=== PATIENT | female | born 1960 | race African-American/Black ===

== ENCOUNTER 2020-07-03 07:40 | Outpatient (REF) | payer MEDICAID, SELFPAY ==
--- NOTE | 2020-07-03 07:44 | MM_ITS ---
EXAMINATION: MM SCREENING DIGITAL BREAST TOMOSYNTHESIS, BILATERAL CLINICAL INFORMATION: Screening. Asymptomatic. The lifetime risk of breast cancer based on the Tyrer-Cuzick Model is 4%. COMPARISON: Mammography: 06/28/2019, 05/13/2018, 09/02/2017, 04/16/2017 TECHNIQUE: Digital breast tomosynthesis is performed in both the craniocaudal and mediolateral oblique views along with computer-aided detection (CAD). Synthesized 2D images are generated from the tomosynthesis. FINDINGS: There are scattered areas of fibroglandular density (ACR BI-RADS breast composition Category b). There are no significant masses, abnormal calcifications, or other abnormalities. Parenchymal pattern is similar to prior studies. No developing density. No significant changes. MM/MM tomosynthesis screening BI IMPRESSION: No mammographic evidence of malignancy. ASSESSMENT: BI-RADS 1: Negative RECOMMENDATION: Routine annual mammography screening. This patient's information was entered into a reminder system with a target due date for their next mammogram.
== END 2020-07-03 07:41 | disposition home or self-care (01) ==
LOC: HO.MAMMO 07:40
PROVIDERS: PCP Family Medicine; Visit Provider Family Medicine
DX: Z12.31 Encounter for screening mammogram for malignant neoplasm of breast (principal)
CPT/HCPCS: 77063; 77067

== ENCOUNTER 2020-09-26 08:08 | Outpatient (REF) | payer MEDICAID, SELFPAY ==
--- NOTE | ~2020-09-26 | XR_ITS ---
EXAMINATION: XR RIBS, BILATERAL CLINICAL INFORMATION: Pleurodynia COMPARISON: Previous chest x-ray August 2018 TECHNIQUE: 3 views of the bilateral ribs and one view of the chest were obtained. FINDINGS: Lungs are clear. No consolidation, pneumothorax, or pleural effusion. The cardiomediastinal silhouette and pulmonary vasculature are normal. Ribs are intact. No fractures are identified. There are mild degenerative changes of the thoracic spine and curvature of lower thoracic and upper lumbar spine to the left. XR/XR ribs BI min 4V w CXR1V IMPRESSION: Unremarkable examination.
== END 2020-09-26 08:09 | disposition home or self-care (01) ==
LOC: HO.XRAY 08:08
PROVIDERS: PCP Family Medicine; Visit Provider Family Medicine
DX: R07.81 Pleurodynia (principal)
CPT/HCPCS: 71111

== ENCOUNTER 2021-07-30 08:35 | Outpatient (REF) | payer MEDICAID, SELFPAY ==
--- NOTE | ~2021-07-30 | MM_ITS ---
EXAMINATION: MM SCREENING DIGITAL BREAST TOMOSYNTHESIS, BILATERAL CLINICAL INFORMATION: Screening. Asymptomatic. The lifetime risk of breast cancer based on the Tyrer-Cuzick Model is 5%. COMPARISON: Mammography: 07/03/2020, 06/28/2019, 05/13/2018 TECHNIQUE: Digital breast tomosynthesis is performed in both the craniocaudal and mediolateral oblique views along with computer-aided detection (CAD). Synthesized 2D images are generated from the tomosynthesis. FINDINGS: There are scattered areas of fibroglandular density (ACR BI-RADS breast composition Category b). There are no significant masses, abnormal calcifications, or other abnormalities. Parenchymal pattern is similar to prior studies. No significant changes. MM/MM tomosynthesis screening BI IMPRESSION: No mammographic evidence of malignancy. ASSESSMENT: BI-RADS 1: Negative RECOMMENDATION: Routine annual mammography screening. This patient's information was entered into a reminder system with a target due date for their next mammogram.
== END 2021-07-30 08:36 | disposition home or self-care (01) ==
LOC: HO.MAMMO 08:35
PROVIDERS: PCP Family Medicine; Visit Provider Family Medicine
DX: Z12.31 Encounter for screening mammogram for malignant neoplasm of breast (principal)
CPT/HCPCS: 77063; 77067

== ENCOUNTER 2022-01-23 10:21 | Outpatient (REF) | payer MEDICAID, SELFPAY ==
[2022-01-23 11:00] LABS: COVID-19 Test Negative (Negative); IDNOW Serial# 08D9AD1C
== END 2022-01-23 10:22 | disposition home or self-care (01) ==
LOC: HO.LAB 10:21
PROVIDERS: Visit Provider Internal Medicine
DX: Z20.822 Contact with and (suspected) exposure to COVID-19 (principal)
CPT/HCPCS: 87635; C9803

== ENCOUNTER 2022-03-07 13:45 | Outpatient (REF) | payer MEDICAID, SELFPAY ==
[2022-03-07 14:24] LABS: COVID-19 Test Negative (Negative)
== END 2022-03-07 13:46 | disposition home or self-care (01) ==
LOC: HO.LAB 13:45
PROVIDERS: Visit Provider Internal Medicine
DX: Z20.822 Contact with and (suspected) exposure to COVID-19 (principal)
CPT/HCPCS: 87635; C9803

== ENCOUNTER 2023-01-01 15:40 | Outpatient (REF) | payer MEDICAID, SELFPAY ==
--- NOTE | ~2023-01-01 | MM_ITS ---
EXAMINATION: MM SCREENING DIGITAL BREAST TOMOSYNTHESIS, BILATERAL CLINICAL INFORMATION: Screening. Asymptomatic. The lifetime risk of breast cancer based on the Tyrer-Cuzick Model is 5.3%. COMPARISON: Mammography: This study is compared with prior exams dating back to 2018 TECHNIQUE: Digital breast tomosynthesis is performed in both the craniocaudal and mediolateral oblique views along with computer-aided detection (CAD). Synthesized 2D images are generated from the tomosynthesis. FINDINGS: There are scattered areas of fibroglandular density (ACR BI-RADS breast composition Category b). There are no significant masses, abnormal calcifications, or other abnormalities. MM/MM tomosynthesis screening BI IMPRESSION: No mammographic evidence of malignancy. ASSESSMENT: BI-RADS BI-RADS 1 - Negative RECOMMENDATION: Routine annual mammography screening. 1 year F/U This examination should not preclude the clinical evaluation of a suspicious palpable abnormality. This patient's information was entered into a reminder system with a target due date for their next mammogram.
== END 2023-01-01 15:41 | disposition home or self-care (01) ==
LOC: HO.MAMMO 15:40
PROVIDERS: PCP Family Medicine; Visit Provider Family Medicine
DX: Z12.31 Encounter for screening mammogram for malignant neoplasm of breast (principal)
CPT/HCPCS: 77063; 77067

== ENCOUNTER → 2023-01-01 15:45 | Outpatient (BNV) | payer MEDICAID, SELFPAY | PROVIDERS: PCP Family Medicine; Visit Provider Radiology Diagnostic Radiology | DX: Z12.31 Encounter for screening mammogram for malignant neoplasm of breast (principal) | CPT/HCPCS: 77063; 77067 ==

== ENCOUNTER 2023-02-20 13:57 | Outpatient (REF) | payer MEDICAID, SELFPAY ==
[2023-02-23 07:44] LABS: TS Negative Control Passed; TS Panel A 0; TS Panel B 0; TS Positive Control Passed; TSpotTB Negative (Negative)
== END 2023-02-20 13:58 | disposition home or self-care (01) ==
LOC: HO.HHCL 13:57
PROVIDERS: Visit Provider Family Medicine
DX: Z11.1 Encounter for screening for respiratory tuberculosis (principal)
CPT/HCPCS: 36415; 86481

== ENCOUNTER 2023-04-24 09:00 | Outpatient (REF) | payer MEDICAID, SELFPAY ==
[2023-04-24 11:17] LABS: MANUAL DIFF FLAG NO
[2023-04-24 11:22] LABS: Basophils Percent Auto 0.5 % (0-2); Eosinophils Absolute Auto 0.3 X10*3/uL (0.0-0.4); Eosinophils Percent Auto 5.3 % (0-4); Hematocrit 37.2 % (37.0-47.0); Hemoglobin 12.7 g/dl (12.0-16.0); Imm Gran Abs Auto 0.01 X10*3/uL (0.00-0.03); Imm Gran Pct Auto 0.2 % (0.0-0.4); Lymphocytes Absolute Auto 2.2 X10*3/uL (1.2-4.9); Lymphocytes Percent Auto 38.5 % (20-40); Mean Corpuscular HGB Conc 34.1 g/dl (31.0-35.0); Mean Corpuscular Volume 87.9 fL (80.0-98.0); Mean Platelet Volume 11.6 fL (9.4-12.3); Monocytes Absolute Auto 0.5 X10*3/uL (0.1-1.2); Monocytes Percent Auto 8.6 % (2-11); Neutrophils Absolute Auto 2.6 x10*3/uL (2.0-8.3); Neutrophils Percent Auto 46.9 % (45-73); Platelet Count 164 X10*3/uL (160-400); Red Blood Count 4.23 X10*6/uL (4.20-5.50); Red Cell Distribution Width 12.1 % (11.0-16.0); White Blood Count 5.6 X10*3/uL (4.8-10.8)
[2023-04-24 11:30] LABS: Estimated Average Glucose 103 mg/dL; Hemoglobin A1c % 5.2 % (<6.0)
[2023-04-24 11:40] LABS: Alanine Aminotransferase 9 U/L (0-31); Albumin Level 4.2 g/dL (3.5-5.0); Alkaline Phosphatase 62 U/L (39-117); Anion Gap 11 (12-20); Aspartate Amino Transferase 19 U/L (5-31); Bilirubin Direct 0.3 mg/dL (0.0-0.5); Bilirubin Total 0.9 mg/dL (0.0-1.0); Blood Urea Nitrogen 12 mg/dL (9-16); Calcium 10.1 mg/dL (8.4-10.2); Carbon Dioxide 31 mmol/L (22-29); Chloride 104 mmol/L (96-108); Cholesterol 141 mg/dL (<200); Estimated Glomerular Filt Rate > 60; Glucose Random 108 mg/dL (60-115); HDL Cholesterol 47 mg/dL (>40); LDL Cholesterol Calculated 83 mg/dL (<100); Potassium 3.7 mmol/L (3.3-5.1); Sodium 142 mmol/L (135-145); Total Protein 7.7 g/dL (6.5-8.0); Triglycerides 59 mg/dL (<150)
[2023-04-24 11:53] LABS: HIV AB/AG Nonreactive (Nonreactive); HIV Num 1 0.05 S/CO (0.00-0.99)
[2023-04-24 11:56] LABS: Syphilis Screen Nonreactive (Nonreactive)
[2023-04-24 12:06] LABS: Free T4 (Free Thyroxine) 1.08 ng/dL (0.71-1.85); Thyroid Stimulating Hormone 1.13 uIU/mL (0.32-4.0); Vitamin D 25-OH Total 53.6 ng/mL (>30)
[2023-04-24 12:30] LABS: Creatinine Urine 152.98 mg/dL; Microalbum/Creatinine Ratio Ur 4.5 ug/mg cr (<30)
[2023-04-24 16:49] LABS: CT PCR NOT DETECTED (Not Detect.); NG PCR NOT DETECTED (Not Detect.)
[2023-04-25 12:48] LABS: Alpha Fetoprotein 3.8 ng/mL
== END 2023-04-24 09:01 | disposition home or self-care (01) ==
LOC: HO.HHCL 09:00
PROVIDERS: Visit Provider Family Medicine
DX: Z11.4 Encounter for screening for human immunodeficiency virus [HIV] (principal); Z11.3 Encounter for screening for infections with a predominantly sexual mode of transmission; I10 Essential (primary) hypertension; Z86.19 Personal history of other infectious and parasitic diseases
CPT/HCPCS: 0353U; 80048; 80061; 80076; 82043; 82105; 82306; 82570; 83036; 84439; 84443; 85025; 86780; 87389; 87522

== ENCOUNTER 2023-06-28 01:23 | Emergency (ER) | payer MEDICAID, SELFPAY ==
[2023-06-28 01:39] VITALS: BP 117/79; PULSE 98; RESP 20; TEMP 37.4; O2SAT 94; BMI 27.1
--- NOTE | 2023-06-28 03:07 | ED.GENADULT ---
HPI - General Adult General Chief complaint: General Medical Stated complaint: Flu Like Time Seen by Provider: 06/28/23 03:02 Source: patient Mode of arrival: ambulatory Limitations: no limitations History of Present Illness HPI narrative: patient comes to the emergency room complaining of 2 days of headache, diffuse body aches, generalized malaise and fevers. Patient denies any chest pain or shortness of breath, no URI or UTI symptoms. Related Data Previous Rx's Medication Instructions Recorded acetaminophen 500 mg tablet 500 mg PO QID PRN fever or pain 06/28/23 #14 tabs ibuprofen 600 mg tablet 600 mg PO TID PRN fever or pain 06/28/23 #14 tabs oseltamivir 75 mg capsule (Tamiflu) 75 mg PO Q12H 5 days #10 caps 06/28/23 Allergies Allergy/AdvReac Type Severity Reaction Status Date / Time telaprevir Allergy Intermediate SWELLING Verified 06/28/23 01:42 Review of Systems Review of Systems: Constitutional : No Weight loss, Complaining of subjective fever, chills, fatigue and generalized malaise and diffuse body aches ENT/Mouth : No Hearing loss, No Ear Pain, No Nasal Congestion, No Sinus Pain, No Hoarseness, No sore throat, No Rhinorrhea, No Swallowing Difficulty Eyes: No Eye Pain, No Swelling, No Redness, No Foreign Body, No Discharge, No Vision Changes Cardiovascular : No Chest Pain, No SOB, No Dyspnea on Exertion, No Orthopnea, No Edema, No Palpitations Respiratory : No Cough, No Sputum, No Wheezing, No Smoke Exposure, No Dyspnea Gastrointestinal : No Nausea, No Vomiting, No Diarrhea, No Constipation, No abdominal Pain, No Hematochezia, No Melena Genitourinary : no irregular bleeding, No Dysuria, No Urinary Frequency, No Hematuria, No Urinary Incontinence, No Urgency, No Flank Pain, No Urinary Flow Changes, No Hesitancy Musculoskeletal : No joint pain, No Myalgias, No Joint Swelling Skin : No Skin Lesions, No rash Neuro : No Weakness, No Numbness, No Paresthesias, No Loss of Consciousness, No Dizziness, No Headache Psych : No Anxiety/Panic, No Depression, No SI/HI/AH/VH, No Social Issues, Heme/Lymph: No Bruising, No Bleeding,No Lymphadenopathy Endocrine : No Polyuria, No Polydipsia, No Temperature Intolerance PENDING SALE TO [facility] Social History Social History Advance Directives: No Advance Directives Information Provided: Yes Physical Exam ED Vital Signs: Vital Signs - 24 hr 06/28/23 01:39 Temperature 99.3 F Pulse Rate 98 Respiratory Rate 20 Blood Pressure 117/79 Pulse Oximetry 94 Oxygen Delivery Method Room Air BMI result Body Mass Index 27.1 Const Other: Appearance: Alert. Oriented X3. No acute distress. Eyes: Pupils equal, round and reactive to light. ENT: Pharynx normal. Neck: Normal inspection. Neck supple. No lymph nodes noted. No crepitus CVS: Normal heart rate and rhythm. Pulses normal. Normal S1 and S2 Respiratory: No respiratory distress. Breath sounds normal. No Wheezing. No rales Abdomen: Soft and nontender. No rigidity. No distention. Skin: Skin warm and dry. Normal skin color. Normal skin turgor. Extremities: No lower extremity edema. No Lacerations. No Rash Neuro: Oriented X 3. No motor deficit. No sensory deficit. Moving all extremities. No slurred speech. CN 2 through 12 grossly intact Psych: calm, cooperative, normal affect Medical Decision Making Medical Decision Making [facility] Narrative: - I discussed the labs with the patient, patient tested positive for influenza A. Patient has been symptomatic for 2 days, still within the window of treatment for Tamiflu. Discussed with the patient the options of treating symptomatically versus with Tamiflu, patient would like to start Tamiflu Differential Diagnosis Differential Diagnoses: The differential diagnosis associated with the presentation includes ( influenza, COVID, viral syndrome) Lab Data [facility] Lab Attestation statement: I reviewed the patient's lab results. Labs: Lab Results 06/28/23 Range/Units 01:37 Influenza Type A (PCR) POSITIVE A (Negative) Influenza Type B (PCR) NEGATIVE (Negative) RSV RNA Qual (PCR) NEGATIVE (Negative) SARS-CoV-2 RNA (RT-PCR) NEGATIVE (Negative) Discharge Plan Discharge Clinical Impression: Influenza A Patient Disposition: Still a Patient Instructions: Influenza (ED) Additional Instructions: Please follow-up with your primary care physician tomorrow. If you have any worsening or new symptoms, please return to the emergency room or call 911 Prescriptions: New oseltamivir [Tamiflu] 75 mg capsule 75 mg PO Q12H 5 Days Qty: 10 0RF ibuprofen 600 mg tablet 600 mg PO TID PRN (Reason: fever or pain) Qty: 14 0RF acetaminophen 500 mg tablet 500 mg PO QID PRN (Reason: fever or pain) Qty: 14 0RF
[2023-06-28 03:53] VITALS: BP 105/75; PULSE 95; RESP 20; TEMP 36.8; O2SAT 98
== END 2023-06-28 03:56 | disposition home or self-care (01) ==
PROVIDERS: Emergency Provider Emergency Medicine; PCP Family Medicine
DX: J10.1 Influenza due to other identified influenza virus with other respiratory manifestations (principal); Z11.52 Encounter for screening for COVID-19
CPT/HCPCS: 0241U; 99283; 99284

== ENCOUNTER 2023-07-25 14:33 | Outpatient (REF) | payer MEDICAID, SELFPAY ==
[2023-07-26 04:23] LABS: Syphilis Screen Nonreactive (Nonreactive)
[2023-07-26 04:41] LABS: HBS Num1 2.12 mIU/mL (0-7.99); HBc Num1 0.17 S/CO (0.00-0.79); HIV AB/AG Nonreactive (Nonreactive); HIV Num 1 0.06 S/CO (0.00-0.99); Hepatitis B Core Antibody Nonreactive (Nonreactive); ~HepC Num1 10.44 S/CO (0.00-0.79); ~Hepatitis B Surface Antibody NONREACTIVE (Nonreactive); ~Hepatitis C Antibody Reactive (Nonreactive)
[2023-07-26 05:31] LABS: Hepatitis A Antibody IgM 0.19 Index (0-0.79); ~Hepatitis A Antibody IgM Nonreactive (Nonreactive)
[2023-07-26 05:41] LABS: HBsAGNum2 Nonreactive; HBsAGNum3 Nonreactive; Hepatitis B Surface Antigen NEGATIVE (Negative)
[2023-07-26 05:58] LABS: CT PCR NOT DETECTED (Not Detect.); NG PCR NOT DETECTED (Not Detect.)
[2023-07-26 11:45] LABS: BV Int Neg Control Negative (Negative); BV Int Pos Control Positive (Positive)
== END 2023-07-25 14:34 | disposition home or self-care (01) ==
LOC: HO.HHCL 14:33
PROVIDERS: Visit Provider Emergency Medicine
DX: N89.8 Other specified noninflammatory disorders of vagina (principal); R39.9 Unspecified symptoms and signs involving the genitourinary system; Z20.2 Contact with and (suspected) exposure to infections with a predominantly sexual mode of transmission
CPT/HCPCS: 0353U; 36415; 86704; 86706; 86709; 86780; 86803; 87086; 87088; 87186; 87340; 87389; 87480; 87510; 87660

== ENCOUNTER 2023-08-17 07:41 | Emergency (ER) | payer MEDICAID, SELFPAY ==
[2023-08-17 07:51] VITALS: BP 142/79; PULSE 76; RESP 16; TEMP 36.5; O2SAT 98; BMI 25.6
--- NOTE | 2023-08-17 07:59 | PC.NURSE ---
patient a&ox3, vss, pt c/o 08/30 bladder area pain, urine obtained, pt feels her uti isnt gone yet, call marin within reach, will continue to monitor
[2023-08-17 08:04] LABS: Appearance Urine Cloudy; Color Urine Yellow; Glucose Urine UA Negative (Negative); Leukocyte Esterase Urine Large (3+) (Negative); Nitrite Urine Negative (Negative); PH 6.5 (5.0-9.0); Specific Gravity - Urine 1.015 (1.005-1.025); UMIC TRIGGER UACC YES; Urine Blood Large (3+) (Negative); Urine Ketones Negative (Negative); Urine Protein 100 (2+) mg/dL (Neg-Trace)
[2023-08-17 08:09] LABS: Bacteria Urine None Seen (None Seen); Hyaline Casts Urine 0-2 /LPF (0-2); RBC Urine >20 /HPF (0-2); Squamous Epithelial Cell Urine 0-2 /HPF (0-2); UACC Culture Trigger YES; WBC Urine >50 /HPF (0-5)
--- NOTE | 2023-08-17 08:22 | ED.FEMALEGU ---
HPI - Female Genitourinary General Chief complaint: Urogenital-Female Stated complaint: UTI Time Seen by Provider: 08/17/23 08:04 Source: patient Mode of arrival: ambulatory Limitations: no limitations History of Present Illness HPI Narrative: 62-year-old female previously healthy here with complaints of 2 weeks of suprapubic pressure, urinary urgency, frequency and dysuria. Patient denies any abdominal pain, back pain, fever or vomiting. Of note patient completed a course of antibiotics several weeks ago which did seem to initially help but then her symptoms returned. Related Data Previous Rx's Medication Instructions Recorded acetaminophen 500 mg tablet 500 mg PO QID PRN fever or pain 06/28/23 #14 tabs ibuprofen 600 mg tablet 600 mg PO TID PRN fever or pain 06/28/23 #14 tabs oseltamivir 75 mg capsule (Tamiflu) 75 mg PO Q12H 5 days #10 caps 06/28/23 nitrofurantoin 100 mg PO Q12H 7 days #14 caps 08/17/23 monohydrate/macrocrystals 100 mg capsule (Macrobid) phenazopyridine 200 mg tablet 200 mg PO TID PRN pain 6 doses #6 08/17/23 (Pyridium) tabs Allergies Allergy/AdvReac Type Severity Reaction Status Date / Time telaprevir Allergy Intermediate SWELLING Verified 08/17/23 07:51 Review of Systems Review of Systems: Yes all other systems are reviewed and are negative Constitutional: Constitutional: Reports no additional constitutional complaints, Denies body ache(s), Denies chills, Denies fever(s), Denies headache(s) and Denies weakness Eyes: Eyes: Reports no additional eye complaints and Denies change in vision ENT: Reports system reviewed and no additional complaints, except as documented, Denies dizziness, Denies headache(s), Denies nasal congestion, Denies nasal discharge and Denies neck pain Cardiovascular: Cardiovascular: Reports no additional cardiovascular complaints, Denies chest pain, Denies leg edema and Denies dyspnea Respiratory: Respiratory: Reports no additional respiratory complaints, Denies cough and Denies dyspnea Gastrointestinal: Gastrointestinal: Reports no additional gastrointestinal complaints, Denies abdominal pain, Denies diarrhea, Denies nausea and Denies vomiting Genitourinary: Genitourinary: Reports no additional female genitourinary complaints, Reports dysuria, Denies flank pain, Denies urinary incontinence, Reports urinary hesitancy, Reports urinary urgency and Denies vaginal discharge Musculoskeletal: Musculoskeletal: Reports no additional musculoskeletal complaints, Denies back pain, Denies arthralgias, Denies joint swelling, Denies neck pain, Denies numbness and Denies tingling Integumentary/Breasts: Skin/Breast: Reports system reviewed and no additional complaints, except as docu and Denies rash Neurologic: Reports system reviewed and no additional complaints, except as documented, Denies Abnormal speech present, Denies dizziness, Denies headache(s), Denies numbness, Denies tingling and Denies weakness [facility] Past Medical History Attestation statement: The following information was validated with the patient. Source: old records reviewed and nursing notes reviewed Medical History UTI (urinary tract infection) Social History Social History Smoked in Last 30 Days: No Use of substances other than those prescribed or required for medical reasons: No Advance Directives: No Advance Directives Information Provided: No Patient : No Physical Exam Vital Signs: Vital Signs: Last Vital Signs Temp 97.7 F 08/17/23 07:51 Pulse 76 08/17/23 07:51 Resp 16 08/17/23 07:51 BP 142/79 H 08/17/23 07:51 Pulse Ox 98 08/17/23 07:51 O2 Del Method Room Air 08/17/23 07:51 BMI result Body Mass Index 25.6 Const: General: cooperative, healthy appearing, comfortable and no acute distress Orientation/consciousness: patient oriented x3 Limitations: no limitations HEENT: Head: Yes normal to inspection Ears: hearing grossly normal bilaterally General nose exam: Normal external nose present Face and sinus: Yes normal facial exam Mouth: Normal oral and palatal mucosa present Throat: Yes posterior oropharynx normal Eyes: General: appearance normal, both eyes and all related structures Pupils: Equal, round and reactive pupils present Neck: Neck: Yes normal visual inspection Chest: Chest palpation & inspection: normal inspection of the chest Resp: Effort & Inspection: normal respiratory effort Auscultation: clear to auscultation bilaterally Cardio: Rate: regular rate Rhythm: regular rhythm Peripheral pulses: Peripheral pulses 2+ throughout GI: Inspection: Yes normal to inspection Palpation (GI): Soft to palpation and nontender Auscultation: normal bowel sounds : General: Yes no CVA tenderness Back/Spine/Pelvis: Back: no CVA tenderness Thoracic/Lumbar Spine: thoracic and lumbar spine normal to inspection Skin: General skin exam: no rashes or lesions noted Neuro: General: patient oriented x3, no focal motor deficits and normal sensation to monofilament Cranial nerves: Yes Equal, round and reactive pupils present Cognition (Neuro): normal cognition Speech: No Abnormal speech present Gait exam (Neuro): Normal gait present Motor exam (neuro): 5/5 motor strength present throughout Extrem: General: Yes normal to inspection Medical Decision Making Medical Decision Making [facility] Narrative: 62-year-old female previously healthy here with complaints of 2 weeks of suprapubic pressure, urinary urgency, frequency and dysuria. Patient denies any abdominal pain, back pain, fever or vomiting. Of note patient completed a course of antibiotics several weeks ago which did seem to initially help but then her symptoms returned. No CVA tenderness or focal abdominal pain. Patient is well-appearing, nontoxic, afebrile Will send UA and urine culture if needed Differential Diagnosis Differential Diagnoses: The differential diagnosis associated with the presentation includes UTI Low suspicion for pyelonephritis, renal colic Admission/Observation Consideration of admission/observation: Escalation of care including admission/observation considered UA consistent with UTI, patient is afebrile, nontoxic with low suspicion for pyelonephritis or renal colic requiring urgent imaging, urology consultation and admission Lab Data [facility] Lab Attestation statement: I reviewed the patient's lab results. Labs: Lab Results 08/17/23 Range/Units 07:58 Urine Color Yellow Urine Appearance Cloudy Urine pH 6.5 (5.0-9.0) Ur Specific Darragh 1.015 (1.005-1.025) Urine Protein 100 (2+) H (Neg-Trace) mg/dL Urine Glucose (UA) Negative (Negative) mg/dL Urine Ketones Negative (Negative) mg/dL Urine Blood Large (3+) H (Negative) Urine Nitrite Negative (Negative) Ur Leukocyte Esterase Large (3+) H (Negative) Urine RBC >20 H (0-2) /HPF Urine WBC >50 H (0-5) /HPF Ur Squamous Epith Cells 0-2 (0-2) /HPF Urine Bacteria None Seen (None Seen) Hyaline Casts 0-2 (0-2) /LPF External Record Review External record reviewed: Outside ED record Tests considered The following testing was considered but not selected: No abdominal pain or flank pain to suggest need for CT abdomen and pelvis Prescription Management I considered prescription management with: Antibiotic Discharge Plan Discharge Clinical Impression: Urinary tract infection Patient Disposition: Home, Self-Care Instructions: Urinary Tract Infection in Women (DC) Additional Instructions: Increase fluids, rest Take the antibiotics as prescribed See your primary care doctor for any continued symptoms Return for fever greater than 100.4, vomiting, back or abdominal pain Prescriptions: New nitrofurantoin monohyd/m-cryst [Macrobid] 100 mg capsule 100 mg PO Q12H 7 Days Qty: 14 0RF Rx Instructions: must administer with a meal/food phenazopyridine [Pyridium] 200 mg tablet 200 mg PO TID PRN (Reason: pain) Qty: 6 0RF No Action oseltamivir [Tamiflu] 75 mg capsule 75 mg PO Q12H 5 Days Qty: 10 0RF ibuprofen 600 mg tablet 600 mg PO TID PRN (Reason: fever or pain) Qty: 14 0RF acetaminophen 500 mg tablet 500 mg PO QID PRN (Reason: fever or pain) Qty: 14 0RF Referrals: Radha Escalera DO [Primary Care Provider] - 1 week
== END 2023-08-17 09:02 | disposition home or self-care (01) ==
PROVIDERS: Emergency Provider Emergency Medicine; PCP Family Medicine
DX: N39.0 Urinary tract infection, site not specified (principal); R39.15 Urgency of urination; R35.0 Frequency of micturition; Z79.899 Other long term (current) drug therapy
CPT/HCPCS: 81001; 87086; 87088; 87186; 99283; 99284

== ENCOUNTER 2023-09-04 17:50 | Outpatient (REF) | payer MEDICAID, SELFPAY ==
[2023-09-04 18:38] LABS: Appearance Urine Turbid; Color Urine Yellow; Glucose Urine UA Negative (Negative); Leukocyte Esterase Urine Large (3+) (Negative); Nitrite Urine Negative (Negative); PH 6.5 (5.0-9.0); UMIC TRIGGER UACC YES; Urine Blood Moderate (2+) (Negative); Urine Ketones Negative (Negative); Urine Protein 100 (2+) mg/dL (Neg-Trace)
[2023-09-04 18:45] LABS: Bacteria Urine 4+ (None Seen); Hyaline Casts Urine 0-2 /LPF (0-2); RBC Urine >20 /HPF (0-2); Squamous Epithelial Cell Urine 0-2 /HPF (0-2); UACC Culture Trigger YES; WBC Urine >50 /HPF (0-5)
== END 2023-09-04 17:51 | disposition home or self-care (01) ==
LOC: HO.HHCLNP 17:50
PROVIDERS: Visit Provider Student in an Organized Health Care Education/Training Program
DX: R30.0 Dysuria (principal)
CPT/HCPCS: 81001; 87086; 87088; 87186

== ENCOUNTER 2023-11-25 15:59 | Outpatient (REF) | payer MEDICAID, SELFPAY ==
[2023-12-06 10:54] LABS: C. trachomatis RNA TMA NOT DETECTED (NOT DETECTED); N. gonorrhoeae RNA TMA NOT DETECTED (NOT DETECTED)
[2023-12-06 12:28] LABS: Trichomonas (NAAT) NOT DETECTED (NOT DETECTED)
[2023-12-11 18:14] LABS: HPV 16 RNA NOT DETECTED (NOT DETECTED); HPV mRNA E6/E7 rflx Detected (Not Detected)
== END 2023-11-25 16:00 | disposition home or self-care (01) ==
LOC: HO.HHCLNP 15:59
PROVIDERS: Visit Provider Advanced Practice Midwife
DX: R87.610 Atypical squamous cells of undetermined significance on cytologic smear of cervix (ASC-US) (principal); R87.810 Cervical high risk human papillomavirus (HPV) DNA test positive; Z11.3 Encounter for screening for infections with a predominantly sexual mode of transmission
CPT/HCPCS: 87491; 87591; 87624; 87625; 87661; 88142

== ENCOUNTER 2023-12-01 10:24 | Outpatient (REF) | payer MEDICAID, SELFPAY ==
[2023-12-01 12:25] LABS: HIV AB/AG Nonreactive (Nonreactive); HIV Num 1 0.06 S/CO (0.00-0.99); Syphilis Screen Nonreactive (Nonreactive)
== END 2023-12-01 10:25 | disposition home or self-care (01) ==
LOC: HO.HHCL 10:24
PROVIDERS: Visit Provider Advanced Practice Midwife
DX: Z11.3 Encounter for screening for infections with a predominantly sexual mode of transmission (principal)
CPT/HCPCS: 36415; 86780; 87389

== ENCOUNTER 2023-12-08 20:36 | Emergency (ER) | payer OTHER, MEDICAID, SELFPAY ==
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
[2023-12-08 21:29] VITALS: BP 148/100; PULSE 63; RESP 18; TEMP 36.2; O2SAT 99; BMI 26.6
[2023-12-08 23:38] VITALS: BP 147/80; PULSE 62; RESP 16; TEMP 36.5; O2SAT 99
--- OUTSIDE RECORDS SUMMARY | 2023-12-08 23:56 | XMS_ITS | Continuity of Care Document ---
Author Organization [facility] Address [address] [place] [id number]- Care Team Providers Care Managing Consultant Clinical Professor Name Role Phone CristianoRadha waddell DO Nicolas Primary Care Physician [phone] [place] [facility] [place] 05/08/22 - 06/07/22 [facility] [address] [place] [address]- Allergies, Adverse Reactions, Alerts Substance Reaction Severity Status clarithromycin unknown reaction Active Medications aspirin 81 mg oral tablet 1 tablet = 81 mg, By Mouth, Daily, 0 Refills, Maintenance, 10/08/18 15:35:41 EDT Start Date: 10/08/18 Status: Ordered Ativan 0.5 mg oral tablet See Instructions, TAKE 1 TABLET AT BEDTIME AND 1 TABLET 1 HOUR PRIOR TO PROCEDURE, # 2 tablet, 0 Refills, Maintenance, 04/17/21 11:30:00 EDT, Partial fill upon patient request if the prescription is for a schedule II opioid drug. Start Date: 04/17/21 Status: Ordered Compression Stockings See Instructions, # 2 pair, Refills 2, Tot. Refills 2, Maintenance, surgical, calf length 20-30 mm Hg dx: venous insufficiency, 03/29/19 15:06:44 EDT, Compound Start Date: 03/29/19 Status: Ordered Flonase Daily, 0 Refills, Maintenance, 10/08/18 15:36:02 EDT Start Date: 10/08/18 Status: Ordered hydrochlorothiazide 25 mg oral tablet 25 mg, 1, tablet, By Mouth, Daily in AM, # 30 tablet, Refills 0, Maintenance, 02/15/19 8:35:49 EDT Start Date: 02/15/19 Status: Ordered lidocaine-prilocaine 2.5%-2.5% topical cream See Instructions, APPLY TO AFFECTED LEG FROM THIGH TO ANKLE 1 HOUR PRIOR TO PROCEDURE AND COVER WITH PLASTIC WRAP, # 30 Gm, 0 Refills, Maintenance, 04/17/21 11:30:00 EDT, Partial fill upon patient request if the prescription is for a schedule II opioi... Start Date: 04/17/21 Status: Ordered nadolol 20 mg oral tablet 20 mg, 1, tablet, By Mouth, Daily, # 90 tablet, Refills 3, Tot. Refills 3, Maintenance, 02/29/20 17:30:00 EDT, Route to Pharmacy Electronically, [facility]/pharmacy #[id number], 163, cm, 02/29/20 15:14:00 EDT, Height, 75.91, kg, 02/15/19 8:30:00 EDT, Dry Weight Start Date: 02/29/20 Status: Ordered Prilosec OTC = 20 mg, By Mouth, Daily, 0 Refills, Maintenance, 10/08/18 15:36:25 EDT Start Date: 10/08/18 Status: Ordered ProAir HFA 90 mcg/inh inhalation aerosol with adapter 2, puffs, Inhalation, 4 times a day, PRN, Refills 0, Maintenance, 10/08/18 15:36:58 EDT Start Date: 10/08/18 Status: Ordered traMADol 50 mg oral tablet TAKE 1 TABLET BY MOUTH EVERY 12 HOURS NEEDED Start Date: 03/29/19 Status: Ordered Vitamin D3 By Mouth, 0 Refills, Maintenance, 10/08/18 15:35:51 EDT Start Date: 10/08/18 Status: Ordered Problem List Condition Confirmation Course Effective Dates Status H ealth Status Informant Pap smear negative/human papillomavirus (HPV) positive 1 Confirmed 2019 Active 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 plan for repeat pap with co- testing Jan 2021 colpo ileana 2 at 12:00; neg cx bx at 6 and ecc no dysplasia. referred for tx options visit. 3ECC=inadequate. Rebook for repeat sampling. 4colpo, ECC 5referred from [facility], Radha Escalera DO Social History Social History Type Response Smoking Status Never (less than 100 in lifetime) entered on: 11/19/18 Sex Patient Care team information Care Team Personnel Name: Radha Escalera DO Position: [facility] Outreach Member Role: PCP Address: Address: [address] [place] [phone]- Name: Rahel Cerrato Position: [facility] Outreach Member Role: Lifetime Consulting Physician Care Team Related Persons Name: GARFIELD ABDULLAHI Address: home [address] [place] [address] Name: YASMIN HAUSER Address: home [address] [place] [address] Name: MICHEAL HAUSER Address: home [address] [address]
--- OUTSIDE RECORDS SUMMARY | 2023-12-08 23:56 | XMS_ITS | Continuity of Care Document ---
Author Organization [facility] Address [address] [place] [id number]- Care Team Providers Care General Intern Name Role Phone Radha Escalera DO Primary Care Physician [phone] Encounter [facility] Date(s): 08/31/21 - 09/30/21 [facility] [address] [place] [id number] Attending Physician: Krystyna Junior Admitting Physician: Krystyna Junior Referring Physician: AdmtrKrystyna Allergies, Adverse Reactions, Alerts Substance Reaction Severity [...] EDT, Compound Start Date: 03/29/19 Status: Ordered Eliquis 5 mg oral tablet 1 tablet, By Mouth, 2 times a day, # 60 tablet, 5 Refills, [id number], 165, cm, 03/16/21 13:57:00 EDT, Height, 74.6, kg, 02/14/21 8:25:00 EDT, Dry Weight Start Date: 05/09/21 Status: Ordered Flonase Daily, 0 Refills, Maintenance, [...] 02/29/20 17:30:00 EDT, Route to Pharmacy Electronically, [facility]/pharmacy #[id number], 163, cm, 02/29/20 15:14:00 EDT, Height, [...] Date: 10/08/18 Status: Ordered Problem List Condition Effective Dates Status Health Status Inform ant Pap smear negative/human papillomavirus (HPV) positive(Confirmed) 2019 Active Arthritis of hand(Confirmed) Active ASCUS with positive high ris k HPV cervical(Confirmed) 2, 3, 4, 5 08/27/18 Active Chronic hepatitis C(Confirmed) Active Cirrhosis of liver not due t o alcohol(Confirmed) Active Drug-induced skin rash(Confirmed) Active Esophageal varices(Confirmed) Active HTN (hypertension)(Confirmed) Active PHT (portal hypertension)(Confirmed) Active 1colpo performed 03/09/20, neg findings, no bx done. plan for repeat pap with co- testing Jan 2021 colpo ileana 2 at 12:00; neg cx bx at 6 and ecc no dysplasia. referred for tx options visit. 3ECC=inadequate. Rebook for repeat sampling. 4colpo, ECC 5referred from [facility], Radha Escalera DO Social History Social History Type Response Smoking Status Never (less than 100 in lifetime) entered on: 11/19/18 Sex
--- OUTSIDE RECORDS SUMMARY | 2023-12-08 23:56 | XMS_ITS | Continuity of Care Document ---
Author Organization [facility] Address [address] [place] [address]- Care Team Providers Care Turf Farmer Name Role Phone Radha Escalera DO Primary Care Physician [place] [facility] [id number] Date(s): 04/26/22 - 05/03/22 [facility] [address] [place], [place] [address] [place] Attending Physician: Twila Martin NP Admitting Physician: Twila Martin NP Referring Physician: Radha Escalera DO Allergies, Adverse Reactions, Alerts Substance Reaction Severity [...] 02/29/20 17:30:00 EDT, Route to Pharmacy Electronically, [facility]/pharmacy #[id number], 163, cm, 02/29/20 15:14:00 EDT, Height, [...] for repeat sampling. 4colpo, ECC 5referred from [facility], Radha Escalera DO Vital Signs Most recent to oldest [Reference Range]: 1 Height 165 cm (04/26/22 7:49 AM) Weight 71.67 kg (04/26/22 7:49 AM) Oxygen Saturation [94-100 %] 99 % (04/26/22 7:49 AM) Pulse Rate [55-90 bpm] 67 bpm (04/26/22 7:49 AM) Body Mass Index [18.5-24.99 kg/m2] 26.33 kg/m2 *H* (04/26/22 7:49 AM) Blood Pressure [90-138/55-84 mm Hg] 128/ 68mm Hg (04/26/22 7:49 AM) Mode of Delivery (Oxygen) Room air (04/26/22 7:49 AM) Blood pressure sites Arm, left (04/26/22 7:49 AM) Weight Obtained Via Patient/family state d (04/26/22 7:49 AM) Social History Social History Type Response Smoking Status Never (less than 100 in lifetime) entered on: 11/19/18 Sex Note * Francisco Ramos: PERFORM, SIGN, VERIFY Event Display: Patient Education/Instruction Authored Date: [id number] [facility] *BVS [address] Clinical Summary Name ALIS LEMA Age 61 Years 1960 PCP Radha Escalera DO PCP Visit Date 04/26/2022 07:45:00 Additional Instructions: Scheduled Appointments?? Future Appointments ?No Future Appointments Scheduled Follow-Up Instructions ?? Diagnosis Medications: Please continue your medications until treatment is completed or stopped by your provider. Discuss any questions related to medications with your provider. Medications to Continue with No Changes These medications were not printed or sent to your pharmacy Albuterol (ProAir HFA 90 mcg/inh inhalation aerosol with adapter) 2 puff(s) Inhalation 4 times a day as needed Wheezing/Shortness of Breath. Next Dose: Aspirin (aspirin 81 mg oral tablet) 1 tab(s) Oral Daily. Next Dose: Cholecalciferol (Vitamin D3) Oral. Next Dose: Durable Medical Equipment (Compression Stockings) surgical, calf length 20-30 mm Hg dx: venous insufficiency. Refills: 2. Next Dose: Fluticasone Nasal (Flonase) Daily. Next Dose: Hydrochlorothiazide (hydrochlorothiazide 25 mg oral tablet) 1 tab(s) Oral Daily in the morning. Next Dose: Lidocaine/Prilocaine Topical (lidocaine-prilocaine 2.5%-2.5% topical cream) APPLY TO AFFECTED LEG FROM THIGH TO ANKLE 1 HOUR PRIOR TO PROCEDURE AND COVER WITH PLASTIC WRAP. Refills: 0. Next Dose: Lorazepam (Ativan 0.5 mg oral tablet) TAKE 1 TABLET AT BEDTIME AND 1 TABLET 1 HOUR PRIOR TO PROCEDURE. Refills: 0. Next Dose: Nadolol (nadolol 20 mg oral tablet) 1 tab(s) Oral Daily. Refills: 3. Next Dose: Omeprazole (Prilosec OTC) 20 Milligram Oral Daily. Next Dose: Tramadol (traMADol 50 mg oral tablet) TAKE 1 TABLET BY MOUTH EVERY 12 HOURS NEEDED. Next Dose: Allergy Info:?? clarithromycin Medications Given This Visit Future Orders ?No future orders Vital Signs Height 165 cm Weight 71.67 kg BMI 26.33 kg/m2 Blood Pressure 128 mm Hg/68 mm Hg Temperature Pulse Rate 67 bpm Respiratory Rate 02 Sat Mode of Delivery 99 %/Room air You can now view a summary of your hospital visit from the comfort of your home through a free online portal called [email or web address]. [email or web address] is a website that allows you to securely view your medical information including discharge summary, medications and follow-up visits. ??You can alsosend a secure electronic message to your doctor???s office to request appointments, renew medications or just ask a question. You can enroll at [email or web address] or register during your next office visit. Disclaimer:?? The information provided is of a general nature and is intended to be used in conjunction with the recommendations and advice of your health care practitioner. ??Every effort has been made to ensure that the information provided is accurate and complete at the time it is provided to you however, as your needs change, or, as new ??information becomes available, different or additional instructions may be required. If you have questions, please consult with your primary care provider or pharmacist, as appropriate. ??This information is not intended to serve as substitution for assessment and evaluation by a qualified health care provider. If you do not have a primary care provider, you may find a [facility] provider by calling [facility] at [phone]. For information about the plan of care including goals and instructions for your diagnosis, please see the patient education orders section of this document. Patient Education Materials?? The content of this educational material or handout may have been modified, supplemented, or adapted from its original content and format to support your individualized medical care. Patient Care team information Care Team Personnel Name: Radha Escalera DO Position: [facility] Outreach Member Role: PCP Address: Address: [address] [place] [id number] Name: Rahel Cerrato Position: [facility] Outreach Member Role: Lifetime Consulting Physician Care Team Related Persons Name: GARFIELD ABDULLAHI Address: home [address] [place] [address] Name: YASMIN HAUSER Address: home [address] [place] [address] Name: MICHEAL HAUSER Address: home [address] [address]
--- OUTSIDE RECORDS SUMMARY | 2023-12-08 23:56 | XMS_ITS | Continuity of Care Document ---
Author Organization [facility] Address [address] [place] [address]- Care Team Providers Care Digital Media Strategist Name Role Phone Radha Escalera DO Primary Care Physician Encounter [facility] [place] R [id number] Date(s): 07/30/19 - 08/09/19 [facility] [address] [place] [address]- [facility] Attending Physician: Krystyna Junior Admitting Physician: AdmtrKrystyna Referring Physician: AdmtrKrystyna Allergies, Adverse Reactions, Alerts Substance Reaction Severity Status clarithromycin unknown reaction Active Medications aspirin 81 mg oral tablet 1 tablet = 81 mg, By Mouth, Daily, 0 Refills, Maintenance, 10/08/18 15:35:41 EDT Start Date: 10/08/18 Status: Ordered Compression Stockings See Instructions, # [...] 8:35:49 EDT Start Date: 02/15/19 Status: Ordered nadolol 20 mg oral tablet 20 mg, 1, tablet, By Mouth, Daily, # 90 tablet, Refills 3, Tot. 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 referred for tx options visit. 2ECC=inadequate. Rebook for repeat sampling. 3colpo, ECC 4referred from [facility], Radha Escalera DO Social History Social History Type Response Smoking Status Never (less than 100 in lifetime) entered on: 11/19/18 Sex
--- OUTSIDE RECORDS SUMMARY | 2023-12-08 23:56 | XMS_ITS | Continuity of Care Document ---
Author Organization [facility] Address [address] [place] [address]- Care Team Providers Care Manager Wastewater Name Role Phone Radha Escalera DO Nicolas Primary Care Physician [phone] Encounter [facility] [place] Date(s): 09/03/23 - 10/03/23 [facility] [address] [place] [address]- [place] Allergies, Adverse Reactions, Alerts Substance Reaction Severity [...] 17:30:00 EDT, Route to Pharmacy Electronically, [facility]/pharmacy #[id number], 163, cm, 02/29/20 15:14:00 EDT, Height, [...] for repeat sampling. 4colpo, ECC 5referred from [facility], Radha Escalera DO Social History Social History Type Response Smoking Status Former smoker, quit more than 30 days ago entered on: 03/24/23 Sex Patient Care team information Care Team Personnel Name: Radha Escalera DO Position: [facility] Outreach Member Role: PCP Address: Address: [address] [place] [address]- Name: Rahel Cerrato Position: [facility] Outreach Member Role: Lifetime Consulting Physician Care Team Related Persons Name: GARFIELD ABDULLAHI Address: home [address] [place] [address] Name: YASMIN HAUSER Address: home [address] [place] [address] Name: MICHEAL HAUSER Address: home [address] [address]
--- OUTSIDE RECORDS SUMMARY | 2023-12-08 23:56 | XMS_ITS | Continuity of Care Document ---
Author Organization [facility] Address [address] [place] [address]- Care Team Providers Care Data Entry Operator Name Role Phone Radha Escalera DO Primary Care Physician [place] [facility] [place] 07/[place]19 - 08/06/19 [facility] [address] [place] [address]- [facility] Attending Physician: Marlo Chairez MD Admitting Physician: Marlo Chairez MD Referring Physician: Radha Escalera DO Allergies, Adverse [...] 11/28/17 12:26:15 EDT, Route to Pharmacy Electronically, [id number], [id number] Start Date: 11/28/17 Status: Ordered [...] for repeat sampling. 3colpo, ECC 4referred from [facility], Radha Escalera DO Vital Signs Most recent to oldest [Reference Range]: 1 Height 163 cm (07/30/19 11:32 AM) Weight 75.5 kg (07/30/19 11:32 AM) Body Mass Index [18.5-24.99] 28.42 *H* (07/30/19 11:32 AM) Blood Pressure [90-138/55-84 mm Hg] 142/ 80mm Hg *H* (07/30/19 11:32 AM) Blood pressure sites Arm, left (07/30/19 11:32 AM) Weight Obtained Via Patient/family state d (07/30/19 11:32 AM) Social History Social History Type Response Smoking Status Never (less than 100 in lifetime) entered on: 11/19/18 Sex
--- OUTSIDE RECORDS SUMMARY | 2023-12-08 23:56 | XMS_ITS | Continuity of Care Document ---
Author Organization [facility] Address [address] [place] [address]- Care Team Providers Care Social Services Manager Name Role Phone Radha Escalera DO Primary Care Physician [place] [facility] [place] Date(s): 11/07/21 - 12/07/21 [facility] [address] [place] [address]- [place] Allergies, Adverse Reactions, Alerts Substance Reaction [...] a day, # 60 tablet, 5 Refills, [facility], 165, cm, 03/16/21 13:57:00 EDT, Height, 74.6, [...] 02/29/20 17:30:00 EDT, Route to Pharmacy Electronically, [facility]/pharmacy #[id number], 163, cm, 02/29/20 15:14:00 EDT, Height, [...] for repeat sampling. 4colpo, ECC 5referred from [facility], Radha Escalera DO Social History Social History Type Response Smoking Status Never (less than 100 in lifetime) entered on: 11/19/18 Sex
--- OUTSIDE RECORDS SUMMARY | 2023-12-08 23:57 | XMS_ITS | Continuity of Care Document ---
Author Organization [facility] Address [address] [place] [address]- Care Team Providers Care Wagon Drill Operator Name Role Phone aRdha Escalera DO Primary Care Physician [place] [facility] Date(s): 03/25/23 - 04/24/23 [facility] [address] [place] [address]- [place] Allergies, Adverse Reactions, Alerts Substance Reaction [...] 02/29/20 17:30:00 EDT, Route to Pharmacy Electronically, [facility]/pharmacy #[id number], 163, cm, 02/29/20 15:14:00 EDT, Height, [...] for repeat sampling. 4colpo, [facility] Social History Social History Type Response Smoking Status Former smoker, quit more than 30 days ago entered on: 03/24/23 Sex Patient Care team information Care Team Personnel Name: Radha Escalera DO Position: [facility] Outreach Member Role: PCP Address: Address: [address] [place] [address]- Name: Rahel Cerrato Position: [facility] Outreach Member Role: Lifetime Consulting Physician Care Team Related Persons Name: GARFIELD ABDULLAHI Address: home [address] [place] [address] Name: YASMIN HAUSER Address: home [address] [place] [address] Name: MICHEAL HAUSER Address: home [address] [address]
--- OUTSIDE RECORDS SUMMARY | 2023-12-08 23:57 | XMS_ITS | Continuity of Care Document ---
Author Organization [facility] Address [address] [place] [address]- Care Team Providers Care Wax Pot Tender Name Role Phone Radha Escalera DO Primary Care Physician [place] [facility] [place](s): 03/25/23 - 04/24/23 [facility] [address] [place] [address]- [place] Allergies, Adverse Reactions, Alerts Substance Reaction [...] 02/29/20 17:30:00 EDT, Route to Pharmacy Electronically, [facility]/pharmacy #[id number], 163, cm, 02/29/20 15:14:00 EDT, [...] for repeat sampling. 4colpo, [facility] Social History Social History Type Response Smoking Status Former smoker, quit more than 30 days ago entered on: 03/24/23 Sex Patient Care team information Care Team Personnel Name: Radha Escalera DO Position: [facility] Outreach Member Role: PCP Address: Address: [address] [place] [address]- Name: Rahel Cerrato Position: [facility] Outreach Member Role: Lifetime Consulting Physician Care Team Related Persons Name: GARFIELD ABDULLAHI Address: home [address] [place] [address] Name: YASMIN HAUSER Address: home [address] [place] [address] Name: MICHEAL HAUSER Address: home [address] [address]
--- OUTSIDE RECORDS SUMMARY | 2023-12-08 23:57 | XMS_ITS | Continuity of Care Document ---
Author Organization [facility] Address [address] [place] [address]- Care Team Providers Care Computer Aided Design Operator Name Role Phone Cristianobairon CORNELL Radha Valenzuela Primary Care Physician [phone] [place] [facility] [place] 10/16/23 - 11/15/23 [facility] [address] [place] [address] [place] Allergies, Adverse Reactions, Alerts Substance Reaction [...] 02/29/20 17:30:00 EDT, Route to Pharmacy Electronically, [facility]/pharmacy #[id number], 163, cm, 02/29/20 15:14:00 [...] smear negative/human papillomavirus (HPV) positive 1 Confirmed 2020 Active Arthritis of hand Confirmed Active ASCUS [...] for repeat sampling. 4colpo, ECC 5referred from [facility], Radha Escalera DO Social History Social History Type Response Smoking Status Former smoker, quit more than 30 days ago entered on: 03/24/23 Sex Patient Care team information Care Team Personnel Name: Radha Escalera DO Position: [facility] Outreach Member Role: PCP Address: Address: [address] [place] [address]- Name: Rahel Cerrato Position: [facility] Outreach Member Role: Lifetime Consulting Physician Care Team Related Persons Name: GARFIELD ABDULLAHI Address: home [address] [place] [address] Name: YASMIN HAUSER Address: home [address] [place] [address] Name: MICHEAL HAUSER Address: home [address] [address]
--- OUTSIDE RECORDS SUMMARY | 2023-12-08 23:57 | XMS_ITS | Continuity of Care Document ---
Author Organization [facility] Address [address] [place] [address]- Care Team Providers Care Lockstitch Hemmer Name Role Phone Radha Escalera DO Primary Care Physician [place] [facility] Date(s): 03/16/21 - 03/23/21 [facility] [address] [place] [address]- Attending Physician: Marlo Chairez MD Admitting Physician: [...] Ordered Eliquis 5 mg oral tablet 1 tablet = 5 mg, By Mouth, 2 times a day, # 60 tablet, 0 Refills, Maintenance, 02/23/21 14:20:00 EDT, [facility]t, [id number], Partial fill upon patient request if the prescription is for a schedule II opioid drug., 165, cm, 02/19/21 9:48:00 EDT, H... Start Date: 02/23/21 Stop Date: 03/25/21 Status: Ordered Flonase Daily, 0 Refills, Maintenance, [...] 02/29/20 17:30:00 EDT, Route to Pharmacy Electronically, [facility]/pharmacy #[id number], 163, cm, 02/29/20 15:14:00 [...] for repeat sampling. 4colpo, ECC 5referred from [facility], Radha Escalera DO Vital Signs Most recent to oldest [Reference Range]: 1 Height 165 cm (03/16/21 1:57 PM) Weight 74.84 kg (03/16/21 1:57 PM) Oxygen Saturation [94-100 %] 97 % (03/16/21 1:57 PM) Pulse Rate [55-90 bpm] 66 bpm (03/16/21 1:57 PM) Body Mass Index [18.5-24.99] 27.49 *H* (03/16/21 1:57 PM) Blood Pressure [90-138/55-84 mm Hg] 138/ 80mm Hg (03/16/21 1:57 PM) Mode of Delivery (Oxygen) Room air (03/16/21 1:57 PM) Blood pressure sites Arm, left (03/16/21 1:57 PM) Weight Obtained Via Patient/family state d (03/16/21 1:57 PM) Social History Social History Type Response Smoking Status Never (less than 100 in lifetime) entered on: 11/19/18 Sex
--- OUTSIDE RECORDS SUMMARY | 2023-12-08 23:57 | XMS_ITS | Continuity of Care Document ---
Author Organization [facility] Address [address] [place] [address]- Care Team Providers Care Delivery Tech Name Role Phone Radha Escalera DO Primary Care Physician Encounter [facility] [place] Date(s): 01/10/21 - 01/17/21 [facility] [address] [place] [address]- Attending Physician: Marlo Chairez MD Admitting Physician: [...] 02/29/20 17:30:00 EDT, Route to Pharmacy Electronically, [facility]/pharmacy #[id number], 163, cm, 02/29/20 15:14:00 EDT, [...] for repeat sampling. 4colpo, ECC 5referred from [facility], Radha Escalera DO Vital Signs Most recent to oldest [Reference Range]: 1 Height 165.1 cm (01/10/21 10:47 AM) Weight 75.75 kg (01/10/21 10:47 AM) Oxygen Saturation [94-100 %] 95 % (01/10/21 10:47 AM) Pulse Rate [55-90 bpm] 61 bpm (01/10/21 10:47 AM) Body Mass Index [18.5-24.99] 27.79 *H* (01/10/21 10:47 AM) Blood Pressure [90-138/55-84 mm Hg] 118/ 72mm Hg (01/10/21 10:47 AM) Blood pressure sites Arm, right (01/10/21 10:47 AM) Weight Obtained Via Patient/family state d (01/10/21 10:47 AM) Social History Social History Type Response Smoking Status Never (less than 100 in lifetime) entered on: 11/19/18 Sex
--- OUTSIDE RECORDS SUMMARY | 2023-12-08 23:57 | XMS_ITS | Continuity of Care Document ---
Author Organization [facility] Address [address] [place] [address]- Care Team Providers Care Process Mold Technician Name Role Phone Radha Escalera DO Primary Care Physician Encounter [facility] [place] [place] Date(s): 04/04/21 - 08/01/21 [facility] [address] [place] [address]- Attending Physician: Francisco Avila MD Admitting Physician: Francisco Avila MD Referring Physician: Radha Escalera DO Allergies, [...] a day, # 60 tablet, 5 Refills, [facility], 165, cm, 03/16/21 13:57:00 EDT, Height, 74.6, [...] EDT, Route to Pharmacy Electronically, [facility]/pharmacy #[id number], 163, cm, 02/29/20 15:14:00 EDT, [...] for repeat sampling. 4colpo, ECC 5referred from [facility], Radha Escalera DO Social History Social History Type Response Smoking Status Never (less than 100 in lifetime) entered on: 11/19/18 Sex
--- OUTSIDE RECORDS SUMMARY | 2023-12-08 23:57 | XMS_ITS | Continuity of Care Document ---
Author Organization [facility] Address [address] [place] [address]- Care Team Providers Care Construction Project Coordinator Name Role Phone Radha Escalera DO Primary Care Physician [facility] [place] Date(s): 08/05/22 - 09/04/22 [facility] [address] [place] [address]- Attending Physician: Krystyna Junior Admitting Physician: Krystyna Junior Referring Physician: trKrystyna Allergies, Adverse Reactions, Alerts Substance Reaction Severity [...] 02/29/20 17:30:00 EDT, Route to Pharmacy Electronically, [facility]/pharmacy #[id number], 163, cm, 02/29/20 15:14:00 EDT, [...] for repeat sampling. 4colpo, ECC 5referred from [facility], Radha Escalera DO Social History Social History Type Response Smoking Status Never (less than 100 in lifetime) entered on: 11/19/18 Sex Patient Care team information Care Team Personnel Name: Radha Escalera DO Position: [facility] Outreach Member Role: PCP Address: Address: [address] [place] [address]- Name: Raehl Cerrato Position: [facility] Outreach Member Role: Lifetime Consulting Physician Care Team Related Persons Name: GARFIELD ABDULLAHI Address: home [address] [place] [address] Name: YASMIN HAUSER Address: home [address] [place] [address] Name: MICHEAL HAUSER Address: home [address] [address]
--- OUTSIDE RECORDS SUMMARY | 2023-12-08 23:57 | XMS_ITS | Continuity of Care Document ---
Author Organization [facility] Address [address] [place] [address]- Care Team Providers Care Storage Garage Manager Name Role Phone Cristianobairon Radha CORNELL Primary Care Physician [phone] [place] [facility] [place] [id number] Date(s): 10/24/20 - 11/23/[address] [address]- Attending Physician: Admbertrand, Krystyna Admitting Physician: AdmtrKrystyna Referring Physician: Admtr, Ar8 Allergies, Adverse Reactions, Alerts Substance Reaction Severity [...] 02/29/20 17:30:00 EDT, Route to Pharmacy Electronically, [facility]/pharmacy #[id number], 163, cm, 09/08/20 15:14:00 EDT, Height, 75.91, kg, 02/15/19 8:30:00 [...] for repeat sampling. 4colpo, ECC 5referred from [facility], Radha Escalera DO Social History Social History Type Response Smoking Status Never (less than 100 in lifetime) entered on: 11/19/18 Sex
--- OUTSIDE RECORDS SUMMARY | 2023-12-08 23:57 | XMS_ITS | Continuity of Care Document ---
Author Organization [facility] Address [address] [place] [address]- Care Team Providers Care Custom Furrier Name Role Phone Radha Escalera DO Primary Care Physician [place] [facility] [place](s): 02/29/20 - 03/30/20 [facility] [address] [place] [address]- [facility] Attending Physician: Admtr, [id number] Admitting Physician: Admtr, Jass8 Referring Physician: Admtr, Ar8 Allergies, Adverse Reactions, [...] 02/29/20 17:30:00 EDT, Route to Pharmacy Electronically, [facility]/pharmacy #[id number], 163, cm, 02/29/20 15:14:00 EDT, Height, 75.91, kg, 02/15/19 8:30:00 EDT, Dry Weight Start Date: 02/29/20 Status: Ordered NuLYTELY with Flavor Packs oral powder for reconstitution See Instructions, Drink 240mL every 10-15 minutes until first half is gone. Repeat 6 hours prior toprocedure., # 4,000 mL, 0 Refills, Maintenance, 02/29/20 17:31:00 EDT, [facility]/pharmacy #[id number], Drink 240mL every 10-15 minutes until first half is gone.... Start Date: 02/29/20 Status: Ordered Premarin Vaginal 0.625 mg/gm cream with applicator = 1 Gm, Vaginally, Daily before dinner, follow with twice weekly, can reduce to once weekly, # 30 Gm, 1 Refills, Maintenance, 03/09/20 15:05:00 EDT, [facility]/pharmacy #[id number], 1 Gm Vaginally Daily before dinner,x21 days,Instr:follow with twice weekly, can re... Start Date: 03/09/20 Stop Date: 04/20/20 Status: Ordered Prilosec OTC = 20 mg, [...] for repeat sampling. 4colpo, ECC 5referred from [facility], Radha Escalera DO Vital Signs Most recent to oldest [Reference Range]: 1 2 3 Height 165.10 cm (07/01/11 9:56 AM) 165.10 cm (06/20/11 11:00 AM) 165.10 cm (03/05/11 9:59 AM) Weight 68.310 kg (07/01/11 9:56 AM) 67.800 kg (06/20/11 11:00 AM) 67.500 kg (03/05/11 9:59 AM) Pulse Rate [55-90 bpm] 104 bpm *H* (07/01/11 9:56 AM) 80 bpm (06/20/11 11:00 AM) 66 bpm (03/05/11 9:59 AM) Body Mass Index [18.50-24.99] 25.06 *H* (07/01/11 9:56 AM) 24.87 (06/20/11 11:00 AM) 24.76 (03/05/11 9:59 AM) Blood Pressure [90-138/55-84 mm Hg] 108/70mm Hg (07/01/11 9:56 AM) 110/70mm Hg (06/20/11 11:00 AM) 120/66mm Hg (03/05/11 9:59 AM) Respiratory Rate [16-30 br/min] 15 br/min *L* (07/01/11 9:56 AM) 17 br/min (06/20/11 11:00 AM) 18 br/min (08/16/10 10:41 AM) Temperature [96.8-100.4 DegF] 98.6 DegF (07/01/11 9:56 AM) 99.2 DegF (06/20/11 11:00 AM) 98.9 DegF (03/05/11 9:59 AM) Blood pressure sites Arm, right (1/9/12 9:56 AM) Arm, right (06/20/11 11:00 AM) Arm, left (03/05/11 9:59 AM) Temperature Route Temporal (07/01/11 9:56 AM) Temporal (06/20/11 11:00 AM) Temporal (03/05/11 9:59 AM) Social History Social History Type Response Smoking Status Never (less than 100 in lifetime) entered on: 11/19/18 Sex
--- OUTSIDE RECORDS SUMMARY | 2023-12-08 23:57 | XMS_ITS | Continuity of Care Document ---
Author Organization [facility] Address [address] [place] [address]- Care Team Providers Care Supervisor Evaporator Name Role Phone Radha Escalera DO Primary Care Physician En[place] [facility] [place] [id number] Date(s): 08/05/22 - 08/12/22 [facility] [address] [place], [place] [address] Attending Physician: Marlo Chairez MD Admitting Physician: [...] 02/29/20 17:30:00 EDT, Route to Pharmacy Electronically, [facility]/pharmacy #[id number], 163, cm, 02/29/20 15:14:00 [...] oldest [Reference Range]: 1 Height 165 cm (08/05/22 2:59 PM) Weight 71.67 kg (08/05/22 2:59 PM) Oxygen Saturation [94-100 %] 98 % (08/05/22 2:59 PM) Pulse Rate [55-90 bpm] 70 bpm (08/05/22 2:59 PM) Body Mass Index [18.5-24.99 kg/m2] 26.33 kg/m2 *H* (08/05/22 2:59 PM) Blood Pressure [90-138/55-84 mm Hg] 104/ 70mm Hg (08/05/22 2:59 PM) Mode of Delivery (Oxygen) Room air (08/05/22 2:59 PM) Blood pressure sites Arm, left (08/05/22 2:59 PM) Weight Obtained Via Patient/family state d (08/05/22 2:59 PM) Social History Social History Type Response Smoking Status Never (less than 100 in lifetime) entered on: 11/19/18 Sex Note * Maryellen Funes: PERFORM, SIGN, VERIFY Event Display: Patient Education/Instruction Authored Date: [id number] [facility] *BVS [address] Clinical Summary Name ALIS LEMA Age 61 Years 1960 PCP Radha Escalera DO PCP Visit Date 08/05/2022 14:54:00 Additional Instructions: Scheduled Appointments?? Future Appointments ?*[facility]??Gastro ?[address]??[place],??[place],??[address] ?Phone:??--?Fax:??-- ?Appt. Date:??08/21/2022?3:15 PM ?Scheduled Provider:??Francisco Avila MD Follow-Up Instructions ?? Diagnosis Medications: Please continue [...] 71.67 kg BMI 26.33 kg/m2 Blood Pressure 104 mm Hg/70 mm Hg Temperature Pulse Rate 70 bpm Respiratory Rate 02 Sat Mode of Delivery 98 %/Room air You can now view a summary of your hospital visit from the comfort of your home through a free online portal called Skycure. Skycure is a website that allows you to securely view your medical information including discharge summary, medications and follow-up visits. ??You can alsosend a secure electronic message to your doctor???s office to request appointments, renew medications or just ask a question. You can enroll at [email or web address] or register during your next office visit. [...] primary care provider, you may find a [facility] provider by calling [facility] Betable Link at [phone]. For information about the plan of care [...] Team Personnel Name: Radha Escalera DO Position: [facility] Outreach Member Role: PCP Address: Address: [address] [place] [address] Name: Rahel Cerrato Position: [facility] Outreach Member Role: Lifetime Consulting Physician Care Team Related Persons Name: GARFIELD ABDULLAHI Address: home [address] [place] [address] Name: YASMIN HAUSER Address: home [address] [place] [address] Name: MICHEAL HAUSER Address: home [address] [address]
--- OUTSIDE RECORDS SUMMARY | 2023-12-08 23:57 | XMS_ITS | Continuity of Care Document ---
Author Organization [facility] Address [address] [place] [address]- Care Team Providers Care Music Typographer Name Role Phone Radha Escalera DO Primary Care Physician Encounter [facility] [place] Date(s): 04/30/21 - 05/30/21 [facility] [address] [place] [address]- Attending Physician: Krystyna Junior Admitting Physician: Krystyna [...] # 60 tablet, 5 Refills, [id number], 165, cm, 03/16/21 13:57:00 EDT, Height, 74.6, [...] EDT, Route to Pharmacy Electronically, [facility]/pharmacy #[id number], 163, cm, 02/29/20 15:14:00 EDT, Height, [...] for repeat sampling. 4colpo, ECC 5referred from [facility], Radha Escalera DO Social History Social History Type Response Smoking Status Never (less than 100 in lifetime) entered on: 11/19/18 Sex
--- OUTSIDE RECORDS SUMMARY | 2023-12-08 23:57 | XMS_ITS | Continuity of Care Document ---
Author Organization [facility] Address [address] [place] [address]- Care Team Providers Care Dye Lab Technician Name Role Phone Radha Escalera DO Primary Care Physician [facility] [id number] Date(s): 05/08/22 - 06/29/22 [facility] [address] [place], [place] [address] Attending Physician: Marlo Chairez MD Admitting Physician: [...] 02/29/20 17:30:00 EDT, Route to Pharmacy Electronically, [facility]/pharmacy #[id number], 163, cm, 02/29/20 15:14:00 [...] for repeat sampling. 4colpo, ECC 5referred from [facility], Radha Escalera DO Vital Signs Most recent to oldest [Reference Range]: 1 Height 165 cm (05/30/22 8:43 AM) Weight 71.67 kg (05/30/22 8:43 AM) Oxygen Saturation [94-100 %] 98 % (05/30/22 8:43 AM) Pulse Rate [55-90 bpm] 67 bpm (05/30/22 8:43 AM) Body Mass Index [18.5-24.99 kg/m2] 26.33 kg/m2 *H* (05/30/22 8:43 AM) Blood Pressure [90-138/55-84 mm Hg] 130/ 84mm Hg (05/30/22 8:43 AM) Mode of Delivery (Oxygen) Room air (05/30/22 8:43 AM) Blood pressure sites Arm, left (05/30/22 8:43 AM) Weight Obtained Via Patient/family state d (05/30/22 8:43 AM) Social History Social History Type Response Smoking Status Never (less than 100 in lifetime) entered on: 11/19/18 Sex Note * Francisco Ramos: PERFORM, SIGN, VERIFY Event Display: Patient Education/Instruction Authored Date: [id number] [facility] *BVS [address] Clinical Summary Name ALIS LEMA Age 61 Years 1960 PCP Radha Escalera DO PCP Visit Date 05/30/2022 08:29:00 Additional Instructions: Scheduled Appointments?? Future Appointments ?*[facility]??Gastro ?[address]??[place],??[place],??[address] ?Phone:??--?Fax:??-- ?Appt. Date:??08/21/2022?3:15 PM ?Scheduled Provider:??Francisco Avila [...] 71.67 kg BMI 26.33 kg/m2 Blood Pressure 130 mm Hg/84 mm Hg Temperature Pulse Rate 67 bpm Respiratory Rate 02 Sat Mode of Delivery 98 %/Room air You can now view a summary of your hospital visit from the comfort of your home through a free online portal called iConnect CRM. iConnect CRM is a website that allows you to securely view your medical information including discharge summary, medications and follow-up visits. ??You can alsosend a secure electronic message to your doctor???s office to request appointments, renew medications or just ask a question. You can enroll at [email or web address] or register during your next [...] primary care provider, you may find a [facility] provider by calling [facility] GetYou Link at [phone]. For information about the plan of care [...] Team Personnel Name: Radha Escalera DO Position: [facility] Outreach Member Role: PCP Address: Address: [address] [place] [address] Name: Rahel Cerrato Position: [facility] Outreach Member Role: Lifetime Consulting Physician Care Team Related Persons Name: GARFIELD ADBULLAHI Address: home [address] [place] [address] Name: YASMIN HAUSER Address: home [address] [place] [address] Name: MICHEAL HAUSER Address: home [address] [address]
--- OUTSIDE RECORDS SUMMARY | 2023-12-08 23:57 | XMS_ITS | Continuity of Care Document ---
Author Organization [facility] Address [address] [place] [address]- Care Team Providers Care Water Purifier Name Role Phone Radha Escalera DO Primary Care Physician [phone] [place] [facility] [place]19[place]21 - 02/26/21 [facility] [address] [place] [address]- Attending Physician: Radha Escalera DO Admitting Physician: Radha Escalera DO Allergies, Adverse Reactions, [...] Refills, Maintenance, 02/23/21 14:20:00 EDT, [id number], Partial fill upon patient request if the [...] for repeat sampling. 4colpo, [facility] Vital Signs Most recent to oldest [Reference Range]: 1 Height 165 cm (02/19/21 9:48 AM) Weight 74.84 kg (02/19/21 9:48 AM) Oxygen Saturation [94-100 %] 98 % (02/19/21 9:48 AM) Pulse Rate [55-90 bpm] 58 bpm (02/19/21 9:48 AM) Body Mass Index [18.5-24.99] 27.49 *H* (02/19/21 9:48 AM) Blood Pressure [90-138/55-84 mm Hg] 112/ 66mm Hg (02/19/21 9:48 AM) Mode of Delivery (Oxygen) Room air (02/19/21 9:48 AM) Blood pressure sites Arm, right (02/19/21 9:48 AM) Weight Obtained Via Patient/family state d (02/19/21 9:48 AM) Social History Social History Type Response Smoking Status Never (less than 100 in lifetime) entered on: 11/19/18 Sex
--- OUTSIDE RECORDS SUMMARY | 2023-12-08 23:57 | XMS_ITS | Continuity of Care Document ---
Author Organization [facility] Address [address] [place] [address]- Care Team Providers Care Hair Or Beauty Salon Manager Name Role Phone Radha Escalera DO Primary Care Physician [phone] Encounter [facility] Date(s): 01/16/21 - 02/15/21 [facility] [address] [place] [address]- Allergies, Adverse Reactions, Alerts Substance Reaction Severity [...] 02/29/20 17:30:00 EDT, Route to Pharmacy Electronically, [facility]/pharmacy #[id number], 163, cm, 02/29/20 15:14:00 [...] for repeat sampling. 4colpo, ECC 5referred from [facility], Radha Escalera DO Social History Social History Type Response Smoking Status Never (less than 100 in lifetime) entered on: 11/19/18 Sex
--- OUTSIDE RECORDS SUMMARY | 2023-12-08 23:57 | XMS_ITS | Continuity of Care Document ---
Author Organization [facility] Address [address] [place] [address]- Care Team Providers Care Creative Strategist Name Role Phone Radha Escalera DO Primary Care Physician [place] [facility] [place]14[place]21 - 06/13/21 [facility] [address] [place] [address]- Allergies, Adverse Reactions, Alerts Substance Reaction Severity [...] # 60 tablet, 5 [facility]ills, [facility], 165, cm, 03/16/21 13:57:00 EDT, Height, 74.6, [...] 02/29/20 17:30:00 EDT, Route to Pharmacy Electronically, [facility]/pharmacy #[id number], 163, cm, 02/29/20 15:14:00 [...] for repeat sampling. 4colpo, ECC 5referred from [facility], Radha Escalera DO Social History Social History Type Response Smoking Status Never (less than 100 in lifetime) entered on: 11/19/18 Sex
--- OUTSIDE RECORDS SUMMARY | 2023-12-08 23:57 | XMS_ITS | Continuity of Care Document ---
Author Organization [facility] Address [address] [place] [address]- Care Team Providers Care Press Department Manager Name Role Phone Radha Escalera DO Primary Care Physician Encounter [facility] [place] Date(s): 03/24/23 - 04/23/23 [facility] [address] [place] [address]- Attending Physician: Krystyna Junior Admitting Physician: Krystyna Junior Referring Physician: Krystyna Junior Allergies, Adverse Reactions, Alerts Substance Reaction Severity [...] 02/29/20 17:30:00 EDT, Route to Pharmacy Electronically, [facility]/pharmacy #[id number], 163, cm, 02/29/20 15:14:00 EDT, [...] for repeat sampling. 4colpo, ECC 5referred from [facility], Radha Escalera DO Vital Signs Most recent [...] 9:59 AM) Blood pressure sites Arm, right (07/01/11 9:56 AM) Arm, right (06/20/11 11:00 AM) Arm, left (03/05/11 9:59 AM) Temperature Route Temporal (07/01/11 9:56 AM) Temporal (06/20/11 11:00 AM) Temporal (03/05/11 9:59 AM) Social History Social History Type Response Smoking Status Former smoker, quit more than 30 days ago entered on: 03/24/23 Sex Note * Galdino Siddiqi: PERFORM, SIGN, VERIFY Event Display: Patient Education/Instruction Authored Date: [id number] [facility] Clinical Summary Person Information Name ALIS LEMA Age 50 Years 1960 12:00 AM PCP Radha Escalera DO PCP [facility]# [id number] Reason for Visit: Allergy Info: NKA Vital Signs Height 165.10 cm Weight 67.200 kg BMI 24.65 Blood Pressure 140 mm Hg/90 mm Hg Temperature 98.6 DegF Pulse Rate 88 bpm Respiratory Rate 18 br/min 02 Sat Mode of Delivery / Medication Information Peginterferon Tramaine-2A (Pegasys 180 mcg/ml subcutaneous solution) , Subcutaneous Infusion, Refills: 0 Ribavirin (Ribasphere 200 mg oral tablet) 2 tablet, Oral, twice a day, Refills: 0 Problem List Date Problem 06/12/10 Cirrhosis of liver not due to alcohol 06/12/10 Chronic hepatitis C If the following labs have been performed in the last year, the most recent result is displayed below. Diagnostic Results Lab Result Value Date Lead Hemoglobin A1C LDL HDL Triglycerides Total Cholesterol Disclaimer: The information provided is of a general nature and is intended to be used in conjunction with the recommendations and advice of your health care practitioner. Every effort has been made to ensure that the information provided is accurate and complete at the time it is provided to you however, as your needs change, or, as new information becomes available, different or additional instructions may be required. If you have questions, please consult with your primary care provider or pharmacist, as appropriate. This information is not intended to serve as substitution for assessment and evaluation by a qualified health care provider. If you do not have a primary care provider, you may find a [facility] provider by calling [facility] Health Link at [phone]. 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 Patient Education Material: Patient Care team information Care Team Personnel Name: Radha Escalera DO Position: [facility] Outreach Member Role: PCP Address: Address: [address] [place] [address]- Name: Rahel Cerrato Position: [facility] Outreach Member Role: Lifetime Consulting Physician Care Team Related Persons Name: GARFIELD ABDULLAHI Address: home [address] [place] [address] Name: YASMIN HAUSER Address: home [address] [place] [address] Name: MICHEAL HAUSER Address: home [address] [address]
--- OUTSIDE RECORDS SUMMARY | 2023-12-08 23:57 | XMS_ITS | Continuity of Care Document ---
Author Organization [facility] ter Address [address] [place] [address]- Care Team Providers Care Chair Spring Assembler Name Role Phone Radha Escalera DO Primary Care Physician [place] [facility] [place] Date(s): 10/16/23 - 11/29/[address] [address] Attending Physician: Radha Escalera DO Admitting Physician: Radha Escalera DO Referring Physician: Radha Escalera DO Allergies, Adverse [...] EDT, Route to Pharmacy Electronically, [facility]/pharmacy #[id number], 163, cm, 02/29/20 15:14:00 EDT, Height, [...] from [facility], Radha Escalera DO Social History Social History Type Response Smoking Status Former smoker, quit more than 30 days ago entered on: 03/24/23 Sex Patient Care team information Care Team Personnel Name: Radha Escalera DO Position: [facility] Outreach Member Role: PCP Address: Address: [address] [place] [address]- Name: Rahel Cerrato Position: [facility] Outreach Member Role: Lifetime Consulting Physician Care Team Related Persons Name: GARFIELD ABDULLAHI Address: home [address] [facility] [place] [address] Name: YASMIN HAUSER Address: home [address] [place] [address] Name: MICHEAL HAUSER Address: home [address] [address]
--- OUTSIDE RECORDS SUMMARY | 2023-12-08 23:57 | XMS_ITS | Continuity of Care Document ---
Author Organization [facility] Address [address] [place] [address]- Care Team Providers Care Home Health Nurse Licensed Practical Name Role Phone Radha Escalera DO Primary Care Physician En[place] [facility] [place] Date(s): 08/27/21 - 09/26/21 [facility] [address] [place] [address]- Attending Physician: Krystyna Junior Admitting Physician: Krystyna [...] a day, # 60 tablet, 5 Refills, [facility], 165, cm, 03/16/21 13:57:00 EDT, Height, 74.6, [...] EDT, Route to Pharmacy Electronically, [facility]/pharmacy #[id number], 163, cm, 02/29/20 15:14:00 [...] for repeat sampling. 4colpo, ECC 5referred from [facility], Radha Escalera DO Vital Signs Most [...]
--- OUTSIDE RECORDS SUMMARY | 2023-12-08 23:57 | XMS_ITS | Continuity of Care Document ---
Author Organization [facility] Address [address] [address]- Care Team Providers Care Tight Cooper Name Role Phone Radha Escalera DO Primary Care Physician [place] [facility] [place]23[place]21 - 03/25/21 [facility] [address] [address]- Attending Physician: Krystyna Junior Admitting Physician: AdmKrystyna thurston Referring Physician: Admtr Ar8 Allergies, Adverse Reactions, Alerts Substance Reaction [...] 0 Refills, Maintenance, 02/23/21 14:20:00 EDT, Tablet, [facility]/pharmacy #[id number], Partial fill upon patient request if the [...] 02/29/20 17:30:00 EDT, Route to Pharmacy Electronically, [facility]/pharmacy #[id number], 163, cm, 02/29/20 15:14:00 [...] for repeat sampling. 4colpo, ECC 5referred from [facility], Radha Escalera DO Social History Social History Type Response Smoking Status Never (less than 100 in lifetime) entered on: 11/19/18 Sex
--- OUTSIDE RECORDS SUMMARY | 2023-12-08 23:57 | XMS_ITS | Continuity of Care Document ---
Author Organization [facility] Address [address] [place] [address]- Care Team Providers Care Machinery Dismantler Name Role Phone Radha Escalera DO Nicolas Primary Care Physician [phone] Encounter [facility] [place] Date(s): 09/02/23 - 10/02/23 [facility] [address] [place] [address] [place] Allergies, Adverse Reactions, Alerts Substance Reaction [...] 17:30:00 EDT, Route to Pharmacy Electronically, [facility]/pharmacy #[id number], 163, cm, 02/29/20 15:14:00 EDT, Height, [...] for repeat sampling. 4colpo, ECC 5referred from [facility], Radha Escalera DO Social History Social History Type Response Smoking Status Former smoker, quit more than 30 days ago entered on: 03/24/23 Sex Patient Care team information Care Team Personnel Name: Radha Escalera DO Position: [facility] Outreach Member Role: PCP Address: Address: [address] [place] [address]- Name: Rahel Cerrato Position: [facility] Outreach Member Role: Lifetime Consulting Physician Care Team Related Persons Name: GARFIELD ABDULLAHI Address: home [address] [place] [address] Name: YASMIN HAUSER Address: home [address] [place] [address] Name: MICHEAL HAUSER Address: home [address] [address]
--- OUTSIDE RECORDS SUMMARY | 2023-12-08 23:57 | XMS_ITS | Continuity of Care Document ---
Author Organization [facility] ter Address [address] [place] [address]- Care Team Providers Care Green Lumber Grader Name Role Phone Cristianobairon Radha CORNELL Primary Care Physician Encounter [facility] Date(s): 02/14/21 - 02/14/[address] [address] Discharge Disposition: A-D/C Home Attending Physician: Marlo Chairez MD Admitting Physician: Marlo Chairez MD Referring Physician: Marlo Chairez MD Allergies, Adverse Reactions, Alerts Substance Reaction Severity [...] 17:30:00 EDT, Route to Pharmacy Electronically, [facility]/pharmacy #[id number], 163, cm, 02/29/20 15:14:00 EDT, Height, 75.91, kg, 02/15/19 8:30:00 EDT, Dry Weight Start Date: 02/29/20 Status: Ordered OxyCODONE IR Tablet 5 mg, Tablet, By Mouth, Once, in PACU ONLY, if patient can tolerate PO, PRN for Pain , Mild, Routine, 02/14/21 8:21:00 EDT Start Date: 02/14/21 Stop Date: 02/14/21 Status: Completed Prilosec OTC = 20 mg, By Mouth, [...] for repeat sampling. 4colpo, ECC 5referred from [facility], Radha Escalera DO Vital Signs Most recent to oldest [Reference Range]: 1 2 3 Height 165 cm (02/14/21 7:40 AM) 165 cm (01/30/21 1:15 PM) Weight 74.6 kg (02/14/21 7:40 AM) Oxygen Saturation [94-100 %] 100 % (02/14/21 9:30 AM) 100 % (02/14/21 9:15 AM) 100 % (02/14/21 9:00 AM) Pulse Rate [55-90 bpm] 61 bpm (02/14/21 7:40 AM) Body Mass Index [18.5-24.99] 27.4 *H* (02/14/21 7:40 AM) Blood Pressure [90-138/55-84 mm Hg] 112/76mm Hg (02/14/21 9:30 AM) 130/71mm Hg (02/14/21 9:15 AM) 122/69mm Hg (02/14/21 9:00 AM) Respiratory Rate [16-30 br/min] 21 br/min (02/14/21 9:43 AM) 13 br/min *L* (02/14/21 9:15 AM) 11 br/min *L* (02/14/21 9:00 AM) Temperature [96.8-100.4 DegF] 97.6 DegF (02/14/21 9:30 AM) 97.6 DegF (02/14/21 8:45 AM) 96.8 DegF (02/14/21 7:40 AM) Liters per Minute 6 L/min (02/14/21 8:45 AM) Mode of Delivery (Oxygen) Room air (02/14/21 9:30 AM) Room air (02/14/21 9:00 AM) Simple face mask (02/14/21 8:45 AM) Blood pressure sites Arm, right (02/14/21 8:45 AM) Arm, right (02/14/21 7:40 AM) Temperature Route Temporal (02/14/21 9:30 AM) Temporal (02/14/21 8:45 AM) Temporal (02/14/21 7:40 AM) Dry Weight 74.6 kg (02/14/21 7:40 AM) Weight Obtained Via Standing scale (02/14/21 7:40 AM) Dry Weight Obtained Via Standing scale (02/14/21 7:40 AM) Social History Social History Type Response Smoking Status Never (less than 100 in lifetime) entered on: 11/19/18 Sex
--- OUTSIDE RECORDS SUMMARY | 2023-12-08 23:57 | XMS_ITS | Continuity of Care Document ---
Author Organization [facility] Address [address] [place] [address]- Care Team Providers Care Public Health Epidemiologist Name Role Phone Cristianobairon Radha CORNELL Primary Care Physician [phone] [facility] [id number] Date(s): 08/04/20 - 11/23/[address] [address]- Attending Physician: Not on Staff, Attending MD Allergies, Adverse Reactions, Alerts Substance Reaction [...] 02/29/20 17:30:00 EDT, Route to Pharmacy Electronically, [facility]/pharmacy #[id number], 163, cm, 02/29/20 15:14:00 [...] for repeat sampling. 4colpo, ECC 5referred from [facility], Radha Escalera DO Social History Social History Type Response Smoking Status Never (less than 100 in lifetime) entered on: 11/19/18 Sex
--- OUTSIDE RECORDS SUMMARY | 2023-12-08 23:57 | XMS_ITS | Continuity of Care Document ---
Author Organization [facility] Address [address] [place] [address]- Care Team Providers Care Stock Replenisher Name Role Phone Radha Escalera DO Primary Care Physician [phone] En[id number] Date(s): 05/30/22 - 06/29/22 [facility] [address] [place], [place] [address] Attending Physician: Krystyna Junior Admitting Physician: AdmtrKrystyna [...] 02/29/20 17:30:00 EDT, Route to Pharmacy Electronically, [facility]/pharmacy #[id number], 163, cm, 02/29/20 15:14:00 EDT, [...] for repeat sampling. 4colpo, ECC 5referred from [facility], Radha Escalera DO Social History Social History Type Response Smoking Status Never (less than 100 in lifetime) entered on: 11/19/18 Sex Patient Care team information Care Team Personnel Name: Radha Escalera DO Position: [facility] Outreach Member Role: PCP Address: Address: [address] [place] [address]- Name: Rahel Cerrato Position: [facility] Outreach Member Role: Lifetime Consulting Physician Care Team Related Persons Name: GARFIELD ABDULLAHI Address: home [address] [place] [address] Name: YASMIN HAUSER Address: home [address] [place] [address] Name: MICHEAL HAUSER Address: home [address] [address]
--- OUTSIDE RECORDS SUMMARY | 2023-12-08 23:57 | XMS_ITS | Continuity of Care Document ---
Author Organization [facility] Address [address] [place] [address]- Care Team Providers Care Herb Doctor Name Role Phone Radha Escalera DO Nicolas Primary Care Physician [phone] En[place] [facility] [place] Date(s): 10/24/23 - 11/23/23 [facility] [address] [place] [address]- [place] Allergies, Adverse Reactions, Alerts Substance Reaction [...] 02/29/20 17:30:00 EDT, Route to Pharmacy Electronically, [facility]/pharmacy #[id number], 163, cm, 02/29/20 15:14:00 EDT, [...] for repeat sampling. 4colpo, ECC 5referred from [facility], Radha Escalera DO Social History Social History Type Response Smoking Status Former smoker, quit more than 30 days ago entered on: 03/24/23 Sex Patient Care team information Care Team Personnel Name: Radha Escalera DO Position: [facility] Outreach Member Role: PCP Address: Address: [address] [place] [address]- Name: Rahel Cerrato Position: [facility] Outreach Member Role: Lifetime Consulting Physician Care Team Related Persons Name: GARFIELD ABDULLAHI Address: home [address] [place] [address] Name: YASMIN HAUSER Address: home [address] [place] [address] Name: MICHEAL HAUSER Address: home [address] [address]
--- OUTSIDE RECORDS SUMMARY | 2023-12-08 23:57 | XMS_ITS | Continuity of Care Document ---
Author Organization [facility] Address [address] [place] [address]- Care Team Providers Care Intelligence Analyst Name Role Phone Radha Escalera DO Primary Care Physician En[facility] Date(s): 05/23/22 - 09/20/22 [facility] [address] [place] [address]- Attending Physician: Francisco Avila MD Admitting Physician: [...] 02/29/20 17:30:00 EDT, Route to Pharmacy Electronically, [facility]/pharmacy #[id number], 163, cm, 02/29/20 15:14:00 EDT, [...] for repeat sampling. 4colpo, ECC 5referred from [facility], Radha Escalera DO Social History Social History Type Response Smoking Status Never (less than 100 in lifetime) entered on: 11/19/18 Sex Patient Care team information Care Team Personnel Name: Radha Escalera DO Position: [facility] Outreach Member Role: PCP Address: Address: [address] [place] [address]- Name: Rahel Cerrato Position: [facility] Outreach Member Role: Lifetime Consulting Physician Care Team Related Persons Name: GARFIELD ABDULLAHI Address: home [address] [facility] [place] [address] Name: YASMIN HAUSER Address: home [address] [place] [address] Name: MICHEAL HAUSER Address: home [address] [address]
--- OUTSIDE RECORDS SUMMARY | 2023-12-08 23:57 | XMS_ITS | Continuity of Care Document ---
Author Organization [facility] Address [address] [place] [address]- Care Team Providers Care Handkerchief Cutter Name Role Phone Radha Escalera DO Primary Care Physician [phone] [facility] Date(s): 02/23/21 - 03/25/21 [facility] [address] [place] [address]- Allergies, Adverse Reactions, Alerts Substance Reaction Severity [...] 0 Refills, Maintenance, 02/23/21 14:20:00 EDT, Tablet, [facility]/pharmacy #[id number], Partial fill upon patient request if the [...] 02/29/20 17:30:00 EDT, Route to Pharmacy Electronically, [facility]/pharmacy #[id number], 163, cm, 02/29/20 15:14:00 [...] for repeat sampling. 4colpo, ECC 5referred from [facility], Radha Escalera DO Social History Social History Type Response Smoking Status Never (less than 100 in lifetime) entered on: 11/19/18 Sex
--- OUTSIDE RECORDS SUMMARY | 2023-12-08 23:57 | XMS_ITS | Continuity of Care Document ---
Author Organization [facility] Address [address] [place] [address]- Care Team Providers Care Tail Edger Name Role Phone Radha Escalera DO Nicolas Primary Care Physician [phone] [place] [facility] Date(s): 04/04/21 - 05/04/21 [facility] [address] [place] [address]- [place] Allergies, Adverse Reactions, Alerts Substance Reaction [...] 0 Refills, Maintenance, 02/23/21 14:20:00 EDT, Tablet, [facility]/pharmacy #[id number], Partial fill upon patient request if the [...] 02/29/20 17:30:00 EDT, Route to Pharmacy Electronically, [facility]/pharmacy #[id number], 163, cm, 02/29/20 15:14:00 [...] for repeat sampling. 4colpo, ECC 5referred from [facility], Radha Escalera DO Social History Social History Type Response Smoking Status Never (less than 100 in lifetime) entered on: 11/19/18 Sex
--- OUTSIDE RECORDS SUMMARY | 2023-12-08 23:57 | XMS_ITS | Continuity of Care Document ---
Author Organization [facility] Address [address] [place] [address]- Care Team Providers Care Director Software Development Name Role Phone CristianoRadha waddell DO Nicolas Primary Care Physician En[facility] Date(s): 08/27/22 - 09/26/22 [facility] [address] [place] [address]- [place] Allergies, Adverse Reactions, Alerts Substance Reaction [...] for repeat sampling. 4colpo, ECC 5referred from [facility], Radha Escalera DO Social History Social History Type Response Smoking Status Never (less than 100 in lifetime) entered on: 11/19/18 Sex Patient Care team information Care Team Personnel Name: Radha Escalera DO Position: [facility] Outreach Member Role: PCP Address: Address: [address] [place] [address]- Name: Rahel Cerrato Position: [facility] Outreach Member Role: Lifetime Consulting Physician Care Team Related Persons Name: GARFIELD ABDULLAHI Address: home [address] [place] [address] Name: YASMIN HAUSER Address: home [address] [place] [address] Name: MICHEAL HAUSER Address: home [address] [address]
--- OUTSIDE RECORDS SUMMARY | 2023-12-08 23:57 | XMS_ITS | Continuity of Care Document ---
Author Organization [facility] Address [address] [place] [address]- Care Team Providers Care Raise Miner Name Role Phone Radha Escalera DO Primary Care Physician [phone] Encounter [facility] Date(s): 03/30/21 - 05/30/21 [facility] [address] [place] [address]- Attending Physician: Marlo Chairez MD Admitting Physician: [...] # 60 tablet, 5 Refills, [facility], 165, cm, 03/16/21 13:57:00 EDT, Height, 74.6, [...] pap with co- testing Jan 2021 colpo ilaena 2 at 12:00; neg cx bx at 6 and ecc no dysplasia. referred for tx options visit. 3ECC=inadequate. Rebook for repeat sampling. 4colpo, ECC 5referred from [facility], Radha Escalera DO Social History Social History Type Response Smoking Status Never (less than 100 in lifetime) entered on: 11/19/18 Sex
--- OUTSIDE RECORDS SUMMARY | 2023-12-08 23:58 | XMS_ITS | Continuity of Care Document ---
Author Organization [facility] Address Unknown Care Team Providers Care Commercial Lending Assistant Name Role Phone Soodylan Radha CORNELL Primary Care Physician [phone] Encounter [facility] Date(s): 12/09/20 - 04/08/21 [facility] Attending Physician: Not on Staff, Attending MD Admitting Physician: Mandie DYE, Alek Campbell Referring Physician: Ben SCHWARZ, Funmi Ellis Allergies, Adverse Reactions, Alerts Substance Reaction Severity [...] Refills, Maintenance, 02/23/21 14:20:00 EDT, [facility]t, [id number], Partial fill upon patient request if the [...] for repeat sampling. 4colpo, ECC 5referred from [facility], Radha Escalera DO Social History Social History Type Response Smoking Status Never (less than 100 in lifetime) entered on: 11/19/18 Sex
--- OUTSIDE RECORDS SUMMARY | 2023-12-08 23:58 | XMS_ITS | Continuity of Care Document ---
Author Organization [facility] Address [address] [place] [address]- Care Team Providers Care Director Of Community Center Name Role Phone Radha Escalera DO Primary Care Physician [place] [facility] Date(s): 02/12/21 - 03/21/21 [facility] [address] [place] [address]- Attending Physician: Marlo Chairez MD Admitting Physician: [...] Refills, Maintenance, 02/23/21 14:20:00 EDT, Tablet, [id number], Partial fill upon patient request if the [...] 02/29/20 17:30:00 EDT, Route to Pharmacy Electronically, [facility]/pharmacy #[id number], 163, cm, 02/29/20 15:14:00 EDT, [...] for repeat sampling. 4colpo, ECC 5referred from [facility], Radha Escalera DO Social History Social History Type Response Smoking Status Never (less than 100 in lifetime) entered on: 11/19/18 Sex
--- OUTSIDE RECORDS SUMMARY | 2023-12-08 23:58 | XMS_ITS | Continuity of Care Document ---
Author Organization [facility] Address [address] [place] [address]- Care Team Providers Care Maintenance Person Name Role Phone Radha Escalera DO Primary Care Physician [phone] [place] [facility] Date(s): 02/23/21 - 03/25/21 [facility] [address] [place] [address]- Allergies, Adverse Reactions, Alerts Substance Reaction Severity [...] 0 Refills, Maintenance, 02/23/21 14:20:00 EDT, Tablet, [facility]/pharmacy #[id number], Partial fill upon patient request if the [...] 02/29/20 17:30:00 EDT, Route to Pharmacy Electronically, [facility]/pharmacy #[id number], 163, cm, 02/29/20 15:14:00 EDT, [...] repeat sampling. 4colpo, ECC 5referred from [facility], Radha Escalera DO Social History Social History Type Response Smoking Status Never (less than 100 in lifetime) entered on: 11/19/18 Sex
--- OUTSIDE RECORDS SUMMARY | 2023-12-08 23:58 | XMS_ITS | Continuity of Care Document ---
Author Organization [facility] Address [address] [place] [address]- Care Team Providers Care Gauge And Instrument Inspector Name Role Phone Radha Escalera DO Nicolas Primary Care Physician [phone] Encounter [facility] Date(s): 10/02/22 - 11/01/22 [facility] [address] [place] [address] Allergies, Adverse Reactions, Alerts Substance Reaction Severity [...] for repeat sampling. 4colpo, ECC 5referred from [facility], Radha Escalera DO Social History Social History Type Response Smoking Status Never (less than 100 in lifetime) entered on: 11/19/18 Sex Patient Care team information Care Team Personnel Name: Radha Escalera DO Position: [facility] Outreach Member Role: PCP Address: Address: [address] [place] [address]- Name: Rahel Cerrato Position: [facility] Outreach Member Role: Lifetime Consulting Physician Care Team Related Persons Name: GARFIELD ABDULLAHI Address: home [address] [place] [address] Name: YASMIN HAUSER Address: home [address] [place] [address] Name: MICHEAL HAUSER Address: home [address] [address]
--- OUTSIDE RECORDS SUMMARY | 2023-12-08 23:58 | XMS_ITS | Continuity of Care Document ---
Author Organization [facility] Address Unknown Care Team Providers Care Senior Statistician Name Role Phone Radha Escalera DO Primary Care Physician [phone] En[place] [facility] Date(s): 03/09/21 - 04/08/21 [facility] Attending Physician: Krystyna Junior Admitting Physician: Admtr, Krystyna Referring Physician: Admtr, Ar8 Allergies, Adverse Reactions, [...] 0 Refills, Maintenance, 02/23/21 14:20:00 EDT, Tablet, [facility]/pharmacy #[id number], Partial fill upon patient request if the [...] 02/29/20 17:30:00 EDT, Route to Pharmacy Electronically, [facility]/pharmacy #[id number], 163, cm, 02/29/20 15:14:00 [...] for repeat sampling. 4colpo, ECC 5referred from [facility], Radha Escalera DO Social History Social History Type Response Smoking Status Never (less than 100 in lifetime) entered on: 11/19/18 Sex
--- OUTSIDE RECORDS SUMMARY | 2023-12-08 23:58 | XMS_ITS | Continuity of Care Document ---
Author Organization [facility] Address [address] [place] [address]- Care Team Providers Care Fisher Clam Name Role Phone Radha Escalera DO Primary Care Physician [phone] Encounter [facility] Date(s): 07/30/22 - 08/29/22 [facility] [address] [place] [address]- Attending Physician: Krystyna Junior Admitting Physician: Krystyna [...] 02/29/20 17:30:00 EDT, Route to Pharmacy Electronically, [facility]/pharmacy #[id number], 163, cm, 02/29/20 15:14:00 EDT, Height, [...] for repeat sampling. 4colpo, ECC 5referred from [facility], Radha Escalera DO Social History Social History Type Response Smoking Status Never (less than 100 in lifetime) entered on: 11/19/18 Sex Patient Care team information Care Team Personnel Name: Radha Escalera DO Position: [facility] Outreach Member Role: PCP Address: Address: [address] [place] [address]- Name: Rahel Cerrato Position: [facility] Outreach Member Role: Lifetime Consulting Physician Care Team Related Persons Name: GARFIELD ABDULLAHI Address: home [address] [facility] [place] [address] Name: YASMIN HAUSER Address: home [address] [place] [address] Name: MICHEAL HAUSER Address: home [address] [address]
--- OUTSIDE RECORDS SUMMARY | 2023-12-08 23:58 | XMS_ITS | Continuity of Care Document ---
Author Organization [facility] Address [address] [place] [address]- Care Team Providers Care Fashion Patternmaker Name Role Phone CristianoRadha waddell DO Nicolas Primary Care Physician En[place] [facility] Date(s): 08/20/22 - 09/19/22 [facility] [address] [place] [address]- [place] Allergies, Adverse Reactions, Alerts Substance Reaction [...] for repeat sampling. 4colpo, ECC 5referred from [facility], Radha Escalera DO Social History Social History Type Response Smoking Status Never (less than 100 in lifetime) entered on: 11/19/18 Sex Patient Care team information Care Team Personnel Name: Radha Escalera DO Position: [facility] Outreach Member Role: PCP Address: Address: [address] [place] [address]- Name: Rahel Cerrato Position: [facility] Outreach Member Role: Lifetime Consulting Physician Care Team Related Persons Name: GARFIELD ABDULLAHI Address: home [address] [place] [address] Name: YASMIN HAUSER Address: home [address] [place] [address] Name: MICHEAL HAUSER Address: home [address] [address]
--- OUTSIDE RECORDS SUMMARY | 2023-12-08 23:58 | XMS_ITS | Continuity of Care Document ---
Author Organization [facility] Address [address] [place] [address]- Care Team Providers Care Per Assessment Nurse Name Role Phone Radha Escalera DO Nicolas Primary Care Physician [phone] [place] [facility] Date(s): 10/08/23 - 11/07/23 [facility] [address] [place] [address] Allergies, Adverse Reactions, Alerts Substance Reaction Severity [...] 02/29/20 17:30:00 EDT, Route to Pharmacy Electronically, [facility]/pharmacy #[id number], 163, cm, 02/29/20 15:14:00 [...] 5referred from [facility], Radha Escalera DO Social History Social History Type Response Smoking Status Former smoker, quit more than 30 days ago entered on: 03/24/23 Sex Patient Care team information Care Team Personnel Name: Radha Escalera DO Position: [facility] Outreach Member Role: PCP Address: Address: [address] [place] [address]- Name: Rahel eCrrato Position: [facility] Outreach Member Role: Lifetime Consulting Physician Care Team Related Persons Name: GARFIELD ABDULLAHI Address: home [address] [place] [address] Name: YASMIN HAUSER Address: home [address] [place] [address] Name: MICHEAL HAUSER Address: home [address] [address]
--- OUTSIDE RECORDS SUMMARY | 2023-12-08 23:58 | XMS_ITS | Continuity of Care Document ---
Author Organization [facility] Address [address] [address]- Care Team Providers Care Timekeeping Supervisor Name Role Phone Soodylan Radha CORNELL Primary Care Physician [place] [facility] [place](s): 02/23/21 - 03/02/21 [facility] [address] [address]- Attending Physician: Bijan Bird MD Admitting Physician: Bijan Bird MD Referring Physician: Bijan Bird MD Allergies, Adverse Reactions, Alerts Substance Reaction [...] Refills, Maintenance, 02/23/21 14:20:00 EDT, [id number], Partial fill upon patient request if the [...] 17:30:00 EDT, Route to Pharmacy Electronically, [facility]/pharmacy #[id number], 163, cm, 02/29/20 15:14:00 [...] repeat sampling. 4colpo, [facility] Social History Social History Type Response Smoking Status Never (less than 100 in lifetime) entered on: 11/19/18 Sex
--- OUTSIDE RECORDS SUMMARY | 2023-12-08 23:58 | XMS_ITS | Continuity of Care Document ---
Author Organization [facility] Address [address] [place] [address]- Care Team Providers Care Pattern Cutter Name Role Phone Radha Escalera DO Primary Care Physician [phone] [place] [facility] [place] Date(s): 03/19/21 - 04/18/21 [facility] [address] [place] [address]- Attending Physician: Krystyna Junior Admitting Physician: Krystyna [...] Refills, Maintenance, 02/23/21 14:20:00 EDT, Tablet, [id number], Partial fill upon patient request if the [...] 17:30:00 EDT, Route to Pharmacy Electronically, [facility]/pharmacy #[id number], 163, cm, 02/29/20 15:14:00 EDT, [...]
--- OUTSIDE RECORDS SUMMARY | 2023-12-08 23:58 | XMS_ITS | Continuity of Care Document ---
Author Organization [facility] Address [address] [place] [address]- Care Team Providers Care Knock Out Hand Name Role Phone CristianoRadha waddell DO Nicolas Primary Care Physician [phone] Encounter [facility] Date(s): 05/27/22 - 06/26/22 [facility] [address] [place] [address]- [place] Allergies, Adverse Reactions, Alerts Substance Reaction [...] for repeat sampling. 4colpo, ECC 5referred from [facility], Radha Escalera DO Social History Social History Type Response Smoking Status Never (less than 100 in lifetime) entered on: 11/19/18 Sex Patient Care team information Care Team Personnel Name: Radha Escalera DO Position: [facility] Outreach Member Role: PCP Address: Address: [address] [place] [address]- Name: Rahel Cerrato Position: [facility] Outreach Member Role: Lifetime Consulting Physician Care Team Related Persons Name: GARFIELD ABDULLAHI Address: home [address] [place] [address] Name: YASMIN HAUSER Address: home [address] [place] [address] Name: MICHEAL HAUSER Address: home [address] [address]
--- OUTSIDE RECORDS SUMMARY | 2023-12-08 23:58 | XMS_ITS | Continuity of Care Document ---
Author Organization [facility] Address [address] [place] [address]- Care Team Providers Care Business Management Analyst Name Role Phone Radha Escalera DO Primary Care Physician [phone] [place] [facility] [place] Date(s): 10/20/23 - 11/19/23 [facility] [address] [place] [address]- Attending Physician: Krystyna Junior Admitting Physician: Krystyna [...] 02/29/20 17:30:00 EDT, Route to Pharmacy Electronically, [facility]/pharmacy #[id number], 163, cm, 02/29/20 [...] for repeat sampling. 4colpo, ECC 5referred from [facility], Radha Escalera DO Vital Signs Most [...] VERIFY Event Display: Patient Education/Instruction Authored Date: [id number] [facility] Clinical Summary Person Information Name ALIS LEMA Age 50 Years 1960 12:00 AM PCP Radha Escalera DO PCP Reason for Visit: Allergy Info: NKA Vital [...] primary care provider, you may find a [facility] provider by calling [facility] [employer] Link at [phone]. Patient Education Information Follow-up Details: With: Address: When: Raegan VICK [address] [place], [place] [id number] phone, fixed, business (1) Comments: 6 Month return to be booked with Raegan Plascencia for 08/01/11 at 11:05am with [employer]. Patient Education Material: Patient Care team information Care Team Personnel Name: Radha Escalera DO Position: [facility] Outreach Member Role: PCP Address: Address: [address] [place] [address]- Name: Rahel Cerrato Position: [facility] Outreach Member Role: Lifetime Consulting Physician Care Team Related Persons Name: GARFIELD ABDULLAHI Address: home [address] [place] [address] Name: YASMIN HAUSER Address: home [address] [place] [address] Name: MICHEAL HAUSER Address: home [address] [address]
--- OUTSIDE RECORDS SUMMARY | 2023-12-08 23:58 | XMS_ITS | Continuity of Care Document ---
Author Organization [facility] Address [address] [place] [address]- Care Team Providers Care Log Sorting Supervisor Name Role Phone Radha Escalera DO Primary Care Physician [phone] Encounter [facility] Date(s): 05/08/21 - 06/07/21 [facility] [address] [place] [address]- [place] Allergies, Adverse Reactions, Alerts Substance Reaction [...] # 60 tablet, 5 Refills, [id number], 165, cm, 03/16/21 13:57:00 EDT, Height, 74.6, [...] 02/29/20 17:30:00 EDT, Route to Pharmacy Electronically, [facility]/pharmacy #[id number], 163, cm, 02/29/20 15:14:00 EDT, Height, [...] repeat sampling. 4colpo, ECC 5referred from [facility], Radha Escalera DO Social History Social History Type Response Smoking Status Never (less than 100 in lifetime) entered on: 11/19/18 Sex
--- OUTSIDE RECORDS SUMMARY | 2023-12-08 23:58 | XMS_ITS | Continuity of Care Document ---
Author Organization [facility] ter Address [address] [place] [address]- Care Team Providers Care Washcloth Folder Name Role Phone Radha Escalera DO Primary Care Physician [phone] Encounter [facility] Date(s): 03/08/20 - 04/22/[address] [address]- [facility] Attending Physician: Francisco Avila MD Admitting Physician: Francisco Avila MD Allergies, Adverse Reactions, Alerts Substance Reaction [...] 02/29/20 17:30:00 EDT, Route to Pharmacy Electronically, [facility]/pharmacy #[id number], 163, cm, 02/29/20 15:14:00 [...] for repeat sampling. 4colpo, ECC 5referred from [facility], Radha Escalera DO Social History Social History Type Response Smoking Status Never (less than 100 in lifetime) entered on: 11/19/18 Sex
--- OUTSIDE RECORDS SUMMARY | 2023-12-08 23:58 | XMS_ITS | Continuity of Care Document ---
Author Organization [facility] Address [address] [place] [address]- Care Team Providers Care Child Care Centre Manager Name Role Phone Radha Escalera DO Nicolas Primary Care Physician [phone] [place] [facility] [place] 08/25/23 - 09/24/23 [facility] [address] [place] [address]- [place] Allergies, Adverse Reactions, Alerts Substance Reaction [...] repeat sampling. 4colpo, ECC 5referred from [facility], Radha Escalera DO Social History Social History Type Response Smoking Status Former smoker, quit more than 30 days ago entered on: 03/24/23 Sex Patient Care team information Care Team Personnel Name: Radha Escalera DO Position: [facility] Outreach Member Role: PCP Address: Address: [address] [place] [address]- Name: Rahel Cerrato Position: [facility] Outreach Member Role: Lifetime Consulting Physician Care Team Related Persons Name: GARFIELD ABDULLAHI Address: home [address] [place] [address] Name: YASMIN HAUSER Address: home [address] [place] [address] Name: MICHEAL HAUSER Address: home [address] [address]
--- OUTSIDE RECORDS SUMMARY | 2023-12-08 23:58 | XMS_ITS | Continuity of Care Document ---
Author Organization [facility] Address [address] [place] [address]- Care Team Providers Care Track Leader Name Role Phone Radha Escalera DO Primary Care Physician [phone] Encounter [facility] Date(s): 01/10/21 - 02/09/21 [facility] [address] [place] [address]- Attending Physician: Krystyna Junior Admitting Physician: AdmtrKrystyna [...] 02/29/20 17:30:00 EDT, Route to Pharmacy Electronically, [facility]/pharmacy #[id number], 163, cm, 02/29/20 15:14:00 EDT, [...] for repeat sampling. 4colpo, ECC 5referred from [facility], Radha Escalera DO Social History Social History Type Response Smoking Status Never (less than 100 in lifetime) entered on: 11/19/18 Sex
--- OUTSIDE RECORDS SUMMARY | 2023-12-08 23:58 | XMS_ITS | Continuity of Care Document ---
Author Organization [facility] Address [address] [place] [address]- Care Team Providers Care Cargo Mate Name Role Phone CristianoRadha waddell DO Nicolas Primary Care Physician [phone] En[place] [facility] [place] Date(s): 08/26/22 - 09/25/22 [facility] [address] [place] [address]- [place] Allergies, Adverse Reactions, Alerts Substance Reaction [...] 02/29/20 17:30:00 EDT, Route to Pharmacy Electronically, [facility]/pharmacy #[id number], 163, cm, 02/29/20 15:14:00 [...] [facility], Radha Escalera DO Social History Social History Type Response Smoking Status Never (less than 100 in lifetime) entered on: 11/19/18 Sex Patient Care team information Care Team Personnel Name: Radha Escalera DO Position: [facility] Outreach Member Role: PCP Address: Address: [address] [place] [address]- Name: Rahel Cerrato Position: [facility] Outreach Member Role: Lifetime Consulting Physician Care Team Related Persons Name: GARFIELD ABDULLAHI Address: home [address] [place] [address] Name: YASMIN HAUSER Address: [address] [place] [address] Name: MICHEAL HAUSER Address: home [address] [address]
--- OUTSIDE RECORDS SUMMARY | 2023-12-08 23:58 | XMS_ITS | Continuity of Care Document ---
Author Organization [facility] Address [address] [place] [address]- Care Team Providers Care Design Leader Name Role Phone Radha Escalera DO Primary Care Physician [phone] Encounter [facility] Date(s): 07/02/21 - 08/01/21 [facility] [address] [place] [address]- Attending Physician: Krystyna Junior Admitting Physician: Krystyna [...] a day, # 60 tablet, 5 Refills, [id number], 165, cm, 03/16/21 13:57:00 EDT, Height, 74.6, [...] EDT, Route to Pharmacy Electronically, [facility]/pharmacy #[id number], 163, cm, 02/29/20 15:14:00 EDT, Height, [...] for repeat sampling. 4colpo, ECC 5referred from [facility], Radha Escalera DO Vital Signs Most [...]
--- OUTSIDE RECORDS SUMMARY | 2023-12-08 23:58 | XMS_ITS | Continuity of Care Document ---
Author Organization [facility] Address [address] [place] [address]- Care Team Providers Care Mineral Technologist Name Role Phone Radha Escalera DO Primary Care Physician [phone] Encounter [facility] Date(s): 08/28/21 - 09/27/21 [facility] [address] [place] [address]- [place] Allergies, Adverse Reactions, Alerts Substance Reaction [...] # 60 tablet, 5 [facility]ills, [id number], 165, cm, 03/16/21 13:57:00 EDT, Height, 74.6, [...] 17:30:00 EDT, Route to Pharmacy Electronically, [facility]/pharmacy #[id number], 163, cm, 02/29/20 15:14:00 [...] for repeat sampling. 4colpo, ECC 5referred from [facility], Radha Escalera DO Social History Social History Type Response Smoking Status Never (less than 100 in lifetime) entered on: 11/19/18 Sex
--- OUTSIDE RECORDS SUMMARY | 2023-12-08 23:58 | XMS_ITS | Continuity of Care Document ---
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 Name Role Phone Radha Escalera DO Primary Care Physician En[id number] Date(s): 03/09/20 - [facility]08/[facility] [address] [address]- [facility] Attending Physician: Krystyna Junior Admitting Physician: AdmKrystyna thurston Referring Physician: Admtr ArMigdalia Allergies, Adverse Reactions, Alerts Substance Reaction Severity [...] 02/29/20 17:30:00 EDT, Route to Pharmacy Electronically, [facility]/pharmacy #[id number], 163, cm, 02/29/20 15:14:00 EDT, Height, 75.91, [...] for repeat sampling. 4colpo, ECC 5referred from [facility], Radha Escalera DO Social History Social History Type Response Smoking Status Never (less than 100 in lifetime) entered on: 11/19/18 Sex
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
[2023-12-09 00:59] VITALS: BP 116/77; PULSE 73; RESP 14; TEMP 36.4; O2SAT 98
[2023-12-09] MEDS: Lidocaine 4 % Patch ADH..PATCH 1 PATCH TRANSDERMA (01:06)
[2023-12-09] MEDS: Ibuprofen 400 MG TABLET PO (01:06)
[2023-12-09] MEDS: Acetaminophen 325 MG TABLET 975 MG PO (01:06)
[2023-12-09 01:10] VITALS: BP 116/77; PULSE 73; RESP 14; TEMP 36.4; O2SAT 98
== END 2023-12-09 01:11 | disposition home or self-care (01) ==
PROVIDERS: Emergency Provider Student in an Organized Health Care Education/Training Program; PCP Family Medicine
DX: S13.4XXA Sprain of ligaments of cervical spine, initial encounter (principal); S00.03XA Contusion of scalp, initial encounter; M54.2 Cervicalgia; R51.9 Headache, unspecified; V43.52XA Car driver injured in collision with other type car in traffic accident, initial encounter; Y93.9 Activity, unspecified; Y92.410 Unspecified street and highway as the place of occurrence of the external cause; Y99.8 Other external cause status
CPT/HCPCS: 70450; 72125; 99284

== ENCOUNTER 2024-01-07 15:11 | Outpatient (REF) | payer MEDICAID, SELFPAY | END 2024-01-07 15:12 | disposition home or self-care (01) | LOC: HO.MAMMO 15:11 | PROVIDERS: Absent Provider Advanced Practice Midwife; PCP Family Medicine; Visit Provider Family Medicine | DX: Z12.31 Encounter for screening mammogram for malignant neoplasm of breast (principal) | CPT/HCPCS: 77063; 77067 ==

== ENCOUNTER → 2024-01-07 15:30 | Outpatient (BNV) | payer MEDICAID, SELFPAY | PROVIDERS: Absent Provider Advanced Practice Midwife; PCP Family Medicine; Visit Provider Radiology Diagnostic Radiology | DX: Z12.31 Encounter for screening mammogram for malignant neoplasm of breast (principal) | CPT/HCPCS: 77063; 77067 ==

== ENCOUNTER 2024-02-12 17:39 | Outpatient (REF) | payer MEDICAID, SELFPAY ==
[2024-02-12 18:13] LABS: Appearance Urine Cloudy; Color Urine Yellow; Glucose Urine UA Negative (Negative); Leukocyte Esterase Urine Large (3+) (Negative); Nitrite Urine Negative (Negative); PH 6.5 (5.0-9.0); UMIC TRIGGER UACC YES; Urine Blood Large (3+) (Negative); Urine Ketones Negative (Negative); Urine Protein Trace mg/dL (Neg-Trace)
[2024-02-12 18:19] LABS: Bacteria Urine None Seen (None Seen); Hyaline Casts Urine 0-2 /LPF (0-2); Squamous Epithelial Cell Urine 0-2 /HPF (0-2); UACC Culture Trigger YES; WBC Urine >50 /HPF (0-5)
== END 2024-02-12 17:40 | disposition home or self-care (01) ==
LOC: HO.HHCLNP 17:39
PROVIDERS: Visit Provider Student in an Organized Health Care Education/Training Program
DX: R35.0 Frequency of micturition (principal)
CPT/HCPCS: 81001; 87086; 87088; 87186

== ENCOUNTER 2024-03-02 12:29 | Outpatient (REF) | payer MEDICAID, SELFPAY ==
--- NOTE | ~2024-03-02 | US_ITS ---
EXAMINATION: US DIAGNOSTIC ULTRASOUND BREAST, LEFT CLINICAL INFORMATION: Left axillary pain x6 months. COMPARISON: No prior relevant ultrasound. Mammography dated 01/07/2024. TECHNIQUE: Ultrasound of the left axilla is performed with real-time sloan scale imaging and color Doppler. FINDINGS: There is no focal suspicious finding. There is no solid mass, abnormal lymph nodes, cystic abnormality or abnormal shadowing in the left axilla. Results are provided to the patient at time of visit by the technologist. US/US breast LT limited mamm only IMPRESSION: -No findings suspicious for malignancy. -No ultrasonographic correlates to left axillary pain. Recommend clinical management and follow-up. ASSESSMENT: BI-RADS 1: Negative RECOMMENDATION: 1. Patient should be managed based on the clinical impression. 2. Otherwise, routine annual screening mammography. This patient's information was entered into a reminder system with a target due date for their next mammogram. Electronically signed by: Honorio Cotton MD 03/02/2024 04:29 PM EDT
== END 2024-03-02 12:30 | disposition home or self-care (01) ==
LOC: HO.MAMMO 12:29
PROVIDERS: PCP Family Medicine; Visit Provider Family Medicine
DX: N63.32 Unspecified lump in axillary tail of the left breast (principal)
CPT/HCPCS: 76642

== ENCOUNTER → 2024-03-02 13:00 | Outpatient (BNV) | payer MEDICAID, SELFPAY | PROVIDERS: PCP Family Medicine; Visit Provider Radiology Diagnostic Radiology | DX: N64.4 Mastodynia (principal) | CPT/HCPCS: 76642 ==

== ENCOUNTER 2024-03-03 08:35 | Outpatient (REF) | payer MEDICAID, SELFPAY ==
[2024-03-03 11:39] LABS: Hematocrit 39.4 % (37.0-47.0); Hemoglobin 13.2 g/dl (12.0-16.0); Mean Corpuscular HGB Conc 33.5 g/dl (31.0-35.0); Mean Corpuscular Hemoglobin 30.3 pg (27.0-33.0); Mean Corpuscular Volume 90.4 fL (80.0-98.0); Mean Platelet Volume 11.5 fL (9.4-12.3); Platelet Count 187 X10*3/uL (160-400); Red Blood Count 4.36 X10*6/uL (4.20-5.50); Red Cell Distribution Width 12.3 % (11.0-16.0); White Blood Count 7.9 X10*3/uL (4.8-10.8)
[2024-03-03 11:40] LABS: Estimated Average Glucose 108 mg/dL; Hemoglobin A1c % 5.4 % (<6.0)
[2024-03-03 11:58] LABS: Alanine Aminotransferase 13 U/L (0-31); Albumin Level 4.2 g/dL (3.5-5.0); Alkaline Phosphatase 72 U/L (39-117); Anion Gap 14 (12-20); Aspartate Amino Transferase 16 U/L (5-31); Bilirubin Direct 0.2 mg/dL (0.0-0.5); Bilirubin Total 0.6 mg/dL (0.0-1.0); Blood Urea Nitrogen 12 mg/dL (9-16); Calcium 10.1 mg/dL (8.4-10.2); Carbon Dioxide 29 mmol/L (22-29); Chloride 103 mmol/L (96-108); Cholesterol 154 mg/dL (<200); Estimated Glomerular Filt Rate > 60; Glucose Random 104 mg/dL (60-115); HDL Cholesterol 58 mg/dL (>40); LDL Cholesterol Calculated 87 mg/dL (<100); Potassium 4.3 mmol/L (3.3-5.1); Sodium 142 mmol/L (135-145); Total Protein 7.3 g/dL (6.5-8.0); Triglycerides 47 mg/dL (<150)
[2024-03-03 12:01] LABS: Hepatitis A Antibody IgG REACTIVE (Nonreactive); ~Hepatitis A Antibody IgG 11.05 S/CO (0.00-0.99)
[2024-03-03 12:06] LABS: Free T4 (Free Thyroxine) 0.95 ng/dL (0.71-1.85); Thyroid Stimulating Hormone 1.31 uIU/mL (0.32-4.0); Vitamin D 25-OH Total 66.3 ng/mL (>30)
[2024-03-03 12:16] LABS: HBS Num1 1.36 mIU/mL (0-7.99); HBc Num1 0.16 S/CO (0.00-0.79); HBsAGNum1 0.28 S/CO (0.00-0.99); HIV AB/AG Nonreactive (Nonreactive); HIV Num 1 0.04 S/CO (0.00-0.99); Hepatitis B Core Antibody Nonreactive (Nonreactive); Hepatitis B Surface Antigen Negative (Negative); ~HepC Num1 11.53 S/CO (0.00-0.79); ~Hepatitis B Surface Antibody NONREACTIVE (Nonreactive); ~Hepatitis C Antibody Reactive (Nonreactive)
[2024-03-03 12:16] LABS: Creatinine Urine 49.15 mg/dL; Microalbum/Creatinine Ratio Ur 22.3 ug/mg cr (<30)
[2024-03-03 13:27] LABS: CT PCR NOT DETECTED (Not Detect.); NG PCR NOT DETECTED (Not Detect.)
[2024-03-05 12:34] LABS: RPR Rapid Plasma Reagin NON-REACTIVE (NON-REACTIVE)
[2024-03-06 13:43] LABS: HCV Log PCR <1.18 NOT DETECTED Log IU/mL (NOT DETECTED); HepC Viral Load <15 NOT DETECTED IU/mL (NOT DETECTED)
== END 2024-03-03 08:36 | disposition home or self-care (01) ==
LOC: HO.HHCL 08:35
PROVIDERS: Visit Provider Family Medicine
DX: Z00.00 Encounter for general adult medical examination without abnormal findings (principal); M79.622 Pain in left upper arm; R87.810 Cervical high risk human papillomavirus (HPV) DNA test positive; R87.610 Atypical squamous cells of undetermined significance on cytologic smear of cervix (ASC-US); Z86.19 Personal history of other infectious and parasitic diseases; K21.9 Gastro-esophageal reflux disease without esophagitis; F41.8 Other specified anxiety disorders; I10 Essential (primary) hypertension
CPT/HCPCS: 36415; 80048; 80061; 80076; 82043; 82306; 82570; 83036; 84439; 84443; 85027; 86592; 86704; 86706; 86708; 86803; 87340; 87389; 87491; 87522; 87591

== ENCOUNTER 2024-05-27 17:30 | Outpatient (REF) | payer MEDICAID, SELFPAY ==
[2024-05-28 08:32] LABS: Bacterial Vaginosis PCR NEGATIVE (Negative); Candida Group PCR DETECTED (Not Detect); Candida glab krusei PCR NOT DETECTED (Not Detect); Trichomonas vaginalis PCR NOT DETECTED (Not Detect)
== END 2024-05-27 17:31 | disposition home or self-care (01) ==
LOC: HO.HHCLNP 17:30
PROVIDERS: Visit Provider Nurse Practitioner
DX: R82.90 Unspecified abnormal findings in urine (principal); N76.0 Acute vaginitis
CPT/HCPCS: 0352U; 87086; 87088; 87186

== ENCOUNTER 2024-07-22 17:43 | Outpatient (REF) | payer MEDICAID, SELFPAY ==
--- OUTSIDE RECORDS SUMMARY | 2024-07-22 19:43 | XMS_ITS | Encounter Summary ---
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 Name Role Phone Radha Escalera Primary Care Provider + [phone] Reason for Visit * Reason Comments UTI Encounter Details Date Type Department Care Team ([facility] Contact Info) Description 07/22/2024 8:40 AM EST Office Visit [facility] [address] [place] [address] Aroldo Walter MD [address] [place] [address] Acute cystitis with hematuria Social History Tobacco Use Types Packs/Day Years Used Date Smoking Tobacco: Former Cigarettes Passive Smoke Exposure: Past Smokeless Tobacco: Never Tobacco Cessation:Counseling Given: Not Answered Alcohol Use Standard Drinks/Week Comments Not Currently 0 (1 standard drink = 0.6 oz pur e alcohol) Alcohol Answer Date Recorded Frequency of Alcohol Consumption Not on file 02/26/2024 Average Number of Drinks Not on file 024 Frequency of Binge Drinking Not on file 10/2023 Score 0 02/26/2024 Depression Answer Date Recorded Patient Health Questionnaire-9 Score 0 10/28/2023 Patient Health Questionnaire-9 Score 0 10/28/2023 Last PHQ-9: Questionnaire Data Not on file 0 10/28/2023 Housing Stability Answer Date Recorded What is your housing situation today? I have oren hernández 10/28/[address] you li ve. Do you have problems with any of the following? None of the above 10/28/2023 Food Insecurity Answer Date Recorded Within the past 12 months, y ou worried that your food would run out before you got money to buy more: Never True 10/28/2023 Within the past 12 months,th e food you bought just didn't last and you didn't have enough money to get more: Never True 12/2023 Transportation Answer Date Recorded In the past 12 months, has l ack of transportation kept you from medical appts, meetings, work or from getting things needed for daily living? No 10/28/2023 Utilities Answer Date Recorded In the past 12 months, has t he electric, gas, oil or water company threatened to shut off services in your home? No 10/28/2023 Depression Answer Date Recorded Patient Health Questionnaire-2 Score 0 10/28/2023 Comments Unknown Sex and Gender Information Value Date Recorded Sex Assigned at Female 04/22/2022 10:14 AM EDT Legal Sex Female 10:14 AM EDT Gender Identity Female 04/22/2022 10:14 AM EDT Sexual Orientation Straight 04/22/2022 10 :14 AM EDT documented as of this encounter Last Filed Vital Signs Vital Sign Reading Time Taken Comments Blood Pressure 138/85 07/22/2024 8:45 AM EST Pulse 68 07/22/2024 8:45 AM EST Temperature 36.6 ??C (97.8 ??F) 07/22/2024 8:45 AM ES T Respiratory Rate 17 07/22/2024 8:45 AM EST Oxygen Saturation 96% 07/22/2024 8:45 AM EST Inhaled Oxygen Concentration - - Weight 76.2 kg (168 lb) 07/22/2024 8:45 AM EST Height 165.1 cm (5' 5 ) 07/22/2024 8:45 AM EST Body Mass Index 27.96 07/22/2024 8:45 AM EST documented in this encounter Progress Notes * Aroldo Walter MD - 07/22/2024 8:40 AM EST Subjective History was provided by the patient. Angie Mathis is a 63 y.o. female who presents for evaluation of 2-day duration of malodorous urine, urinary frequency, post-void fullness, and dysuria. Denies F/C/N/V/D. Recently UTI with osorio-sensitive E. Coli back on 05/27/2025. Currently takes Keflex 250mg as needed after sexual intercourse for UTI prevention. Took this medication after an intercourse last night. Objective Vitals: 07/22/24 0845 BP: 138/85 BP Location: Left arm Patient Position: Sitting BP Cuff Size: Adult Pulse: 68 Resp: 17 Temp: 97.8 ??F (36.6 ??C) TempSrc: Oral SpO2: 96% Weight: 168 lb (76.2 kg) Height: 5' 5 (1.651 m) Physical Exam Vitals reviewed. Constitutional: Appearance: Normal appearance. She is normal weight. HENT: Head: Normocephalic and atraumatic. Right Ear: External ear normal. Left Ear: External ear normal. Nose: Nose normal. Mouth/Throat: Mouth: Mucous membranes are moist. Pharynx: Oropharynx is clear. Eyes: Extraocular Movements: Extraocular movements intact. Conjunctiva/sclera: Conjunctivae normal. Cardiovascular: Rate and Rhythm: Normal rate and regular rhythm. Heart sounds: Normal heart sounds. Pulmonary: Effort: Pulmonary effort is normal. Breath sounds: Normal breath sounds. Abdominal: General: Abdomen is flat. Bowel sounds are normal. There is no distension. Palpations: Abdomen is soft. Tenderness: There is no abdominal tenderness. There is no right CVA tenderness, left CVA tenderness, guarding or rebound. Musculoskeletal: General: Normal range of motion. Cervical back: Normal range of motion and neck supple. Skin: General: Skin is warm and dry. Neurological: General: No focal deficit present. Mental Status: She is alert and oriented to person, place, and time. Psychiatric: Mood and Affect: Mood normal. Behavior: Behavior normal. Office Visit on 07/22/2024 Component Date Value Ref Range Status Color, UA 07/22/2024 Light Yellow Final Clarity, UA 07/22/2024 Clear Final Glucose, UA 07/22/2024 Negative Final Bilirubin, UA 07/22/2024 Negative Final Ketones, UA 07/22/2024 Negative Final Spec Grav, UA 07/22/2024 1.010 Final Blood, UA 07/22/2024 Positive (A) Negative, None Detected Final Small pH, UA 07/22/2024 6.0 Final Protein, UA 07/22/2024 Negative Final Urobilinogen, UA 07/22/2024 0.2 Final Leukocytes, UA 07/22/2024 Moderate (A) Negative, Rare, Trace Final Nitrite, UA 07/22/2024 Negative Negative, None Detected Final Appearance, UA 07/22/2024 clear Final QC Media Lot # 07/22/2024 [id number] Final Lot# Expiration Date 07/22/2024 Final Angie was seen today for uti. Diagnoses and all orders for this visit: Acute cystitis with hematuria - POCT Urinalysis - Culture, Urine, Routine - sulfamethoxazole-trimethoprim (Bactrim DS) 800-160 MG tablet; Take 1 tablet by mouth 2 times daily for 5 days. Patient with a clinical presentation of acute UTI No clinical evidence of acute abdomen or pyelonephritis Will send out UCx and start antibiotic medication (Bactrim DS) Potential adverse effects of the medication reviewed Probiotic use discussed Allergies reviewed Discussed strategies to prevent future infections Advised to contact the clinic if no improvement of symptoms Indications for UC/ER use reviewed documented in this encounter Plan of Treatment Scheduled Orders Name Type Priority Associated Diagnoses Orde r Schedule Culture, Urine, Routine Microbiology Routine Acute cystitis with hematuria Ordered: 07/22/2024 documented as of this encounter Procedures Procedure Name Priority Date/Time Associated Diagnosis Comments POCT URINALYSIS DIPSTICK Routine 07/22/2024 8:53 AM EST Acute cystitis with hematuria documented in this encounter Results * (ABNORMAL) POCT Urinalysis (07/22/2024 8:53 AM EST) Color, UA Light Yellow Clarity, UA Clear Glucose, UA Negative Bilirubin, UA Negative Ketones, UA Negative Spec Grav, UA 1.010 Blood, UA Positive(A) Negative, None Detected Comment:Small pH, UA 6.0 Protein, UA Negative Urobilinogen, UA 0.2 Leukocytes, UA Moderate(A) Negative, Rare, Trace Nitrite, UA Negative Negative, None Detected Appearance, UA clear QC Media Lot # [id number] Lot# Expiration Date Urine 07/22/2024 8:53 AM EST Aroldo Walter MD POINT OF CARE TEST ENTER/EDIT OR DERABLES Final Result documented in this encounter Visit Diagnoses Diagnosis Acute cystitis with hematuria documented in this encounter Additional Health Concerns Assessment Noted Time PHQ-9 Depression Total Score: 0 10/28/19 24 9:42 AM EDT documented as of this encounter Care Teams Wire 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
--- OUTSIDE RECORDS SUMMARY | 2024-07-22 19:43 | XMS_ITS | Clinical Summary ---
Author Organization [employer] Address [address] [place] [address] [address] [place] [address] Care Team Providers Care Ticketing Clerk Name Role Phone Radha Escalera DO Primary Care Provider + [phone] Allergies Active Allergy Reactions Criticality Noted Date Comments Clarithromycin Unknown 12/06/2011 Telaprevir Swelling High 08/17/2023 Medications acetaminophen (Tylenol 8 Hour) 650 MG ER tablet Take 1 tablet by mouth in the morning and 1 tablet at noon and 1 tablet in the evening. 02/23/20 22 Active docosanol cream (Abreva) 10 % cream cream Apply 1 application topically 5 (five) times a day. 2 g 2 04/15/20 23 Active triamcinolone (Kenalog) 0.1 % cream Apply topically if needed in the morning and at bedtime for rash. 30 g 07/02/19 24 Active diphenhydrAMINE (BENADryl) 25 MG capsule Take 1 capsule (25 mg) by mouth every 6 (six) hours if needed for itching. 30 capsule 07/02/19 24 Active hydroCHLOROthiazid e (HYDRODiuril) 25 MG tabletIndications: Hypertension, unspecified type TAKE 1 TABLET BY MOUTH EVERY DAY IN THE MORNING 90 tablet 1 10/13/19 24 Active omeprazole (PriLOSEC) [address] capsule TAKE 1 CAPSULE BY ORAL ROUTE TWICE A DAY X 3 MONTHS, THEN RETURN TO ONCE A DAY DOSE 180 capsule 3 10/13/19 24 Active fluticasone (Flonase) 50 MCG/ACT nasal sprayIndications:S easonal allergic rhinitis, unspecified trigger SPRAY 2 SPRAYS INTO EACH NOSTRIL EVERY DAY 48 mL 1 10/13/19 24 Active clotrimazole-betam ethasone (Lotrisone) creamIndications:C andidal intertrigo APPLY TO AFFECTED AREA TWICE A DAY 30 g 1 10/13/19 24 Active Ventolin HFA 108 (90 Base) MCG/ACT inhaler INHALE 2 PUFFS EVERY 4 (FOUR) HOURS IF NEEDED FOR SHORTNESS OF BREATH OR WHEEZING. 18 g 1 02/05/20 24 Active loratadine (Claritin) 10 MG tablet TAKE 1 TABLET BY MOUTH EVERY DAY 90 tablet 1 03/16/20 24 Active cholecalciferol (D3) 50 MCG (2000 UT) tabletIndications: Vitamin D deficiency TAKE 1 TABLET BY MOUTH EVERY DAY 90 tablet 1 03/16/20 24 Active nadolol (Corgard) 40 MG tabletIndications: Hypertension, unspecified type TAKE 1 TABLET BY MOUTH EVERY DAY IN THE MORNING 90 tablet 1 03/16/20 24 Active aspirin (Aspirin Low Dose) 81 MG EC tabletIndications: Hyperlipidemia, unspecified hyperlipidemia type TAKE 1 TABLET BY MOUTH EVERY DAY 90 tablet 1 03/16/20 24 Active baclofen (Lioresal) 10 MG tabletIndications: Muscle spasm Take 1 tablet (10 mg) by mouth if needed in the morning, at noon, and at bedtime for muscle spasms. 60 tablet 3 04/16/20 24 Active Diclofenac Sodium 1 % gel Apply 2 g topically if needed in the morning, at noon, in the evening, and at bedtime (pain). 150 g 3 04/16/20 24 Active cephalexin (Keflex) 250 MG capsule Take 1 capsule (250 mg) by mouth if needed each day (sexual intercourse for UTI prevention). 30 capsule 04/16/20 24 Active sulfamethoxazole-t rimethoprim (Bactrim DS) 800-160 MG tabletIndications: Acute cystitis with hematuria Take 1 tablet by mouth 2 times daily for 5 days. 10 tablet 07/22/19 25 025 Active Active Problems Problem Noted Date Diagnosed Date Increased urinary frequency 02/12/2024 Assessment & Plan (02/12/2024 9:58 AM EDT): 04/2023 chem wnl GFR > 60 Pt w recurrent postcoital UTIs improved on bactrim SS prn after sex only -Ucx 08/2023 Escherichia coli > 100,000 cfu/mL Escherichia coli: Ampicillin <=2(S) Escherichia coli: Ceftriaxone <=0.25(S) Escherichia coli: Gentamicin <=1(S) Escherichia coli: Levofloxacin <=0.12(S) Escherichia coli: Nitrofurantoin <=16(S) Escherichia coli: Trimethoprim/Sulfamethoxazole <=20(S) -urine dipstick today : blood mod, nitrates neg, LE moderate -UA reflex w cx sent to lab -will call pt w results -advised to hold for now on sex until completes tx and feels better -advised to make sure to urinate prior and after sexual intercourse -start for now cefadroxil 500 mg BID for 3 days as for simple cystitis -will plan to continue 1 tab of bactrim 1 single-strength tablet as a single dose immediately before or after sexual intercourse BUT advised to hold for now until we got results back of recent UTI to make sure bacteria still susceptible to ATB ,explained to pt that if has sex again within 12 hours of previous one will hold on second dose of ATB ppx but if has sec after 12 hours of previous one would take again dose History of hepatitis C 07/31/2022 Depression with anxiety 07/31/2022 Anxiety 07/31/2022 Healthcare maintenance 07/31/2022 Chronic gastroesophageal reflux disease 07/31/19 23 Portal hypertension 07/31/2022 Osteoarthritis 07/31/2022 Cirrhosis 07/31/2022 ASCUS with positive high risk HPV cervical 08/27 Overview (07/31/2022): 11/17/18 colpo ileana 2 at 12:00; neg cx bx at 6 and ecc no dysplasia. referred for tx options visit.ECC=inadequate. Rebook for repeat sampling.colpo, [facility], Radha Escalera DO colpo performed 03/09/20, neg findings, no bx done. plan for repeat pap with co-testing Jan 2021 Essential hypertension 05/29/2015 Elevated fasting glucose 05/29/2015 Esophageal varices 05/29/2015 Resolved Problems Problem Noted Date Diagnosed Date Resolved Date UTI (urinary tract infection) 09/05/2023 10/28/2023 Assessment & Plan (09/05/2023 7:08 AM EDT): Pt here again w UTI symptoms , pt having recurrent infections that are occurring after sex 04/2023 chem wnl GFR > 60 -today urinedisptick blood positive , LE large , nitrates neg -sent UA w reflex cx -call pt w result -sent bactrim BID x 7 days given having pain in back for possible mild pyelonephritis -advised Urination after sex -will call w result of urine to offer postcoital ATB ppx tx once asymptomtic -will consider offering either -Nitrofurantoin monohydrate/macrocrystals (Macrobid) 100 mg as a single dose taken within 2 hours of sexual intercourse or bactrim 1 single-strength tablet as a single dose immediately before or after sexual intercourse -if symptoms continue to recur w ppx tx will need to consider pelvic image but will hold now w reports symptoms always associated after sex -canceled vaginal swab done w no concerning symptoms Gastroesophageal reflux dise ase without esophagitis 07/31/2022 07/31/2022 Drug-induced toxic erythema 07/31/2022 07/31/2022 PHT (portal hypertension) 07/31/2022 Arthropathy of hand 05/29/2015 07/31/19 Chronic hepatitis C with cirrhosis 05/29/2015 07/31/2022 Encounters Date Type Department Care Team Description 07/22/2024 8:40 AM EST Office Visit [facility] [address] [place] [phone] Aroldo Walter MD Acute cystitis with hematuria 05/28/2024 Orders Only [facility] [address] [place] [phone] Tamela Prescott NP Bacterial vaginosis (Primary Dx) 05/27/2024 2:20 PM EST Office Visit [facility] [address] [place] [address] [phone] Tamela Prescott NP Malodorous urine (Primary Dx); Vaginosis 05/27/2024 Travel 05/23/2024 Refill [facility] [address] [place] [phone] Radha Escalera, Candidal intertrigo from Last 3 Months Immunizations Name Administration Dates Next Due Hep A, Adult 12/21/2009,06/14/2009,08/20/1999 Hep A, ped/adol, 3 dose 07/17/2009 Hep B, adult 12/21/2009,07/17/2009,06/14/2009 Influenza injectable quadriv alent IIV4 with preservative 03/10/2019,04/06/2018,03/15/2016,03/13 Influenza injectable quadriv alent preservative free 04/15/2023,04/19/2022,06/08/2021,03/12,04/09/2017 Influenza, IIV3, injectable 03/15/2024,0 03/12/2014,03/18/2011,03/19,05/25/2009 Influenza, Split (incl. thomas fied surface antigen) 02/23/2014,03/22/2013,03/12/2012 Pfizer Covid-19 Vaccine 12+ 04/16/2024 Pfizer Covid-19 Vaccine 12+ Bivalent 04/24/2022 Pneumococcal Conjugate PCV 20 04/15/2023 Pneumococcal Polysaccharide PPSV23 02/28/2014,,10/20/2006 RSV Bivalent 03/15/2024 TD (adult), 2 Lf tetanus tox oid, preservative free, adsorbed 08/25/2019,05/06/2005 Tdap 05/25/2009 Zoster, Recombinant 07/26/2020,05/22/2020 Family History Medical History Relation Name Comments Hypertension Brother Diabetes Mother Hyperlipidemia Mother Hypertension Mother Kidney disease Mother Testicular cancer Son Relation Name Status Comments Brother Mother Son Social History Tobacco Use Types Packs/Day Years [...] Orientation Straight 04/22/2022 10 :14 AM EDT Last Filed Vital Signs Vital Sign Reading [...] Mass Index 27.96 07/22/2024 8:45 AM EST Plan of Treatment Health Maintenance Due Date Last Done Comments CT Colonography 1960 FIT DNA/Cologuard 1960 FIT 1960 FOBT 1960 Sigmoidoscopy 1960 Depression Screening 10/27/2024 10/28/2023, 10/28/19 24 SDOH Screening 10/27/2024 10/28/2023 Cervical Cancer Screening 11/24/2024 HPV/Cotest 11/24/2024 11/25/2023, 07/24, 08/10/2021, Additional history exists Pap Smear 11/24/2024 11/25/2023, 08/10/2021 Alcohol/Substance Use Screening 02/25/2025 02/26/2024 Mammogram 03/02/2025 03/02/2024, 12/21, 01/01/2023, Additional history exists Tobacco Screening 07/22/2025 07/22/2024 Lipid Panel 03/03/2029 03/03/2024, 07/2022, 05/13/2022, Additional history exists DTaP/Tdap/Td Vaccines (3 - Td or Tdap) 08/24/2029 08/25/2019, 05/25/2009, 05/06/2005 Colonoscopy 04/04/2030 04/04/2020 Colorectal Cancer Screening 04/04/2030 Hepatitis A Vaccines Completed 12/21/2009, 06/14/2009, 08/20/1999 Hepatitis B Vaccines Completed 12/21/2009, 07/17/2009, 06/14/2009 Zoster Vaccines Completed 07/26/2020, 05/22/2020 Pneumococcal Vaccine: 50+ Years Completed 04/15/2023, 02/28/2014, 06/14/2013, Additional history exists HIV Screening Completed 03/03/2024, 11/21, 07/25/2023, Additional history exists Influenza Vaccine Completed 03/15/2024, , 04/19/2022, Additional history exists RSV Patients and Patients Aged 60 years or older Completed 03/15/2024 COVID-19 Vaccine Completed 04/16/2024, 07/2021, 06/21/2021, Additional history exists HIB Vaccines Aged Out No longer eligi ble based on patient's age to complete this topic HPV Vaccines Aged Out No longer eligi ble based on patient's age to complete this topic IPV Vaccines Aged Out No longer eligi ble based on patient's age to complete this topic Meningococcal Vaccine Aged Out No rafi carlitos eligible based on patient's age to complete this topic RSV under 20 months Aged Out No longe r eligible based on patient's age to complete this topic Rotavirus Vaccines Aged Out No longer eligible based on patient's age to complete this topic Procedures Procedure Name Priority Date/Time Associated Diagnosis Comments POCT URINALYSIS DIPSTICK Routine 07/22/2024 8:53 AM EST Acute cystitis with hematuria CULTURE, URINE, ROUTINE Routine 05/27/2024 2:46 PM EST Malodorous urine BACTERIAL VAGINOSIS PANEL Routine 05/27/2024 2:46 PM EST Vaginosis POCT URINALYSIS DIPSTICK Routine 05/27/2024 2:44 PM EST Vaginosis HIV 1/2 ANTIGEN/ANTIBODY, FOURTH GENERATION W/RFL Routine 03/03/2024 8:44 AM EDT Essential hypertension Depression with anxiety Chronic gastroesophageal reflux disease History of hepatitis C ASCUS with positive high risk HPV cervical Left axillary pain Healthcare maintenance LIPID PANEL, STANDARD Routine 03/03/2024 8:44 AM EDT Essential hypertension Depression with anxiety Chronic gastroesophageal reflux disease History of hepatitis C ASCUS with positive high risk HPV cervical Left axillary pain Healthcare maintenance BI US BREAST LIMITED LEFT Routine 03/02/2024 1:00 PM EDT HPV MRNA E6/E7 REFLEX TO HPV 16, 18/45 Routine 11/25/2023 2:12 PM EDT PAP SMEAR Routine 11/25/2023 2:12 PM EDT HM COLONOSCOPY Routine 04/04/2020 10:07 AM EDT from Last 3 Months or Most Recently Relevant to Health Maintenance Results * (ABNORMAL) POCT Urinalysis (07/22/2024 8:53 AM EST) Only the most recent of2 resultswithin the time period is included. Color, UA Light Yellow Clarity, UA Clear [...] CARE TEST ENTER/EDIT OR DERABLES Final Result * (ABNORMAL) Bacterial Vaginosis (05/27/2024 2:46 PM EST) Pathologist [facility] TRICHOMONAS VAGINALIS DETECTION BY PCR NOT DETECTED Not Detect [facility] BACTERIAL VAGINOSIS DETECTION BY PCR NEGATIVE Negative [facility] Comment:The BV organism targ ets of the Xpert Xpress MVP test can becommensal in women; Xpert Xpress MVP positive results forbacterial vaginosis should be considered in conjunction withother clinical and patient information to determine thedisease status. Organisms that are not detected by the XpertXpress MVP test have also been reported to be associatedwith BV and aerobic vaginitis.The Xpert Xpress MVP test performance has not been evaluatedin patients under the age of 14. PATRICIA GROUP DETECTION BY PCR DETECTED(A) Not Detect [facility] Patricia glab krusei PCR NOT DETECTED Not Detect [facility] Swab Vaginal structure / Unknown 05/27/2024 2:46 PM EST 05/27/2024 5:32 PM EST Tamela Prescott NP LAB MICROBIOLOGY - GENERAL DOREEN ERAZO Final Result [facility] [address] [place] [phone] * Culture, Urine, Routine (05/27/2024 2:46 PM EST) Urine Urine specimen obtained by clean catch procedure / Unknown 05/27/2024 2:46 PM EST 05/27/2024 5:32 PM EST Comment:UACC Narrative [facility] - 05/29/2024 7:50 AM EST Escherichia coli Quant > 100,000 cfu/mL Escherichia coli: Ampicillin 8(S) Escherichia coli: Cefazolin <=1(S) Escherichia coli: Cefepime <=0.12(S) Escherichia coli: Ceftriaxone <=0.25(S) Escherichia coli: Ciprofloxacin <=0.06(S) Escherichia coli: Gentamicin <=1(S) Escherichia coli: Nitrofurantoin <=16(S) Escherichia coli: Trimethoprim/Sulfamethoxazole <=20(S) Specimen Source: Urine clean catch Tamela Prescott NP LAB MICROBIOLOGY - [facility] Final Result [facility] [address] [place] [phone] * HIV-1/2 Antigen and Antibodies, Fourth Generation, with Reflexes (03/03/2024 8:44 AM EDT) [facility] HIV AB/AG Nonreactive Nonreactive [facility] Comment:HIV-1 p24 Ag and/or HIV-1/HIV-2 Ab not detected.A test result that is nonreactive does not exclude thepossibility of exposure to or infection with HIV-1 and/orHIV-2. Nonreactive results in this assay for individualswith prior exposure to HIV-1 and/or HIV-2 may be due toantigen and antibody levels that are below the limit ofdetection of this assay.The [employer] HIV Ag/Ab Combo assay result andsupplemental assay results should be interpreted inconjunction with the patient's clinical presentation,history and other laboratory results. If the results areinconsistent with clinical evidence, additional testing issuggested to confirm the result. Blood Venous blood specimen / Unknown 03/03/2024 8:44 AM EDT 03/03/2024 11:20 AM EDT us Radha Jw DO LAB BLOOD ORDERABLES Final R esult Performing Organization Address City/[facility] Co de Phone Number [facility] [address] [place] [phone] * Lipid Panel, Standard (03/03/2024 8:44 AM EDT) Triglycerides 47 <150 mg/dL [facility] Comment:Desirable Triglyceri de: less than 150 mg/dLBorderline High Triglyceride 150-199 mg/dLHigh Triglyceride: 200-499 mg/dLVery High Triglyceride: greater than or equal to 5OO mg/dL Cholesterol 154 <200 mg/dL [facility] Comment:Desirable Cholestero l: less than 200 mg/dLBorderline High Cholesterol: 200-239 mg/dLHigh Cholesterol: greater than 239 mg/dL LDL Cholesterol Calculated 87 <100 mg/dL [facility] Comment:Desirable LDL: less than 100 mg/dLNear Optimal/Above Optimal LDL: 110- 129 mg/dLBorderline High LDL: 130-159 mg/dLHigh LDL: 160-189 mg/dLVery High LDL: greater than or equal to 190 mg/dL HDL Cholesterol 58 >40 mg/dL [facility] Comment:Desirable HDL: great er than 40 mg/dL Note: This HDL assay may give artificially low results in patients with liver disease. Blood Venous blood specimen / Unknown 03/03/2024 8:44 AM EDT 03/03/2024 11:20 AM EDT us Radha Escalera DO LAB BLOOD ORDERABLES Final R esult Performing Organization Address City/[facility]/ZIP Co de Phone Number [facility] [address] [place] [phone] * BI US Breast Limited Left (03/02/2024 1:00 PM EDT) Anatomical Region Laterality Modality Breast Left Ultrasound 03/02/2024 1:00 PM EDT Narrative 03/02/2024 4:32 PM EDT ? [facility] [facility] ? [address] ?[place] [address] ? Ultrasound Report ? Signed ? Patient: Mathis,Angie ?MR#: [id number] ?? 5 ? : 1960 ?Acct:[id number] ? Age/Sex: 63 / F ?ADM Date: 03/02/24 ? Loc: HO.MAMMO ? Attending Dr: Radha Escalera DO ? Ordering Physician: Radha Escalera DO ?? Date of Service: 03/02/24 ?? Procedure(s): US breast LT limited mamm only ?? Accession Number(s): [id number] ? cc: Radha Escalera DO ? EXAMINATION: ?? US DIAGNOSTIC ULTRASOUND BREAST, LEFT ? CLINICAL INFORMATION: ? Left axillary pain x6 months. ? COMPARISON: ?? No prior relevant ultrasound. ?? Mammography dated 01/07/2024. ? TECHNIQUE: ?? Ultrasound of the left axilla is performed with real-time sloan scale ?? imaging and color Doppler. ? FINDINGS: ?? There is no focal suspicious finding. ??There is no solid mass, abnormal ?? lymph nodes, cystic abnormality or abnormal shadowing in the left ?? axilla. ? Results are provided to the patient at time of visit by the ?? technologist. ? US/US breast LT limited mamm only ?? IMPRESSION: ?? -No findings suspicious for malignancy. ? -No ultrasonographic correlates to left axillary pain. Recommend ?? clinical management and follow-up. ? ASSESSMENT: ? BI-RADS 1: Negative ? RECOMMENDATION: ?? 1. Patient should be managed based on the clinical impression. ? 2. Otherwise, routine annual screening mammography. ? This patient's information was entered into a reminder system with a ?? target due date for their next mammogram. ? Electronically signed by: ??Honorio Cotton MD ??03/02/2024 04:29 PM EDT RP ? Dictated By: ?Honorio Cotton MD ? Signed By: ?<Electronically signed by Honorio Cotton MD in OV> ?03/02/24 1629 ? DD/ 1300 ? TD/TT: 03/02/24 1304 ? Tag Stringer: ? Procedure Note Donotuseinterpreter, Image - [facility]/02[facility]20[facility] [address] [place], [place] [address] Ultrasound Report Signed Patient: Sammie Mathis#: [id number] 5 : 1960Acct:[id number] Age/Sex: 63 / FADM Date: 03/02/24 Loc: HO.MAMMO Attending Dr: Radha Escalera DO Ordering Physician: Radha Escalera DO Date of Service: 03/02/24 Procedure(s): US breast LT limited mamm only Accession Number(s): [id number] cc: Radha Escalera DO EXAMINATION: US DIAGNOSTIC ULTRASOUND BREAST, LEFT CLINICAL INFORMATION: Left axillary pain x6 months. COMPARISON: No prior relevant ultrasound. Mammography dated 01/07/2024. TECHNIQUE: Ultrasound of the left axilla is performed with real-time sloan scale imaging and color Doppler. FINDINGS: There is no focal suspicious finding. There is no solid mass, abnormal lymph nodes, cystic abnormality or abnormal shadowing in the left axilla. Results are provided to the patient at time of visit by the technologist. US/US breast LT limited mamm only IMPRESSION: -No findings suspicious for malignancy. -No ultrasonographic correlates to left axillary pain. Recommend clinical management and follow-up. ASSESSMENT: BI-RADS 1: Negative RECOMMENDATION: 1. Patient should be managed based on the clinical impression. 2. Otherwise, routine annual screening mammography. This patient's information was entered into a reminder system with a target due date for their next mammogram. Electronically signed by: Honorio Cotton MD 03/02/2024 04:29 PM EDT Dictated By: Honorio Cotton MD Signed By: <Electronically signed by Honorio Cotton MD in OV> 03/02/24 1629 DD/ 1300 TD/TT: 03/02/24 1304 Tag Stringer: us Radha Escalera DO IMG US PROCEDURES Final Resu lt * (ABNORMAL) HPV mRNA E6/E7 w/Reflex to HPV Genotypes 16, 18/45 (11/25/2023 2:12 PM EDT) HPV nRNA E6/E7 Detected(A ) Not Detected [facility] Comment:Methodology: Transcr iption-Mediated AmplificationThis assay detects E6/E7 viral messenger RNA (mRNA) from 14high-risk HPV types (16,18,31,33,35,39,45,51,52,56,58,59,66,68).Cervical sources are required for HPV testing.If a vaginal source from a patient who has had atotal hysterectomy with removal of cervix wassubmitted, please contact the testing laboratoryfor alternative testing options.For additional information, please refer tohttp://education.[employer]/faq/MYJ138x4(This link if provided for information/educational purposes only.)THIS TEST WAS PERFORMED AT:[facility] [place] [phone] OROPEZA MD HPV 16 RNA NOT DETECTED NOT DETECTED [facility] HPV 18/45 RNA NOT DETECTED NOT DETECTED [facility] Comment:Methodology: Transcr iption Mediated AmplificationCervical sources are required for HPV testing.If a vaginal source from a patient who has had atotal hysterectomy with removal of cervix wassubmitted, please contact the testing laboratoryfor alternative testing options.THIS TEST WAS PERFORMED AT:[facility] [employer] [address] [phone] OROPEZA MD 11/25/2023 2:12 PM EDT 12/03/2023 2:12 PM EDT us Tameka [facility] LAB CYTOLOGY ORDERABLES F inal Result [facility] [address], [place] [phone] * Pap Smear (11/25/2023 2:12 PM EDT) 11/25/2023 2:12 PM EDT 11/26/2023 9:15 AM EDT Narrative [facility] - 12/22/2023 10:44 AM EDT ----- ------- Name: Angie Mathis ?Age/Sex: 63/F ? : 1960 Unit#: [id number] ?? Attend Dr: TAMEKA STODDARD CNM ?Re11/25/23 ?Status: DEP REF ? Location: [facility] ? Disch: ? ----- ------- SPEC : [id number] ?RECD: 11/26/23-914 ? STATUS: ??SOUT ? REQ NUM: [id number] ? BRIAN: 11/25/23-141 ? SUBM DR: TAMEKA STODDARD CNM ? ENTERED: ??11/26/23-1016 ?SP TYPE: Pap Smr ?OTHR : ? ORDERED: ??Pap Smear, PAP path review ? Interpretation ?? General Category: ? Epithelial cell abnormality. ?? Adequacy: ? Endocervical component absent. ?? Interpretation: ? Low grade squamous intraepithelial lesion (ILEANA I). ?Coccobacilli consistent with shift in vaginal john. ? HPV mRNA E6/E7: ?DETECTED ? This assay detects E6/E7 viral messenger RNA (mRNA) from 14 high-risk HPV types (16, 18, ?? 31, 33, 35, 39, 45, 51, 52, 56, 58, 59, 66, 68) ? HPV Type 16 RNA: ?Not Detected ?? HPV Type 18/45 RNA: ? Not Detected ? HPV testing performed by [facility] [employer] [facility], [place], [place]. ??See reference laboratory ?? portion of the EMR for entire report. ?Clinical Information LMP: Postmenopausal Previous PAP test: Unknown date, ASCUS HPV pos, neg colpo, this is first f/u pap ? Material Received ?? ThinPrep-Vaginal/Cervical ----- ------- Signed (signature on file) Annabelle Nutrioso 12/22/23 1044 ? ----- ------- ? END OF REPORT ? us Tameka Stoddard [facility] CYTOLOGY ORDERABLES F inal Result Performing Organization Address City/State/[facility] Co de Phone Number [facility] [address] [place] [phone] * Colonoscopy (04/04/2020 10:07 AM EDT) Historical Provider HEALTH MAINTENANCE Final Result from Last 3 Months or Most Recently Relevant to Health Maintenance Insurance [facility] C3 Care Teams Ticketing Clerk Relationship Specialty Start Date End Date Radha Escalera DO [address] [place] [phone] PCP - General Family Medicine 06/23/18
--- OUTSIDE RECORDS SUMMARY | 2024-07-22 19:43 | XMS_ITS | Encounter Summary ---
Author Organization [employer] Address [address] [facility] 7t [place] [address] Care Team Providers Care Putty And Caulking Supervisor Name Role Phone Radha Escalera DO Primary Care Provider + [phone] Reason for Visit * Reason Comments Med Refill Encounter Details Date Type Department Care Team ([facility] st Contact Info) Description 05/23/2024 Refill [facility] MEDICINE [address] [place] [address] Radha Escalera DO [address] [place] [address] Candidal intertrigo Social History Tobacco Use Types Packs/Day Years Used Date Smoking Tobacco: Former Cigarettes Smokeless Tobacco: Never Alcohol Use Standard Drinks/Week Comments Not Currently [...] AM EDT documented as of this encounter Plan of Treatment Not on file documented as of this encounter Visit Diagnoses Diagnosis Candidal intertrigo Candidiasis of skin and nails documented in this encounter Additional Health Concerns Assessment Noted Time PHQ-9 Depression Total Score: 0 10/28/19 24 9:42 AM EDT documented as of this encounter Care Teams Putty And Caulking Supervisor Relationship Specialty Start Date End Date Radha Escalera DO [address] [place] [id number] PCP - General Family Medicine 06/23/18 documented as of this encounter
--- OUTSIDE RECORDS SUMMARY | 2024-07-22 19:44 | XMS_ITS | Encounter Summary ---
Author Organization [employer] Address [address] [facility] 7t [place] [address] Care Team Providers Care Well Logging Captain Name Role Phone Radha Escalera DO Primary Care Provider + [phone] Encounter Details Date Type Department Care Team ([facility] st Contact Info) Description 08/16/2022 Orders Only [facility] MED & PEDS [address] [place] [address] Radha Reynolds LPN Social History Tobacco Use Types Packs/Day Years Used Date Smoking Tobacco: Former Cigarettes Smokeless Tobacco: Never Alcohol Use Standard Drinks/Week Comments Not Currently 0 (1 standard drink = 0.6 oz pur e alcohol) Depression Answer Date Recorded Patient Health Questionnaire-9 Score 0 07/31/2022 Depression Answer Date Recorded Patient Health Questionnaire-2 Score 0 07/31/2022 Comments Unknown Sex and Gender Information Value Date Recorded Sex Assigned at Female 04/22/2022 10:14 AM EDT Legal Sex Female 10:14 AM EDT Gender Identity Female 04/22/2022 10:14 AM EDT Sexual Orientation Straight 04/22/2022 10 :14 AM EDT COVID-19 Exposure Response Date Recorded In the last 10 days, have yo u been in contact with someone who was confirmed or suspected to have Coronavirus/COVID-19? No / Unsure 07/31/2022 9:07 AM EST documented as of this encounter Plan of Treatment Not on file documented as of this encounter Visit Diagnoses Not on filedocumented in this encounter Additional Health Concerns Assessment Noted Time PHQ-9 Depression Total Score: 0 07/31/19 23 10:39 AM EST documented as of this encounter Care Teams Well Logging Captain Relationship Specialty Start Date End Date Radha Escalera DO [address] [place] [address] PCP - General Family Medicine 06/23/18 documented as of this encounter
--- OUTSIDE RECORDS SUMMARY | 2024-07-22 19:44 | XMS_ITS | Encounter Summary ---
Author Organization [employer] Address [address] [facility] [address] 7t [place] [address] Care Team Providers Care Automatic Riveting Machine Operator Name Role Phone Radha Escalera DO Primary Care Provider + [phone] Encounter Details Date Type Department Care Team ([facility] st Contact Info) Description 07/30/2023 Orders Only [facility] [address] [place], [place] [phone] Isha Tran FNP Social History Tobacco Use Types Packs/Day Years Used Date Smoking Tobacco: Former Cigarettes Smokeless Tobacco: Never Alcohol Use Standard Drinks/Week Comments Not Currently 0 (1 standard drink = 0.6 oz pur e alcohol) Depression Answer Date Recorded Patient Health Questionnaire-9 Score 0 07/31/2022 Housing Stability Answer Date Recorded What is your housing situation today? I have oren hernández 04/15/[address] you li ve. Do you have problems with any of the following? None of the above 04/15/2023 Food Insecurity Answer Date Recorded Within the past 12 months, y ou worried that your food would run out before you got money to buy more: Never True 04/15/2023 Within the past 12 months,th e food you bought just didn't last and you didn't have enough money to get more: Never True Transportation Answer Date Recorded In the past 12 months, has l ack of transportation kept you from medical appts, meetings, work or from getting things needed for daily living? No 04/15/2023 Utilities Answer Date Recorded In the past 12 months, has t he electric, gas, oil or water company threatened to shut off services in your home? No 04/15/2023 Depression Answer Date Recorded Patient Health Questionnaire-2 [...] documented as of this encounter Care Teams Automatic Riveting Machine Operator Relationship Specialty Start Date End Date Radha Escalera DO [address] [place] [id number] PCP - General Family Medicine 06/23/18 documented as of this encounter
--- OUTSIDE RECORDS SUMMARY | 2024-07-22 19:44 | XMS_ITS | Encounter Summary ---
Author Organization [employer] Address [address] [address] 7[address] [place] [address] Care Team Providers Care Edger Saw Operator Name Role Phone CristianoRadha waddell DO Primary Care Provider + [phone] Encounter Details Date Type Department Care Team ([facility] st Contact Info) Description 10/03/2023 Orders Only [facility] MEDICINE [address] [place], [place] [phone] ProviderBoris MD Social History Tobacco Use Types Packs/Day Years [...] on file documented as of this encounter Procedures Procedure Name Priority Date/Time Associated Diagnosis Comments HM COLONOSCOPY Routine 04/04/2020 10:07 AM EDT documented in this encounter Results * Hm Colonoscopy (04/04/2020 10:07 AM EDT) us Historical Provider HEALTH MAINTENANCE Final Result documented in this encounter Visit Diagnoses Not on filedocumented in this encounter Additional Health Concerns Assessment Noted Time PHQ-9 Depression Total Score: 0 07/31/19 23 10:39 AM EST documented as of this encounter Care Teams Edger Saw Operator Relationship Specialty Start Date End Date Radha Escalera DO [address] [place] [id number] PCP - General Family Medicine 06/23/18 documented as of this encounter
--- OUTSIDE RECORDS SUMMARY | 2024-07-22 19:44 | XMS_ITS | Encounter Summary ---
Author Organization [employer] Address [address] [place] [address] [address] [place] [address] Care Team Providers Care Charter And Tour Bus Driver Name Role Phone Radha Escalera DO Primary Care Provider [phone] Encounter Details Date Type Department Care Team (Latest Contact Info) Description 09/08/2018 Abstract [facility] CONVERSIONS Dental, Provider, DDS Social History Tobacco Use Types Packs/Day Years Used Date Smoking Tobacco: Never Assessed Comments Unknown Sex and Gender Information Value Date Recorded Sex Assigned at Female 04/22/2022 10:14 AM EDT Legal Sex Female 10:14 AM EDT Gender Identity Female 04/22/2022 10:14 AM EDT Sexual Orientation Straight 04/22/2022 10 :14 AM EDT documented as of this encounter Plan of Treatment Not on file documented as of this encounter Visit Diagnoses Not on filedocumented in this encounter Care Teams Charter And Tour Bus Driver Relationship Specialty Start Date End Date Radha Escalera DO [address] [place] [phone] PCP - General Family Medicine 06/23/18 documented as of this encounter
--- OUTSIDE RECORDS SUMMARY | 2024-07-22 19:44 | XMS_ITS | Encounter Summary ---
Author Organization [employer] Address [address] [facility] 7t [place] [address] Care Team Providers Care Gear Machine Operator Name Role Phone Radha Escalera DO Primary Care Provider + [phone] Encounter Details Date Type Department Care Team (Late st Contact Info) Description 10/03/2022 Orders Only [facility] MED & PEDS [address] [place], [place] [phone] Radha Reynolds LPN Social History Tobacco Use [...] documented as of this encounter Care Teams Gear Machine Operator Relationship Specialty Start Date End Date Radha Escalera DO [address] [place] [address] PCP - General Family Medicine 06/23/18 documented as of this encounter
== END 2024-07-22 17:44 | disposition home or self-care (01) ==
LOC: HO.HHCLNP 17:43
PROVIDERS: Visit Provider Family Medicine
DX: R30.0 Dysuria (principal)
CPT/HCPCS: 87086

== ENCOUNTER 2024-09-22 18:16 | Outpatient (REF) | payer MEDICAID, SELFPAY ==
--- OUTSIDE RECORDS SUMMARY | 2024-09-22 18:20 | XMS_ITS | Encounter Summary ---
Author Organization [employer] Address [address] [facility] [address] [place] [address] Care Team Providers Care Lead Software Development Engineer Name Role Phone wJRadha Primary Care Provider + [phone] Encounter Details Date Type Department Care Team (Late st Contact Info) Description 10/03/2022 Orders Only [facility] CH[facility] MED & PEDS [address] [place], [place] [phone] Radha Reynolds LPN Social History Tobacco Use [...] as of this encounter Plan of Treatment Upcoming Encounters Date Type Department Care Team (Late st Contact Info) Description 11/25/2024 1:15 PM EDT Procedure Visit [facility] MEDICINE [address] [place], [place] [phone] Milena Villa CNM [address] [place], [place] [phone] 11/29/2024 3:00 PM EDT Office Visit [facility] ADULT DENTAL [address] [place], [place] [phone] [place] [address] documented as of this encounter Visit Diagnoses Not on filedocumented in this encounter Additional Health Concerns Assessment Noted Time PHQ-9 Depression Total Score: 0 07/31/19 23 10:39 AM EST documented as of this encounter Care Teams Lead Software Development Engineer Relationship Specialty Start Date End Date Radha Escalera DO [address] [place] [address] PCP - General Family Medicine 06/23/18 documented as of this encounter
--- OUTSIDE RECORDS SUMMARY | 2024-09-22 18:20 | XMS_ITS | Encounter Summary ---
Author Organization [employer] [facility] Address [address] [place] [address] 7[address] [place] [address] Care Team Providers Care Senior Talent Acquisition Specialist Name Role Phone Radha Escalera DO Primary Care Provider + [phone] Encounter Details Date Type Department Care Team (Latest Contact Info) Description 09/08/2018 Abstract [facility] CONVERSION[facility] Dental, Provider, DDS Social History [...] Upcoming Encounters Date Type Department Care Team ( st Contact Info) Description 11/25/2024 1:15 PM EDT Procedure Visit [facility] MEDIC[facility] [address] [place] [address] Milena Villa CNM [address] [place] [address] 11/29/2024 3:00 PM EDT Office Visit [facility] ADULT DENTAL [address] [place] [address] Rajesh Hernandezaris [address] [place] [address] documented as of this encounter Visit Diagnoses Not on filedocumented in this encounter Care Teams Senior Talent Acquisition Specialist Relationship Specialty Start Date End Date Radha Escalera DO [address] [place] [address] PCP - General Family Medicine 06/23/18 documented as of this encounter
--- OUTSIDE RECORDS SUMMARY | 2024-09-22 18:20 | XMS_ITS | Clinical Summary ---
Author Organization [employer] Address [address] [place] [address] 7[address] [place] [address] Care Team Providers Care Client Sales And Service Officer Name Role Phone Radha Escalera DO Primary Care Provider + [phone] Allergies Active Allergy Reactions Criticality Noted Date Comments Clarithromycin Unknown 12/06/2011 Telaprevir Swelling High 08/17/2023 Medications acetaminophen (Tylenol 8 Hour) 650 MG ER tablet Take 1 tablet by mouth in the morning and 1 tablet at noon and 1 tablet in the evening. 022 Active docosanol cream (Abreva) 10 % cream cream Apply 1 application topically 5 (five) times a day. 2 g 2 023 Active triamcinolone (Kenalog) 0.1 % cream Apply topically if needed in the morning and at bedtime for rash. 30 g 024 Active diphenhydrAMINE (BENADryl) 25 MG capsule Take 1 capsule (25 mg) by mouth every 6 (six) hours if needed for itching. 30 capsule 024 Active omeprazole (PriLOSEC) [address] capsule TAKE 1 CAPSULE BY ORAL ROUTE TWICE A DAY X 3 MONTHS, THEN RETURN TO ONCE A DAY DOSE 180 capsule 3 024 Active fluticasone (Flonase) 50 MCG/ACT nasal sprayIndications: Seasonal allergic rhinitis, unspecified trigger SPRAY 2 SPRAYS INTO EACH NOSTRIL EVERY DAY 48 mL 1 024 Active Ventolin HFA 108 (90 Base) MCG/ACT inhaler INHALE 2 PUFFS EVERY 4 (FOUR) HOURS IF NEEDED FOR SHORTNESS OF BREATH OR WHEEZING. 18 g 1 024 Active loratadine (Claritin) 10 MG tablet TAKE 1 TABLET BY MOUTH EVERY DAY 90 tablet 1 024 Active cholecalciferol (D3) 50 MCG (1999 UT) tabletIndications :Vitamin D deficiency TAKE 1 TABLET BY MOUTH EVERY DAY 90 tablet 1 024 Active nadolol (Corgard) 40 MG tabletIndications :Hypertension, unspecified type TAKE 1 TABLET BY MOUTH EVERY DAY IN THE MORNING 90 tablet 1 024 Active baclofen (Lioresal) 10 MG tabletIndications :Muscle spasm Take 1 tablet (10 mg) by mouth if needed in the morning, at noon, and at bedtime for muscle spasms. 60 tablet 3 024 Active Diclofenac Sodium 1 % gel Apply 2 g topically if needed in the morning, at noon, in the evening, and at bedtime (pain). 150 g 3 024 Active cephalexin (Keflex) 250 MG capsule Take 1 capsule (250 mg) by mouth if needed each day (sexual intercourse for UTI prevention). 30 capsule 024 Active hydroCHLOROthiazi de (HYDRODiuril) 25 MG tabletIndications :Hypertension, unspecified type TAKE 1 TABLET BY MOUTH EVERY DAY IN THE MORNING 90 tablet 1 025 Active clotrimazole-beta methasone (Lotrisone) creamIndications: Candidal intertrigo APPLY TO AFFECTED AREA TWICE A DAY 30 g 1 025 Active aspirin (Aspirin Low Dose) 81 MG EC tabletIndications :Hyperlipidemia, unspecified hyperlipidemia type TAKE 1 TABLET BY MOUTH EVERY DAY 90 tablet 1 025 Active nitrofurantoin, macrocrystal-mono hydrate, (Macrobid) 100 MG capsule Take 1 capsule (100 mg) by mouth 2 times daily for 5 days. 10 capsule 025 2024 Active phenazopyridine (Pyridium) 200 MG tablet Take 1 tablet (200 mg) by mouth with breakfast, with lunch, and with evening meal for 2 days. 6 tablet 025 2024 Active Blood Pressure kit 1 each 2 times daily. 1 kit 025 2025 Active hydroCHLOROthiazi de (HYDRODiuril) 25 MG tabletIndications :Hypertension, unspecified type TAKE 1 TABLET BY MOUTH EVERY DAY IN THE MORNING 90 tablet 1 024 2024 Discontinued clotrimazole-beta methasone (Lotrisone) creamIndications: Candidal intertrigo APPLY TO AFFECTED AREA TWICE A DAY 30 g 1 024 2024 Discontinued aspirin (Aspirin Low Dose) 81 MG EC tabletIndications :Hyperlipidemia, unspecified hyperlipidemia type TAKE 1 TABLET BY MOUTH EVERY DAY 90 tablet 1 024 2024 Discontinued amoxicillin-clavu lanate (Augmentin) 875-125 MG tablet Take 1 tablet by mouth 2 times daily for 5 days. 10 tablet 025 2024 Active Problems Problem Noted Date Diagnosed Date [...] visit.ECC=inadequate. Rebook for repeat sampling.colpo, [facility], Radha Escalera DO colpo performed 03/09/20, neg [...] Encounters Date Type Department Care Team Description 09/22/2024 9:00 AM EDT Office Visit [facility] [address] [address] Jeff Maxwell MD Dysuria (Primary Dx); Essential hypertension; UTI symptoms 09/13/2024 Patient Outreach [facility] [address] [place] [address] Radha Escalera DO Pre-visit Planning (Pre-visit planning - LVM ) 09/03/2024 Population Health Risk Score [facility] () Department [address] [place] [phone] Provider, Population Health Generic 08/30/2024 2:00 PM EDT Office Visit [facility] [address] [address] Kam Wihtt MD Earache (Primary Dx); Sore throat; Acute bacterial infection of left middle ear 08/27/2024 Refill [facility] [address] [address] Radha Escalera DO Candidal intertrigo; Hyperlipidemia, unspecified hyperlipidemia type 08/27/2024 Refill [facility] [address] [place] [address] Radha Escalera DO Hypertension, unspecified type 07/22/2024 8:40 AM EST Office Visit [facility] [address] [address] Aroldo Walter MD Acute cystitis with hematuria from Last 3 Months Immunizations Name Administration [...] Sign Reading Time Taken Comments Blood Pressure 150/83 09/22/2024 8:38 AM EDT Pulse 62 09/22/2024 8:38 AM EDT Temperature 36.4 ??C (97.5 ??F) 09/22/2024 8:38 AM ED T Respiratory Rate 17 09/22/2024 8:38 AM EDT Oxygen Saturation 98% 09/22/2024 8:38 AM EDT Inhaled Oxygen Concentration - - Weight 76.3 kg (168 lb 3.2 oz) 09/22/2024 8:38 A M EDT Height 165.1 cm (5' 5 ) 08/30/2024 2:09 PM EDT Body Mass Index 27.99 08/30/2024 2:09 PM EDT Plan of Treatment Upcoming Encounters Date Type Department Care Team (Late st Contact Info) Description 11/25/2024 1:15 PM EDT Procedure Visit [facility] [address] [place] [address] Tameka Stoddard CNM [address] [place] [address] 11/29/2024 3:00 PM EDT Office Visit [facility] [address] [place] [address] [address] [facility] [place] [address] Health Maintenance Due Date Last Done Comments CT Colonography 1959 FIT DNA/Cologuard 1960 FIT 1960 FOBT 1960 Sigmoidoscopy 1960 Depression Screening 10/27/2024 10/28/2023, 10/28/19 24 SDOH Screening 10/27/2024 10/28/2023 Cervical Cancer Screening 11/24/2024 HPV/Cotest 11/24/2024 11/25/2023, 07/24, 08/10/2021, Additional history exists Pap Smear 11/24/2024 11/25/2023, 08/10/2021 Alcohol/Substance Use Screening 02/25/2025 02/26/2024 Mammogram 03/02/2025 03/02/2024, 12/21, 01/01/2023, Additional history exists Tobacco Screening 09/22/2025 09/22/2024 Lipid Panel 03/03/2029 03/03/2024, 07/2022, 05/13/2022, Additional [...] Associated Diagnosis Comments POCT URINALYSIS DIPSTICK Routine 09/22/2024 8:48 AM EDT UTI symptoms POCT INFLUENZA A (ID NOW RAPID MOLECULAR) Routine 08/30/2024 2:24 PM EDT Sore throat POCT INFLUENZA B (ID NOW RAPID MOLECULAR) Routine 08/30/2024 2:24 PM EDT Sore throat POCT RAPID COVID ANTIGEN Routine 08/30/2024 2:20 PM EDT Sore throat POCT URINALYSIS DIPSTICK Routine 07/22/2024 8:53 AM EST Acute cystitis with hematuria CULTURE, URINE, ROUTINE Routine 07/22/2024 8:53 AM EST Acute cystitis with hematuria HIV 1/2 ANTIGEN/ANTIBODY, FOURTH GENERATION W/RFL Routine [...] to Health Maintenance Results * (ABNORMAL) POCT urinalysis dipstick manually resulted (09/22/2024 8:48 AM EDT) Only the most recent of2 resultswithin the time period is included. Color, UA Yellow Clarity, UA Clear Glucose, UA Negative Bilirubin, UA Negative Ketones, UA Negative Spec Grav, UA 1.010 Blood, UA Positive(A) Negative, None Detected Comment:Trace- intact pH, UA 7.0 Protein, UA Negative Urobilinogen, UA 0.2 Leukocytes, UA Few 15(A) Negative, Rare, Trace Comment:small Nitrite, UA Positive(A) Negative, None Detected Urine 09/22/2024 8:48 AM EDT Jeff Maxwell MD POINT OF CARE TEST ENTER/EDIT OR DERABLES Final Result * POCT Rapid Influenza B PERDOMO ID NOW (08/30/2024 2:24 PM EDT) Influenza B Negative Negative, Indeterminate [facility] QC Media Lot # [id number] [facility] Lot# Expiration Date [facility] Swab 08/30/2024 2:24 PM EDT Kam Whitt MD POINT OF CARE TEST ENTER/EDIT OR DERABLES Final Result [facility] [address] [place] [phone] * POCT Rapid Influenza A PERDOMO ID NOW (08/30/2024 2:24 PM EDT) Influenza A Negative Negative, Indeterminate [facility] QC Media Lot # [id number] [facility] Lot# Expiration Date 826 [facility] Swab 08/30/2024 2:24 PM EDT Kam Whitt MD POINT OF CARE TEST ENTER/EDIT OR DERABLES Final Result Performing Organization Address City/[facility]/ZIP Co de Phone Number [facility] [address] [place] [address] [phone] * POCT Rapid Covid-19 BinaxNOW (08/30/2024 2:20 PM EDT) [facility] Rapid COVID Ag Negative QC Media Lot # [id number] Lot# Expiration Date 326 Swab 08/30/2024 2:20 PM EDT Kam Whitt MD POINT OF CARE TEST ENTER/EDIT OR DERABLES Final Result * Culture, Urine, Routine (07/22/2024 8:53 AM EST) Urine Urine specimen obtained by clean catch procedure / Unknown 07/22/2024 8:53 AM EST 07/22/2024 5:43 PM EST Comment:CC Narrative [facility] - 07/24/2024 8:55 AM EST Urine Culture Report Result Urine Culture < 10,000 cfu/ml Specimen Source: Urine clean catch Aroldo Walter MD LAB MICROBIOLOGY - GENERAL ORDER ROSAS Final Result Performing Organization Address City/[facility]/ZIP Co de Phone Number [facility] [address] [place] [address] [phone] * HIV-1/2 Antigen and Antibodies, Fourth Generation, with Reflexes (03/03/2024 8:44 AM EDT) [facility] HIV AB/AG Nonreactive Nonreactive [facility] Comment:HIV-1 p24 Ag and/or HIV-1/HIV-2 Ab not detected.A test result that is nonreactive does not exclude thepossibility of exposure to or infection with HIV-1 and/orHIV-2. Nonreactive results in this assay for individualswith prior exposure to HIV-1 and/or HIV-2 may be due toantigen and antibody levels that are below the limit ofdetection of this assay.The [employer]ni[employer] HIV Ag/Ab Combo assay result andsupplemental assay results should be interpreted inconjunction with the patient's clinical presentation,history and other laboratory results. If the results areinconsistent with clinical evidence, additional testing issuggested to confirm the result. Blood Venous blood specimen / Unknown 03/03/2024 8:44 AM EDT 03/03/2024 11:20 AM EDT us Radha Escalera DO LAB BLOOD ORDERABLES Final R esult [facility] [address], [place] [phone] * Lipid Panel, Standard (03/03/2024 8:44 AM EDT) Triglycerides 47 <150 mg/dL [facility] Comment:Desirable Triglyceri de: less than 150 mg/dLBorderline High Triglyceride 150-199 mg/dLHigh Triglyceride: 200-499 mg/dLVery High Triglyceride: greater than or equal to 5OO mg/dL Cholesterol 154 <200 mg/dL [facility] Comment:Desirable Cholestero l: less than 200 mg/dLBorderline High Cholesterol: 200-239 mg/dLHigh Cholesterol: greater than 239 mg/dL LDL Cholesterol Calculated 87 <100 mg/dL [facility] Comment:Desirable LDL: less than 100 mg/dLNear Optimal/Above Optimal LDL: 110- 129 mg/dLBorderline High LDL: 130-159 mg/dLHigh LDL: 160-189 mg/dLVery High LDL: greater than or equal to 190 mg/dL HDL Cholesterol 58 >40 mg/dL [facility] Comment:Desirable HDL: great er than 40 mg/dL Note: This HDL assay may give artificially low results in patients with liver disease. Blood Venous blood specimen / Unknown 03/03/2024 8:44 AM EDT 03/03/2024 11:20 AM EDT us Radha Escalera DO LAB BLOOD ORDERABLES Final R esult [facility] [address] [place] [phone] [phone] * BI US Breast Limited Left (03/02/2024 1:00 PM EDT) Anatomical Region Laterality Modality Breast Left Ultrasound 03/02/2024 1:00 PM EDT Narrative 03/02/2024 4:32 PM EDT ? [facility] ? [address] ?[place] [address] ? Ultrasound Report ? Signed ? Patient: Mathis,Angie ?MR#: [id number] ?? 5 ? : 1960 ?Acct:[id number] ? Age/Sex: 63 / F ?ADM Date: 03/02/24 ? Loc: HO.MAMMO ? Attending Dr: Radha Escalera DO ? Ordering Physician: Radha Escalera DO ?? Date of Service: 03/02/24 ?? Procedure(s): US breast LT limited mamm only ?? Accession Number(s): [id number] ? cc: Radha Escalera DO ? EXAMINATION: [...] DD/ 1300 ? TD/TT: 03/02/24 1304 ? Accounts Receivable Manager: ? Procedure Note Spencerter, Image - 03/02/2024 [facility] [address] [place] [address] Ultrasound Report Signed Patient: Sammie Mathis#: [id number] 5 : 1960Acct:[id number] Age/Sex: 63 / FADM Date: 03/02/24 Loc: HO.MAMMO Attending Dr: Radha Escalera DO Ordering Physician: Radha Escalera DO Date of Service: 03/02/24 Procedure(s): US breast LT limited mamm only Accession Number(s): [id number] cc: Radha Escalera DO EXAMINATION: US DIAGNOSTIC [...] Honorio Cotton MD 03/02/2024 04:29 PM EDT RP Dictated By: Honorio Cotton MD Signed By: <Electronically signed by Honorio Cotton MD in OV> 03/02/24 1629 DD/ 1300 TD/TT: 03/02/24 1304 Accounts Receivable Manager: us Radha Escalera DO IMG US PROCEDURES Final Resu lt * (ABNORMAL) HPV mRNA E6/E7 w/Reflex to HPV Genotypes 16, 18/45 (11/25/2023 2:12 PM EDT) HPV nRNA E6/E7 Detected(A ) Not Detected [facility] Comment:Methodology: Transcr iption-Mediated AmplificationThis assay detects E6/E7 viral messenger RNA (mRNA) from 14high-risk HPV types (16,18,31,33,35,39,45,51,52,56,58,59,66,68).Cervical sources are required for HPV testing.If a vaginal source from a patient who has had atotal hysterectomy with removal of cervix wassubmitted, please contact the testing laboratoryfor alternative testing options.For additional information, please refer tohttp://education.[employer]/faq/HCE406n0(This link if provided for information/educational purposes only.)THIS TEST WAS PERFORMED AT:[facility] [place] [phone] OROPEZA MD HPV 16 RNA NOT DETECTED NOT DETECTED [facility] HPV 18/45 RNA NOT DETECTED NOT DETECTED [facility] Comment:Methodology: Transcr iption Mediated AmplificationCervical sources are required for HPV testing.If a vaginal source from a patient who has had atotal hysterectomy with removal of cervix wassubmitted, please contact the testing laboratoryfor alternative testing options.THIS TEST WAS PERFORMED AT:[facility] [place] [phone] OROPEZA MD 11/25/2023 2:12 PM EDT 12/03/2023 2:12 PM EDT us Tameka Stoddard CNM LAB CYTOLOGY ORDERABLES F inal Result [facility] [address] [place] [phone] * Pap Smear (11/25/2023 2:12 PM EDT) 11/25/2023 2:12 PM EDT 11/26/2023 9:15 AM EDT Narrative [facility] - 12/22/2023 10:44 AM EDT ----- ------- Name: Angie Mathis ?Age/Sex: 63/F ? : 1960 Unit#: [id number] ?? Attend Dr: TAMEKA STODDARD CNM ?Re11/25/23 ?Status: DEP REF ? Location: HO.HHCLNP ? Disch: ? ----- ------- SPEC : [id number] ?RECD: 11/26/23 ? STATUS: ??SOUT ? REQ NUM: [id number] ? BRIAN: 11/25/231412 ? SUBM DR: TAMEKA STODDARD CNM ? [...] Not Detected ? HPV testing performed by [email or web address] [employer] [place] [place] ??See reference laboratory ?? portion of the EMR for entire report. ?Clinical Information LMP: Postmenopausal Previous PAP test: Unknown date, ASCUS HPV pos, neg colpo, this is first f/u pap ? Material Received ?? ThinPrep-Vaginal/Cervical ----- ------- Signed (signature on file) Annabelle Iron 12/22/23 1044 ? ----- ------- ? END OF REPORT ? Tameka Stoddard [facility] CYTOLOGY ORDERABLES F inal Result [facility] [address] [place] [phone] * Colonoscopy (04/04/2020 10:07 AM EDT) us Historical Provider HEALTH MAINTENANCE Final Result from Last 3 Months or Most Recently Relevant to Health Maintenance Insurance [facility] MEDICAID STAND ADULT Care Teams Client Sales And Service Officer Relationship Specialty Start Date End Date Radha Escalera DO [address] [place] [address] PCP - General Family Medicine 06/23/18
--- OUTSIDE RECORDS SUMMARY | 2024-09-22 18:20 | XMS_ITS | Encounter Summary ---
Author Organization [employer] Address [address] [place] [address] Care Team Providers Care Beater Engineer Helper Name Role Phone Radha Escalera DO Primary Care Provider + [phone] Encounter Details Date Type Department Care Team ([facility] st Contact Info) Description 07/30/2023 Orders Only [facility] [address] [place], [place] [phone] Isha Tran FNP Social History Tobacco Use [...] Description 11/25/2024 1:15 PM EDT Procedure Visit [facility] [address] [place] [address] Milena Villa CNM [address] [place] [address] 11/29/2024 3:00 PM EDT Office Visit [facility] [address] [place] [address] [address] [place] [address] documented as of this encounter Visit Diagnoses Not on filedocumented in this encounter Additional Health Concerns Assessment Noted Time PHQ-9 Depression Total Score: 0 07/31/19 23 10:39 AM EST documented as of this encounter Care Teams Beater Engineer Helper Relationship Specialty Start Date End Date Radha Escalera DO [address] [place] [address] PCP - General Family Medicine 06/23/18 documented as of this encounter
--- OUTSIDE RECORDS SUMMARY | 2024-09-22 18:20 | XMS_ITS | Encounter Summary ---
Author Organization [employer] Address [address] [facility] [facility] [address] [place] [address] Care Team Providers Care Yacht Rigger Name Role Phone Radha Escalera DO Primary Care Provider + [phone] Reason for Visit * Reason Comments Med Refill Encounter Details Date Type Department Care Team ([facility] st Contact Info) Description 05/23/2024 Refill [facility] [address] [place] [address] Radha Escalera DO [address] [place] [address] Candidal intertrigo Social History Tobacco Use Types [...] Description 11/25/2024 1:15 PM EDT Procedure Visit [facility] [address] [place] [address] Milena Villa CNM [address] [place] [address] 11/29/2024 3:00 PM EDT Office Visit [facility] [address] [place], [place] [phone] [address], [address] [place] [address] documented as of this encounter Visit Diagnoses Diagnosis Candidal intertrigo Candidiasis of skin and nails documented in this encounter Additional Health Concerns Assessment Noted Time PHQ-9 Depression Total Score: 0 10/28/19 24 9:42 AM EDT documented as of this encounter Care Teams Yacht Rigger Relationship Specialty Start Date End Date Radha Escalera DO [address] [place] [address] PCP - General Family Medicine 06/23/18 documented as of this encounter
--- OUTSIDE RECORDS SUMMARY | 2024-09-22 18:20 | XMS_ITS | Encounter Summary ---
Author Organization [employer] Address [address] [facility] [address] [place] [address] Care Team Providers Care Healthcare Recruiter Name Role Phone Radha Escalera DO Primary Care Provider + [phone] Reason for Visit * Reason Comments uti [email or web address] Encounter Details Date Type Department Care Team ([facility] Contact Info) Description 09/22/2024 9:00 AM EDT Office Visit [facility] [address] [place] [address] Jeff Maxwell MD [address] [place], [place] [phone] Dysuria (Primary Dx); Essential hypertension; UTI symptoms Social History Tobacco Use Types Packs/Day Years Used Date Smoking Tobacco: Former Cigarettes Passive Smoke Exposure: Past Smokeless Tobacco: Never Alcohol Use Standard Drinks/Week [...] oz) 09/22/2024 8:38 A M EDT Height - - Body Mass Index 27.99 08/30/2024 2:09 PM EDT documented in this encounter Progress Notes * Jeff Maxwell MD - 09/22/2024 9:00 AM EDT Subjective Patient ID: Angie Mathis is a 63 y.o. female. HPI Angie has 6 day h/o urine odor, urgency, burning on urination, frequency. Denies fever, chills, n/v, vaginal discharge, abdominal or flank pain. Last urine culture done May 27, 2024 grew E. coli, pansensitive. Lives alone. Not employed. Quit smoking. Patient Active Problem List Diagnosis Essential hypertension History of hepatitis C Elevated fasting glucose Depression with anxiety Anxiety Esophageal varices ASCUS with positive high risk HPV cervical Healthcare maintenance Chronic gastroesophageal reflux disease Portal hypertension (CMS/HCC) Osteoarthritis Cirrhosis (CMS/HCC) Increased urinary frequency The following portions of the chart were reviewed this encounter and updated as appropriate: Tobacco Allergies Meds Problems Med Hx Surg Hx Fam Hx Review of Systems Constitutional: Negative for fever. Respiratory: Negative for shortness of breath. Cardiovascular: Negative for chest pain. Gastrointestinal: Negative for abdominal pain. Genitourinary: Positive for dysuria, frequency and urgency. Negative for flank pain. Skin: Negative for rash. Neurological: Negative for headaches. Objective Physical Exam Constitutional: Appearance: Normal appearance. HENT: Right Ear: Tympanic membrane, ear canal and external ear normal. Left Ear: Tympanic membrane, ear canal and external ear normal. Nose: Nose normal. Mouth/Throat: Mouth: Mucous membranes are moist. Pharynx: Oropharynx is clear. Eyes: Conjunctiva/sclera: Conjunctivae normal. Pupils: Pupils are equal, round, and reactive to light. Cardiovascular: Rate and Rhythm: Normal rate and regular rhythm. Heart sounds: No murmur heard. Pulmonary: Effort: Pulmonary effort is normal. Breath sounds: Normal breath sounds. Abdominal: Tenderness: There is no right CVA tenderness or left CVA tenderness. Musculoskeletal: General: Normal range of motion. Cervical back: No tenderness. Skin: Findings: No rash. Neurological: Mental Status: She is alert. Gait: Gait is intact. Psychiatric: Mood and Affect: Mood normal. Behavior: Behavior normal. Procedures Assessment/Plan Diagnoses and all orders for this visit: Dysuria UA: Positive nitrite, leukocytes Urine C&S pending. Prescribed Macrobid and Pyridium. Return to clinic if not improving. Essential hypertension Did not take BP medication this morning. Will take when she returns home. Prescribed home BP monitor. Reviewed BP parameters, given written BP log that includes BP parameters, to keep daily. Call if BP readings are elevated. - POCT urinalysis dipstick manually resulted - Culture, Urine, Routine Other orders - nitrofurantoin, macrocrystal-monohydrate, (Macrobid) 100 MG capsule; Take 1 capsule (100 mg) by mouth 2 times daily for 5 days. - phenazopyridine (Pyridium) 200 MG tablet; Take 1 tablet (200 mg) by mouth with breakfast, with lunch, and with evening meal for 2 days. - Blood Pressure kit; 1 each 2 times daily. documented in this encounter Plan of Treatment Upcoming Encounters Date Type Department Care Team (Late st Contact Info) Description 11/25/2024 1:15 PM EDT Procedure Visit [facility] [address] [place] [address] Milena Villa CNM [address] [place] [address] 11/29/2024 3:00 PM EDT Office Visit [facility] [address] [place] [address] Rajesh Hernandezaris [address] [place] [address] Scheduled Orders Name Type Priority Associated Diagnoses Orde r Schedule Culture, Urine, Routine Microbiology Routine UTI symptoms Ordered: 09/22/2024 documented as of this encounter Procedures Procedure Name Priority Date/Time Associated Diagnosis Comments POCT URINALYSIS DIPSTICK Routine 09/22/2024 8:48 AM EDT UTI symptoms documented in this encounter Results * (ABNORMAL) POCT urinalysis dipstick manually resulted (09/22/2024 8:48 AM EDT) Color, UA Yellow Clarity, UA Clear Glucose, [...] documented in this encounter Visit Diagnoses Diagnosis Dysuria- Primary Essential hypertension Unspecified essential hypertension UTI symptoms documented in this encounter Additional Health Concerns Assessment Noted Time PHQ-9 Depression Total Score: 0 10/28/19 24 9:42 AM EDT documented as of this encounter Care Teams Healthcare Recruiter Relationship Specialty Start Date End Date Radha Escalera DO [address] [place] [address] PCP - General Family Medicine 06/23/18 documented as of this encounter
--- OUTSIDE RECORDS SUMMARY | 2024-09-22 18:20 | XMS_ITS | Encounter Summary ---
Author Organization [employer] Address [address] [facility] [address] [place] [address] Care Team Providers Care Crop Duster Helper Name Role Phone JwRadha Primary Care Provider + [phone] Encounter Details Date Type Department Care Team (Late Contact Info) Description 08/16/2022 Orders Only [facility] [address], [place] [phone] Radha Reynolds LPN Social History Tobacco Use [...] Encounters Date Type Department Care Team (Late Contact Info) Description 11/25/2024 1:15 PM EDT Procedure Visit [facility] [address] [place], [place] [phone] Milena Villa CNM [address], [place] [phone] 11/29/2024 3:00 PM EDT Office Visit [facility] [address] [place] [address] [address] [place] [address] documented as of this encounter Visit Diagnoses Not on filedocumented in this encounter Additional Health Concerns Assessment Noted Time PHQ-9 Depression Total Score: 0 07/31/19 23 10:39 AM EST documented as of this encounter Care Teams Crop Duster Helper Relationship Specialty Start Date End Date Radha Escalera DO [address] [place] [address] PCP - General Family Medicine 06/23/18 documented as of this encounter
--- OUTSIDE RECORDS SUMMARY | 2024-09-22 18:20 | XMS_ITS | Encounter Summary ---
Author Organization [employer] Address [address] [place] [address] Care Team Providers Care Dairy Husbandman Name Role Phone CrsitianoRadha waddell DO Primary Care Provider + [phone] Encounter Details Date Type Department Care Team ([facility] st Contact Info) Description 10/03/2023 Orders Only [facility] [address] [place], [place] [phone] ProviderBoris MD Social History Tobacco Use Types [...] Description 11/25/2024 1:15 PM EDT Procedure Visit [facility] [address] [place] [address] Milena Villa CNM [address] [place] [address] 11/29/2024 3:00 PM EDT Office Visit [facility] [address] [place] [address] [address] [place] [address] documented as of this encounter Procedures Procedure [...] documented as of this encounter Care Teams Dairy Husbandman Relationship Specialty Start Date End Date Radha Escalera DO [address], [place] [phone] PCP - General Family Medicine 06/23/18 documented as of this encounter
== END 2024-09-22 18:17 | disposition home or self-care (01) ==
LOC: HO.HHCLNP 18:16
PROVIDERS: Visit Provider Emergency Medicine
DX: R39.9 Unspecified symptoms and signs involving the genitourinary system (principal)
CPT/HCPCS: 87086; 87088; 87186

== ENCOUNTER 2024-11-23 17:26 | Outpatient (REF) | payer MEDICAID, SELFPAY ==
--- OUTSIDE RECORDS SUMMARY | 2024-11-23 17:29 | XMS_ITS | Clinical Summary ---
Author Organization [employer] Address [address] [facility] [address] [place] [address] Care Team Providers Care Printed Circuit Board Layout Designer Name Role Phone Radha Escalera Primary Care Provider + [phone] Allergies Active Allergy Reactions Criticality Noted Date [...] needed for itching. 30 capsule 024 Active Ventolin HFA 108 (90 Base) MCG/ACT inhaler INHALE 2 PUFFS EVERY 4 (FOUR) HOURS IF NEEDED FOR SHORTNESS OF BREATH OR WHEEZING. 18 g 1 024 Active baclofen (Lioresal) 10 MG tabletIndications :Muscle spasm Take 1 tablet (10 mg) by mouth if needed in the morning, at noon, and at bedtime for muscle spasms. 60 tablet 3 024 Active Diclofenac Sodium 1 % gel Apply 2 g topically if needed in the morning, at noon, in the evening, and at bedtime (pain). 150 g 3 024 Active hydroCHLOROthiazi de (HYDRODiuril) 25 MG [...] EVERY DAY 90 tablet 1 025 Active Blood Pressure kit 1 each 2 times daily. 1 kit 025 2025 Active estradiol (Vagifem) 10 MCG tablet vaginal tablet 1 vaginal tablet daily for 2 weeks and then 1 vaginal tablet twice a week 30 tablet 1 025 Active loratadine (Claritin) 10 MG tablet TAKE 1 TABLET BY MOUTH EVERY DAY 90 tablet 1 025 Active nadolol (Corgard) 40 MG tabletIndications :Hypertension, unspecified type TAKE 1 TABLET BY MOUTH EVERY DAY IN THE MORNING 60 tablet 1 025 Active D3 50 MCG (1999 UT) tabletIndications :Vitamin D deficiency TAKE 1 TABLET BY MOUTH EVERY DAY 90 tablet 1 025 Active omeprazole (PriLOSEC) [address] capsule TAKE 1 CAPSULE BY ORAL ROUTE TWICE A DAY X 3 MONTHS, THEN RETURN TO ONCE A DAY DOSE 180 capsule 3 025 Active fluticasone (Flonase) 50 MCG/ACT nasal sprayIndications: Seasonal allergic rhinitis, unspecified trigger SPRAY 2 SPRAYS INTO EACH NOSTRIL EVERY DAY 48 mL 1 025 Active nitrofurantoin, macrocrystal-mono hydrate, (Macrobid) 100 MG capsule Take 1 capsule (100 mg) by mouth 2 times daily for 5 days. 10 capsule 025 2024 Active phenazopyridine (Pyridium) 200 MG tablet Take 1 tablet (200 mg) by mouth with breakfast, with lunch, and with evening meal for 2 days. 6 tablet 025 2024 Active fluticasone (Flonase) 50 MCG/ACT nasal sprayIndications: Seasonal allergic rhinitis, unspecified trigger SPRAY 2 SPRAYS INTO EACH NOSTRIL EVERY DAY 48 mL 1 024 2024 Discontinued Active Problems Problem Noted Date Diagnosed Date [...] visit.ECC=inadequate. Rebook for repeat sampling.colpo, [facility], Radha Escalera DO colpo performed 03/09/20, [...] hypertension) 07/31/2022 Arthropathy of hand 05/29/2015 07/31/19 23 Chronic hepatitis C with cirrhosis 05/29/2015 07/31/2022 Encounters Date Type Department Care Team Description 11/23/2024 8:40 AM EDT Office Visit [facility] [address] [facility] [place] [address] Jeff Maxwell MD Dysuria (Primary Dx); Microscopic hematuria; History of recurrent UTIs; UTI symptoms 11/16/2024 Refill [facility] [address] [place] [address] Radha Escalera DO Seasonal allergic rhinitis, unspecified trigger 11/06/2024 Refill [facility] [address] [place] [phone] Kam Whitt MD 10/16/2024 Refill [facility] [address] [place] [phone] Radha Escalera DO Hypertension, unspecified type; Vitamin D deficiency 10/15/2024 9:00 AM EDT Office Visit [facility] [address] [address] Kam Whitt MD Recurrent UTI (urinary tract infection) (Primary Dx); UTI symptoms; Foul smelling urine; Increased urinary frequency; Suprapubic pressure 09/22/2024 9:00 AM EDT [facility] [address] [address] Jeff Maxwell MD Dysuria (Primary Dx); Essential hypertension; UTI symptoms 09/13/2024 Patient Outreach [facility] [address] [place] [phone] Radha Escalera DO Pre-visit Planning (Pre-visit planning - LVM ) 09/03/2024 Population Health Risk Score [facility] () [address] [address] Provider, Population Health Generic 08/30/2024 2:00 PM EDT [facility] [address] [address] Kam Whitt MD Earache (Primary Dx); Sore throat; Acute bacterial infection of left middle ear 08/27/2024 Refill [facility] [address] [place] [phone] Radha Escalera DO Candidal intertrigo; Hyperlipidemia, unspecified hyperlipidemia type 08/27/2024 Refill [facility] [address] [place] [address] Radha Escalera DO Hypertension, unspecified type from Last 3 Months Immunizations Immunization Administration Dates Next Due Hep A, Adult [...] Sign Reading Time Taken Comments Blood Pressure 132/85 11/23/2024 8:38 AM EDT Pulse 62 11/23/2024 8:38 AM EDT Temperature 36.6 ??C (97.9 ??F) 11/23/2024 8:38 AM ED T Respiratory Rate 17 11/23/2024 8:38 AM EDT Oxygen Saturation 98% 11/23/2024 8:38 AM EDT Inhaled Oxygen Concentration - - Weight 75.3 kg (166 lb) 11/23/2024 8:38 AM EDT Height 165.1 cm (5' 5 ) 08/30/2024 2:09 PM EDT Body Mass Index 27.62 08/30/2024 2:09 PM EDT Plan of Treatment Upcoming Encounters Date Type Department Care Team (Late st Contact Info) Description 11/25/2024 1:15 PM EDT Procedure Visit [facility] [address] [place] [address] AllenTameka, CNM [address] [place] [address] 11/29/2024 3:00 PM EDT Office Visit [facility] [address] [place] [address] [address] [place] [address] Health Maintenance Due Date Last Done Comments CT Colonography 1959 Dental X-Ray: Bitewings 1959 FIT DNA/Cologuard 1959 FIT 1960 FOBT 1960 Sigmoidoscopy 1960 Dental Prophylaxis 09/10/2019 03/11/2019, 09/08/2018 Dental Oral Exam 10/16/2022 04/16/2022, , 01/22/2019, Additional history exists Dental X-Ray: Full Mouth 12/15/2023 12/13/2020, 06/24 Depression Screening 10/27/2024 10/28/2023, 10/28/19 24 SDOH Screening 10/27/2024 10/28/2023 COVID-19 Vaccine ( season) 2024 04/16/2024, 04/24/2022, 06/21/2021, Additional history exists Cervical Cancer Screening 11/24/2024 HPV/Cotest 11/24/2024 11/25/2023, 07/24, 08/10/2021, Additional history exists Pap Smear 11/24/2024 11/25/2023, 08/10/2021 Alcohol/Substance Use Screening 02/25/2025 02/26/2024 Mammogram 03/02/2025 03/02/2024, 12/21, 01/01/2023, Additional history exists Tobacco Screening 11/23/2025 11/23/2024 Lipid Panel 03/03/2029 03/03/2024, 11/0 07/2022, 05/13/2022, Additional history exists DTaP/Tdap/Td Vaccines (3 - Td or Tdap) 08/24/2029 08/25/2019, 05/25/2009, 05/06/2005 Colonoscopy 04/04/2030 04/04/2020 Colorectal Cancer Screening 04/04/2030 Hepatitis A Vaccines Completed 12/21/2009, 06/14/2009, 08/20/1999 Hepatitis B Vaccines Completed 12/21/2009, 07/17/2009, 06/14/2009 Zoster Vaccines Completed 07/26/2020, 05/22/2020 Pneumococcal Vaccine: 50+ Years Completed 04/15/2023, 02/28/2014, 06/14/2013, Additional history exists Influenza Vaccine Completed 03/15/2024, , 04/19/2022, Additional history exists RSV Patients and Patients Aged 60 years or older Completed 03/15/2024 HIB Vaccines Aged Out No longer eligi ble based on patient's age to complete this topic HPV Vaccines Aged Out No longer eligi ble based on patient's age to complete this topic IPV Vaccines Aged Out No longer eligi ble based on patient's age to complete this topic Meningococcal B Vaccine Aged Out No l onger eligible based on patient's age to complete [...] Associated Diagnosis Comments POCT URINALYSIS DIPSTICK Routine 11/23/2024 9:21 AM EDT Dysuria POCT URINALYSIS DIPSTICK Routine 10/15/2024 8:49 AM EDT UTI symptoms POCT URINALYSIS DIPSTICK Routine 09/22/2024 8:48 AM EDT UTI symptoms CULTURE, URINE, ROUTINE Routine 09/22/2024 8:46 AM EDT UTI symptoms POCT INFLUENZA A (ID NOW RAPID MOLECULAR) Routine 08/30/2024 2:24 PM EDT Sore throat POCT INFLUENZA B (ID NOW RAPID MOLECULAR) Routine 08/30/2024 2:24 PM EDT Sore throat POCT RAPID COVID ANTIGEN Routine 08/30/2024 2:20 PM EDT Sore throat LIPID PANEL, STANDARD Routine 03/03/2024 8:44 AM EDT Essential hypertension Depression with anxiety Chronic gastroesophageal reflux disease History of hepatitis C ASCUS with positive high risk HPV cervical Left axillary pain Healthcare maintenance BI US BREAST LIMITED LEFT Routine 03/02/2024 1:00 PM EDT HPV MRNA E6/E7 REFLEX TO HPV 16, 18/45 Routine 11/25/2023 2:12 PM EDT PAP SMEAR Routine 11/25/2023 2:12 PM EDT PERIODIC ORAL EVALUATION - ESTABLISHED PATIENT Routine 04/16/2022 12:00 AM EDT PANORAMIC RADIOGRAPHIC IMAGE Routine 12/13/2020 12:00 AM EDT HM COLONOSCOPY Routine 04/04/2020 10:07 AM EDT PROPHYLAXIS - ADULT Routine 03/11/2019 1 2:00 AM EDT from Last 3 Months or Most Recently Relevant to Health Maintenance Results * (ABNORMAL) POCT urinalysis dipstick manually resulted (11/23/2024 9:21 AM EDT) Only the most recent of3 resultswithin the time period is included. Color, UA Yellow Clarity, UA Clear Glucose, UA Negative Bilirubin, UA Negative Ketones, UA Negative Spec Grav, UA 1.015 Blood, UA Positive(A) Negative, None Detected Comment:small pH, UA 6.5 Protein, UA Negative Urobilinogen, UA 0.2 Leukocytes, UA Few 15(A) Negative, Rare, Trace Comment:small Nitrite, UA Negative Negative, None Detected Urine 11/23/2024 9:21 AM EDT Jeff Maxwell MD POINT OF CARE TEST ENTER/EDIT OR DERABLES Final Result * Culture, Urine, Routine (09/22/2024 8:46 AM EDT) Urine Urine specimen obtained by clean catch procedure / Unknown 09/22/2024 8:46 AM EDT 09/22/2024 6:17 PM EDT Comment:UACC Narrative [facility] - 09/24/2024 7:20 AM EDT Escherichia coli Quant > 100,000 cfu/mL Escherichia coli: Ampicillin 8(S) Escherichia coli: Cefazolin (Urine) <=1(S) Escherichia coli: Cefepime <=0.12(S) Escherichia coli: Ceftriaxone <=0.25(S) Escherichia coli: Ciprofloxacin <=0.06(S) Escherichia coli: Gentamicin <=1(S) Escherichia coli: Nitrofurantoin <=16(S) Escherichia coli: Trimethoprim/Sulfamethoxazole <=20(S) Specimen Source: Urine clean catch Jeff Maxwell MD LAB MICROBIOLOGY - GENERAL ORDER ROSAS Final Result Performing Organization Address City/[facility]/ZIP Co de Phone Number [facility] [address] [place] [phone] * POCT Rapid Influenza B PERDOMO ID NOW (08/30/2024 2:24 PM EDT) Influenza B Negative Negative, Indeterminate [facility] QC Media Lot # [id number] [facility] Lot# Expiration Date [facility] Swab 08/30/2024 2:24 PM EDT Kam Whitt MD POINT OF CARE TEST ENTER/EDIT OR DERABLES Final Result Performing Organization Address City/[facility]/ZIP Co de Phone Number [facility] [address] [place] [phone] * POCT Rapid Influenza A PERDOMO ID NOW (08/30/2024 2:24 PM EDT) Influenza A Negative Negative, Indeterminate [facility] QC Media Lot # [id number] [facility] Lot# Expiration Date [facility] Swab 08/30/2024 2:24 PM EDT us Kam Name POINT OF CARE TEST ENTER/EDIT OR DERABLES Final Result [facility] [address] [place] [address] [phone] * POCT Rapid Covid-19 BinaxNOW (08/30/2024 2:20 PM EDT) Rapid COVID Ag Negative QC Media Lot # [id number] Lot# Expiration Date Swab 08/30/2024 2:20 PM EDT us Humphrey Name POINT OF CARE TEST ENTER/EDIT OR DERABLES Final Result * Lipid Panel, Standard (03/03/2024 8:44 AM EDT) Triglycerides 47 <150 mg/dL [facility] Comment:Desirable Triglyceri de: less than 150 mg/dLBorderline High Triglyceride 150-199 mg/dLHigh Triglyceride: 200-499 mg/dLVery High Triglyceride: greater than or equal to 5OO mg/dL Cholesterol 154 <200 mg/dL [facility] Comment:Desirable Cholestero l: less than 200 mg/dLBorderline High Cholesterol: 200-239 mg/dLHigh Cholesterol: greater than 239 mg/dL LDL Cholesterol Calculated 87 <100 mg/dL [facility] Comment:Desirable LDL: less than 100 mg/dLNear Optimal/Above Optimal LDL: 110- 129 mg/dLBorderline High LDL: 130-159 mg/dLHigh LDL: 160-189 mg/dLVery High LDL: greater than or equal to 190 mg/dL HDL Cholesterol 58 >40 mg/dL [facility] Comment:Desirable HDL: great er than 40 mg/dL Note: This HDL assay may give artificially low results in patients with liver disease. Blood Venous blood specimen / Unknown 03/03/2024 8:44 AM EDT 03/03/2024 11:20 AM EDT us Radha Escalera DO LAB BLOOD ORDERABLES Final R esult [facility] [address] [place] [phone] * BI US Breast Limited Left (03/02/2024 1:00 PM EDT) Anatomical Region Laterality Modality Breast Left Ultrasound 03/02/2024 1:00 PM EDT Narrative 03/02/2024 4:32 PM EDT ? [facility] [place] ? [address] ?[place] [address] ? Ultrasound Report ? Signed ? Patient: Del,Angie ?MR#: [id number] ?? 5 ? : 1960 ?Acct:[id number] ? Age/Sex: 63 / F ?ADM Date: 03/02/24 ? Loc: HO.MAMMO ? Attending Dr: Radha Escalera DO ? Ordering Physician: Radha Escalera DO ?? Date of Service: 03/02/24 ?? Procedure(s): US breast LT limited mamm only ?? Accession Number(s): [id number] ? cc: Radha Escalera DO ? EXAMINATION: [...] DD/ 1300 ? TD/TT: 03/02/24 1304 ? Party Plan Demonstrator: ? Procedure Note Donfranter, Image - 03/02/2024 [facility] [address] [place], [place] [address] Ultrasound Report Signed Patient: Sammie Mathis#: [id number] 5 : 1960Acct:[id number] Age/Sex: 63 / FADM Date: 03/02/24 Loc: HO.MAMMO Attending Dr: Radha Escalera DO Ordering Physician: Radha Escalera DO Date of Service: 03/02/24 Procedure(s): US breast LT limited mamm only Accession Number(s): [id number] cc: Radha Ecsalera DO EXAMINATION: US DIAGNOSTIC ULTRASOUND BREAST, LEFT [...] 03/02/24 1629 DD/ 1300 TD/TT: 03/02/24 1304 Party Plan Demonstrator: us Radha Escalera DO IMG US PROCEDURES Final Resu lt * (ABNORMAL) HPV mRNA E6/E7 w/Reflex to HPV Genotypes 16, 18/45 (11/25/2023 2:12 PM EDT) HPV nRNA E6/E7 Detected(A ) Not Detected [facility] Comment:Methodology: Transcr iption-Mediated AmplificationThis assay detects E6/E7 viral messenger RNA (mRNA) from 14high-risk HPV types (16,18,31,33,35,39,45,51,52,56,58,59,66,68).Cervical sources are required for HPV testing.If a vaginal source from a patient who has had atotal hysterectomy with removal of cervix wassubmitted, please contact the testing laboratoryfor alternative testing options.For additional information, please refer [email or web address]/faq/[email or web address](This link if provided for information/educational purposes only.)THIS TEST WAS PERFORMED AT:[facility] [place] [phone] OROPEZA MD HPV 16 RNA NOT DETECTED NOT DETECTED [facility] HPV 18/45 RNA NOT DETECTED NOT DETECTED [facility] Comment:Methodology: Transcr iption Mediated AmplificationCervical sources are required for HPV testing.If a vaginal source from a patient who has had atotal hysterectomy with removal of cervix wassubmitted, please contact the testing laboratoryfor alternative testing options.THIS TEST WAS PERFORMED AT:[facility] [place] [phone] OROPEZA MD 11/25/2023 2:12 PM EDT 12/03/2023 2:12 PM EDT us Tameka [facility] LAB CYTOLOGY ORDERABLES F inal Result [facility] [address] [place] [phone] * Pap Smear (11/25/2023 2:12 PM EDT) 11/25/2023 2:12 PM EDT 11/26/2023 9:15 AM EDT Narrative [facility] - 12/22/2023 10:44 AM EDT ----- ------- Name: Angie Mathis ?Age/Sex: 63/F ? : 1960 Unit#: [id number] ?? Attend Dr: TAMEKA STODDARD CNM ?Re11/25/23 ?Status: DEP REF ? Location: HO.HHCLNP ? Disch: ? ----- ------- SPEC : [id number] ?RECD: 11/26/23 ? STATUS: ??SOUT ? REQ NUM: [id number] ? BRIAN: 11/25/23-1412 ? SUBM DR: TAMEKA STODDARD CNM ? ENTERED: ??11/26/23-1016 ?SP TYPE: Pap Smr ?OTHR DR: ? ORDERED: ??Pap Smear, PAP path review [...] Not Detected ? HPV testing performed by Rip van Wafels, [place], [place]. ??See reference laboratory ?? portion of the EMR for entire report. ?Clinical Information LMP: Postmenopausal Previous PAP test: Unknown date, ASCUS HPV pos, neg colpo, this is first f/u pap ? Material Received ?? ThinPrep-Vaginal/Cervical ----- ------- Signed (signature on file) Annabelle [place] 12/22/23 1044 ? ----- ------- ? END OF REPORT ? us Tameka Stoddard [facility] CYTOLOGY ORDERABLES F inal Result [facility] [address] [place] [phone] * Colonoscopy (04/04/2020 10:07 AM EDT) us Historical Provider HEALTH MAINTENANCE Final Result from Last 3 Months or Most Recently Relevant to Health Maintenance Insurance [facility] STANDARD Care Teams Printed Circuit Board Layout Designer Relationship Specialty Start Date End Date Radha Escalera DO [address] [place] [phone] PCP - General Family Medicine 06/23/18
== END 2024-11-23 17:27 | disposition home or self-care (01) ==
LOC: HO.LNP 17:26
PROVIDERS: Visit Provider Emergency Medicine
DX: R39.9 Unspecified symptoms and signs involving the genitourinary system (principal)
CPT/HCPCS: 87086; 87088; 87186

== ENCOUNTER 2024-11-30 16:36 | Outpatient (REF) | payer MEDICAID, SELFPAY ==
--- OUTSIDE RECORDS SUMMARY | 2024-11-30 19:04 | XMS_ITS | Clinical Summary ---
Author Organization [employer] Address [address] [place] [address] [address] [place] [address] Care Team Providers Care Medical Driver Name Role Phone Radha Escalera Primary Care Provider + [phone] Allergies Active Allergy Reactions Criticality Noted Date [...] needed for itching. 30 capsule 024 Active Additional Information Patient not taking.Reason: Other (Pt does not have an RX), Reported on 11/29/2024 Ventolin HFA 108 (90 Base) MCG/ACT inhaler [...] tablet 1 025 Active D3 50 MCG (2000 UT) tabletIndications :Vitamin D deficiency TAKE 1 [...] EVERY DAY 48 mL 1 025 Active fluticasone (Flonase) 50 MCG/ACT nasal sprayIndications: Seasonal allergic rhinitis, unspecified trigger SPRAY 2 SPRAYS INTO EACH NOSTRIL EVERY DAY 48 mL 1 024 2024 Discontinued nitrofurantoin, macrocrystal-mono hydrate, (Macrobid) 100 MG capsule Take 1 capsule (100 mg) by mouth 2 times daily for 5 days. 10 capsule 025 2024 Additional Information Patient not taking.Reason: Other (Pt does not have RX), Reported on 11/29/2024 phenazopyridine (Pyridium) 200 MG tablet Take 1 tablet (200 mg) by mouth with breakfast, with lunch, and with evening meal for 2 days. 6 tablet 025 2024 Additional Information Patient not taking.Reason: Other (Pt does not have RX), Reported on 11/29/2024 Active Problems Problem Noted Date Diagnosed Date Complete edentulism 11/29/2024 Increased urinary frequency 02/12/2024 Assessment & Plan [...] 07/31/2022 Depression with anxiety 07/31/2022 Anxiety 07/31/2022 Normal oral exam 07/31/2022 Chronic gastroesophageal reflux disease 07/31/19 23 Portal hypertension 07/31/2022 Osteoarthritis 07/31/2022 Cirrhosis 07/31/2022 ASCUS with positive high risk HPV cervical 08/27 Overview (07/31/2022): 11/17/18 colpo ileana 2 at 12:00; neg cx bx at 6 and ecc no dysplasia. referred for tx options visit.ECC=inadequate. Rebook for repeat sampling.col[facility] Radha Escalera DO colpo performed 03/09/20, [...] Encounters Date Type Department Care Team Description 11/30/2024 3:15 PM EDT Procedure Visit [facility] MEDICINE [address] [place] [phone] Tameka Stoddard CNM Low grade squamous intraepithelial lesion (LGSIL) on Papanicolaou smear of cervix (Primary Dx); Dysuria; Atrophic vaginitis; Menopausal and postmenopausal disorder 11/30/2024 Travel 11/29/2024 3:00 PM EDT Office Visit [facility] ADULT DENTAL [address] [place] [phone] Complete edentulism, unspecified edentulism class (Primary Dx); Normal oral exam 11/29/[address] [phone] Tameka Stoddard CNM Chart Prep 11/23/2024 8:40 AM EDT Office Visit [facility] WALK-IN CENTER [address] [place] [phone] Jeff Maxwell MD Dysuria (Primary Dx); Microscopic hematuria; History of recurrent UTIs; UTI symptoms 11/16/2024 Refill [facility] CHC MED & PEDS [address] [place] [address] Rahda Escalera DO Seasonal allergic rhinitis, unspecified trigger 11/06/2024 Refill [facility] WALK-IN CENTER [address] [place] [phone] Kam Whitt MD 10/16/[address] [address] Radha Escalera DO Hypertension, unspecified type; Vitamin D deficiency 10/15/2024 9:00 AM EDT Office Visit [facility] WALK-IN CENTER [address] [place] [phone] Kam Whitt MD Recurrent UTI (urinary tract infection) (Primary Dx); UTI symptoms; Foul smelling urine; Increased urinary frequency; Suprapubic pressure 09/22/2024 9:00 AM EDT Office Visit [facility] WALK[facility]IN CENTER [address] [place] [phone] Jeff Maxwell MD Dysuria (Primary Dx); Essential hypertension; UTI symptoms 09/13/2024 Patient Outreach [facility] MEDICINE [address] [place] [address] Radha Escalera DO Pre-visit Planning (Pre-visit planning - LVM ) 09/03/2024 Population Health Risk Score [facility] ([facility]) Department [address] [place] [phone] Provider, Population Health Generic 08/30/2024 2:00 PM EDT Office Visit [facility] WALK-IN CENTER [address] [place] [address] Name, MD Kam Earache (Primary Dx); Sore throat; Acute bacterial infection of left middle ear from Last 3 Months Immunizations Immunization Administration [...] Sign Reading Time Taken Comments Blood Pressure 130/76 11/30/2024 2:56 PM EDT Pulse 70 11/30/2024 2:56 PM EDT Temperature 35.9 ??C (96.7 ??F) 11/30/2024 2:56 PM ED T Respiratory Rate 18 11/30/2024 2:56 PM EDT Oxygen Saturation 98% 11/23/2024 8:38 AM EDT Inhaled Oxygen Concentration - - Weight 74.6 kg (164 lb 8 oz) 11/30/2024 2:56 PM EDT Height 165.1 cm (5' 5 ) 11/30/2024 2:56 PM EDT Body Mass Index 27.37 11/30/2024 2:56 PM EDT Plan of Treatment Health Maintenance Due Date [...] 03/02/2025 03/02/2024, 12/21, 01/01/2023, Additional history exists Dental Oral Exam 06/01/2025 11/29/2024, , 12/13/2020, Additional history exists Tobacco Screening 11/30/2025 11/30/2024 Dental X-Ray: Full Mouth 12/01/2027 025, 12/13/2020, 07/16/2018 Lipid Panel 03/03/2029 03/03/2024, 1107/2022, 05/13/2022, Additional history exists DTaP/Tdap/Td Vaccines (3 - Td or Tdap) 08/24/2029 08/25/2019, 05/25/2009, 05/06/2005 Colonoscopy 04/04/2030 04/04/2020 Colorectal Cancer Screening 04/04/2030 Hepatitis A Vaccines Completed 12/21/2009, 06/14/2009, 08/20/1999 Hepatitis B Vaccines Completed 12/21/2009, 07/17/2009, 06/14/2009 Dental Prophylaxis Discontinued 03/11/2019, 09/08/2018 Zoster Vaccines Completed 07/26/2020, 05/22/2020 Pneumococcal Vaccine: [...] Associated Diagnosis Comments POCT URINALYSIS DIPSTICK Routine 11/30/2024 3:12 PM EDT Dysuria CASE PRESENTATION, DETAILED AND EXTENSIVE TREATMENT PLANNING Routine 11/29/2024 3:00 PM EDT PERIODIC ORAL EVALUATION - ESTABLISHED PATIENT Routine 11/29/2024 3:00 PM EDT PANORAMIC RADIOGRAPHIC IMAGE Routine 11/29/2024 3:00 PM EDT POCT URINALYSIS DIPSTICK Routine 11/23/2024 9:21 AM EDT Dysuria CULTURE, URINE, ROUTINE Routine 11/23/2024 8:54 AM EDT UTI symptoms POCT URINALYSIS DIPSTICK Routine 10/15/2024 8:49 AM [...] * (ABNORMAL) POCT urinalysis dipstick manually resulted (11/30/2024 3:12 PM EDT) Only the most recent of4 resultswithin the time period is included. Color, UA Yellow Clarity, UA Clear Glucose, UA Negative Bilirubin, UA Negative Ketones, UA Negative Spec Grav, UA 1.015 Blood, UA Positive(A) Negative, None Detected Comment:small pH, UA 7.0 Protein, UA Negative Urobilinogen, UA 0.2 Leukocytes, UA Few 15(A) Negative, Rare, Trace Comment:small Nitrite, UA Negative Negative, None Detected Appearance, UA clear QC Media Lot # [id number] Lot# Expiration Date [id number] Urine 11/30/2024 3:12 PM EDT Tameka Stoddard CNM POINT OF CARE TEST ENTER/ EDIT ORDERABLES Final Result * Culture, Urine, Routine (11/23/2024 8:54 AM EDT) Only the most recent of2 resultswithin the time period is included. Urine Urine specimen obtained by clean catch procedure / Unknown 11/23/2024 8:54 AM EDT 11/23/2024 5:27 PM EDT Comment:UACC Narrative [facility] - 11/25/2024 8:12 AM EDT Escherichia coli Quant > 100,000 cfu/mL Escherichia coli: Ampicillin 4(S) Escherichia coli: Cefazolin (Urine) 2(S) Escherichia coli: Cefepime <=0.12(S) Escherichia coli: Ceftriaxone <=0.25(S) Escherichia coli: Ciprofloxacin <=0.06(S) Escherichia coli: Gentamicin <=1(S) Escherichia coli: Nitrofurantoin <=16(S) Escherichia coli: Trimethoprim/Sulfamethoxazole <=20(S) Specimen Source: Urine clean catch Jeff Maxwell MD LAB MICROBIOLOGY - GENERAL ORDER ROSAS Final Result [facility] [address] [place] [phone] * POCT Rapid Influenza B PERDOMO ID NOW (08/30/2024 2:24 PM EDT) Influenza B Negative Negative, Indeterminate [facility] QC Media Lot # [id number] [facility] Lot# Expiration Date [facility] Swab 08/30/2024 2:24 PM EDT us Kam Whitt MD POINT OF CARE TEST ENTER/EDIT OR DERABLES Final Result Performing Organization Address [facility]/ZIP Co de Phone Number [facility] [address] [place] [phone] * POCT Rapid Influenza A PERDOMO ID NOW (08/30/2024 2:24 PM EDT) Influenza A Negative Negative, Indeterminate [facility] QC Media Lot # [id number] [facility] Lot# Expiration Date [address] [facility] Swab 08/30/2024 2:24 PM EDT Kam Whitt MD POINT OF CARE TEST ENTER/EDIT OR DERABLES Final Result Performing Organization Address [facility] [place] Phone Number [facility] [address] [place] [phone] * POCT Rapid Covid-19 BinaxNOW (08/30/2024 2:20 PM EDT) Rapid COVID Ag Negative QC Media Lot # [id number] Lot# Expiration Date [id number] Swab 08/30/2024 2:20 PM EDT us Kam Whitt MD POINT OF CARE TEST ENTER/EDIT OR DERABLES Final Result * Lipid Panel, Standard (03/03/2024 8:44 AM EDT) Triglycerides 47 <150 mg/dL [facility] Comment:Desirable Triglyceri de: less than 150 mg/dLBorderline High Triglyceride 150-199 mg/dLHigh Triglyceride: 200-499 mg/dLVery High Triglyceride: greater than or equal to 5OO mg/dL Cholesterol 154 <200 mg/dL [facility] Comment:Desirable Cholestero l: less than 200 mg/dLBorderline High Cholesterol: 200-239 mg/dLHigh Cholesterol: greater than 239 mg/dL LDL Cholesterol Calculated 87 <100 mg/dL [facility] Comment:Desirable LDL: less than 100 mg/dLNear Optimal/Above Optimal LDL: 110- 129 mg/dLBorderline High LDL: 130-159 mg/dLHigh LDL: 160-189 mg/dLVery High LDL: greater than or equal to 190 mg/dL HDL Cholesterol 58 >40 mg/dL [facility] Comment:Desirable HDL: great er than 40 mg/dL Note: This HDL assay may give artificially low results in patients with liver disease. Blood Venous blood specimen / Unknown 03/03/2024 8:44 AM EDT 03/03/2024 11:20 AM EDT Radha Escalera DO LAB BLOOD ORDERABLES Final R esult [facility] [address] [place] [address] [phone] * BI US Breast Limited Left (03/02/2024 1:00 PM EDT) Anatomical Region Laterality Modality Breast Left Ultrasound 03/02/2024 1:00 PM EDT Narrative 03/02/2024 4:32 PM EDT ? [facility] ? [address] ?[place] [address] ? Ultrasound Report ? Signed ? Patient: Mathis,Angie ?MR#: [id number] ?? 5 ? : 1960 ?Acct:[id number] ? Age/Sex: 63 / F ?ADM Date: 03/02/24 ? Loc: HO.MAMMO ? Attending Dr: Radha Escalera DO ? Ordering Physician: Radha Escalera DO ?? Date of Service: 03/02/24 ?? Procedure(s): US breast LT limited mamm only ?? Accession Number(s): [id number] ? cc: Radha Escalera DO ? EXAMINATION: [...] DD/ 1300 ? TD/TT: 03/02/24 1304 ? Final Installer Inspector: ? Procedure Note Spencerdirk, Image - 03/02/2024 [facility] [address] [place] [address] Ultrasound Report Signed Patient: Sammie Mathis#: [id number] 5 : 1960Acct:[id number] Age/Sex: 63 / FADM Date: 03/02/24 Loc: HO.MAMMO Attending Dr: Radha Escalera DO Ordering Physician: Radha Escalera DO Date of Service: 03/02/24 Procedure(s): US breast LT limited mamm only Accession Number(s): [id number] cc: Radha Escalera DO EXAMINATION: US DIAGNOSTIC [...] Cotton MD 03/02/2024 04:29 PM EDT RP Workstation: [employer] Dictated By: Honorio Cotton MD Signed By: <Electronically signed by Honorio Cotton MD in OV> 03/02/24 1629 DD/ 1300 TD/TT: 03/02/24 1304 Final Installer Inspector: us Radha Escalera DO IMG US PROCEDURES Final Resu lt * (ABNORMAL) HPV mRNA E6/E7 w/Reflex to HPV Genotypes 16, 18/45 (11/25/2023 2:12 PM EDT) HPV nRNA E6/E7 Detected(A ) Not Detected [facility] Comment:Methodology: Transcr iption-Mediated AmplificationThis assay detects E6/E7 viral messenger RNA (mRNA) from 14high-risk HPV types (16,18,31,33,35,39,45,51,52,56,58,59,66,68).Cervical sources are required for HPV testing.If a vaginal source from a patient who has had atotal hysterectomy with removal of cervix wassubmitted, please contact the testing laboratoryfor alternative testing options.For additional information, please refer [email or web address](This link if provided for information/educational purposes only.)THIS TEST WAS PERFORMED AT:[facility] [address] [id number] OROPEZA MD HPV 16 RNA NOT DETECTED NOT DETECTED [facility] HPV 18/45 RNA NOT DETECTED NOT DETECTED [facility] Comment:Methodology: Transcr iption Mediated AmplificationCervical sources are required for HPV testing.If a vaginal source from a patient who has had atotal hysterectomy with removal of cervix wassubmitted, please contact the testing laboratoryfor alternative testing options.THIS TEST WAS PERFORMED AT:[facility] [address] [phone] OROPEZA MD 11/25/2023 2:12 PM EDT 12/03/2023 2:12 PM EDT Tameka Stoddard CNM LAB CYTOLOGY ORDERABLES F inal Result [facility] [address] [place] [phone] * Pap Smear (11/25/2023 2:12 PM EDT) 11/25/2023 2:12 PM EDT 11/26/2023 9:15 AM EDT Narrative [facility] - 12/22/2023 10:44 AM EDT ----- ------- Name: Angie Mathis ?Age/Sex: 63/F ? : 1960 Unit#: [id number] ?? Attend Dr: TAMEKA STODDARD CNM ?Re11/25/23 ?Status: DEP REF ? Location: [facility] ? Disch: ? ----- ------- SPEC : [id number] ?RECD: 11/26/23 ? STATUS: ??SOUT ? REQ NUM: [id number] ? BRIAN: 11/25/23-1412 ? SUBM DR: TAMEKA [...] Not Detected ? HPV testing performed by [facility], [place], [place]. ??See reference laboratory ?? portion of the EMR for entire report. ?Clinical Information LMP: Postmenopausal Previous PAP test: Unknown date, ASCUS HPV pos, neg colpo, this is first f/u pap ? Material Received ?? ThinPrep-Vaginal/Cervical ----- ------- Signed (signature on file) Annabelle Belmont 12/22/23 1044 ? ----- ------- ? END OF REPORT ? us Tameka Stoddard [facility] CYTOLOGY ORDERABLES F inal Result [facility] [address] [place] [phone] * Hm Colonoscopy (04/04/2020 10:07 AM EDT) us Historical Provider HEALTH MAINTENANCE Final Result from Last 3 Months or Most Recently Relevant to Health Maintenance Insurance [facility] [employer]M OPTIONS (HMO D-SNP) DENTAL-[facility] MEDICAID [facility] Care Teams Medical Driver Relationship Specialty Start Date End Date Radha Escalera DO [address] [place] [phone] PCP - General Family Medicine 06/23/18
[2024-12-06 12:02] LABS: HPV Genotype 16 Negative (Negative); HPV Genotype 18 Negative (Negative); HPV High Risk Positive (Negative)
== END 2024-11-30 16:37 | disposition home or self-care (01) ==
LOC: HO.HHCLNP 16:36
PROVIDERS: Visit Provider Advanced Practice Midwife
DX: R30.0 Dysuria (principal); R87.612 Low grade squamous intraepithelial lesion on cytologic smear of cervix (LGSIL); R87.810 Cervical high risk human papillomavirus (HPV) DNA test positive; Z78.0 Asymptomatic menopausal state
CPT/HCPCS: 87086; 87626; 88175

== ENCOUNTER 2024-12-28 17:35 | Outpatient (REF) | payer OTHER, SELFPAY ==
--- OUTSIDE RECORDS SUMMARY | 2024-12-28 17:37 | XMS_ITS | Patient Health Record ---
Author Organization [employer] Address [address] [place] [address] Care Team Providers Care Category Manager Name Role Phone Andrew Glaser Unavailable [phone] Reason For Referral No Information Plan Of Treatment No Information
--- OUTSIDE RECORDS SUMMARY | 2024-12-28 17:37 | XMS_ITS | Clinical Summary ---
Author Organization [employer] Address [address] [place] [address] [address] [place] [address] Care Team Providers Care Healthcare Business Analyst Name Role Phone Radha Escalera Primary Care Provider + [phone] Allergies Active Allergy Reactions Criticality Noted Date [...] 1 024 Active baclofen (Lioresal) 10 MG tabletIndication s:Muscle spasm Take 1 tablet (10 mg) by mouth if needed in the morning, at noon, and at bedtime for muscle spasms. 60 tablet 3 024 Active Diclofenac Sodium 1 % gel Apply 2 g topically if needed in the morning, at noon, in the evening, and at bedtime (pain). 150 g 3 024 Active Blood Pressure kit 1 each 2 times daily. 1 kit 025 2025 Active loratadine (Claritin) 10 MG tablet TAKE 1 TABLET BY MOUTH EVERY DAY 90 tablet 1 025 Active nadolol (Corgard) 40 MG tabletIndication s:Hypertension, unspecified type TAKE 1 TABLET BY MOUTH EVERY DAY IN THE MORNING 60 tablet 1 025 Active D3 50 MCG (1999 UT) tabletIndication s:Vitamin D deficiency TAKE 1 TABLET BY MOUTH EVERY DAY 90 tablet 1 Active omeprazole (PriLOSEC) [address] capsule TAKE 1 CAPSULE BY ORAL ROUTE TWICE A DAY X 3 MONTHS, THEN RETURN TO ONCE A DAY DOSE 180 capsule 3 025 Active estradiol (Yuvafem) 10 MCG tablet vaginal tablet INSERT ONE(1) TABLET INTRAVAGINALLY ONCE DAILY FOR 2 WEEKS, THEN INSERT ONE(1) TABLET TWICE WEEKLY 40 tablet 11 025 Active clotrimazole-bet amethasone (Lotrisone) creamIndications :Candidal intertrigo APPLY TO AFFECTED AREA TWICE A DAY 30 g 1 025 Active fluticasone (Flonase) 50 MCG/ACT nasal sprayIndications :Seasonal allergic rhinitis, unspecified trigger SPRAY 2 SPRAYS INTO EACH NOSTRIL EVERY DAY 48 mL 025 Active aspirin (Aspirin Low Dose) 81 MG EC tabletIndication s:Hyperlipidemia , unspecified hyperlipidemia type TAKE 1 TABLET BY MOUTH EVERY DAY 90 tablet 1 025 Active hydroCHLOROthiaz sotero (HYDRODiuril) 25 MG tabletIndication s:Hypertension, unspecified type Take 1 tablet (25 mg) by mouth in the morning. 90 tablet 1 025 Active ciprofloxacin (Cipro) 500 MG tabletIndication s:Recurrent UTI Take 1 tablet (500 mg) by mouth 2 times daily for 7 days. 14 tablet 025 2024 Active phenazopyridine (Pyridium) 100 MG tabletIndication s:Recurrent UTI Take 1 tablet (100 mg) by mouth if needed in the morning, at noon, and at bedtime for bladder spasms for up to 2 days. 6 tablet 025 2024 Active hydroCHLOROthiaz sotero (HYDRODiuril) 25 MG tabletIndication s:Hypertension, unspecified type TAKE 1 TABLET BY MOUTH EVERY DAY IN THE MORNING 90 tablet 1 025 2024 Discontinued(R eorder (will not trigger notification to Pharmacy)) clotrimazole-bet amethasone (Lotrisone) creamIndications :Candidal intertrigo APPLY TO AFFECTED AREA TWICE A DAY 30 g 1 025 2024 Discontinued(R eorder (will not trigger notification to Pharmacy)) aspirin (Aspirin Low Dose) 81 MG EC tabletIndication s:Hyperlipidemia , unspecified hyperlipidemia type TAKE 1 TABLET BY MOUTH EVERY DAY 90 tablet 1 025 2024 Discontinued(R eorder (will not trigger notification to Pharmacy)) estradiol (Vagifem) 10 MCG tablet vaginal tablet 1 vaginal tablet daily for 2 weeks and then 1 vaginal tablet twice a week 30 tablet 1 025 2024 Discontinued fluticasone (Flonase) 50 MCG/ACT nasal sprayIndications :Seasonal allergic rhinitis, unspecified trigger SPRAY 2 SPRAYS INTO EACH NOSTRIL EVERY DAY 48 mL 1 025 2024 Discontinued(R eorder (will not trigger notification to Pharmacy)) nitrofurantoin, macrocrystal-mon ohydrate, (Macrobid) 100 MG capsule Take 1 capsule (100 mg) by mouth 2 times daily for 5 days. 10 capsule 025 2024 Additional Information Patient not taking.Reason: Other (Pt does not have RX), Reported on 11/29/2024 ciprofloxacin (Cipro) 500 MG tabletIndication s:Recurrent UTI Take 1 tablet (500 mg) by mouth 2 times daily for 7 days. 14 tablet 12/29/19 25 5:05 PM EDT 025 2024 Discontinued(R eorder (will not trigger notification to Pharmacy)) phenazopyridine (Pyridium) 100 MG tabletIndication s:Recurrent UTI Take 1 tablet (100 mg) by mouth if needed in the morning, at noon, and at bedtime for bladder spasms for up to 2 days. 6 tablet 025 2024 Discontinued(R eorder (will not trigger notification to Pharmacy)) Active Problems Problem Noted Date Diagnosed Date Recurrent UTI 12/28/2024 Assessment & Plan (12/28/2024 4:39 PM EDT): I advised patient to drink plenty of water and do not hold the urine In light of recurrent UTIs I decided to prescribe ciprofloxacin and for her symptoms Pyridium I advised not to miss her appointment with urology UA and culture ordered patient will be contacted with results UTI symptoms 12/28/2024 Vaginal discharge 12/28/2024 Assessment & Plan (12/28/2024 4:39 PM EDT): BV and CG ordered today patient will be contacted with results Complete edentulism 11/29/2024 Increased urinary frequency 02/12/2024 [...] of previous one would take again dose UTI (urinary tract infection) 09/05/2023 Assessment & Plan (09/05/2023 7:08 AM EDT): [...] vaginal swab done w no concerning symptoms History of hepatitis C 07/31/2022 Depression with [...] visit.ECC=inadequate. Rebook for repeat sampling.colpo[facility] Radha Contreraspo performed 03/09/20, neg findings, no bx done. plan for repeat pap with co-testing Jan 2021 Essential hypertension 05/29/2015 Assessment & Plan (12/28/2024 4:40 PM EDT): Today blood pressure is elevated most likely because she is very upset and in pain I advised to continue with same medications and low-sodium diet and to follow-up with PCP Elevated fasting glucose 05/29/2015 Esophageal varices 05/29/2015 Resolved Problems Problem Noted Date Diagnosed Date Resolved Date Gastroesophageal reflux dise ase without esophagitis 07/31/2022 07/31/2022 Drug-induced toxic erythema 07/31/2022 07/31/2022 PHT (portal hypertension) 07/31/2022 Arthropathy of hand 05/29/2015 07/31/19 Chronic hepatitis C with cirrhosis 05/29/2015 07/31/2022 Encounters Date Type Department Care Team Description 12/28/2024 2:40 PM EDT Office Visit [facility] [address] [place] [address] Darya Charlton MD Recurrent UTI (Primary Dx); UTI symptoms; Vaginal discharge; Essential hypertension 12/28/2024 Telephone [facility] [address] [place] [address] Aroldo Walter MD 12/28/2024 Telephone [facility] [address] [place] [address] Radha Escalera DO Medication Question 12/16/2024 Refill [facility] [address] [place] [address] Radha Escalera DO Hyperlipidemia, unspecified hyperlipidemia type; Hypertension, unspecified type 12/15/2024 Refill [facility] [address] [place] [address] Radha Escalera DO Seasonal allergic rhinitis, unspecified trigger 12/15/2024 Refill [facility] [address] [place] [address] Radha Escalera DO Candidal intertrigo 12/15/2024 Refill [facility] [address] [place] [address] Radha Escalera DO Hyperlipidemia, unspecified hyperlipidemia type 12/15/2024 Refill [facility] [address] [place] [address] Radha Escalera DO Hypertension, unspecified type; Hyperlipidemia, unspecified hyperlipidemia type; Candidal intertrigo; Seasonal allergic rhinitis, unspecified trigger 12/06/2024 Orders Only [address] [address] Tameka Stoddard CNM Low grade squamous intraepithelial lesion (LGSIL) on Papanicolaou smear of cervix (Primary Dx); Cervical high risk HPV (human papillomavirus) test positive 12/02/2024 Results Follow-Up [address] [address] Tameka Stoddard CNM POCT urinalysis dipstick manually resulted, Culture, Urine, Routine, Pap Smear 11/30/2024 3:15 PM EDT Procedure Visit [address] [address] Taemka Stoddard CNM Low grade squamous intraepithelial lesion (LGSIL) on Papanicolaou smear of cervix (Primary Dx); Dysuria; Atrophic vaginitis; Menopausal and postmenopausal disorder 11/30/2024 Orders Only [address] [address] Tameka Stoddard CNM 11/30/2024 Travel 11/29/2024 3:00 PM EDT Office Visit [facility] [address] [place] [address] Complete edentulism, unspecified edentulism class (Primary Dx); Normal oral exam 11/29/[address] [address] Tameka Stoddard CNM Chart Prep 11/23/2024 8:40 AM EDT Office Visit [facility] [address] [place] [phone] Jeff Maxwell MD Dysuria (Primary Dx); Microscopic hematuria; History of recurrent UTIs; UTI symptoms 11/16/2024 Refill [facility] [address] [place], [place] [phone] Radha Escalera DO Seasonal allergic rhinitis, unspecified trigger 11/06/2024 Refill [facility] [address] [place] [address] Peri, MD Kam 10/16/2024 Refill [facility] [address] [place] [address] Radha Escalera DO Hypertension, unspecified type; Vitamin D deficiency 10/15/2024 9:00 AM EDT Office Visit [facility] [address] [place] [address] Name, MD Kam Recurrent UTI (urinary tract infection) (Primary Dx); UTI symptoms; Foul smelling urine; Increased urinary frequency; Suprapubic pressure from Last 3 Months Immunizations Immunization Administration [...] Sign Reading Time Taken Comments Blood Pressure 150/95 12/28/2024 3:07 PM EDT Pulse 60 12/28/2024 3:07 PM EDT Temperature 36.3 C (97.4 F) 12/28/2024 3:07 PM EDT Respiratory Rate 18 12/28/2024 3:07 PM EDT Oxygen Saturation 98% 11/23/2024 8:38 AM EDT Inhaled Oxygen Concentration - - Weight 75.8 kg (167 lb) 12/28/2024 3:07 PM EDT Height 165.1 cm (5' 5 ) 12/28/2024 3:07 PM EDT Body Mass Index 27.79 12/28/2024 3:07 PM EDT Plan of Treatment Upcoming Encounters Date Type Department Care Team (Late st Contact Info) Description 01/14/2025 3:30 PM EDT Office Visit [facility] [address] [place], [place] [phone] Jhonny Garza, YINGS [address], [place] [phone] Health Maintenance Due Date Last Done Comments CT Colonography 1960 Dental X-Ray: Bitewings 1960 FIT DNA/Cologuard 1960 FIT 1960 FOBT 1960 Sigmoidoscopy 1960 Depression Screening 10/27/2024 10/28/2023, 10/28/19 24 SDOH Screening 10/27/2024 10/28/2023 COVID-19 Vaccine ( season) 2024 04/16/2024, 04/24/2022, 06/21/2021, Additional history exists Colonoscopy 12/01/2024 04/04/2020 Colorectal Cancer Screening 12/01/2024 Colposcopy 12/01/2024 10/03/2021 Influenza Vaccine (#1) 2025 , 04/15/2023, 04/19/2022, Additional history exists Alcohol/Substance Use Screening 02/25/2025 02/26/2024 Mammogram 03/02/2025 03/02/2024, 12/21, 01/01/2023, Additional history exists Dental Oral Exam 06/01/2025 11/29/2024, , 12/13/2020, Additional history exists Cervical Cancer Screening 11/30/2025 HPV/Cotest 11/30/2025 11/30/2024, 0 09/2023, 08/10/2021, Additional history exists Pap Smear 11/30/2025 11/30/2024, 0 09/2023, 08/10/2021 Tobacco Screening 12/28/2025 12/28/2024 Dental X-Ray: Full Mouth 12/01/2027 025, 12/13/2020, 07/16/2018 Lipid Panel 03/03/2029 03/03/2024, 07/2022, 05/13/2022, Additional history exists DTaP/Tdap/Td Vaccines (3 - Td or Tdap) 08/24/2029 08/25/2019, 05/25/2009, 05/06/2005 Hepatitis A Vaccines Completed 12/21/2009, 06/14/2009, 08/20/1999 Hepatitis B Vaccines Completed 12/21/2009, 07/17/2009, 06/14/2009 Dental Prophylaxis Discontinued 03/11/2019, 09/08/2018 Zoster Vaccines Completed 07/26/2020, 05/22/2020 Pneumococcal Vaccine: 50+ Years Completed 04/15/2023, 02/28/2014, 06/14/2013, Additional history exists RSV Patients and Patients [...] Associated Diagnosis Comments POCT URINALYSIS DIPSTICK Routine 12/28/2024 3:15 PM EDT Recurrent UTI PAP SMEAR Routine 11/30/2024 3:15 PM EDT Low grade squamous intraepithelial lesion (LGSIL) on Papanicolaou smear of cervix HPV DNA, LOW/HIGH RISK Routine 11/30/2024 3:15 PM EDT POCT URINALYSIS DIPSTICK Routine 11/30/2024 3:12 PM EDT Dysuria CULTURE, URINE, ROUTINE Routine 11/30/2024 12:00 AM EDT Dysuria CASE PRESENTATION, DETAILED AND EXTENSIVE TREATMENT PLANNING Routine 11/29/2024 3:00 PM EDT PERIODIC ORAL EVALUATION - ESTABLISHED PATIENT Routine 11/29/2024 3:00 PM EDT PANORAMIC RADIOGRAPHIC IMAGE Routine 11/29/2024 3:00 PM EDT POCT URINALYSIS DIPSTICK Routine 11/23/2024 9:21 AM EDT Dysuria CULTURE, URINE, ROUTINE Routine 11/23/2024 8:54 AM EDT UTI symptoms POCT URINALYSIS DIPSTICK Routine 10/15/2024 8:49 AM EDT UTI symptoms LIPID PANEL, STANDARD Routine 03/03/2024 8:44 AM EDT Essential hypertension Depression with anxiety Chronic gastroesophageal reflux disease History of hepatitis C ASCUS with positive high risk HPV cervical Left axillary pain Healthcare maintenance BI US BREAST LIMITED LEFT Routine 03/02/2024 1:00 PM EDT BIOPSY CERVIX Routine 10/03/2021 HM COLONOSCOPY Routine 04/04/2020 10:07 AM EDT PROPHYLAXIS - ADULT Routine 03/11/2019 1 2:00 AM EDT from Last 3 Months or Most Recently Relevant to Health Maintenance Results * (ABNORMAL) POCT urinalysis dipstick manually resulted (12/28/2024 3:15 PM EDT) Only the most recent of4 resultswithin the time period is included. Color, UA Yellow Clarity, UA Clear Glucose, UA Negative Bilirubin, UA Negative Ketones, UA Negative Spec Grav, UA 1.020 Blood, UA Positive(A) Negative, None Detected Comment:trace-intact pH, UA 6.0 Protein, UA Negative Urobilinogen, UA 1.0 Leukocytes, UA Trace Negative, Rare, Trace Nitrite, UA Positive(A) Negative, None Detected Urine 12/28/2024 3:15 PM EDT us Darya Taylor MD POINT OF CARE TEST EN TER/EDIT ORDERABLES Final Result * (ABNORMAL) HPV DNA, Low/High Risk (11/30/2024 3:15 PM EDT) HPV High Risk Positive(A) Negative [facility] HPV Genotype 16 Negative Negative [facility] HPV Genotype 18 Negative Negative [facility] Comment:HPV testing performe d at [facility] (CLIA#[id number]), [address] [place] [address].Testing for HPV was performed using the [employer] ZULEMA 6800system. The presence of HPV in the female genital tract isassociated with a number of diseases, including cervicalcarcinoma. The HPV DNA high risk pool tests for HPV 31, 33,35, 39, 45, 51, 52, 56, 58, 59, 66 and 68. The testing forHPV 16 and 18 genotypes has also been performed. A positiveresult indicates detection of nucleic acid sequences fromone or more subtypes, whereas a negative result indicatessuch sequences were not detected. 11/30/2024 3:15 PM EDT 12/01/2024 8:17 AM EDT us Tameka CHAMBERS LAB BLOOD ORDERABLES Heather l Result [facility] [address] [place] [phone] * Pap Smear (11/30/2024 3:15 PM EDT) Swab Cervix uteri structure / Unknown 11/30/2024 3:15 PM EDT 12/01/2024 8:17 AM EDT [facility] - 12/06/2024 11:33 AM EDT ----- ------- Name: Angie Mathis Age/Sex: 64/F : 1960 Unit#: [id number] Attend Dr: TAMEKA STODDARD CNM Re11/30/24 Status: [facility] REF Location: [facility] Disch: ----- ------- SPEC : [id number] RECD: 12/01/24 STATUS: ROBERTA MONSALVE NUM: [id number] BRIAN: 11/30/[address] [facility] [address]: TAMEKA STODDARD CNM ENTERED: 12/01/24 SP TYPE: Pap Smr [facility] DR: ORDERED: Pap Smear, PAP path review Interpretation ABNORMAL PAP TEST. Satisfactory for evaluation, with mildly dysplastic squamous cells / HPV cytopathic change (ILEANA 1; low grade squamous intraepithelial lesion). No endocervical cells seen. HPV High Risk: Positive HPV Genotyping 16: Negative HPV Genotyping 18: Negative Clinical Information LMP: Post menopausal Previous PAP test: 11/2023, LSIL HPV positive, negative 16/18 genotype Other history: Low grade squamous intraepithelial lesion (LGSIL) on Papanicolaou smear of cervix Material Received ThinPrep-Cervical PAP Disclaimer As of April 14, 2024, the technical services to include automated prescreening performed by the ThinPrep Imaging System, PAP screening and HPV testing will be performed at [facility] (CLIA #[id number]), [address] [place] [address]. Testing for HPV was performed using the [employer] ZULEMA 6800 system. The presence of HPV in the female genital tract is associated with a number of diseases, including cervical carcinoma. The HPV DNA high risk pool tests for HPV 31, 33, 35, 39, 45, 51, 52, 56, 58, 59, 66 and 68. The testing for HPV 16 and 18 genotypes has also been performed. A positive result indicates detection of nucleic acid sequences from one or more subtypes, whereas a negative result indicates such sequences were not detected. All professional services are performed by [facility] ([address] [place], [place] [id number]; ; CLIA #[id number]). The PAP Test is a screening procedure with the inherent possibility of both false negative and false positive results. Results should be interpreted in the context of historic and current clinical findings. Reliability of the PAP Test is enhanced by performing the test on a regular repetitive basis. CONTINUED ON NEXT PAGE ----- ------- Name: Angie Mathis Age/Sex: 64/F : 1960 Unit#: [id number] Attend Dr: TAMEKA STODDARD CNM Re11/30/24 Status: DEP REF Location: [facility] Disch: ----- ------- SPEC : [id number] RECD: 12/01/24 STATUS: ROBERTA MONSALVE NUM: [id number] BRIAN: 11/30/24-[address]: TAMEKA STODDARD CNM ENTERED: 12/01/24 SP TYPE: Pap Smr [facility] DR: ORDERED: Pap Smear, PAP path review ----- ------- Signed (signature on file) Jonathan Daley MD 12/06/24 1133 ----- ------- END OF REPORT us Tameka Stoddard CNM LAB CYTOLOGY ORDERABLES F inal Result [facility] [address] [place] [phone] * Culture, Urine, Routine (11/30/2024 12:00 AM EDT) Only the most recent of2 resultswithin the time period is included. Urine Urine specimen obtained by clean catch procedure / Unknown 11/30/2024 11/30/2024 Comment:[facility] Narrative [facility] - 12/02/2024 10:23 AM EDT Urine Culture Report Result Urine Culture 10,000 to 50,000 cfu/ml Urine Culture Mixed bacterial john characteristic of Urine Culture urogenital contamination. Specimen Source: Urine clean catch Tameka CHAMBERS LAB MICROBIOLOGY - GENERA L ORDERABLES Final Result Performing Organization Address [facility] Co de Phone Number [facility] [address] [place] [address] [phone] * Lipid Panel, Standard (03/03/2024 8:44 AM EDT) Triglycerides 47 <150 mg/dL [facility] Comment:Desirable Triglyceri de: less than 150 mg/dLBorderline High Triglyceride 150-199 mg/dLHigh Triglyceride: 200-499 mg/dLVery High Triglyceride: greater than or equal to 5OO mg/dL Cholesterol 154 <200 mg/dL [facility] Comment:Desirable Cholestero l: less than 200 mg/dLBorderline High Cholesterol: 200-239 mg/dLHigh Cholesterol: greater than 239 mg/dL LDL Cholesterol Calculated 87 <100 mg/dL [facility] Comment:Desirable LDL: less than 100 mg/dLNear Optimal/Above Optimal LDL: 110- 129 mg/dLBorderline High LDL: 130-159 mg/dLHigh LDL: 160-189 mg/dLVery High LDL: greater than or equal to 190 mg/dL HDL Cholesterol 58 >40 mg/dL [facility] Comment:Desirable HDL: great er than 40 mg/dL Note: This HDL assay may give artificially low results in patients with liver disease. Blood Venous blood specimen / Unknown 03/03/2024 8:44 AM EDT 03/03/2024 11:20 AM EDT Radha Escalera DO LAB BLOOD ORDERABLES Final R esult Performing Organization Address [facility]/ZIP Co de Phone Number [facility] [address] [place] [address] [phone] * BI US Breast Limited Left (03/02/2024 1:00 PM EDT) Anatomical Region Laterality Modality Breast Left Ultrasound 03/02/2024 1:00 PM EDT Narrative 03/02/2024 4:32 PM EDT [address] [place], [place] [address] Ultrasound Report Signed Patient: Angie Mathis MR#: [id number] 5 : 1960 Acct:[id number] Age/Sex: 63 / F ADM Date: 03/02/24 Loc: HO.MAMMO Attending Dr: Radha Escalera DO Ordering Physician: Radha Escalera DO Date of Service: 03/02/24 Procedure(s): US breast LT limited mamm only Accession Number(s): [id number] cc: Radha Escalera DO EXAMINATION: US DIAGNOSTIC [...] 03/02/24 1629 DD/ 1300 TD/TT: 03/02/24 1304 Irrigation Equipment Installer: Procedure Note Donotuseinterpreter, Image - 03/02/[address] [place] [address] [place], [place] [address] Ultrasound Report Signed Patient: Sammie Mathis#: [id number] 5 : 1960Acct:[id number] Age/Sex: 63 / FADM Date: 03/02/24 Loc: HO.MAMMO Attending Dr: Radha Escalera DO Ordering Physician: Radha Escalera DO Date of Service: 03/02/24 Procedure(s): US breast LT limited mamm only Accession Number(s): [id number] cc: Radha Escalera DO EXAMINATION: US DIAGNOSTIC [...] 03/02/24 1629 DD/ 1300 TD/TT: 03/02/24 1304 Irrigation Equipment Installer: us Radha Escalera DO IMG US PROCEDURES Final Resu lt * Biopsy cervix (10/03/2021) Narrative Rahel Cerrato - 10/03/2021 Negative us Historical Provider IN CLINIC/BEDSIDE ORDERAB LES Final Result * Hm Colonoscopy (04/04/2020 10:07 AM EDT) us Historical Provider MD HEALTH MAINTENANCE Final Result from Last 3 Months or Most Recently Relevant to Health Maintenance [facility]O D-SNP[facility] Care Teams Healthcare Business Analyst Relationship Specialty Start Date End Date Radha Escalera DO [address] [place] [address] PCP - General Family Medicine 06/23/18
--- OUTSIDE RECORDS SUMMARY | 2024-12-28 17:37 | XMS_ITS | Data Portability ---
Author Organization [place] - [facility], [facility] Address [address] [place] [address] Care Team Providers Care Code Number Stamper Name Role Phone BARBARA PARNELL Primary Care Provider [phone] Assessment Encounter Date Assessment Date Assessment LastModified by Organization Details LastModified Time 05/25/2024 05/25/2024 Osteoarthritis left knee [email or web address] Not available 05/24/2024 19:40:33 08/25/2024 08/25/2024 Osteoarthritis left knee [email or web address] Not available 08/25/2024 06:45:05 Plan of Treatment Reminders Order Date Submit Date Provider Last Modified By Organization Details Last Modified Time Details Appointments RECHECK 15 2024 01:45P Radha Byrnes PA-C Not available Not available Not available Lab None recorded . Referral None recorded . Procedures None recorded . Surgeries None recorded . Imaging XR, knee, 4 or more view - room 1 right knee 2024 025 ranjith Santana Office, [address], [facility] [address], [place], [address], 09/02/2024 07:15:44 Medication Orders None recorded . Patient TargetsNo targets recorded. Patient InstructionsNo instructions recorded. Reason for Referral None Reported. Results Created Date Observation Date Name Description Value Unit Range Abnormal Flag Note LastModifiedBy Organization Detail LastModifiedTime 08/17/1908/17/2024 XR, knee, 4 or more view http:/ [email or web address] ?Encry pted=s hAaTro YD8dLq bEUv6g %2BXZw aYqtaq 0bqfl% 2Fg9IQ a4ajBk vP9nXo QUaueC m3YtLR FvZlgJ JJ8mAn HZtai3 6t4791 AC0Kqb X6DUae iKiQtr MwF INTERFACE [facility] [address], [address], 08/17/2024 10:02:30 08/17/19 25 08/17/2024 XR, knee, 4 or more view [email or web address] ?Encry pted=s hAaTro YD8dLq bEUv6g %2BXZw aYqtaq 0bqfl% 2Fg9IQ a4ajBk vP9nXo QUaueC m3YtLR FvZlgJ JJ8mAn HZtai3 5n7916 AC0Kqb X6DUae iKiQtr MwF INTERFACE [address] [address], [place], [address], 08/17/2024 10:02:32 Result Notes Documentation Provider Name and Address Organization Details Recorded Time Xr, Knee, 4 Or More View : [email or web address] Encrypted=hwWxInmHR8cPpnP Uv6g%1ISVrwXyvls9ngsy%2Fg 2PIr3eeGnpJ6sXtPCwseTa9Nx RREhLmtLRX2kIfAHwkv38z533 0CS0FskR4IXetjDqOhmZbB Not Available [facility] 08/17/2024 10:02: 31 Xr, Knee, 4 Or More View : [email or web address] Encrypted=dgKyCpmXF5xSqaT Uv6g%8UTYpcMilxm2hsfc%2Fg 5LKg8kqFdvL9fXdMGeaeHi8Hp LPUwKkgNUC5yMiRIqyp31i980 0PX0DftA9ISitmDaIbiAdD Not Available [facility] 08/17/2024 10:02: 33 Problems Name Problem SNOMED Code Status Onset Date Resolution Date Notes Provider Name and Address Organization Details Recorded Time Pain of knee region 7062643529 Active 2024 Nathaniel Byrnes PA-C [address], [place], [address], [facility] 5 09:50:28 Osteoarthri tis of right knee joint 2205373044638 00 Active 2024 Nathaniel Byrnes PA-C [address], [place], [address], [facility] 5 10:20:20 Osteoarthri tis of knee 482257801 Active 2023 Nathaniel Byrnes PA-C [address], [place], [address], [facility] 4 14:22:45 Problem Notes None recorded. Procedures Surgical History Date Name Laterality Status Provider Name and Address Organization Details Recorded Time 5 Knee Kenalog 40 1cc Injection, Bilateral completed Marcela Pardo [facility] 11/12/2024 15:20:40 5 Sports Knee 4&1 completed Nathaniel Byrnes PA-C [address], [place], [address], [facility] 08/25/2024 06:45:07 5 Sports Knee 4&1 completed Nathaniel Byrnes PA-C [address], [place], [address], [facility] 08/17/2024 10:20:13 4 Sports Knee 4&1 completed Nathaniel Byrnes PA-C [address], [place], [address], [facility] 05/24/2024 19:40:10 4 Sports Knee 4&1 completed Nathaniel Byrnes PA-C [address], [place], [address], [facility] 02/25/2024 06:44:25 4 Sports Knee 4&1 completed Nathaniel Byrnes PA-C [address] [facility] [address], [place], [address], [facility] 11/26/2023 14:22:41 Imaging Results None recorded. Procedure Notes None recorded. Medical Equipment None Reported. Allergies No known drug allergies Medications Name Sig Start Date Stop Date Status Note LastModified by Organization Details LastModified Time cyclobenzapr ine 10 mg tablet TAKE 1 TABLET ORALLY BEDTIME NEEDED FOR MUSCLE SPASM active Not Available Not Available No t Available terconazole 0.4 % vaginal cream INSERT 1 APPLICATOR INTO THE VAGINA AT BEDTIME FOR 7 DAYS. active Not Available Not Available No t Available loperamide 2 mg capsule PLEASE SEE ATTACHED FOR DETAILED DIRECTIONS active Not Available Not Available N ot Available fluconazole 150 mg tablet TAKE 1 TABLET BY MOUTH ONE TIME FOR 1 DOSE active Not Available Not Available No t Available sulfamethoxa zole 400 mg-trimethop rim 80 mg tablet TAKE 1 TABLET BY MOUTH IMMEDIATELY BEFORE OR AFTER SEX TO PREVENT RECURRENT UTIS active Not Available Not Available No t Available cephalexin 250 mg capsule TAKE 1 CAPSULE (250 MG) BY MOUTH IF NEEDED EACH DAY (SEXUAL INTERCOURSE FOR UTI PREVENTION) . active Not Available Not Available No t Available phenazopyrid ine 200 mg tablet TAKE 1 TABLET (200 MG) BY MOUTH WITH BREAKFAST, WITH LUNCH, AND WITH EVENING MEAL FOR 2 DAYS. active Not Available Not Available No t Available metronidazol e 500 mg tablet TAKE 1 TABLET BY MOUTH 2 TIMES DAILY FOR 7 DAYS active Not Available Not Available N ot Available sulfamethoxa zole 800 mg-trimethop rim 160 mg tablet TAKE 1 TABLET BY MOUTH TWICE A DAY FOR 3 DAYS active Not Available Not Available No t Available aspirin 81 mg tablet,delay ed release TAKE 1 TABLET BY MOUTH EVERY DAY active Not Available Not Available No t Available acetaminophe n 500 mg tablet TAKE 1 CAPLET BY MOUTH 4 TIMES A DAY NEEDED FOR FEVER OR PAIN active Not Available Not Available No t Available triamcinolon e acetonide 0.1 % topical cream APPLY TOPICALLY IF NEEDED IN THE MORNING AND AT BEDTIME FOR RASH. active Not Available Not Available No t Available cefadroxil 500 mg capsule TAKE 1 CAPSULE BY MOUTH TWICE A DAY FOR 3 DAYS active Not Available Not Available No t Available phenazopyrid ine 100 mg tablet PLEASE SEE ATTACHED FOR DETAILED DIRECTIONS active Not Available Not Available N ot Available baclofen 10 mg tablet TAKE 1 TABLET (10 MG) BY MOUTH NEEDED IN THE MORNING , AT NOON, AND AT BEDTIME FOR MUSCLE SPASMS active Not Available Not Available No t Available oseltamivir 75 mg capsule TAKE 1 CAPSULE BY MOUTH EVERY 12 HOURS FOR 5 DAYS active Not Available Not Available N ot Available clotrimazole -betamethaso ne 1 %-0.05 % topical cream APPLY TO AFFECTED AREA TWICE A DAY active Not Available Not Available No t Available lidocaine HCl 2 % mucosal solution APPLY SMALL AMOUNT WITH Q-TIP TO AFFECTED ORAL ULCER 4 TIMES A DAY NEEDED active Not Available Not Available No t Available omeprazole 20 mg capsule,leobardo yed release TAKE 1 CAPSULE BY ORAL ROUTE TWICE A DAY X 3 MONTHS, THEN RETURN TO ONCE A DAY DOSE active Not Available Not Available No t Available Banophen 25 mg capsule TAKE 1 CAPSULE (25 MG) BY MOUTH EVERY 6 (SIX) HOURS IF NEEDED FOR ITCHING. active Not Available Not Available No t Available nadolol 40 mg tablet TAKE 1 TABLET BY MOUTH EVERY DAY IN THE MORNING active Not Available Not Available No t Available hydrochlorot hiazide 25 mg tablet TAKE 1 TABLET BY MOUTH EVERY DAY IN THE MORNING active Not Available Not Available No t Available ibuprofen 600 mg tablet TAKE 1 TABLET BY MOUTH 3 TIMES A DAY NEEDED FOR FEVER OR PAIN active Not Available Not Available No t Available fluticasone propionate 50 mcg/actuatio n nasal spray,suspen anastacio SPRAY 2 SPRAYS INTO EACH NOSTRIL EVERY DAY active Not Available Not Available No t Available loratadine 10 mg tablet TAKE 1 TABLET BY MOUTH EVERY DAY active Not Available Not Available No t Available amoxicillin 875 mg-potassium clavulanate 125 mg tablet TAKE 1 TABLET BY MOUTH TWICE A DAY FOR 5 DAYS active Not Available Not Available No t Available Ventolin HFA 90 mcg/actuatio n aerosol inhaler INHALE 2 PUFFS EVERY 4 (FOUR) HOURS IF NEEDED FOR SHORTNESS OF BREATH OR WHEEZING. active Not Available Not Available No t Available nitrofuranto in monohydrate/ macrocrystal s 100 mg capsule TAKE 1 CAPSULE BY MOUTH 2 TIMES DAILY FOR 5 DAYS. active Not Available Not Available Not Available diclofenac 1 % topical gel APPLY 2 GRAMS TOPICALLY IF NEEDED IN THE MORNING, AT NOON, IN THE EVENING, AND AT BEDTIME (PAIN). active Not Available Not Available No t Available Vitamin D3 50 mcg (2,000 unit) tablet TAKE 1 TABLET BY MOUTH EVERY DAY active Not Available Not Available No t Available Yuvafem 10 mcg vaginal tablet INSERT 1 VAGINAL TABLET DAILY FOR 2 WEEKS AND THEN 1 VAGINAL TABLET TWICE A WEEK active Not Available Not Available No t Available Paxlovid 300 mg (150 mg x 2)-100 mg tablets in a dose pack PLEASE SEE ATTACHED FOR DETAILED DIRECTIONS active Not Available Not Available N ot Available Vitals Date Recorded Body height Body mass index (BMI) Body weight Provider Name and Address Organization Details Last Updated DateTime 08/17/2024 165.1 cm 26.3 kg/m2 52229.59 g Nathaniel Byrnes PA-C [address] [facility], [place], [address], [facility] 08/17/2024 09:50:06 Date Recorded Body height Body mass index (BMI) Body weight Provider Name and Address Organization Details Last Updated DateTime 08/25/2024 165.1 cm 26.3 kg/m2 75983.59 g Nathaniel Byrnes PA-C [address] [facility], [place], [address], [facility] 08/25/2024 08:47:57 Date Recorded Body height Body mass index (BMI) Body weight Provider Name and Address Organization Details Last Updated DateTime 11/12/2024 165.1 cm 26.3 kg/m2 07752.59 g Marcela Pardo [facility] 11/12/2024 14:54:16 Date Recorded Body height Body mass index (BMI) Body weight Provider Name and Address Organization Details Last Updated DateTime 02/25/2024 165.1 cm 26.3 kg/m2 48480.59 g Nathaniel Byrnes PA-C [address] [facility], [place], [address], [facility] 02/25/2024 08:29:32 Date Recorded Body height Body mass index (BMI) Body weight Provider Name and Address Organization Details Last Updated DateTime 05/25/2024 165.1 cm 26.3 kg/m2 32206.59 g Nathaniel Byrnes PA-C [address], [place], [address], [place] - [facility] 05/25/2024 08:22:09 Social History Question Answer Notes LastModified by Organizat ion Details LastModified Time Tobacco Smoking Status Never Smoker Marcela Char cedeño [place] - [facility] 11/12/2024 14:54:39 Which Illicit Or Recreational Drugs Have You Used? Marijuana Information not available 11/12/2024 What Is Your Relationship Status? Single Information not available 11/12/2024 Sex: Unknown Functional Status Question Answer Note LastModified by Organizat ion Details LastModified Time Do you use any illicit or recreational drugs? Yes Information not available 11/12/2024 What is your level of alcohol consumption? None Information not available 11/12/2024 Mental Status None recorded. Family History Nothing Reported. Medical History Condition Response Allergies/Hayfever Y Acid Reflux (GERD) Y Hypertension Y Asthma Y Gynecological HistoryNo gynecological history recorded. Obstetrics History GPAL:G 0 P 0 0 0 0 Past Encounters Encounter ID Performer Location Encounter Start Date Encounter Closed Date Diagnosis/Indication Diagnosis SNOMED-CT Code Diagnosis ICD10 Code Diagnosis Note [id number] [facility] [address] [place] [address] 11/26/2023 13:59:59 12/15/2023 09:35:37 Osteoarthritis of knee 636226373 M17.9 [id number] [facility] [address] [place] [address] 02/25/2024 08:25:07 03/10/2024 09:14:23 Osteoarthritis of knee 211910842 M17.9 [id number] [facility] [address] [place] [address] 05/25/2024 07:59:25 06/09/2024 09:57:58 Osteoarthritis of knee 483056558 M17.9 [id number] [facility] Dante Mckeon [address] [place] [address] [place] [address] 08/17/2024 08:55:04 09/02/2024 07:15:44 Pain of knee region 3899383824 M25.561 Osteoarthr itis of right knee joint 8695201471 93906 M17.11 [id number] [facility] [address] [place] [address] 08/25/2024 08:14:10 09/10/2024 07:19:20 Osteoarthritis of knee 502395346 M17.9 [id number] [facility] [address] [place] [address] 11/12/2024 14:14:26 11/24/2024 11:56:57 Pain of knee region 4677087970 M25.561 Osteoarthr itis of right knee joint 2646109790 91257 M17.11 Health Concerns Section Related Observation LastModified by Organization Detai ls LastModified Time None Recorded Concern Status LastModified by Organization Details LastModified Time None Recorded Advance Directives Directive None Recorded Payers Insurance Date Sequence Insurance Name Policy Number Policy Diggs Covered Member ID Diggs Member ID Guarantor Name 08/17/2024 1 [place] [facility] - COMMUNITY CARE COOPERATIVE (MEDICAID) Angie I Del [id number] Angie GabrielMathis 11/12/2024 1 [place] Angie I Del Fleming [id number] Angie Mathis 08/17/2024 1 [place] Angie I Mathis [id number] Angie Mathis 11/24/2024 2 [place] Angie Mathis [id number] Angiewilbert GabrielMathis 08/17/2024 1 [place] Angie I Mathis [id number] Angie Mathis 05/25/2024 1 [place] Angie I Mathis [id number] Angiewilbert Rockwellz Notes Date Note Type Note Provider Name and Address Organization Details Recorded Time 02/25/2024 text/html I am seeing the patient today under the supervision of Dr. Ventura who was available but who did not see the patient. Chief ComplaintThe patient presents today for follow-up evaluation regarding the Left knee osteoarthritis. Is known to have knee arthritis treated conservatively to this point with relief of symptoms. Past Medical/Surgical HistoryReviewed today, otherwise unchanged per intake sheet. Physical FindingsGeneral Appearance: Mild antalgic gait Knee exam findings note: restrictions are range of motion with pain at extremes, tenderness to palpation involving medial and lateral compartment with mild crepitance, trace effusion, extensor mechanism intact, no instability. Assessment Osteoarthritis of Left knee PlanI discussed with the patient today regarding their knee condition to include all treatment options, conservation and operative, to include total knee replacement surgery which after further discussion, the patient does not wish to pursue any type of operative intervention. In regards to the patient's knees today, I have recommended continued conservative treatment with use of tylenol, possible use of antiinflammatories as well as possibility of intraarticular cortisone injections for which they wish to go forth with. Follow up with us in 3 months for further discussion of total knee replacement surgery versus continued conservative treatment. Nathaniel Byrnes PA-C [address] [facility] [address], [place], [address], [facility] 02/25/2024 08:35:15 05/25/2024 text/html I am seeing the patient today under the supervision of Dr. Ventura who was available but who did not see the patient. Chief ComplaintThe patient presents today for follow-up evaluation regarding the Left knee osteoarthritis. Is known to have knee arthritis treated conservatively to this point with relief of symptoms. Past Medical/Surgical HistoryReviewed today, otherwise unchanged per intake sheet. Physical FindingsGeneral Appearance: Mild antalgic gait Knee exam findings note: restrictions are range of motion with pain at extremes, tenderness to palpation involving medial and lateral compartment with mild crepitance, trace effusion, extensor mechanism intact, no instability. Assessment Osteoarthritis of Left knee PlanI discussed with the patient today regarding their knee condition to include all treatment options, conservation and operative, to include total knee replacement surgery which after further discussion, the patient does not wish to pursue any type of operative intervention. In regards to the patient's knees today, I have recommended continued conservative treatment with use of tylenol, possible use of antiinflammatories as well as possibility of intraarticular cortisone injections for which they wish to go forth with. Follow up with us in 3 months for further discussion of total knee replacement surgery versus continued conservative treatment. Nathaniel Byrnes PA-C [address], [place], [address], [place] - [facility] 05/25/2024 08:26:11 08/17/2024 text/html I am seeing the patient today under the supervision of Dr. Andino who was available but who did not see the patient. HPI: Patient is a 63-year-old female who is evaluated today for new chief complaint of right knee pain. Prior history notable for left knee pain with early arthritis has similar findings radiographically on the right knee. The right knee has become more problematic in recent days comes in today for prompt orthopedic evaluation. PMH/PSH/MEDS/ALL/FMH/SO C HX/ ROS: All reviewed in detail per my medical intake sheet General Exam: Vitals signs as noted below, antalgic gait noted. Mental Status: Alert and oriented x3. Normal insight, affect, and grooming. 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 No spasticity or clonus noted. Extremities: Calves are soft and nontender. Skin on lower extremities is intact. Palpable pedal pulses bilaterally. Orthopedic Exam: Examination of the right knee demonstrates restricted range of motion good anterior-posterior stability no laxity valgus or varus stressing. Exquisite medial and the lateral joint line tenderness with patellofemoral crepitus noted, 1+ effusion, 4/5 strength. X-rays report: 4 views ordered and independently reviewed previously at [facility] of the right knee demonstrates medial compartment mild joint space narrowing with early marginal osteophytes, patellofemoral osteoarthritis. Early medial compartment DJD right knee Assessment: Plan: The patient was thoroughly counseled today regarding their knee condition, its natural history, and the treatment options both nonoperative and operative. The patient is interested in receiving an injection with corticosteroid, reviewed safety risks of temporary elevation of glycemic control, cortisol flushing, small risk of elevated blood pressure as potential side effects after an injection today. Additionally reemphasized the benefits of physical therapy, stressed the importance of compliance regarding home exercises moving forward. [employer] speech recognition human service coordinator software was used to create portions of this document. An attempt at proofreading has been made to minimize errors. Please call for corrections Nathaniel Byrnes PA-C [address], [place], [address], [facility] 08/17/2024 10:21:41 08/25/2024 text/html I am seeing the patient today under the supervision of Dr. Ventura who was available but who did not see the patient. Chief ComplaintThe patient presents today for follow-up evaluation regarding the Left knee osteoarthritis. Is known to have knee arthritis treated conservatively to this point with relief of symptoms. Past Medical/Surgical HistoryReviewed today, otherwise unchanged per intake sheet. Physical FindingsGeneral Appearance: Mild antalgic gait Knee exam findings note: restrictions are range of motion with pain at extremes, tenderness to palpation involving medial and lateral compartment with mild crepitance, trace effusion, extensor mechanism intact, no instability. Assessment Osteoarthritis of Left knee PlanI discussed with the patient today regarding their knee condition to include all treatment options, conservation and operative, to include total knee replacement surgery which after further discussion, the patient does not wish to pursue any type of operative intervention. In regards to the patient's knees today, I have recommended continued conservative treatment with use of tylenol, possible use of antiinflammatories as well as possibility of intraarticular cortisone injections for which they wish to go forth with. Follow up with us in 3 months for further discussion of total knee replacement surgery versus continued conservative treatment. Nathaniel Byrnes PA-C [address], [place], [address], [facility] 08/25/2024 09:00:41 11/12/2024 text/html I am seeing the patient today under the supervision of Dr. Polanco who was available but who did not see the patient. HPI: Patient is a 63-year-old female who is evaluated today for new chief complaint of right knee pain. Prior history notable for left and right knee pain with early arthritis has similar findings radiographically on the right knee. The right knee has become more problematic in recent days comes in today for prompt orthopedic evaluation PMH/PSH/MEDS/ALL/FMH/SO C HX/ ROS: All reviewed in detail per my medical intake sheetExtremities: Calves are soft and nontender. Skin on lower extremities is intact. Palpable pedal pulses bilaterally. Orthopedic Exam: Examination of the left and right knee demonstrates restricted range of motion good anterior-posterior stability no laxity valgus or varus stressing. Exquisite medial and the lateral joint line tenderness with patellofemoral crepitus noted, 1+ effusion, 4/5 strength. X-rays report: 4 views ordered and independently reviewed previously at [facility] of the left and right knee demonstrates medial compartment mild joint space narrowing with early marginal osteophytes, patellofemoral osteoarthritis. Early medial compartment DJD right knee Assessment: Bilateral Knee OA Plan: The patient was thoroughly counseled today regarding their knee condition, its natural history, and the treatment options both nonoperative and operative. The patient is interested in receiving an injection with corticosteroid, reviewed safety risks of temporary elevation of glycemic control, cortisol flushing, small risk of elevated blood pressure as potential side effects after an injection today. Additionally reemphasized the benefits of physical therapy, stressed the importance of compliance regarding home exercises moving forward. [facility] speech recognition human service coordinator software was used to create portions of this document. An attempt at proofreading has been made to minimize errors. Please call for corrections Nathaniel Byrnes PA-C [address] [place] [address] [address], [place], [address], [facility] 11/12/2024 15:44:54 OBGyn Episode No OBEpisode recorded.
[2024-12-29 13:37] LABS: Bacterial Vaginosis PCR NEGATIVE (Negative); Candida Group PCR NOT DETECTED (Not Detect); Candida glab krusei PCR NOT DETECTED (Not Detect); Trichomonas vaginalis PCR NOT DETECTED (Not Detect)
[2024-12-29 13:48] LABS: CT PCR NOT DETECTED (Not Detect.); NG PCR NOT DETECTED (Not Detect.)
== END 2024-12-28 17:36 | disposition home or self-care (01) ==
LOC: HO.HHCLNP 17:35
PROVIDERS: Visit Provider Internal Medicine
DX: Z11.3 Encounter for screening for infections with a predominantly sexual mode of transmission (principal); R39.9 Unspecified symptoms and signs involving the genitourinary system; N89.8 Other specified noninflammatory disorders of vagina; B96.20 Unspecified Escherichia coli [E. coli] as the cause of diseases classified elsewhere
CPT/HCPCS: 81515; 87086; 87088; 87186; 87491; 87591

== ENCOUNTER 2025-02-05 14:18 | Outpatient (REF) | payer OTHER, SELFPAY | END 2025-02-05 14:19 | disposition home or self-care (01) | LOC: HO.HHCLNP 14:18 | PROVIDERS: Visit Provider Internal Medicine | DX: R39.9 Unspecified symptoms and signs involving the genitourinary system (principal) | CPT/HCPCS: 87086; 87088; 87186 ==

== ENCOUNTER 2025-02-09 13:41 | Outpatient (AMB) | payer OTHER, SELFPAY ==
--- NOTE | 2025-02-09 13:49 | MHC.OFFVIS ---
Intake Visit Reasons: microscopic hematuria/ hx recurrent UTI Intake Note: Patient is present for MICROSCOPIC HEMATURIA/HX RECURRENT UTI Urology Medication:NONE Antibiotic Allergy:NONE Blood Thinner:NONE Servicing Manager Required: No Allergies telaprevir Allergy (Intermediate, Verified 02/09/25 14:24) SWELLING Medication List - Last Reconciled 02/09/25 by JOE Reddy-CANDELARIA acetaminophen 500 mg PO QID PRN cyclobenzaprine 10 mg PO BEDTIME PRN HPI Comments Details: Angie is a pleasant 64-year-old female patient of Dr. Escalera. She has a past medical history of recurrent urinary tract infections. She presents to the office today as a new patient for microscopic hematuria as well as recurrent urinary tract infections. In discussion with the patient today she reports noting for many years over 49 she has been having ongoing issues with recurrent urinary tract infections. She reports having followed up with her PCP and recommendations were made for urology referral for further assessment evaluation. She does report utilizing Vagifem 2 times per week and has been utilizing this for many years. She reports having recently finished Macrobid for recent urinary tract infection. She currently denies any UTI like symptoms. She denies any issues with her bowels. She denies constipation and or diarrhea. In office urinalysis results reviewed with the patient today. She is sexually active. She reports typically she has sex on Wednesdays and Sundays. In office urinalysis results reviewed with the patient today microscopic hematuria noted. When asked she does report a previous history of nicotine dependence. She reports she smoked cigarettes for 30 years however quit over 20 years ago. She reports when she was smoking she smoked approximately 1-2 packs per week. We did discussed at length potential causes of recurrent urinary tract infections as well as microscopic hematuria. We discussed further workup in risks and benefits of these interventions. All questions were answered. She denies incontinence, nocturia, gross/visible hematuria, dysuria, foul smelling urine, changes to urinary stream, flank pain, fever, and or chills. I discussed reasons for blood in the urine may include but are not limited to kidney stones, cancer in the urinary tract, kidney stone disease or inflammatory conditions of the urinary tract. I have discussed workup to include cystoscopy evaluation. She otherwise offers no other issues or concerns at this time. In review of patient's chart it appears urine cultures are as follows: 08/16 Klebsiella oxytoca, 2 E coli, 3 E coli, 8/ Klebsiella pneumoniae, 12 E coli, 4 E coli, 6 coli, 7 E coli, 8 E coli/Klebsiella oxytoca COUNTS INCLUDE 234 [facility]S AT [facility] Medical History UTI (urinary tract infection) Review of Systems Const All systems reviewed & are unremarkable except as noted in HPI and below Physical Exam Const General: cooperative, healthy appearing, comfortable, no acute distress, well developed, alert and awake Orientation/consciousness: patient oriented x3 Limitations: no limitations HEENT Head: Yes normal to inspection, Yes normocephalic and Yes atraumatic Ears: hearing grossly normal bilaterally Eyes General: appearance normal, both eyes and all related structures Neck Neck: Yes normal visual inspection and Yes trachea midline Chest Chest palpation & inspection: normal inspection of the chest Resp Effort & Inspection: normal respiratory effort and able to speak in complete sentences Cardio Rate: regular rate GI Inspection: Yes normal to inspection General: Yes no CVA tenderness Back/Spine/Pelvis Back: no CVA tenderness Skin General skin exam: no rashes or lesions noted Neuro General: patient oriented x3 Extrem General: Yes normal to inspection Psych Appearance: grossly normal and well kempt Mental Status: mental status grossly normal Speech and movement: Normal speech and movement present and Clear speech present Affect: normal affect Attitude: cooperative Thought process: Normal thought process present Thought content: Normal thought content present Insight: Fair insight present (Psych) Judgement: Fair judgement present (Psych) Results AMB Urinalysis, Automated UA Leukoctes 0 Elsa/uL Last Edit by DIMITRY Steele on 02/09/25 15:26 UA Nitrite Negative Last Edit by DIMITRY Steele on 02/09/25 15:26 UA Urobilinogen 0.2 mg/dL Last Edit by DIMITRY Steele on 02/09/25 15: UA Protein 0 mg/dL Last Edit by DIMITRY Steele on 02/09/25 15:26 UA pH 6.5 Last Edit by DIMITRY Steele on 02/09/25 15:26 UA Blood 25 Dimitri/uL Last Edit by DIMITRY Steele on 02/09/25 15:26 UA Specific [place] 1.015 Last Edit by DIMITRY Steele on 02/09/25 15:26 UA Ketone Negative Last Edit by DIMITRY Steele on 02/09/25 15:26 UA Bilirubin 0 mg/dL Last Edit by DIMITRY Steele on 02/09/25 15:26 UA Glucose 0 mg/dL Last Edit by DIMITRY Steele on 02/09/25 15:26 Results Reviewed Results Reviewed: Laboratory Last Values Urine pH (Auto) 6.5 02/09/25 15:26 Specific [place] (Auto) 1.015 02/09/25 15:26 Urine Protein (Auto) 0 mg/dL 02/09/25 15:26 Glucose (UA)(Auto) 0 mg/dL 02/09/25 15:26 Urine Ketones (Auto) Negative 02/09/25 15:26 Urine Blood (Auto) 25 Dimitri/uL 02/09/25 15:26 Urine Nitrite (Auto) Negative 02/09/25 15:26 Urine Bilirubin (Auto) 0 mg/dL 02/09/25 15:26 Urine Urobilinogen (Auto) 0.2 mg/dL 02/09/25 15:26 Leukocyte Esterase (Auto) 0 Elsa/uL 02/09/25 15:26 Assessment & Plan Assessment & Plan (1) Microhematuria: Code(s): R31.29 - Other microscopic hematuria Category: Medical (2) Recurrent urinary tract infection: Code(s): N39.0 - Urinary tract infection, site not specified Category: Medical (3) Nicotine dependence in remission: Code(s): F17.201 - Nicotine dependence, unspecified, in remission Category: Medical Plan In office urinalysis results with the patient today; as noted above; will send for urine cytology We discussed obtaining CT urogram for further assessment evaluation. We did discussed potential causes of microscopic hematuria as well as recurrent urinary tract infections; we discussed further workup in risks and benefits of these interventions Discussed UTI prevention with D mannose supplement, vitamin-C, increasing fluid intake, behavioral therapy with timed voiding, perineal hygiene and postcoital voiding, and management of constipation with stool softeners and increased fiber intake. Prescription provided for postcoital antibiotic therapy. All questions were answered. We did discuss cystoscopy for further assessment evaluation given recurrent urinary tract infections as well as microscopic hematuria in the setting of history of nicotine dependence Follow-up in 1-2 months with imaging and PVR or sooner with any issues, concerns, and or questions. Orders: Orders Creatinine Today R39.15 - Urgency of urination Blood Urea Nitrogen Today R39.15 - Urgency of urination AMB Urinalysis Automated Today Z13.9 - Encounter for screening, unspecified Urine Cytology Today R31.29 - Other microscopic hematuria CT urogram Today R31.0 - Gross hematuria Medications: New nitrofurantoin macrocrystal To be taken postcoital as discussed 100 mg PO .Postcoital 90 caps 1RF 90 days N39.0 - Urinary tract infection, site not specified Patient Instructions: The patient had an opportunity to ask questions regarding the treatment plan. All questions were answered. Physical exam, labs, and imaging were discussed and reviewed in detail. As well as risks, benefits, and discussion of treatment choices. No major barriers to understanding were identified. The patient expressed understanding and agreement with the above treatment plan. The patient was made aware they should contact our office by phone for worsening of their current condition, the appearance of new symptoms, or with any questions or concerns. Compliance is encouraged with any medications and follow up testing that is ordered. It is a privilege to be allowed the opportunity to participate in? your urological care.? Again, if you have any questions or concerns If you have any questions or concerns please do not hesitate to contact me. The office is [phone]. This note is constructed using voice recognition software. While every effort has been made to ensure accuracy annealing oven operator errors may have been included. Yours sincerely, SAÚL Reddy Coding Level of Care Code New Pt Level 4 (80856) Diagnoses Microhematuria R31.29 Recurrent urinary tract infection N39.0 Nicotine dependence in remission F17.201
--- OUTSIDE RECORDS SUMMARY | 2025-02-09 14:39 | XMS_ITS | Patient Health Record ---
Demographics Address [address] [facility] [address] [place] [address] Preferred Language Unknown Marital Status unmarried Mu-Ism Affiliation Unknown Race Unknown Ethnic Group Unknown Author Organization [facility] Address [address] [place] [address] Care Team Providers Care Load Builder Name Role Phone Andrew Glaser Unavailable [phone] Reason For Referral No Information Plan Of Treatment No Information
--- OUTSIDE RECORDS SUMMARY | 2025-02-09 14:39 | XMS_ITS | Clinical Summary ---
Author Organization [email or web address] Address [address] [facility] [address] [place] [address] Care Team Providers Care Private Sector Executive Name Role Phone Radha Escalera DO Primary Care Provider [phone] Allergies Active Allergy Reactions Criticality Noted Date [...] EVERY DAY 90 tablet 1 025 Active D3 50 MCG [...] TWICE WEEKLY 40 tablet 11 025 Active clotrimazole-beta methasone (Lotrisone) creamIndications: Candidal [...] BY MOUTH EVERY DAY 90 tablet 1 01/19/20 25 2:37 PM EDT 025 Active hydroCHLOROthiazi de (HYDRODiuril) 25 MG tabletIndications :Hypertension, unspecified type Take 1 tablet (25 mg) by mouth in the morning. 90 tablet 1 01/19/20 25 2:37 PM EDT 025 Active nadolol (Corgard) 40 MG tabletIndications :Hypertension, unspecified type TAKE 1 TABLET BY MOUTH DAILY IN THE MORNING 60 tablet 11 025 Active escitalopram (Lexapro) 5 MG tablet Take 1 tablet (5 mg) by mouth Once per day. 30 tablet 2 025 2024 Active nitrofurantoin, macrocrystal-mono hydrate, (Macrobid) 100 MG capsuleIndication s:UTI symptoms Take 1 capsule (100 mg) by mouth 2 times daily for 7 days. 14 capsule 025 2024 Active nadolol (Corgard) 40 MG tabletIndications :Hypertension, unspecified type TAKE 1 TABLET BY MOUTH EVERY DAY IN THE MORNING 60 tablet 1 025 2024 Discontinued sulfamethoxazole- trimethoprim (Bactrim DS) 800-160 MG tablet Take 1 tablet by mouth 2 times daily for 3 days. 6 tablet 025 2024 Active Problems Problem Noted [...] be contacted with results UTI symptoms 12/28/2024 Assessment & Plan (02/05/2025 9:14 AM EDT): Advised to drink plenty of water and do not hold the urine I will prescribe Macrobid 100 mg twice a day for 7 days UA done today culture sent patient will be contacted with results I advised not to miss her appointment with urology Assessment & Plan (01/22/2025 10:22 AM EDT): UA + for LE and RBC with classic symptoms Will treat with Bactrim BID x 3 days Increase fluids Vaginal discharge 12/28/2024 Assessment & Plan (12/28/2024 4:39 PM EDT): BV and CG ordered today patient will be contacted with results Complete edentulism 11/29/2024 Pain in right knee 08/17/2024 Increased urinary frequency 02/12/2024 Assessment & Plan [...] disease 07/31/19 23 Portal hypertension 07/31/2022 Osteoarthritis of right knee 07/31/2022 Cirrhosis 07/31/2022 ASCUS with positive high risk HPV cervical 08/27 Overview (07/31/2022): 11/17/18 colpo ileana 2 at 12:00; neg cx bx at 6 and ecc no dysplasia. referred for tx options visit.ECC=inadequate. Rebook for repeat sampling.colpo, [facility], Radha Escalera DO colpo performed 03/09/20, [...] Resolved Date UTI (urinary tract infection) 09/05/2023 01/22/2025 Assessment & Plan (09/05/2023 7:08 AM EDT): [...] Encounters Date Type Department Care Team Description 02/08/2025 Refill [facility] [address] [place] [phone] Radha Escalera DO Vitamin D deficiency; Seasonal allergic rhinitis, unspecified trigger 02/05/2025 9:00 AM EDT Office Visit [facility] [address] [place] [phone] Darya Charlton MD UTI symptoms 02/05/2025 Travel 02/04/2025 9:15 AM EDT Office Visit [facility] [address] [place] [phone] Radha Escalera DO 02/04/2025 Travel 02/02/2025 Telephone [facility] [address] [place] [phone] Radha Escalera DO Chart Prep 01/26/2025 Patient Outreach [facility] [address] [place] [phone] Radha Escalera DO Pre-visit Planning (SDOH screening negative and tobacco screening positive) 01/22/2025 9:20 AM EDT Office Visit [facility] [address] [address] Jannette Ontiveros MD Recurrent UTI (Primary Dx); UTI symptoms; Dietary counseling; Exercise counseling; Overweight; 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 ([facility] 01/22/2025 Travel 01/18/2025 1:30 PM EDT Office Visit [facility] [address] [place] [address] Jhonny Garza DDS 01/18/2025 Refill [facility] [address] [place] [phone] Radha Escalera DO Hypertension, unspecified type 12/28/2024 2:40 PM EDT Office Visit [facility] [address] [address] Darya Charlton MD Recurrent UTI (Primary Dx); UTI symptoms; Vaginal discharge; Essential hypertension 12/28/2024 Telephone [facility] [address] [address] Aroldo Walter MD 12/28/2024 Telephone [facility] [address] [place] [address] Radha Escalera DO Medication Question 12/16/2024 Refill [facility] [address] [place] [phone] Radha Escalera DO Hyperlipidemia, unspecified hyperlipidemia type; Hypertension, unspecified type 12/15/2024 Refill [facility] [address] [place] [phone] Radha Escalera DO Seasonal allergic rhinitis, unspecified trigger 12/15/2024 Refill [facility] [address] [place] [phone] Radha Escalera DO Candidal intertrigo 12/15/[address] [address] Radha Escalera DO Hyperlipidemia, unspecified hyperlipidemia type 12/15/[address] [address] Rahda Escalera DO Hypertension, unspecified type; Hyperlipidemia, unspecified hyperlipidemia type; Candidal intertrigo; Seasonal allergic rhinitis, unspecified trigger 12/06/2024 Orders Only [address] [address] Tameka Stoddard CNM Low grade squamous intraepithelial lesion (LGSIL) on Papanicolaou smear of cervix (Primary Dx); Cervical high risk HPV (human papillomavirus) test positive 12/02/2024 Results Follow-Up [address] [address] Tameka Stoddard CNM POCT urinalysis dipstick manually resulted, Culture, Urine, Routine, Pap Smear 11/30/2024 3:15 PM EDT Procedure Visit [address] [address] Tameka Stoddard CNM Low grade squamous intraepithelial lesion (LGSIL) on Papanicolaou smear of cervix (Primary Dx); Dysuria; Atrophic vaginitis; Menopausal and postmenopausal disorder 11/30/2024 Orders Only [address] [address] Tameka Stoddard CNM 11/30/2024 Travel 11/29/2024 3:00 PM EDT Office Visit [facility] [address] [place] [phone] DavidAve mendoza Complete edentulism, unspecified edentulism class (Primary Dx); Normal oral exam 11/29/[address] [address] Tameka Stoddard CNM Chart Prep 11/23/2024 8:40 AM EDT Office Visit [facility] [address] [place] [phone] Jeff Maxwell MD Dysuria (Primary Dx); Microscopic hematuria; History of recurrent UTIs; UTI symptoms 11/16/2024 Refill [facility] [address] [place] [address] Radha Escalera DO Seasonal allergic rhinitis, unspecified trigger from Last 3 Months Immunizations Immunization Administration [...] Frequency of Binge Drinking Not on file 0910/2023 Score 0 02/26/2024 Depression Answer Date Recorded Patient Health Questionnaire-9 Score 0 10/28/2023 Patient Health Questionnaire-9 Score 0 10/28/2023 Last PHQ-9: Questionnaire Data Not on file 0 10/28/2023 Housing Stability Answer Date Recorded What is your housing situation today? I have oren hernández 01/26/[address] you li ve. Do you have problems with any of the following? None of the above 01/26/2025 Food Insecurity Answer Date Recorded Within the past 12 months, y ou worried that your food would run out before you got money to buy more: Never True 01/26/2025 Within the past 12 months,th e food you bought just didn't last and you didn't have enough money to get more: Never True 11/2024 Transportation Answer Date Recorded In the past 12 months, has l ack of transportation kept you from medical appts, meetings, work or from getting things needed for daily living? No 01/26/2025 Utilities Answer Date Recorded In the past 12 months, has t he electric, gas, oil or water company threatened to shut off services in your home? No 01/26/2025 Depression Answer Date Recorded Patient Health Questionnaire-2 Score 0 10/28/2023 Internet Access Answer Date Recorded Internet Access Q1 Yes 01/26/2025 Internet Access Q2 Not on file 01/26/2025 Comments No Sex and Gender Information Value Date Recorded Sex Assigned at Female 04/22/2022 10:14 AM EDT Legal Sex Female 10:14 AM EDT Gender Identity Female 04/22/2022 10:14 AM EDT Sexual Orientation Straight 04/22/2022 10 :14 AM EDT Last Filed Vital Signs Vital Sign Reading Time Taken Comments Blood Pressure 145/89 02/05/2025 8:54 AM EDT Pulse 64 02/05/2025 8:54 AM EDT Temperature 36.8 C (98.3 F) 02/05/2025 8:54 AM EDT Respiratory Rate 18 02/05/2025 8:54 AM EDT Oxygen Saturation 98% 02/05/2025 8:54 AM EDT Inhaled Oxygen Concentration - - Weight 74.6 kg (164 lb 6.4 oz) 02/05/2025 8:54 A M EDT Height 165.1 cm (5' 5 ) 02/05/2025 8:54 AM EDT Body Mass Index 27.36 02/05/2025 8:54 AM EDT Plan of Treatment Upcoming Encounters Date Type Department Care Team (Late st Contact Info) Description 02/23/2025 3:30 PM EDT Office Visit [facility] [address] [place] [address] Jhonny Garza DDS [address] [place] [address] 03/08/2025 10:45 AM EDT Office Visit [facility] [address] [place] [address] Radha Escalera DO [address] [place] [address] Health Maintenance Due Date Last Done Comments CT Colonography 1960 Dental X-Ray: Bitewings 1960 FIT DNA/Cologuard 1960 FIT 1960 FOBT 1960 Sigmoidoscopy 1960 Depression Screening 10/27/2024 10/28/2023, 10/28/19 24 COVID-19 Vaccine ( season) 2024 04/16/2024, 04/24/2022, [...] Pap Smear 11/30/2025 11/30/2024, 0 09/2023, 08/10/2021 SDOH Screening 01/26/2026 01/26/2025 Tobacco Screening 02/05/2026 02/05/2025 Dental X-Ray: Full Mouth 12/01/2027 025, 12/13/2020, [...] Associated Diagnosis Comments POCT URINALYSIS DIPSTICK Routine 02/05/2025 9:37 AM EDT UTI symptoms CULTURE, URINE, ROUTINE Routine 02/05/2025 9:04 AM EDT UTI symptoms POCT URINALYSIS DIPSTICK Routine 01/22/2025 9:37 AM EDT UTI symptoms NO CHARGE VISIT Routine 01/18/2025 1:30 PM EDT CHLAMYDIA/N. GONORRHOEAE RNA, TMA, UROGENITAL Routine 12/28/2024 3:29 PM EDT Vaginal discharge POCT URINALYSIS DIPSTICK Routine 12/28/2024 3:15 PM EDT Recurrent UTI CULTURE, URINE, ROUTINE Routine 12/28/2024 3:14 PM EDT Recurrent UTI BACTERIAL VAGINOSIS PANEL Routine 12/28/2024 1:29 PM EDT Vaginal discharge PAP SMEAR Routine 11/30/2024 3:15 PM EDT [...] Routine 11/23/2024 8:54 AM EDT UTI symptoms LIPID PANEL, STANDARD [...] Health Maintenance Results * (ABNORMAL) POCT Urinalysis (02/05/2025 9:37 AM EDT) Only the most recent of5 resultswithin the time period is included. Color, UA Yellow Clarity, UA Clear Glucose, UA Negative Bilirubin, UA Negative Ketones, UA Negative Spec Grav, UA 1.010 Blood, UA 2+(A) Negative, None Detected Comment:small pH, UA 7.0 Protein, UA Negative Urobilinogen, UA 0.2 Leukocytes, UA Trace Negative, Rare, Trace Nitrite, UA Negative Negative, None Detected Urine 02/05/2025 9:37 AM EDT Darya Taylor MD POINT OF CARE TEST EN TER/EDIT ORDERABLES Final Result * Culture, Urine, Routine (02/05/2025 9:04 AM EDT) Only the most recent of4 resultswithin the time period is included. Urine Urine specimen obtained by clean catch procedure / Unknown 02/05/2025 9:04 AM EDT 02/05/2025 2:21 PM EDT Comment:UACC Narrative [facility] - 02/08/2025 7:33 AM EDT Escherichia coli Quant > 100,000 cfu/mL Klebsiella oxytoca Quant > 100,000 cfu/mL Escherichia coli: Ampicillin 4(S) Escherichia coli: Cefazolin (Urine) 2(S) Escherichia coli: Cefepime <=0.12(S) Escherichia coli: Ceftriaxone <=0.25(S) Escherichia coli: Ciprofloxacin <=0.06(S) Escherichia coli: Gentamicin <=1(S) Escherichia coli: Nitrofurantoin <=16(S) Escherichia coli: Trimethoprim/Sulfamethoxazole <=20(S) Klebsiella oxytoca: Ampicillin >=32(R) Klebsiella oxytoca: Cefazolin 8(R) Klebsiella oxytoca: Cefepime <=0.12(S) Klebsiella oxytoca: Ceftriaxone <=0.25(S) Klebsiella oxytoca: Ciprofloxacin <=0.06(S) Klebsiella oxytoca: Gentamicin <=1(S) Klebsiella oxytoca: Nitrofurantoin 32(S) Klebsiella oxytoca: Trimethoprim/Sulfamethoxazole >=320(R) Specimen Source: Urine clean catch Darya Taylor MD LAB MICROBIOLOGY - NERAL ORDERABLES Final Result [facility] [address] [place] [phone] * Chlamydia/N. Gonorrhoeae RNA, TMA, Urogenitial (12/28/2024 3:29 PM EDT) Pathologist [facility] CT PCR NOT DETECTED Not Detect. [facility] Comment:A not detected test result does not exclude the possibilityof infection because test results can be affected byimproper specimen collection, concurrent antibiotic therapy,or the number of organisms in the specimen which may bebelow the sensitivity of the test. As with many diagnostictests, results from the Xpert CT/NG assay should beinterpreted in conjunction with other laboratory andclinical data available to the clinician.Xpert CT/NG performance has not been evaluated in patientsless than 14 years of age. The assay should not be used forthe evaluationof suspected sexual abuse or for other medico-legalindications. Additional testing is recommended in anycircumstance when false positive or false negative resultscould lead to adverse medical, social or psychologicalconsequences. NG PCR NOT DETECTED Not Detect. [facility] Comment:A not detected test result does not exclude the possibilityof infection because test results can be affected byimproper specimen collection, concurrent antibiotic therapy,or the number of organisms in the specimen which may bebelow the sensitivity of the test. As with many diagnostictests, results from the Xpert CT/NG assay should beinterpreted in conjunction with other laboratory andclinical data available to the clinician.Xpert CT/NG performance has not been evaluated in patientsless than 14 years of age. The assay should not be used forthe evaluationof suspected sexual abuse or for other medico-legalindications. Additional testing is recommended in anycircumstance when false positive or false negative resultscould lead to adverse medical, social or psychologicalconsequences. Swab Vaginal structure / Unknown 12/28/2024 3:29 PM EDT 12/29/2024 12:03 PM EDT Darya Taylor MD LAB MICROBIOLOGY - NERAL ORDERABLES Final Result [facility] [address] [place] [phone] * Bacterial Vaginosis (12/28/2024 1:29 PM EDT) TRICHOMONAS VAGINALIS DETECTION BY PCR NOT DETECTED Not Detect [facility] BACTERIAL VAGINOSIS DETECTION BY PCR NEGATIVE Negative [facility] Comment:The BV organism targ ets [...] of 14. PATRICIA GROUP DETECTION BY PCR NOT DETECTED Not Detect [facility] Patricia glab krusei PCR NOT DETECTED Not Detect [facility] Swab Vaginal structure / Unknown 12/28/2024 1:29 PM EDT 12/29/2024 12:05 PM EDT us Darya Taylor MD LAB MICROBIOLOGY - GE NERAL ORDERABLES Final Result Performing Organization Address [facility] Co de Phone Number [facility] [address] [place] [phone] * (ABNORMAL) HPV DNA, Low/High Risk (11/30/2024 3:15 PM EDT) HPV High Risk Positive(A) Negative [facility] HPV Genotype 16 Negative Negative [facility] HPV Genotype 18 Negative Negative [facility] Comment:HPV testing performe d at [facility] (CLIA#[id number]), [address] [place] [address].Testing for HPV was performed using the [place] [...] CHAMBERS LAB BLOOD ORDERABLES Heather l Result Performing Organization Address [facility]/ZIP Co de Phone Number [facility] [address] [place] [phone] * Pap Smear (11/30/2024 3:15 PM EDT) Swab Cervix uteri structure / Unknown 11/30/2024 3:15 PM EDT 12/01/2024 8:17 AM EDT Narrative [facility] - 12/06/2024 11:33 AM EDT ----- ------- Name: Angie Mathis Age/Sex: 64/F : 1960 Unit#: [id number] Attend Dr: TAMEKA STODDARD CNM Re11/30/24 Status: DEP REF Location: [facility] Disch: ----- ------- SPEC : [id number] RECD: 12/01/24 STATUS: ROBERTA GRICEL NUM: [id number] BRIAN: 11/30/24-[address] [facility] [address]: TAMEKA STODDARD CNM ENTERED: 12/01/24 SP TYPE: Pap Smr THIAGO DR: ORDERED: Pap Smear, PAP path review [...] and HPV testing will be performed at [facility] (CLIA #[id number], [place] [address]. Testing for HPV was performed using the [...] detected. All professional services are performed by [facility] ([address] [place], [place] [id number]; ; CLIA #[id number]). The PAP Test is a screening procedure with the inherent possibility of both false negative and false positive results. Results should be interpreted in the context of historic and current clinical findings. Reliability of the PAP Test is enhanced by performing the test on a regular repetitive basis. CONTINUED ON NEXT PAGE ----- ------- Name: Angie Mathis Age/Sex: 64/F : 1960 Unit#: [id number] Attend Dr: TAMEKA STODDARD [facility] Re11/30/24 Status: DEP [facility] Disch: ----- ------- SPEC : [id number] RECD: 06/ STATUS: ROBERTA MONSALVE NUM: [id number] BRIAN: 11/30/[address] [facility] [address]: TAMEKA STODDARD CNM ENTERED: 12/01/24 SP TYPE: Pap Smr OT DR: ORDERED: Pap Smear, PAP path review ----- ------- Signed (signature on file) Jonathan Daley MD 12/06/24 1133 ----- ------- END OF REPORT Tameka Stoddard CNM LAB CYTOLOGY ORDERABLES F inal Result [facility] [address] [place] [phone] * Lipid Panel, Standard (03/03/2024 8:44 AM EDT) Triglycerides 47 <150 mg/dL [facility] Comment:Desirable Triglyceri de: less than 150 mg/dLBorderline High Triglyceride 150-199 mg/dLHigh Triglyceride: 200-499 mg/dLVery High Triglyceride: greater than or equal to 5OO mg/dL Cholesterol 154 <200 mg/dL [facility] Comment:Desirable Cholestero l: less than 200 mg/dLBorderline High Cholesterol: 200-239 mg/dLHigh Cholesterol: greater than 239 mg/dL LDL Cholesterol Calculated 87 <100 mg/dL [facility] Comment:Desirable LDL: less than 100 mg/dLNear Optimal/Above Optimal LDL: 110- 129 mg/dLBorderline High LDL: 130-159 mg/dLHigh LDL: 160-189 mg/dLVery High LDL: greater than or equal to 190 mg/dL HDL Cholesterol 58 >40 mg/dL [facility] Comment:Desirable HDL: great er than 40 mg/dL Note: This HDL assay may give artificially low results in patients with liver disease. Blood Venous blood specimen / Unknown 03/03/2024 8:44 AM EDT 03/03/2024 11:20 AM EDT Radha Escalera DO LAB BLOOD ORDERABLES Final R esult Performing Organization Address City/State/[facility] Co de Phone Number [facility] [address] [place] [phone] * BI US Breast Limited Left (03/02/2024 1:00 PM EDT) Anatomical Region Laterality Modality Breast Left Ultrasound 03/02/2024 1:00 PM EDT Narrative 03/02/2024 4:32 PM EDT [facility] [address] [place] [address] Ultrasound Report Signed Patient: Angie Mathis MR#: [id number] 5 : 1960 Acct:[id number] Age/Sex: 63 / F ADM Date: 03/02/24 Loc: HO.MAMMO Attending Dr: Radha Escalera DO Ordering Physician: Radha Escalera DO Date of Service: 03/02/24 Procedure(s): US breast LT limited mamm only Accession Number(s): [id number] cc: Radha Escalera DO EXAMINATION: US DIAGNOSTIC [...] 03/02/24 1629 DD/ 1300 TD/TT: 03/02/24 1304 Generation Engineering Technologist: Procedure Note Donotuseinterpreter, Image - 03/02/2024 [facility] [address] [place] [address] Ultrasound Report Signed Patient: Angie Mathis#: [id number] 5 : 1960Acct:[id number] Age/Sex: 63 / FADM Date: 03/02/24 Loc: HO.MAMMO Attending Dr: Radha Escalera DO Ordering Physician: Radha Escalera DO Date of Service: 03/02/24 Procedure(s): US breast LT limited mamm only Accession Number(s): [id number] cc: Radha Escalera DO EXAMINATION: US DIAGNOSTIC [...] 03/02/24 1629 DD/ 1300 TD/TT: 03/02/24 1304 Generation Engineering Technologist: Radha Escalera DO IMG US PROCEDURES Final Resu lt * Biopsy cervix (10/03/2021) Narrative Rahel Cerrato - 10/03/2021 Negative Historical Provider IN CLINIC/BEDSIDE ORDERAB LES Final Result * Hm Colonoscopy (04/04/2020 10:07 AM EDT) Historical Provider HEALTH MAINTENANCE Final Result from Last 3 Months or Most Recently Relevant to Health Maintenance Insurance [facility] [employer] OPTIONS (O D-SNP) [place] [id number] DENTAL - [facility] Care Teams Private Sector Executive Relationship Specialty Start Date End Date Radha Escalera DO [address] [place] [address] PCP - General Family Medicine 06/23/18
== END 2025-02-09 14:34 | disposition home or self-care (01) ==
LOC: HO.HUSH 13:42
PROVIDERS: PCP Family Medicine; Visit Provider Nurse Practitioner Family
DX: R31.29 Other microscopic hematuria (principal); N39.0 Urinary tract infection, site not specified; F17.201 Nicotine dependence, unspecified, in remission; Z13.9 Encounter for screening, unspecified
CPT/HCPCS: 99204

== ENCOUNTER 2025-02-09 13:41 | Outpatient (REF) | payer OTHER, SELFPAY | END 2025-02-09 13:42 | disposition home or self-care (01) | LOC: HO.LAB 13:41 | PROVIDERS: PCP Family Medicine; Visit Provider Nurse Practitioner Family | DX: R31.29 Other microscopic hematuria (principal); N39.0 Urinary tract infection, site not specified; F17.201 Nicotine dependence, unspecified, in remission; R39.15 Urgency of urination; Z13.89 Encounter for screening for other disorder; R31.0 Gross hematuria | CPT/HCPCS: 81003; 88112; 99202 ==

== ENCOUNTER 2025-02-24 12:50 | Outpatient (REF) | payer OTHER, SELFPAY ==
--- OUTSIDE RECORDS SUMMARY | 2025-01-27 00:23 | XMS_ITS | Continuity of Care Document ---
Author Organization [facility] Address [address] [place] [address] [address] [place] [phone] Phone Care Team Providers Care Ticker Installer Name Role Phone Jael Montez Unavailable Unavailab le Procedures Procedure Date Offic Cons New/estab Mod 40 Mi- CT & [place] Duplex Scan-extrem Veins; Comp- CT & [place] Advance Directives Directive Yes / No Effective Date File Name No Information Encounters Encounter Description Practice Location Reason(s) For Visit Diagnoses Date Provider Providers Copied on Encounter [facility], [address] [place] [address] Dr Ham [address]Radha [place], [id number], [place] tel:[phone] [facility] No Information Shikha Elder. [facility], [place], [place], [id number] , [place]. tel: [phone] Offic Cons New/estab Mod 40 Mi- CT & [place] [facility], [address] [place] [address] Dr Ham [address]Radha [place], [id number], [place] tel:[phone] CVR - [place] Pain in right lower legPain in left lower legPain in right legPain in left legEssential (primary) hypertensionVen ous insufficiency (chronic) (peripheral)Pru ritus, unspecifiedCram p and spasmLocalized edema Dav DYE, RVT, RPVI Andrew. [address] [facility], [address], [facility] [place], [id number] , [place]. [phone] Referring Provider: Radha Zhao, [address] [place] [address], [place], [address]. tel:[phone] [facility], [address] [facility] [address], [place], [id number], [place] tel:[phone] CVR - [facility] Chronic venous hypertension (idiopathic) with other complications of bilateral lower extremity Dav DYE, DIMITRIOS, ABDIFATAH Morales. [address] [facility], [address], [place], [id number] , [place]. [phone] Referring Provider: Andrew Demarco MD, DIMITRIOS, ABDIFATAH, [facility] [address], [place], [address] . tel:[phone] Family History Family Member Type Diagnosis Age At Onset No Information Payers Payer name Insurance type Covered libertarian ID Bety egan(s) [facility] CI [id number] Social History Type Description Quantity Date Captured [...] adult) ordered Appointment Angie Brunson BOOKED Appointment Angie Brunson BOOKED Appointment Angie Brunson BOOKED Appointment Angie Brunson BOOKED Appointment Angie Brunson BOOKED Appointment Angie Brunson BOOKED Appointment Angie Brunson BOOKED Appointment Angie Brunson BOOKED Appointment Angie Brunson BOOKED Appointment Angie Brunson BOOKED History Of Present Illness Encounter Date Complaint History Of Prese nt Illness No Information Functional Status Date Functional Assessmen t No Information Instructions Date Instruction Additional Infor matjimmy Diet education Related to Body mass index [...]
--- OUTSIDE RECORDS SUMMARY | 2025-02-23 15:30 | XMS_ITS | Encounter Summary ---
Author Organization [employer] Address [address] [facility] [address] [place] [address] Care Team Providers Care Family Life Counselor Name Role Phone Radha Escalera DO Primary Care Provider + [phone] Reason for Visit * Reason Comments Dentures Encounter Details Date Type Department Care Team (Late st Contact Info) Description 02/23/2025 3:30 PM EDT Office Visit [facility] [address] [place] [address] Jhonny Garza DDS [address] [place] [address] Complete edentulism, unspecified edentulism class (Primary Dx) Social History Tobacco Use Types Packs/Day Years [...] AM EDT documented as of this encounter Progress Notes * Jhonny Garza DDS - 02/23/2025 3:30 PM EDT Dupliate maxillary denture and reline mandibular . Case with special recommendation at [facility] Dental lab. Storage Center Manager Shanon Machado documented in this encounter Plan of Treatment Upcoming Encounters Date Type Department Care Team (Late st Contact Info) Description 03/08/2025 10:45 AM EDT Office Visit [facility] [address] [place] [address] Radha Escalera DO [address] [place] [address] documented as of this encounter Procedures Procedure Name Priority Date/Time Associated Diagnosis Comments DENTURE IMPRESSION Routine 02/23/2025 3:30 PM EDT documented in this encounter Visit Diagnoses Diagnosis Complete edentulism, unspecified edentulism class- Primary documented in this encounter Additional Health Concerns Assessment Noted Time PHQ-9 Depression Total Score: 0 10/28/19 24 9:42 AM EDT documented as of this encounter Care Teams Family Life Counselor Relationship Specialty Start Date End Date Radha Escalera DO [address] [place] [address] PCP - General Family Medicine 06/23/18 documented as of this encounter
--- NOTE | ~2025-02-24 | MM_ITS ---
STUDY: DUAL ENERGY X-RAY ABSORPTIOMETRY / DXA REASON FOR EXAM: Female, 64 years old baseline TECHNIQUE: Bone Mineral Density (BMD) measurements of the lumbar spine and left hip were obtained using [employer] COMPARISON: None FINDINGS: L2-L4 BMD: 1.593 g/cm2 L2-L4 T score: 3.3. This corresponds to Normal bone density. Left femoral neck BMD: 1.196 g/cm2 Left femoral neck T score: 1.1. This corresponds to Normal bone density. Left total hip BMD: 1.097 g/cm2 Left total hip T score: 0.7. This corresponds to Normal bone density. MM/XR DEXA axial skeleton IMPRESSION: Normal bone density Reference Information: The T-score is the number of standard deviations above or below the standard which is normal for young adults at their peak bone mineral density. The World Health Organization (WHO) interprets the T-scores as follows: At or above -1 SD Normal bone density Between -1 and -2.5 SD Osteopenia At or below -2.5 SD Osteoporosis Electronically signed by: Stewart Mcconnell MD 02/24/2025 02:29 PM EDT
--- NOTE | ~2025-02-24 | MM_ITS ---
EXAMINATION: MM SCREENING DIGITAL BREAST TOMOSYNTHESIS, BILATERAL CLINICAL INFORMATION: Screening. Asymptomatic. COMPARISON: Mammography: Comparison is made with available priors TECHNIQUE: Digital breast mammography with tomosynthesis is performed in both the craniocaudal and mediolateral oblique views along with computer-aided detection (CAD). FINDINGS: There are scattered areas of fibroglandular density (ACR BI-RADS breast composition Category b). There are no significant masses, abnormal calcifications, or other abnormalities. MM/MM tomosynthesis screening BI IMPRESSION: No mammographic evidence of malignancy. ASSESSMENT: BI-RADS BI-RADS 1 - Negative RECOMMENDATION: Routine annual mammography screening. 1 year F/U This examination should not preclude the clinical evaluation of a suspicious palpable abnormality. This patient's information was entered into a reminder system with a target due date for their next mammogram. Electronically signed by: Paula Bello DO 02/28/2025 10:52 AM EDT
--- OUTSIDE RECORDS SUMMARY | 2025-02-24 14:03 | XMS_ITS | Encounter Summary ---
Author Organization [employer] Address [address] [facility] [address] [place] [address] Care Team Providers Care Welding Setter Name Role Phone Radha Escalera DO Primary Care Provider + [phone] Reason for Visit * Reason Comments Med Refill Encounter Details Date Type Department Care Team (Late st Contact Info) Description 02/20/2025 Refill [facility] [address] [place], [place] [phone] Radha Escalera DO [address] [facility] [place], [place] [phone] Hypertension, unspecified type Social History Tobacco Use Types Packs/Day Years [...] Description 03/08/2025 10:45 AM EDT Office Visit [facility] [address] [place] [address] Radha Escalera DO [address] [place] [address] documented as of this encounter Visit Diagnoses Diagnosis Hypertension, unspecified type documented in this encounter Additional Health Concerns Assessment Noted Time PHQ-9 Depression Total Score: 0 10/28/19 24 9:42 AM EDT documented as of this encounter Care Teams Welding Setter Relationship Specialty Start Date End Date Radha Escalera DO [address] [place] [address] PCP - General Family Medicine 06/23/18 documented as of this encounter
--- OUTSIDE RECORDS SUMMARY | 2025-02-24 14:03 | XMS_ITS | Encounter Summary ---
Author Organization [employer] Address [address] [facility] 7t [place] [address] Care Team Providers Care Wood Handler Name Role Phone Radha Escalera DO Primary Care Provider + [phone] Reason for Visit * Reason Comments Med Refill Encounter Details Date Type Department Care Team (Late st Contact Info) Description 02/14/2025 Refill [facility] MEDICINE [address] [place] [address] Radha Escalera DO [address] [place], [place] [phone] Vitamin D deficiency Social History Tobacco Use Types Packs/Day Years [...] your housing situation today? I have oren betty 01/26/[address] you li [...] Description 03/08/2025 10:45 AM EDT Office Visit [facility] MEDICINE [address] [place] [address] Radha Escalera DO [address] [place] [address] documented as of this encounter Visit Diagnoses Diagnosis Vitamin D deficiency documented in this encounter Additional Health Concerns Assessment Noted Time PHQ-9 Depression Total Score: 0 10/28/19 24 9:42 AM EDT documented as of this encounter Care Teams Wood Handler Relationship Specialty Start Date End Date Radha Escalera DO [address] [place] [address] PCP - General Family Medicine 06/23/18 documented as of this encounter
--- OUTSIDE RECORDS SUMMARY | 2025-02-24 14:03 | XMS_ITS | Encounter Summary ---
Author Organization [employer] Address [address] [facility] [address] 7[address] [place] [address] Care Team Providers Care Community Service Officer Name Role Phone Radha Escalera DO Primary Care Provider + [phone] Encounter Details Date Type Department Care Team (Late st Contact Info) Description 10/03/2023 Orders Only [facility] MEDICINE [address] [place], [place] [phone] Provider, MD Boris Social History Tobacco Use Types Packs/Day Years Used Date Smoking Tobacco: Former Cigarettes Smokeless Tobacco: Never Alcohol Use Standard Drinks/Week Comments Not Currently 0 (1 standard drink = 0.6 oz pur e alcohol) Depression Answer Date Recorded Patient Health Questionnaire-9 Score 0 07/31/2022 Housing Stability Answer Date Recorded What is your housing situation today? I have oren betty 04/15/[address] you li [...] Description 03/08/2025 10:45 AM EDT Office Visit [facility] MEDICINE [address] [place] [address] Radha Escalera DO [address] [place] [address] documented as of this encounter Procedures Procedure [...] documented as of this encounter Care Teams Community Service Officer Relationship Specialty Start Date End Date Radha Escalera DO [address] [place] [address] PCP - General Family Medicine 06/23/18 documented as of this encounter
--- OUTSIDE RECORDS SUMMARY | 2025-02-24 14:03 | XMS_ITS | Encounter Summary ---
Author Organization [employer] Address 75 [facility] 7t [place] [address] Care Team Providers Care Tool And Die Maker Apprentice Name Role Phone Radha Escalera DO Primary Care Provider + [phone] Reason for Visit * Reason Comments Med Refill Encounter Details Date Type Department Care Team ([facility] st Contact Info) Description 05/23/2024 Refill [facility] MEDICINE [address] [place] [address] Radha Escalera DO [address] [place] [address] Candidal intertrigo Social History Tobacco Use Types [...] Description 03/08/2025 10:45 AM EDT Office Visit [facility] MEDICINE [address] [place] [address] Radha Escalera DO [address] [place] [address] documented as of this encounter Visit Diagnoses Diagnosis Candidal intertrigo Candidiasis of skin and nails documented in this encounter Additional Health Concerns Assessment Noted Time PHQ-9 Depression Total Score: 0 10/28/19 24 9:42 AM EDT documented as of this encounter Care Teams Tool And Die Maker Apprentice Relationship Specialty Start Date End Date Radha Escalera DO [address] [place] [address] PCP - General Family Medicine 06/23/18 documented as of this encounter
--- OUTSIDE RECORDS SUMMARY | 2025-02-24 14:03 | XMS_ITS | Clinical Summary ---
Author Organization [employer] Address [address] [facility] 7t [place] [address] Care Team Providers Care Singe Machine Operator Name Role Phone Radha Escalera DO Primary Care Provider Allergies Active Allergy Reactions Criticality Noted Date [...] day. 2 g 2 04/15/20 23 Active Additional Information Patient not taking.Reported on 02/23/2025 triamcinolone (Kenalog) 0.1 % cream Apply topically if needed in the morning and at bedtime for rash. 30 g 07/02/19 24 Active Additional Information Patient not taking.Reported on 02/23/2025 diphenhydrAMINE (BENADryl) 25 MG capsule Take 1 capsule (25 mg) by mouth every 6 (six) hours if needed for itching. 30 capsule 07/02/19 24 Active Additional Information Patient not taking.Reported on 02/23/2025 Ventolin HFA 108 (90 Base) MCG/ACT inhaler INHALE 2 PUFFS EVERY 4 (FOUR) HOURS IF NEEDED FOR SHORTNESS OF BREATH OR WHEEZING. 18 g 1 02/05/20 24 Active baclofen (Lioresal) 10 MG tabletIndications :Muscle spasm Take 1 tablet (10 mg) by mouth if needed in the morning, at noon, and at bedtime for muscle spasms. 60 tablet 3 04/16/20 24 Active Diclofenac Sodium 1 % gel Apply 2 g topically if needed in the morning, at noon, in the evening, and at bedtime (pain). 150 g 3 04/16/20 24 Active Additional Information Patient not taking.Reported on 02/23/2025 Blood Pressure kit 1 each 2 times daily. 1 kit 09/23/19 25 026 Active loratadine (Claritin) 10 MG tablet TAKE 1 TABLET BY MOUTH EVERY DAY 90 tablet 1 10/19/19 25 Active D3 50 MCG (2000 UT) tabletIndications :Vitamin D deficiency TAKE 1 TABLET BY MOUTH EVERY DAY 90 tablet 1 10/19/19 25 Active Additional Information Patient not taking.Reported on 02/23/2025 omeprazole (PriLOSEC) [address] capsule TAKE 1 CAPSULE BY ORAL ROUTE TWICE A DAY X 3 MONTHS, THEN RETURN TO ONCE A DAY DOSE 180 capsule 3 10/19/19 25 Active estradiol (Yuvafem) 10 MCG tablet vaginal tablet INSERT ONE(1) TABLET INTRAVAGINALLY ONCE DAILY FOR 2 WEEKS, THEN INSERT ONE(1) TABLET TWICE WEEKLY 40 tablet 11 12/18/19 25 Active Additional Information Patient not taking.Reported on 02/23/2025 clotrimazole-beta methasone (Lotrisone) creamIndications: Candidal intertrigo APPLY TO AFFECTED AREA TWICE A DAY 30 g 1 12/18/19 25 Active Additional Information Patient not taking.Reported on 02/23/2025 fluticasone (Flonase) 50 MCG/ACT nasal sprayIndications: Seasonal allergic rhinitis, unspecified trigger SPRAY 2 SPRAYS INTO EACH NOSTRIL EVERY DAY 48 mL 12/18/19 25 Active aspirin (Aspirin Low Dose) 81 MG EC tabletIndications :Hyperlipidemia, unspecified hyperlipidemia type TAKE 1 TABLET BY MOUTH EVERY DAY 90 tablet 1 5 2:37 PM EDT 12/17/19 25 Active hydroCHLOROthiazi de (HYDRODiuril) 25 MG tabletIndications :Hypertension, unspecified type Take 1 tablet (25 mg) by mouth in the morning. 90 tablet 1 5 2:37 PM EDT 12/17/19 25 Active nadolol (Corgard) 40 MG tabletIndications :Hypertension, unspecified type TAKE 1 TABLET BY MOUTH DAILY IN THE MORNING 60 tablet 11 01/20/20 25 Active escitalopram (Lexapro) 5 MG tablet Take 1 tablet (5 mg) by mouth Once per day. 30 tablet 2 02/05/20 25 025 Active Additional Information Patient not taking.Reported on 02/23/2025 sulfamethoxazole- trimethoprim (Bactrim DS) 800-160 MG tablet Take 1 tablet by mouth 2 times daily for 3 days. 6 tablet 01/23/20 25 025 nitrofurantoin, macrocrystal-mono hydrate, (Macrobid) 100 MG capsuleIndication s:UTI symptoms Take 1 capsule (100 mg) by mouth 2 times daily for 7 days. 14 capsule 02/06/20 25 025 Active Problems Problem Noted Date Diagnosed Date [...] for tx options visit.ECC=inadequate. Rebook for repeat sampling.NERI ruan[facility]ferred from [facility], Radha Beyer performed 03/09/20, neg findings, no bx done. [...] Encounters Date Type Department Care Team Description 02/23/2025 3:30 PM EDT Office Visit [facility] ADULT DENTAL [address] [place] [address] Jhonny Garza DDS Complete edentulism, unspecified edentulism class (Primary Dx) 02/20/2025 Refill [facility] CH[facility] MED & PEDS [address] [place], [place] [phone] Radha Ecsalera DO Hypertension, unspecified type 02/14/[address] [address] Radha Escalera DO Vitamin D deficiency 02/09/2025 Orders Only GENERIC EXTERNAL DATA DEPARTMENT Provider, Generic External Data 02/08/[address] [address] Radha Escalera DO Vitamin D deficiency; Seasonal allergic rhinitis, unspecified trigger 02/05/2025 9:00 AM EDT Office Visit [facility] WALK-IN [address] [address] Darya Charlton MD UTI symptoms 02/05/2025 Travel 02/04/2025 9:15 AM EDT Office Visit [address] [address] Radha Escalera DO 02/04/2025 Travel 02/02/[address] [address] Radha Escalera DO Chart Prep 01/26/2025 Patient Outreach [address] [address] Radha Escalera DO Pre-visit Planning (SDOH screening negative and tobacco screening positive) 01/22/2025 9:20 AM EDT [facility] [address] [address] Jannette Ontiveros MD Recurrent UTI (Primary Dx); UTI symptoms; Dietary counseling; Exercise counseling; Overweight; 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 ([facility]) 01/22/2025 Travel 01/18/2025 1:30 PM EDT Office Visit [facility] ADULT DENTAL [address] [place] [address] Jhonny Garza DDS 01/18/[address] [address] Radha Escalera DO Hypertension, unspecified type 12/28/2024 2:40 PM EDT Office Visit [facility] [address] [address] Darya Charlton MD Recurrent UTI (Primary Dx); UTI symptoms; Vaginal discharge; Essential hypertension 12/28/2024 Telephone [facility] CENTER [address] [place] [address] Aroldo Walter MD 12/28/2024 Telephone [facility] MEDICINE [address] [place] [phone] Radha Escalera DO Medication Question 12/16/[address] [address] Radha Escalera DO Hyperlipidemia, unspecified hyperlipidemia type; Hypertension, unspecified type 12/15/[address] [address] Radha Escalera DO Seasonal allergic rhinitis, unspecified trigger 12/15/[address] [address] Radha Escalera DO Candidal intertrigo 12/15/[address] [address] Radha Escalera DO Hyperlipidemia, unspecified hyperlipidemia type 12/15/[address] [address] Radha Escalera DO Hypertension, unspecified type; Hyperlipidemia, unspecified hyperlipidemia type; Candidal intertrigo; Seasonal allergic rhinitis, unspecified trigger 12/06/2024 Orders Only [address] [address] Tameka Stoddard CNM Low grade squamous intraepithelial lesion (LGSIL) on Papanicolaou smear of cervix (Primary Dx); Cervical high risk HPV (human papillomavirus) test positive 12/02/2024 Results Follow-Up [address] [address] Tameka Stoddard CNM POCT urinalysis dipstick manually resulted, Culture, Urine, Routine, Pap Smear 11/30/2024 3:15 PM EDT Procedure Visit [address] [address] Tameka Stoddard CNM Low grade squamous intraepithelial lesion (LGSIL) on Papanicolaou smear of cervix (Primary Dx); Dysuria; Atrophic vaginitis; Menopausal and postmenopausal disorder 11/30/2024 Orders Only [facility] MEDICINE [address] [place] [address] Tameka Stoddard CNM 11/30/2024 Travel 11/29/2024 3:00 PM EDT Office Visit [facility] ADULT DENTAL [address] [place] [address] [address] Complete edentulism, unspecified edentulism class (Primary Dx); Normal oral exam 11/29/2024 Telephone [facility] MEDICINE [address] [place] [phone] Tameka Stoddard CNM Chart Prep from Last 3 Months Immunizations Immunization Administration [...] Visit [facility] MEDICINE [address] [place] [address] Radha Escalera DO [address] [place] [address] Health Maintenance Due Date Last Done Comments CT Colonography 1960 Dental X-Ray: Bitewings 1960 FIT DNA/Cologuard 1960 FIT 1960 FOBT 1960 Sigmoidoscopy 1960 Depression Screening 10/27/2024 10/28/2023, 10/28/19 24 Colonoscopy 12/01/2024 04/04/2020 Colorectal Cancer Screening 12/01/2024 Colposcopy 12/01/2024 10/03/2021 COVID-19 Vaccine ( season) 2025 04/16/2024, 04/24/2022, 06/21/2021, Additional history exists Influenza Vaccine (#1) 2025 , 04/15/2023, 04/19/2022, Additional history exists Alcohol/Substance Use Screening 02/25/2025 02/26/2024 Mammogram 03/02/2025 03/02/2024, 0712/2023, 01/01/2023, Additional history exists Dental Oral Exam 06/01/2025 11/29/2024, , 12/13/2020, Additional history exists Cervical Cancer Screening 11/30/2025 HPV/Cotest 11/30/2025 11/30/2024, 0 09/2023, 08/10/2021, Additional history exists Pap Smear 11/30/2025 11/30/2024, 0 09/2023, 08/10/2021 SDOH Screening 01/26/2026 01/26/2025 Tobacco Screening 02/23/2026 02/23/2025 Dental X-Ray: Full Mouth 12/01/2027 025, 12/13/2020, 07/16/2018 Lipid Panel 03/03/2029 03/03/2024, 110 07/2022, 05/13/2022, Additional history exists DTaP/Tdap/Td Vaccines [...] Associated Diagnosis Comments DENTURE IMPRESSION Routine 02/23/2025 3: 30 PM EDT CYTOPATH-CELL ENHANCED Routine 02/09/2025 2:00 PM EDT POCT URINALYSIS DIPSTICK Routine 02/05/2025 9:37 AM [...] RADIOGRAPHIC IMAGE Routine 11/29/2024 3:00 PM EDT LIPID PANEL, STANDARD Routine 03/03/2024 8:44 AM [...] Recently Relevant to Health Maintenance Results * Cytopath-cell enhanced (02/09/2025 2:00 PM EDT) 02/09/2025 2:00 PM EDT 02/10/2025 10:20 AM EDT [facility] - 02/10/2025 3:43 PM EDT ----- ------- Name: Angie Mathis Age/Sex: 64/F : 1960 Unit#: [id number] Attend Dr: Sejal Abraham [facility]- Re02/09/25 Status: DEP [facility] Disch: ----- ------- SPEC : [id number] RECD: 02/10/25 STATUS: ROBERTA MONSALVE NUM: [id number] BRIAN: 02/09/25-[address]: Sejal Abraham [facility] ENTERED: 02/10/25-1050 SP TYPE: Cytology OTHR DR: Radha Escalera DO ORDERED: Cyto-enhanced Diagnosis Urine: Negative for high-grade urothelial carcinoma. Comment: Examination of a monolayer preparation slide shows many benign squamous cells, occasional benign urothelial cells, occasional red blood cells, and few inflammatory cells. Clinical History Other microscopic hematuria Material Received Urine Gross Description Received is 30 cc of clear yellow fluid from which a ThinPrep slide is prepared. IHC S/NG Disclaimer NOTE: Unless otherwise stated, all tissue is formalin-fixed and paraffin-embedded. Some or all of the immunohistochemical tests reported herein may have been developed and their performance characteristics determined by [facility]. They have not been cleared or approved by the U.S. Food and Drug Administration (FDA). However, the FDA has determined that such clearance or approval is not necessary. This laboratory is certified under the Clinical Laboratory Improvement Amendments of 1988 (CLIA) as qualified to perform high complexity clinical laboratory testing. Copies To: Radha Escalera DO [address] [address] Sejal Abraham [facility] [address] [place] [address] [facility] [address] [place] [address] [email or web address] CONTINUED ON NEXT PAGE ----- ------- Name: Angie Mathis Age/Sex: 64/F : 1960 Unit#: [id number] Attend Dr: Sejal Abraham [facility] Re02/09/25 Status: ABDIFATAH RENEE Location: [facility] Disch: ----- ------- SPEC : [id number] RECD: 02/10/25-1020 STATUS: ROBERTA MONSALVE NUM: [id number] BRIAN: 02/09/25-[address]: Sejal Abraham [facility] ENTERED: 02/10/25-1050 SP TYPE: Cytology OTHR DR: Radha Escalera DO ORDERED: Cyto-enhanced ----- ------- Signed (signature on file) Annabelle Ferris 02/10/25 1543 ----- ------- END OF REPORT us Generic External Data Provider LAB CYTOLOGY DOREEN ERAZO Final Result [facility] [address] [place] [phone] * (ABNORMAL) POCT Urinalysis (02/05/2025 9:37 AM EDT) Only the most recent of4 [...] 9:04 AM EDT) Only the most recent of3 resultswithin the time period is included. Urine Urine specimen obtained by clean catch procedure / Unknown 02/05/2025 9:04 AM EDT 02/05/2025 2:21 PM EDT Comment:[facility] - 02/08/2025 7:33 AM EDT Escherichia [...] catch Darya Taylor MD LAB MICROBIOLOGY - [facility] ORDERABLES Final Result [facility] [address] [place] [address] [phone] * Chlamydia/N. Gonorrhoeae RNA, TMA, Urogenitial (12/28/2024 3:29 PM EDT) CT PCR NOT DETECTED Not Detect. [facility] Comment:A not detected test result [...] psychologicalconsequences. NG PCR NOT DETECTED Not Detect. [facility] Comment:A not detected test result [...] 3:29 PM EDT 12/29/2024 12:03 PM EDT us Darya Taylor MD LAB MICROBIOLOGY - GE NERAL ORDERABLES Final Result Performing Organization Address [facility] Co de Phone Number [facility] [address] [place] [phone] [phone] * Bacterial Vaginosis (12/28/2024 1:29 PM EDT) TRICHOMONAS VAGINALIS DETECTION BY PCR NOT DETECTED Not Detect [facility] BACTERIAL VAGINOSIS DETECTION BY PCR NEGATIVE Negative [facility] Comment:The BV organism targ ets [...] DETECTION BY PCR NOT DETECTED Not Detect [facility] Patricia glab krusei PCR NOT DETECTED Not Detect [facility] Swab Vaginal structure / Unknown 12/28/2024 1:29 PM EDT 12/29/2024 12:05 PM EDT us Darya Taylor MD LAB MICROBIOLOGY - GE NERAL ORDERABLES Final Result Performing Organization Address City/[facility]/ZIP Co de Phone Number [facility] [address] [place] [phone] [phone] * (ABNORMAL) HPV DNA, Low/High Risk (11/30/2024 3:15 PM EDT) HPV High Risk Positive(A) Negative [facility] HPV Genotype 16 Negative Negative [facility] HPV Genotype 18 Negative Negative [facility] Comment:HPV testing performe d at [facility] (CLIA#[id number]), [address] [place] [id number].Testing for HPV was performed using the [place] [...] EDT 12/01/2024 8:17 AM EDT us Tameka Stoddard CNM LAB BLOOD ORDERABLES Heather jade Result [facility] [address] [place] [phone] * Pap Smear (11/30/2024 3:15 PM EDT) Swab Cervix uteri structure / Unknown 11/30/2024 3:15 PM EDT 12/01/2024 8:17 AM EDT Narrative [facility] - 12/06/2024 11:33 AM EDT ----- ------- Name: Angie Mathis Age/Sex: 64/F : 1960 Unit#: [id number] Attend Dr: TAMEKA STODDARD CNM Re11/30/24 Status: DEP REF Location: [facility] Disch: ----- ------- SPEC : [id number] RECD: 12/01/24 STATUS: ROBERTA MONSALVE NUM: [id number] BRIAN: 11/30/[address] [facility] [address]: TAMEKA STODDARD CNM ENTERED: 12/01/24 SP [...] and HPV testing will be performed at [facility] (CLIA #[id number]), [address] [place] [address]. Testing for HPV was performed using the [...] are performed by [facility] ([address] [place] [address], [place] [address]; ; CLIA #[id number]). The PAP Test is a screening procedure with the inherent possibility of both false negative and false positive results. Results should be interpreted in the context of historic and current clinical findings. Reliability of the PAP Test is enhanced by performing the test on a regular repetitive basis. CONTINUED ON NEXT PAGE ----- ------- Name: Angie Mathis Age/Sex: 64/F : 1960 Unit#: [id number] Attend Dr: TAMEKA STODDARD CNM Re11/30/24 Status: [facility] Disch: ----- ------- SPEC : [id number] RECD: 12/01/24 STATUS: ROBERTA MONSALVE NUM: [id number] BRIAN: 11/30/[address] [facility] [address]: TAMEKA STODDARD ENTERED: 12/01/24 SP TYPE: Keturah DAS DR: ORDERED: Pap Smear, PAP path review ----- ------- Signed (signature on file) Jonathan Daley MD 12/06/24 1133 ----- ------- END OF REPORT Tameka Stoddard [facility] CYTOLOGY ORDERABLES F inal Result [facility] [address] [place] [phone] * Lipid Panel, Standard (03/03/2024 8:44 AM EDT) Triglycerides 47 <150 mg/dL [facility] Comment:Desirable Triglyceri de: less than 150 mg/dLBorderline High Triglyceride 150-199 mg/dLHigh Triglyceride: 200-499 mg/dLVery High Triglyceride: greater than or equal to 5OO mg/dL Cholesterol 154 <200 mg/dL [facility] Comment:Desirable Cholestero l: less than 200 mg/dLBorderline High Cholesterol: 200-239 mg/dLHigh Cholesterol: greater than 239 mg/dL LDL Cholesterol Calculated 87 <100 mg/dL [facility] Comment:Desirable LDL: less than 100 mg/dLNear Optimal/Above Optimal LDL: 110- 129 mg/dLBorderline High LDL: 130-159 mg/dLHigh LDL: 160-189 mg/dLVery High LDL: greater than or equal to 190 mg/dL HDL Cholesterol 58 >40 mg/dL [facility] Comment:Desirable HDL: great er than 40 mg/dL Note: This HDL assay may give artificially low results in patients with liver disease. Blood Venous blood specimen / Unknown 03/03/2024 8:44 AM EDT 03/03/2024 11:20 AM EDT Radha Escalera DO LAB BLOOD ORDERABLES Final R esult [facility] [address] [place] [phone] [phone] * BI US Breast Limited Left (03/02/2024 1:00 PM EDT) Anatomical Region Laterality Modality Breast Left Ultrasound 03/02/2024 1:00 PM EDT Narrative 03/02/2024 4:32 PM EDT [address] [place] [address] Ultrasound Report Signed Patient: Angie Mathis MR#: [id number] 5 : 1960 Acct:[id number] Age/Sex: 63 / F ADM Date: 03/02/24 Loc: HO.MAMMO Attending Dr: Radha Escalera DO Ordering Physician: Radha Escalera DO Date of Service: 03/02/24 Procedure(s): US breast LT limited mamm only Accession Number(s): [id number] cc: Radha Escalera DO EXAMINATION: US DIAGNOSTIC [...] by Honorio Cotton MD in OV> 03/02/24 162 DD/ 1300 TD/TT: 03/02/24 1304 Human Resources Assistant: Procedure Note Donotmelchorinterpreter, Image - 03/02/2024 [facility] [address] [place], [place] [address] Ultrasound Report Signed Patient: Angie MathisMR#: [id number] 5 : 1960Acct:[id number] Age/Sex: 63 / FADM Date: 03/02/24 Loc: HO.MAMMO Attending Dr: Radha Escalera DO Ordering Physician: Radha Escalera DO Date of Service: 03/02/24 Procedure(s): US breast LT limited mamm only Accession Number(s): [id number] cc: Radha Escalera DO EXAMINATION: US DIAGNOSTIC [...] by Honorio Cotton MD in OV> 03/02/24 162 DD/ 1300 TD/TT: 03/02/24 1304 Human Resources Assistant: us Radha Escalera DO IMG US PROCEDURES Final Resu lt * Biopsy cervix (10/03/2021) Narrative Rahel Cerrato - 10/03/2021 Negative Historical Provider IN CLINIC/BEDSIDE ORDERAB LES Final Result * Hm Colonoscopy (04/04/2020 10:07 AM EDT) Historical Provider HEALTH MAINTENANCE Final Result from Last 3 Months or Most Recently Relevant to Health Maintenance Insurance [facility] [employer] OPTIONS (O D-SNP) DENTAL [facility] Care Teams Singe Machine Operator Relationship Specialty Start Date End Date Radha Escalera DO [address] [place] [phone] PCP - General Family Medicine 06/23/18
--- OUTSIDE RECORDS SUMMARY | 2025-02-24 14:03 | XMS_ITS | Encounter Summary ---
Author Organization [employer] Address [address] [facility] 7t [place] [address] Care Team Providers Care Physician Compensation Analyst Name Role Phone Radha Escalera DO Primary Care Provider [phone] Encounter Details Date Type Department Care Team ([facility] Contact Info) Description 08/16/2022 Orders Only [facility] CH[facility] MED & PEDS [address] [place] [address] Radha Reynolds LPN Social History Tobacco Use [...] Upcoming Encounters Date Type Department Care Team ([facility] Contact Info) Description 03/08/2025 10:45 AM EDT Office Visit [facility] MEDICINE [address] [place] [address] Radha Escalera DO [address] [place], [place] [phone] documented as of this encounter Visit Diagnoses Not on filedocumented in this encounter Additional Health Concerns Assessment Noted Time PHQ-9 Depression Total Score: 0 07/31/19 23 10:39 AM EST documented as of this encounter Care Teams Physician Compensation Analyst Relationship Specialty Start Date End Date Radha Escalera DO [address] [place] [address] PCP - General Family Medicine 06/23/18 documented as of this encounter
--- OUTSIDE RECORDS SUMMARY | 2025-02-24 14:03 | XMS_ITS | Encounter Summary ---
Author Organization [employer] Address [address] [facility] 7[address] [place] [address] Care Team Providers Care Asbestos Removal Worker Name Role Phone Radha Escalera DO Primary Care Provider + [phone] Reason for Visit * Reason Comments Med Refill Encounter Details Date Type Department Care Team (Late st Contact Info) Description 02/08/2025 Refill [facility] MEDICINE [address] [place] [address] Radha Escalera DO [address] [place] [address] Vitamin D deficiency; Seasonal allergic rhinitis, unspecified trigger Social History Tobacco Use Types Packs/Day Years [...] Description 03/08/2025 10:45 AM EDT Office Visit [facility] MEDICINE [address] [place] [address] Radha Escalera DO [address] [place] [address] documented as of this encounter Visit Diagnoses Diagnosis Vitamin D deficiency Seasonal allergic rhinitis, unspecified trigger documented in this encounter Additional Health Concerns Assessment Noted Time PHQ-9 Depression Total Score: 0 10/28/19 24 9:42 AM EDT documented as of this encounter Care Teams Asbestos Removal Worker Relationship Specialty Start Date End Date Radha Escalera DO [address] [place] [address] PCP - General Family Medicine 06/23/18 documented as of this encounter
--- OUTSIDE RECORDS SUMMARY | 2025-02-24 14:03 | XMS_ITS | Encounter Summary ---
Author Organization [employer] Address [address] [facility] [address] [place] [address] Care Team Providers Care Monitoring And Evaluation Advisor Name Role Phone Radha Escalera DO Primary Care Provider [phone]- [phone] Encounter Details Date Type Department Care Team (Latest Contact Info) Description 09/08/2018 Abstract [facility] CONVERSIONS Dental, Provider, DDS Social History Tobacco [...] 10:45 AM EDT Office Visit [facility] MEDICINE [address] [place] [address] Radha Escalera DO [address] [place] [address] documented as of this encounter Visit Diagnoses Not on filedocumented in this encounter Care Teams Monitoring And Evaluation Advisor Relationship Specialty Start Date End Date Radha Escalera DO [address] [place] [address] PCP - General Family Medicine 06/23/18 documented as of this encounter
--- OUTSIDE RECORDS SUMMARY | 2025-02-24 14:04 | XMS_ITS | Encounter Summary ---
Author Organization [employer] Address [address] [facility] 7[address] [place] [address] Care Team Providers Care Miner Name Role Phone Radha Escalera DO Primary Care Provider [phone] Encounter Details Date Type Department Care Team (Late Contact Info) Description 10/03/2022 Orders Only [facility] CHC MED & PEDS [address] [place] [address] Radha Reynolds LPN Social History Tobacco Use [...] Department Care Team (Late Contact Info) Description 03/08/2025 10:45 AM EDT Office Visit [facility] MEDICINE [address] [place] [address] Radha Escalera DO [address] [place], [place] [phone] documented as of this encounter Visit Diagnoses Not on filedocumented in this encounter Additional Health Concerns Assessment Noted Time PHQ-9 Depression Total Score: 0 07/31/19 23 10:39 AM EST documented as of this encounter Care Teams Miner Relationship Specialty Start Date End Date Radha Escalera DO [address] [place] [address] PCP - General Family Medicine 06/23/18 documented as of this encounter
--- OUTSIDE RECORDS SUMMARY | 2025-02-24 14:04 | XMS_ITS | Patient Health Record ---
Author Organization [employer] Address [address] [place] [address] Care Team Providers Care Appeals Referee Name Role Phone Andrew Glaser Unavailable [phone] Reason For Referral No Information Plan Of Treatment No Information
--- OUTSIDE RECORDS SUMMARY | 2025-02-24 14:04 | XMS_ITS | Encounter Summary ---
Author Organization [employer] Address [address] [facility] [address] [address] [place] [address] Care Team Providers Care Customer Resolution Specialist Name Role Phone Radha Escalera DO Primary Care Provider + [phone] Reason for Visit * Reason Comments Med Change Request Encounter Details Date Type Department Care Team ([facility] st Contact Info) Description 11/06/2024 Refill [facility] [address] [place], [place] [phone] Name, MD Kam [address] [place] [address] Social History Tobacco Use Types Packs/Day Years [...] Description 03/08/2025 10:45 AM EDT Office Visit [facility] MEDICINE [address] [place] [address] Radha Escalera DO [address] [place] [address] documented as of this encounter Visit Diagnoses Not on filedocumented in this encounter Additional Health Concerns Assessment Noted Time PHQ-9 Depression Total Score: 0 10/28/19 24 9:42 AM EDT documented as of this encounter Care Teams Customer Resolution Specialist Relationship Specialty Start Date End Date Radha Escalera DO [address] [place] [address] PCP - General Family Medicine 06/23/18 documented as of this encounter
--- OUTSIDE RECORDS SUMMARY | 2025-02-24 14:04 | XMS_ITS | Encounter Summary ---
Author Organization [employer] Address [address] [facility] [address] [facility] [address] [address] [place] [address] Care Team Providers Care Well Surveying Engineer Name Role Phone Radha Escalera DO Primary Care Provider + [phone] Encounter Details Date Type Department Care Team (Late st Contact Info) Description 07/30/2023 Orders Only [facility] [address] [place] [address] Isha Tran FNP Social History Tobacco Use [...] 10:45 AM EDT Office Visit [facility] MEDICINE [address] [place] [address] Radha Escalera DO [address] [place] [address] documented as of this encounter Visit Diagnoses Not on filedocumented in this encounter Additional Health Concerns Assessment Noted Time PHQ-9 Depression Total Score: 0 07/31/19 23 10:39 AM EST documented as of this encounter Care Teams Well Surveying Engineer Relationship Specialty Start Date End Date Radha Escalera DO [address] [place] [address] PCP - General Family Medicine 06/23/18 documented as of this encounter
== END 2025-02-24 12:51 | disposition home or self-care (01) ==
LOC: HO.MAMMO 12:50
PROVIDERS: PCP Family Medicine; Visit Provider Advanced Practice Midwife
DX: Z12.31 Encounter for screening mammogram for malignant neoplasm of breast (principal); Z13.820 Encounter for screening for osteoporosis; Z78.0 Asymptomatic menopausal state
CPT/HCPCS: 77063; 77067; 77080

== ENCOUNTER → 2025-02-24 13:30 | Outpatient (BNV) | payer OTHER, SELFPAY | PROVIDERS: PCP Family Medicine; Visit Provider Radiology Body Imaging | DX: E28.39 Other primary ovarian failure (principal) | CPT/HCPCS: 77080 ==

== ENCOUNTER 2025-03-30 15:12 | Outpatient (REF) | payer OTHER, SELFPAY ==
[2025-03-30 16:30] LABS: Appearance Urine Clear; Glucose Urine UA Negative (Negative); PH 6.5 (5.0-9.0); Specific Gravity - Urine 1.020 (1.005-1.025); UMIC TRIGGER UACC YES
[2025-03-30 16:36] LABS: UACC Culture Trigger YES
[2025-03-30 16:48] LABS: Blood Urea Nitrogen 18 mg/dL (9-16); Estimated Glomerular Filt Rate > 60
[2025-03-31 07:38] LABS: Syphilis Screen Nonreactive (Nonreactive)
[2025-03-31 07:47] LABS: HIV Num 1 0.07 S/CO (0.00-0.99)
[2025-03-31 15:45] LABS: CT PCR NOT DETECTED (Not Detect.); NG PCR NOT DETECTED (Not Detect.)
== END 2025-03-30 15:13 | disposition home or self-care (01) ==
LOC: HO.HHCL 15:12
PROVIDERS: Nurse Practitioner Family; PCP Family Medicine; Visit Provider Family Medicine
DX: N30.00 Acute cystitis without hematuria (principal); R39.15 Urgency of urination; Z20.2 Contact with and (suspected) exposure to infections with a predominantly sexual mode of transmission; Z11.4 Encounter for screening for human immunodeficiency virus [HIV]
CPT/HCPCS: 36415; 81001; 82565; 84520; 86780; 87086; 87088; 87186; 87389; 87491; 87591

== ENCOUNTER 2025-04-20 09:42 | Outpatient (REF) | payer OTHER, SELFPAY ==
--- NOTE | ~2025-04-20 | CT_ITS ---
CLINICAL HISTORY: R31.0 - Gross hematuria CT abdomen and pelvis without/with contrast Comparison: None provided Findings: Lung bases are clear. No acute bony abnormalities. Liver and spleen within normal limits. Pancreas and adrenal glands unremarkable. Cholecystectomy. No significant focal renal abnormalities. Punctate nonobstructing right renal stone. No ureteral stones or hydronephrosis. Abdominal aorta is normal in caliber. No free fluid or adenopathy in the pelvis. No diverticulitis. Appendectomy. Uterus normal size. No adnexal abnormality. Impression: No acute process This document has been electronically signed by: Santos Marie MD on 04/20/2025 21:53:37
[2025-04-20] MEDS: iohexoL 350 MG/ML 100 ML INFUS..BTL IV (10:25)
--- OUTSIDE RECORDS SUMMARY | 2025-04-20 11:34 | XMS_ITS | Clinical Summary ---
Author Organization [employer] Address [address] [facility] [address] [place] [address] Care Team Providers Care Service Now Developer Name Role Phone Radha Escalera DO Primary Care Provider [phone] Allergies Active Allergy Reactions Criticality Noted Date [...] times daily. 1 kit 025 2025 Active D3 50 MCG (1999 UT) tabletIndication s:Vitamin D deficiency TAKE 1 TABLET BY MOUTH EVERY DAY 90 tablet 1 025 Active omeprazole (PriLOSEC) [address] capsule TAKE 1 CAPSULE BY ORAL ROUTE TWICE A DAY X 3 MONTHS, THEN RETURN TO ONCE A DAY DOSE 180 capsule 3 Active estradiol (Yuvafem) 10 MCG tablet vaginal [...] 01/19/20 25 2:37 PM EDT 025 Active hydroCHLOROthiaz sotero (HYDRODiuril) 25 MG tabletIndication s:Hypertension, unspecified type Take 1 tablet (25 mg) by mouth in the morning. 90 tablet 1 01/19/20 25 2:37 PM EDT 025 Active nadolol (Corgard) 40 MG tabletIndication s:Hypertension, unspecified type TAKE 1 TABLET BY MOUTH DAILY IN THE MORNING 60 tablet 11 025 Active loratadine (Claritin) 10 MG tablet TAKE 1 TABLET BY MOUTH DAILY 90 tablet 4 025 Active phenazopyridine (Pyridium) 100 MG tabletIndication s:Acute cystitis without hematuria Take 1 tablet (100 mg) by mouth 2 times daily. 6 tablet 025 2025 Active escitalopram (Lexapro) 5 MG tablet TAKE 1 TABLET BY MOUTH DAILY 30 tablet 11 025 Active escitalopram (Lexapro) 5 MG tablet Take 1 tablet (5 mg) by mouth Once per day. 30 tablet 2 025 2024 Discontinued nitrofurantoin, macrocrystal-mon ohydrate, (Macrobid) 100 MG capsuleIndicatio ns:Acute cystitis without hematuria Take 1 capsule (100 mg) by mouth 2 times daily for 5 days. 10 capsule 025 2024 Discontinued(R eorder (will not trigger notification to Pharmacy)) nitrofurantoin, macrocrystal-mon ohydrate, (Macrobid) 100 MG capsuleIndicatio ns:Acute cystitis without hematuria Take 1 capsule (100 mg) by mouth 2 times daily for 5 days. 10 capsule 025 2024 Active Problems Problem Noted Date Diagnosed Date Ill-fitting dentures 03/07/2025 Recurrent UTI 12/28/2024 Assessment & Plan (12/28/2024 4:39 PM EDT): I advised patient to drink plenty of water and do not hold the urine In light of recurrent UTIs I decided to prescribe ciprofloxacin and for her symptoms Pyridium I advised not to miss her appointment with urology UA and culture ordered patient will be contacted with results Complete edentulism 11/29/2024 Pain in right knee 08/17/2024 History of hepatitis C 07/31/2022 Depression with anxiety 07/31/2022 Anxiety 07/31/2022 Chronic gastroesophageal reflux disease 07/31/19 23 Portal hypertension (CMS/HCC) 07/31/2022 Osteoarthritis of right knee 07/31/2022 Cirrhosis (CMS/HCC) 07/31/2022 ASCUS with positive high risk HPV cervical 08/27 Overview (07/31/2022): 11/17/18 colpo ileana 2 at 12:00; neg cx bx at 6 and ecc no dysplasia. referred for tx options visit.ECC=inadequate. Rebook for repeat sampling.colpo, [facility], Radha Escalera DO colpo performed 03/09/20, [...] Noted Date Diagnosed Date Resolved Date UTI symptoms 12/28/2024 04/20/2025 Assessment & Plan (02/05/2025 9:14 AM EDT): [...] 3 days Increase fluids Vaginal discharge 12/28/2024 04/20/2025 Assessment & Plan (12/28/2024 4:39 PM EDT): BV and CG ordered today patient will be contacted with results Increased urinary frequency 02/12/2024 04/20/2025 Assessment & Plan (02/12/2024 9:58 AM EDT): [...] again dose UTI (urinary tract infection) 09/05/2023 01/22/2025 Assessment [...] erythema 07/31/2022 07/31/2022 PHT (portal hypertension) 07/31/2022 Normal oral exam 07/31/2022 04/20/2025 Arthropathy of hand 05/29/2015 07/31/19 23 Chronic hepatitis C with cirrhosis (CMS/HCC) 5 07/31/2022 Encounters Date Type Department Care Team Description 04/08/2025 Refill [facility] [address] [place] [address] Radha Escalera DO 04/01/2025 Results Follow-Up [address] [address] Carol Hdez MD Culture, Urine, Routine 03/30/2025 2:20 PM EDT Office Visit [facility] [address] [address] Carol Hdez MD Acute cystitis without hematuria (Primary Dx); Routine screening for STI (sexually transmitted infection) 03/30/2025 Orders Only [address] [address] Jannette Ontiveros MD Acute cystitis without hematuria 03/30/2025 Orders Only GENERIC EXTERNAL DATA DEPARTMENT Provider, Generic External Data 03/11/[address] [address] Radha Escalera DO Vitamin D deficiency 03/10/[address] [address] Radha Escalera DO 03/08/2025 10:45 AM EDT Office Visit [address] [address] Radha Escalera DO Essential hypertension (Primary Dx); Depression with anxiety; Chronic gastroesophageal reflux disease; History of hepatitis C; ASCUS with positive high risk HPV cervical; Left axillary pain; Healthcare maintenance; Dietary counseling; Exercise counseling; Acute URI 03/08/2025 Travel 03/07/2025 2:30 PM EDT Office Visit [facility] [address] [place] [phone] Jhonny Garza DDS Ill-fitting dentures (Primary Dx) 03/07/[address] [address] Radha Escalera DO Chart Prep 03/01/20[facility] [address] [address] Radha Escalera DO Hyperlipidemia, unspecified hyperlipidemia type 02/28/2025 Patient Outreach [address] [address] Radha Escalera DO Pre-visit Planning (SDOH screening completed on 01/26/2025) 02/23/2025 3:30 PM EDT Office Visit [facility] [address] [place] [phone] Jhonny Garza DDS Complete edentulism, unspecified edentulism class (Primary Dx) 02/20/2025 Refill [facility] [address] [place], [place] [phone] Radha Escalera DO Hypertension, unspecified type 02/14/2025 Refill [facility] [address] [place] [phone] Radha Escalera DO Vitamin D deficiency 02/09/2025 Orders Only GENERIC EXTERNAL DATA DEPARTMENT Provider, Generic External Data 02/08/[address] [address] Radha Escalera DO Vitamin D deficiency; Seasonal allergic rhinitis, unspecified trigger 02/05/2025 9:00 AM EDT Office Visit [facility] [address] [place] [phone] Darya Charlton MD UTI symptoms 02/05/2025 Travel 02/04/2025 9:15 AM EDT Office Visit [address] [address] Radha Escalera DO Essential hypertension (Primary Dx); Depression with anxiety; Chronic gastroesophageal reflux disease; History of hepatitis C; ASCUS with positive high risk HPV cervical; Recurrent UTI; Healthcare maintenance 02/04/2025 Travel 02/02/[address] [address] Radha Escalera DO Chart Prep 01/26/2025 Patient Outreach [address] [phone] Radha Escalera DO Pre-visit Planning (SDOH screening negative and tobacco screening positive) 01/22/2025 9:20 AM EDT Office Visit [facility] [address] [address] Jannette Ontiveros MD Recurrent UTI (Primary Dx); UTI symptoms; Dietary counseling; Exercise counseling; Overweight; 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 ([facility]) 01/22/2025 Travel 01/18/2025 1:30 PM EDT Office Visit [facility] [address] [place] [address] Jhonny Garza, DDS 01/18/2025 Refill [facility] [address] [place], [place] [phone] Radha Escalera DO Hypertension, unspecified type from [...] Answer Date Recorded Patient Health Questionnaire-9 Score 4 03/08/2025 Patient Health Questionnaire-9 Score 4 03/08/2025 Last PHQ-9: Questionnaire Data Not on file 0 03/08/2025 Housing Stability Answer Date Recorded What is [...] Answer Date Recorded Patient Health Questionnaire-2 Score 1 03/08/2025 Internet Access Answer Date Recorded Internet Access [...] Sign Reading Time Taken Comments Blood Pressure 135/82 03/30/2025 2:34 PM EDT Pulse 67 03/30/2025 2:34 PM EDT Temperature 36.7 C (98.1 F) 03/30/2025 2:34 PM EDT Respiratory Rate 16 03/30/2025 2:34 PM EDT Oxygen Saturation 96% 03/30/2025 2:34 PM EDT Inhaled Oxygen Concentration - - Weight 72.1 kg (159 lb) 03/30/2025 2:34 PM EDT Height 165.1 cm (5' 5 ) 03/08/2025 11:11 AM EDT Body Mass Index 26.46 03/08/2025 11:11 AM EDT Plan of Treatment Health Maintenance Due Date Last Done Comments CT Colonography 1959 Dental X-Ray: Bitewings 1959 FIT DNA/Cologuard 1959 FIT 1959 FOBT 1960 Sigmoidoscopy 1959 Alcohol/Substance Use Screening 1971 Colonoscopy 12/01/2024 04/04/2020 Colorectal Cancer Screening 12/01/2024 Colposcopy 12/01/2024 10/03/2021 Dental Oral Exam 06/01/2025 11/29/2024, , 12/13/2020, Additional history exists Cervical Cancer Screening 11/30/2025 HPV/Cotest 11/30/2025 11/30/2024, 06/0 09/2023, 08/10/2021, Additional history exists Pap Smear 11/30/2025 11/30/2024, 06/0 09/2023, 08/10/2021 SDOH Screening 01/26/2026 01/26/2025 Mammogram 02/24/2026 02/24/2025, 09, 01/07/2024, Additional history exists Depression Screening 03/08/2026 03/08/2025, 03/08/20 25 Tobacco Screening 03/30/2026 03/30/2025 Dental X-Ray: Full Mouth 12/01/2027 025, 12/13/2020, 07/16/2018 Lipid Panel 03/03/2029 03/03/2024, 11/0 07/2022, 05/13/2022, [...] or older Completed 03/15/2024 COVID-19 Vaccine Completed 04/18/2025, , 04/24/2022, Additional history exists Influenza Vaccine Completed 04/18/2025, , 04/15/2023, Additional history exists HIB Vaccines Aged Out [...] Procedure Name Priority Date/Time Associated Diagnosis Comments CHLAMYDIA/N. GONORRHOEAE RNA, TMA, UROGENITAL Routine 03/30/2025 3:43 PM EDT Routine screening for STI (sexually transmitted infection) CREATININE, SERUM Routine 03/30/2025 3:3 1 PM EDT UREA NITROGEN (BUN) Routine 03/30/2025 3 :31 PM EDT SYPHILIS SCREEN Routine 03/30/2025 3:31 PM EDT Routine screening for STI (sexually transmitted infection) HIV 1/2 ANTIGEN/ANTIBODY, FOURTH GENERATION W/RFL Routine 03/30/2025 3:31 PM EDT Routine screening for STI (sexually transmitted infection) URINALYSIS, COMPLETE, WITH REFLEX TO CULTURE Routine 03/30/2025 3:31 PM EDT Acute cystitis without hematuria POCT URINALYSIS DIPSTICK Routine 03/30/2025 2:40 PM EDT Acute cystitis without hematuria CULTURE, URINE, ROUTINE Routine 03/30/2025 12:00 AM EDT Acute cystitis without hematuria POCT INFLUENZA A Routine 03/08/2025 11:5 1 AM EDT Acute URI POCT INFLUENZA B Routine 03/08/2025 11:5 1 AM EDT Acute URI POCT RAPID COVID ANTIGEN Routine 03/08/2025 11:51 AM EDT Acute URI DENTURE IMPRESSION Routine 03/07/2025 2: 30 PM EDT BI MAMMOGRAM SCREENING TOMOSYNTHESIS BILATERAL Routine 02/24/2025 1:00 PM EDT BD DEXA AXIAL Routine 02/24/2025 1:00 PM EDT Menopausal and postmenopausal disorder DENTURE IMPRESSION Routine 02/23/2025 3: 30 PM EDT CYTOPATH-CELL ENHANCED Routine 02/09/2025 2:00 PM EDT POCT URINALYSIS DIPSTICK Routine 02/05/2025 9:37 AM EDT UTI symptoms CULTURE, URINE, ROUTINE Routine 02/05/2025 9:04 AM EDT UTI symptoms POCT URINALYSIS DIPSTICK Routine 01/22/2025 9:37 AM EDT UTI symptoms NO CHARGE VISIT Routine 01/18/2025 1:30 PM EDT HPV DNA, LOW/HIGH RISK Routine 11/30/2024 3:15 PM EDT PAP SMEAR Routine 11/30/2024 3:15 PM EDT Low grade squamous intraepithelial lesion (LGSIL) on Papanicolaou smear of cervix PANORAMIC RADIOGRAPHIC IMAGE Routine 11/29/2024 3:00 PM EDT PERIODIC ORAL EVALUATION - ESTABLISHED PATIENT Routine 11/29/2024 3:00 PM EDT LIPID PANEL, STANDARD Routine 03/03/2024 8:44 AM EDT Essential hypertension Depression with anxiety Chronic gastroesophageal reflux disease History of hepatitis C ASCUS with positive high risk HPV cervical Left axillary pain Healthcare maintenance BIOPSY CERVIX Routine 10/03/2021 HM COLONOSCOPY Routine 04/04/2020 10:07 AM EDT PROPHYLAXIS - ADULT Routine 03/11/2019 1 2:00 AM EDT from Last 3 Months or Most Recently Relevant to Health Maintenance Results * Chlamydia/N. Gonorrhoeae RNA, TMA, Vagina (03/30/2025 3:43 PM EDT) CT PCR NOT DETECTED Not Detect. [facility] Comment:A not detected test result does [...] psychologicalconsequences. NG PCR NOT DETECTED Not Detect. [facility] Comment:A not detected test result does [...] or psychologicalconsequences. Swab Vaginal structure / Unknown 03/30/2025 3:43 PM EDT 03/31/2025 12:41 PM EDT Carol Hdez MD LAB MICROBIOLOGY - GENERAL ORDERABLES Final Result Performing Organization Address City/[facility]/ZIP Co de Phone Number [facility] [address] [place] [phone] * Syphilis Screen (03/30/2025 3:31 PM EDT) Syphilis Screen Nonreactive Nonreactive [facility] Blood Venous blood specimen / Unknown 03/30/2025 3:31 PM EDT 03/30/2025 4:09 PM EDT Carol Hdez MD LAB BLOOD ORDERABLES Final Result Performing Organization Address City/[facility]/ZIP Co de Phone Number [facility] [address] [place] [phone] * (ABNORMAL) Urinalysis, Complete, with Reflex to Culture (03/30/2025 3:31 PM EDT) Color Urine Yellow [facility] Appearance Urine Clear [facility] PH 6.5 5.0 - 9.0 [facility] Glucose Urine UA Negative Negative mg/dL [facility] Urine Blood Trace(A) Negative [facility] Specific [place] - Urine 1.020 1.005 - 1.025 [facility] Urine Protein Negative Neg-Trace mg/dL [facility] Urine Ketones Negative Negative mg/dL [facility] Nitrite Urine Negative Negative [facility] Leukocyte Esterase Urine Moderate (2+)(A) Negative [facility] RBC Urine 3-5(A) 0 - 2 /HPF [facility] Urine WBC >50(A) 0 - 5 /HPF [facility] Urine Squamous Epithelial Cell 3-5 0 - 2 /HPF [facility] Urine Bacteria Trace None Seen [facility] Hyaline Casts, Urine 0-2 0 - 2 /LPF [facility] Urine 03/30/2025 3:31 PM EDT 03/30/2025 4:12 PM EDT Narrative [facility] - 03/30/2025 4:37 PM EDT Urine, Clean Catch us Carol Hdez MD LAB URINE ORDERABLES Final Result Performing Organization Address [facility] de Phone Number [facility] [address] [place] [phone] * Creatinine, Serum (03/30/2025 3:31 PM EDT) Creatinine, Serum 0.64 0.5 - 1.4 mg/dL [facility] Estimated Glomerular Filt Rate >60 [facility] Comment:Chronic Kidney Disea se: Estimated GFR < 60 mL/min/1.62d4Koxdxu Kidney Disease: Estimated GFR < 15 mL/min/1.73m2 03/30/2025 3:31 PM EDT 03/30/2025 4:09 PM EDT us Generic External Data Provider LAB BLOOD ORDERAB LES Final Result Performing Organization Address [facility] Co de Phone Number [facility] [address] [place] [phone] * HIV-1/2 Antigen and Antibodies, Fourth Generation, with Reflexes (03/30/2025 3:31 PM EDT) HIV AB/AG Nonreactive Nonreactive [facility] Comment:HIV-1 p24 Ag and/or HIV-1/HIV-2 Ab not detected.A test result that is nonreactive does not exclude thepossibility of exposure to or infection with HIV-1 and/orHIV-2. Nonreactive results in this assay for individualswith prior exposure to HIV-1 and/or HIV-2 may be due toantigen and antibody levels that are below the limit ofdetection of this assay.The [employer] HIV Ag/Ab Combo assay result andsupplemental assay results should be interpreted inconjunction with the patient's clinical presentation,history and other laboratory results. If the results areinconsistent with clinical evidence, additional testing issuggested to confirm the result. Blood Venous blood specimen / Unknown 03/30/2025 3:31 PM EDT 03/30/2025 4:09 PM EDT Carol Hdez MD LAB BLOOD ORDERABLES Final Result Performing Organization Address City/[facility]/ZIP Co de Phone Number [facility] [address] [place] [phone] * (ABNORMAL) BUN (Blood Urea Nitrogen) (03/30/2025 3:31 PM EDT) Urea Nitrogen (BUN) 18(H) 9 - 16 mg/dL [facility] 03/30/2025 3:31 PM EDT 03/30/2025 4:09 PM EDT us Generic External Data Provider LAB BLOOD ORDERAB LES Final Result Performing Organization Address [facility]/ZIP Co de Phone Number [facility] [address] [place] [phone] * (ABNORMAL) POCT urinalysis dipstick manually resulted (03/30/2025 2:40 PM EDT) Only the most recent of3 resultswithin the time period is included. Color, UA Yellow Comment:Dark Clarity, UA Clear Glucose, UA Negative Bilirubin, UA Negative Ketones, UA Negative Spec Grav, UA 1.020 Blood, UA Positive(A) Negative, None Detected Comment:Small pH, UA 6.5 Protein, UA Negative Urobilinogen, UA 2.0 Leukocytes, UA Moderate(A) Negative, Rare, Trace Nitrite, UA Positive(A) Negative, None Detected Appearance, UA OK Urine 03/30/2025 2:40 PM EDT Carol Hdez MD POINT OF CARE TEST ENTER/E DIT ORDERABLES Final Result * Culture, Urine, Routine (03/30/2025 12:00 AM EDT) Only the most recent of2 resultswithin the time period is included. Urine Urine specimen obtained by clean catch procedure / Unknown 03/30/2025 03/30/2025 Comment:UACC Narrative [facility] - 04/01/2025 7:31 AM EDT Escherichia coli Quant > 100,000 cfu/mL Escherichia coli: Ampicillin 16(I) Escherichia coli: Cefazolin (Urine) 4(S) Escherichia coli: Cefepime <=0.12(S) Escherichia coli: Ceftriaxone <=0.25(S) Escherichia coli: Ciprofloxacin 1(R) Escherichia coli: Gentamicin <=1(S) Escherichia coli: Nitrofurantoin <=16(S) Escherichia coli: Trimethoprim/Sulfamethoxazole <=20(S) Specimen Source: Urine clean catch Carol Hdez MD LAB MICROBIOLOGY - GENERAL ORDERABLES Final Result Performing Organization Address City/State/[facility] Co de Phone Number [facility] [address] [place] [phone] * POCT Rapid Covid-19 BinaxNOW (03/08/2025 11:51 AM EDT) Rapid COVID Ag Negative Swab 03/08/2025 11:5 1 AM EDT Radha Escalera DO POINT OF CARE TEST ENTER/[place] T ORDERABLES Final Result * POCT Rapid Influenza B OSOM (03/08/2025 11:51 AM EDT) Rapid Influenza B Ag Negative Negative, Indeterminate Swab 03/08/2025 11:5 1 AM EDT Radha Jw DO POINT OF CARE TEST ENTER/[place] T ORDERABLES Final Result * POCT Rapid Influenza A OSOM (03/08/2025 11:51 AM EDT) Rapid Influenza A Ag Negative Negative, Indeterminate Swab Nasopharyngeal structure / Unknown 03/08/2025 11:51 AM EDT Radha Jw CORNELL POINT OF CARE TEST ENTER/CAROLINA T ORDERABLES Final Result * BI Mammogram Screening Tomosynthesis Bilateral (02/24/2025 1:00 PM EDT) Anatomical Region Laterality Modality Breast Bilateral Mammography 02/24/2025 1:00 PM EDT Narrative 02/28/2025 10:56 AM EDT [facility] [address] [place] [address] Mammography Report Signed Patient: Angie Mathis MR#: [id number] 5 : 1960 Acct:[id number] Age/Sex: 64 / F ADM Date: 02/24/25 Loc: HO.MAMMO Attending Dr: Tameka Stoddard CNM Ordering Physician: TAMEKA STODDARD CNM Results: 1 Negative Date of Service: 02/24/25 Follow Up: 1 Year From Orig inal Mammogram Procedure(s): MM tomosynthesis screening BI Accession Number(s): [id number] cc: Radha Escalera DO; TAMEKA STODDARD CNM EXAMINATION: MM SCREENING DIGITAL BREAST TOMOSYNTHESIS, BILATERAL CLINICAL INFORMATION: Screening. Asymptomatic. COMPARISON: Mammography: Comparison is made with available priors TECHNIQUE: Digital breast mammography with tomosynthesis is performed in both the craniocaudal and mediolateral oblique views along with computer-aided detection (CAD). FINDINGS: There are scattered areas of fibroglandular density (ACR BI-RADS breast composition Category b). There are no significant masses, abnormal calcifications, or other abnormalities. MM/MM tomosynthesis screening BI IMPRESSION: No mammographic evidence of malignancy. ASSESSMENT: BI-RADS BI-RADS 1 - Negative RECOMMENDATION: Routine annual mammography screening. 1 year F/U This examination should not preclude the clinical evaluation of a suspicious palpable abnormality. This patient's information was entered into a reminder system with a target due date for their next mammogram. Electronically signed by: Paula Bello DO 02/28/2025 10:52 AM EDT RP Dictated By: Paula Bello DO Signed By: <Electronically signed by Paula Bello DO in OV> 02/28/25 1052 DD/ 1300 TD/TT: 02/24/25 1330 Rim Turning Finisher: Procedure Note Donotuseinterpreter, Image - [facility]28[facility] [address] [place] [address] Mammography Report Signed Patient: Sammie Mathis#: [id number] 5 : 1960Acct:[id number] Age/Sex: 64 / FADM Date: 02/24/25 Loc: HOClariceMAMMO Attending Dr: Tameka Stoddard CNM Ordering Physician: TAMEKA STODDARDesults: 1 Negative Date of Service: 02/24/25Follow Up: 1 Year From Orig ina Mammogram Procedure(s): MM tomosynthesis screening BI Accession Number(s): [id number] cc: Radha Escalera JOHANNA CNM EXAMINATION: MM SCREENING DIGITAL BREAST TOMOSYNTHESIS, BILATERAL CLINICAL INFORMATION: Screening. Asymptomatic. COMPARISON: Mammography: Comparison is made with available priors TECHNIQUE: Digital breast mammography with tomosynthesis is performed in both the craniocaudal and mediolateral oblique views along with computer-aided detection (CAD). FINDINGS: There are scattered areas of fibroglandular density (ACR BI-RADS breast composition Category b). There are no significant masses, abnormal calcifications, or other abnormalities. MM/MM tomosynthesis screening BI IMPRESSION: No mammographic evidence of malignancy. ASSESSMENT: BI-RADS BI-RADS 1 - Negative RECOMMENDATION: Routine annual mammography screening. 1 year F/U This examination should not preclude the clinical evaluation of a suspicious palpable abnormality. This patient's information was entered into a reminder system with a target due date for their next mammogram. Electronically signed by: Paula Bello DO 02/28/2025 10:52 AM EDT RP Dictated By: Paula Bello DO Signed By: <Electronically signed by Paula Bello DO in OV> 02/28/25 1052 DD/ 1300 TD/TT: 02/24/25 1330 Rim Turning Finisher: Tameka Stoddard CNM IMG BI PROCEDURES Edited Result - Final * BD DEXA Axial (02/24/2025 1:00 PM EDT) Anatomical Region Laterality Modality Body Radiographic Jessi ging 02/24/2025 1:00 PM EDT Narrative 02/24/2025 2:32 PM EDT [facility] [address] [place], [place] [address] Mammography Report Signed Patient: Angie Mathis MR#: [id number] 5 : 1960 Acct:[id number] Age/Sex: 64 / F ADM Date: 02/24/25 Loc: MAMMO Attending Dr: Tameka Stoddard CNM Ordering Physician: TAMEKA STODDARD CNM Results: Date of Service: 02/24/25 Follow Up: Procedure(s): XR DEXA axial skeleton Accession Number(s): [id number] cc: Radha Escalera DO; TAMEKA STODDARD CNM STUDY: DUAL ENERGY X-RAY ABSORPTIOMETRY / DXA REASON FOR EXAM: Female, 64 years old baseline TECHNIQUE: Bone Mineral Density (BMD) measurements of the lumbar spine and left hip were obtained using [employer] COMPARISON: None FINDINGS: L2-L4 BMD: 1.593 g/cm2 L2-L4 T score: 3.3. This corresponds to Normal bone density. Left femoral neck BMD: 1.196 g/cm2 Left femoral neck T score: 1.1. This corresponds to Normal bone density. Left total hip BMD: 1.097 g/cm2 Left total hip T score: 0.7. This corresponds to Normal bone density. MM/XR DEXA axial skeleton IMPRESSION: Normal bone density Reference Information: The T-score is the number of standard deviations above or below the standard which is normal for young adults at their peak bone mineral density. The World Health Organization (WHO) interprets the T-scores as follows: At or above -1 SD Normal bone density Between -1 and -2.5 SD Osteopenia At or below -2.5 SD Osteoporosis Electronically signed by: Stewart Mcconnell MD 02/24/2025 02:29 PM EDT Dictated By: Stewart Mcconnell MD Signed By: <Electronically signed by Stewart Mcconnell MD in OV> 02/24/25 1429 DD/ 1300 TD/TT: 02/24/25 1330 Rim Turning Finisher: Procedure Note Donotuseinterpreter, Image - 02/24/2025 [place] [facility] [address] [place], [place] [address] Mammography Report Signed Patient: Sammie Mathis#: [id number] 5 : 1960Acct:[id number] Age/Sex: 64 / FADM Date: 02/24/25 Loc: JUAN Attending Dr: Tameka Stoddard CNM Ordering Physician: TAMEKA STODDARDesults: Date of Service: 02/24/25Follow Up: Procedure(s): XR DEXA axial skeleton Accession Number(s): [id number] cc: Radha Escalera DO; TAMEKA STODDARD CNM STUDY: DUAL ENERGY X-RAY ABSORPTIOMETRY / DXA REASON FOR EXAM: Female, 64 years old baseline TECHNIQUE: Bone Mineral Density (BMD) measurements of the lumbar spine and left hip were obtained using [employer] COMPARISON: None FINDINGS: L2-L4 BMD: 1.593 g/cm2 L2-L4 T score: 3.3. This corresponds to Normal bone density. Left femoral neck BMD: 1.196 g/cm2 Left femoral neck T score: 1.1. This corresponds to Normal bone density. Left total hip BMD: 1.097 g/cm2 Left total hip T score: 0.7. This corresponds to Normal bone density. MM/XR DEXA axial skeleton IMPRESSION: Normal bone density Reference Information: The T-score is the number of standard deviations above or below the standard which is normal for young adults at their peak bone mineral density. The World Health Organization (WHO) interprets the T-scores as follows: At or above -1 SD Normal bone density Between -1 and -2.5 SD Osteopenia At or below -2.5 SD Osteoporosis Electronically signed by: Stewart Mcconnell MD 02/24/2025 02:29 PM EDT Dictated By: Stewart Mcconnell MD Signed By: <Electronically signed by Stewart Mcconnell MD in OV> 02/24/25 1429 DD/ 1300 TD/TT: 02/24/25 1330 Rim Turning Finisher: Tameka Stoddard CNM [facility] DXA PROCEDURES Final Result * Cytopath-cell enhanced (02/09/2025 2:00 PM EDT) 02/09/2025 2:00 PM EDT 02/10/2025 10:20 AM EDT [facility] LABS - 02/10/2025 3:43 PM EDT ----- ------- Name: Angie Mathis Age/Sex: 64/F : 1960 Unit#: [id number] Attend Dr: Sejal Abraham [facility] Re02/09/25 Status: [facility] Disch: ----- ------- SPEC : [id number] RECD: 02/10/25-1020 STATUS: ROBERTA MONSALVE NUM: [id number] BRIAN: 02/09/25-14[address] [facility] [address]: Sejal Abraham [facility] ENTERED: 02/10/25-1050 SP TYPE: Cytology OT DR: Radha Escalera DO ORDERED: Cyto-enhanced Diagnosis [...] developed and their performance characteristics determined by [facility]. They have not been cleared or approved by the U.S. Food and Drug Administration (FDA). However, the FDA has determined that such clearance or approval is not necessary. This laboratory is certified under the Clinical Laboratory Improvement Amendments of 1988 (CLIA) as qualified to perform high complexity clinical laboratory testing. Copies To: Radha Escalera DO [address] [phone] Sejal Abraham [facility] [address] [place] [address] [address] [place] [address] [email or web address] CONTINUED ON NEXT PAGE ----- ------- Name: Angie Mathis Age/Sex: 64/F : 1960 Unit#: [id number] Attend Dr: Sejal Abraham [facility] Re02/09/25 Status: DEP REF Location: .LAB Disch: ----- ------- SPEC : [id number] RECD: 02/10/25-102 STATUS: ROBERTA MONSALVE NUM: [id number] BRIAN: 02/09/25-[address]: Sejal Abraham [facility] ENTERED: 02/10/25-1050 SP TYPE: Cytology OTHR DR: Radha Escalera DO ORDERED: Cyto-enhanced ----- ------- Signed (signature on file) Annabelle Barrington 02/10/25 1543 ----- ------- END OF REPORT us Generic External Data Provider LAB CYTOLOGY DOREEN ERAZO Final Result [facility] [address] [place] [phone] * (ABNORMAL) HPV DNA, Low/High Risk (11/30/2024 3:15 PM EDT) HPV High Risk Positive(A) Negative [facility] HPV Genotype 16 Negative Negative [facility] HPV Genotype 18 Negative Negative [facility] Comment:HPV testing performe d at [facility] (CLIA#[id number]), [address] [place] [address].Testing for HPV was performed using the [employer]0system. The presence of HPV in the female [...] CNM LAB BLOOD ORDERABLES Heather jade Result [facility] [address] [place] [phone] * Pap Smear (11/30/2024 3:15 PM EDT) Swab Cervix uteri structure / Unknown 11/30/2024 3:15 PM EDT 12/01/2024 8:17 AM EDT Narrative [facility] - 12/06/2024 11:33 AM EDT ----- ------- Name: Angie Mathis Age/Sex: 64/F : 1960 Unit#: [id number] Attend Dr: TAMEKA STODDARD CNM Re11/30/24 Status: DEP REF Location: HO.HHCLNP Disch: ----- ------- SPEC : [id number] RECD: 12/01/24-816 STATUS: ROBERTA MONSALVE NUM: [id number] BRIAN: 11/30/24-[address] [facility] [address]: TAMEKA STODDARD [facility] ENTERED: 12/01/24 SP TYPE: Pap Smr [facility] DR: ORDERED: Pap Smear, PAP path review [...] and HPV testing will be performed at [facility] (CLIA #[id number]), [address] [place] [address]. Testing for HPV was performed using the [employer] system. The presence of HPV in the [...] detected. All professional services are performed by [facility] ([address] [place], [place] [id number]; ; CLIA #[id number]). The PAP Test is a screening procedure with the inherent possibility of both false negative and false positive results. Results should be interpreted in the context of historic and current clinical findings. Reliability of the PAP Test is enhanced by performing the test on a regular repetitive basis. CONTINUED ON NEXT PAGE ----- ------- Name: Angie Mathis Age/Sex: 64/F : 1960 Unit#: [id number] Attend Dr: TAMEKA STODDARD [facility] Re11/30/24 Status: DEP [facility]F [facility] Disch: ----- ------- SPEC : [id number] RECD: 12/01/24 STATUS: ROBERTA MONSALVE NUM: [id number] BRIAN: 11/30/24-[address] [facility] [address]: TAMEKA STODDARD [facility] ENTERED: 12/01/24 SP TYPE: Pap Darrell DAS DR: ORDERED: Pap Smear, PAP path review ----- ------- Signed (signature on file) Jonathan Daley MD 12/06/24 1133 ----- ------- END OF REPORT Tameka Allen CNM LAB CYTOLOGY ORDERABLES F inal Result Performing Organization Address City/[facility]/ZIP Co de Phone Number [facility] [address] [place] [phone] * Lipid Panel, Standard (03/03/2024 8:44 AM EDT) Triglycerides 47 <150 mg/dL [facility] Comment:Desirable Triglyceri de: less than 150 mg/dLBorderline High Triglyceride 150-199 mg/dLHigh Triglyceride: 200-499 mg/dLVery High Triglyceride: greater than or equal to 5OO mg/dL Cholesterol 154 <200 mg/dL [facility] Comment:Desirable Cholestero l: less than 200 mg/dLBorderline High Cholesterol: 200-239 mg/dLHigh Cholesterol: greater than 239 mg/dL LDL Cholesterol Calculated 87 <100 mg/dL [facility] Comment:Desirable LDL: less than 100 mg/dLNear Optimal/Above Optimal LDL: 110- 129 mg/dLBorderline High LDL: 130-159 mg/dLHigh LDL: 160-189 mg/dLVery High LDL: greater than or equal to 190 mg/dL HDL Cholesterol 58 >40 mg/dL [facility] Comment:Desirable HDL: great er than 40 mg/dL Note: This HDL assay may give artificially low results in patients with liver disease. Blood Venous blood specimen / Unknown 03/03/2024 8:44 AM EDT 03/03/2024 11:20 AM EDT Radha Escalera DO LAB BLOOD ORDERABLES Final R esult Performing Organization Address City/[facility]/ZIP Co de Phone Number [facility] [address] [place] [address] [phone] * Biopsy cervix (10/03/2021) Narrative Rahel Cerrato - 10/03/2021 Negative Historical Provider MD IN CLINIC/BEDSIDE ORDERAB LES Final Result * Hm Colonoscopy (04/04/2020 10:07 AM EDT) us Historical Provider MD HEALTH MAINTENANCE Final Result from Last 3 Months or Most Recently Relevant to Health Maintenance Insurance [place] [id number] Care Teams Service Now Developer Relationship Specialty Start Date End Date Radha Escalera DO [address] [place] [address] PCP - General Family Medicine 06/23/18
--- OUTSIDE RECORDS SUMMARY | 2025-04-20 11:35 | XMS_ITS | Encounter Summary ---
Author Organization [employer] Address [address] [facility] [address] [place] [address] Care Team Providers Care Cannon Pinion Adjuster Name Role Phone Radha Escalera DO Primary Care Provider + [phone] Reason for Visit * Reason Comments Med Refill Encounter Details Date Type Department Care Team (Late st Contact Info) Description 03/11/2025 Refill [facility] [address] [place] [address] Radha Escalera DO [address] [place] [address] Vitamin D deficiency Social History Tobacco Use [...] Assessment Noted Time PHQ-9 Depression Total Score: 4 03/08/20 25 11:18 AM EDT documented as of this encounter Care Teams Cannon Pinion Adjuster Relationship Specialty Start Date End Date Radha Escalera DO [address] [place] [address] PCP - General Family Medicine 06/23/18 documented as of this encounter
--- OUTSIDE RECORDS SUMMARY | 2025-04-20 11:35 | XMS_ITS | Encounter Summary ---
Author Organization [employer] Address [address] [facility] [address] [place] [address] Care Team Providers Care Financial Sales Manager Name Role Phone Radha Escalera DO Primary Care Provider + [phone] Encounter Details Date Type Department Care Team (Late st Contact Info) Description 08/16/2022 Orders Only [facility] [address] [place], [place] [phone] Radha Reynolds LPN Social History Tobacco Use [...] documented as of this encounter Care Teams Financial Sales Manager Relationship Specialty Start Date End Date Radha Escalera DO [address] [place], [place] [phone] PCP - General Family Medicine 06/23/18 documented as of this encounter
--- OUTSIDE RECORDS SUMMARY | 2025-04-20 11:35 | XMS_ITS | Encounter Summary ---
Author Organization [employer] Address [address] [place] [address] Care Team Providers Care Weight Shifter Name Role Phone Radha Escalera DO Primary Care Provider + [phone] Encounter Details Date Type Department Care Team (Late st Contact Info) Description 07/30/2023 Orders Only [facility] [address] [place] [address] Isha Tran FNP Social History Tobacco Use [...] documented as of this encounter Care Teams Weight Shifter Relationship Specialty Start Date End Date Radha Escalera DO [address] [place] [address] PCP - General Family Medicine 06/23/18 documented as of this encounter
--- OUTSIDE RECORDS SUMMARY | 2025-04-20 11:35 | XMS_ITS | Encounter Summary ---
Author Organization [employer] Address [address] [facility] [address] [place] [address] Care Team Providers Care Thin Film Technician Name Role Phone Radha Escalera DO Primary Care Provider + [phone] Encounter Details Date Type Department Care Team (Late st Contact Info) Description 04/01/2025 Results Follow-Up [facility] [address] [place] [address] Carol Hdez MD [address] [place] [address] Culture, Urine, Routine Social History Tobacco Use Types Packs/Day Years [...] documented as of this encounter Care Teams Thin Film Technician Relationship Specialty Start Date End Date Radha Escalera DO [address] [place] [address] PCP - General Family Medicine 06/23/18 documented as of this encounter
--- OUTSIDE RECORDS SUMMARY | 2025-04-20 11:35 | XMS_ITS | Encounter Summary ---
Author Organization [employer] Address [address] [place] [address] Care Team Providers Care Dye Boarding Machine Operator Name Role Phone Radha Escalera DO Primary Care Provider [phone] Encounter Details Date Type Department Care Team (Latest Contact Info) Description 09/08/2018 Abstract [facility] CONVERSIONS Dental, Provider, DDS Social [...] on filedocumented in this encounter Care Teams Dye Boarding Machine Operator Relationship Specialty Start Date End Date Radha Escalera DO [address] [place] [address] PCP - General Family Medicine 06/23/18 documented as of this encounter
--- OUTSIDE RECORDS SUMMARY | 2025-04-20 11:35 | XMS_ITS | Encounter Summary ---
Author Organization [employer] Address [address] [facility] [address] [place] [address] Care Team Providers Care Adjunct Physics Instructor Name Role Phone Radha Escalera DO Primary Care Provider + [phone] Reason for Visit * Reason Comments Med Refill Encounter Details Date Type Department Care Team ([facility] st Contact Info) Description 05/23/2024 Refill [facility] [address] [place] [address] Radha Escalera DO [address] [place] [address] Candidal intertrigo Social History Tobacco Use Types [...] documented as of this encounter Care Teams Adjunct Physics Instructor Relationship Specialty Start Date End Date Radha Escalera DO [address] [place] [address] PCP - General Family Medicine 06/23/18 documented as of this encounter
--- OUTSIDE RECORDS SUMMARY | 2025-04-20 11:35 | XMS_ITS | Data Portability ---
Author Organization [place] - [facility], [facility] Address [address] [place] [address] Care Team Providers Care Fun House Operator Name Role Phone BARBARA PARNELL Primary Care Provider [phone] Assessment Encounter Date Assessment Date Assessment LastModified by Organization Details LastModified Time 05/25/2024 05/25/2024 Osteoarthritis left knee [email or web address] Not available 05/24/2024 19:40:33 08/25/2024 08/25/2024 Osteoarthritis left knee [email or web address] Not available 08/25/2024 06:45:05 Plan of Treatment Reminders Order Date Submit Date Provider Last Modified By Organization Details Last Modified Time Details Appointments None recorde d. Lab None recorde d. Referral None recorde d. Procedures None recorde d. Surgeries None recorde d. Imaging XR, knee, 4 or more view - room 1 right knee 025 025 [facility] Office, [address] [facility] [address], [place], [address], 5 07:15:44 Medication Orders None recorde d. Patient TargetsNo targets recorded. Patient InstructionsNo instructions recorded. Reason for Referral None Reported. Results Created Date Observation Date Name Description Value Unit Range Abnormal Flag Note LastModifiedBy Organization Detail LastModifiedTime 08/17/1908/17/2024 XR, knee, 4 or more view http:/ [email or web address] ?Encry pted=s hAaTro YD8dLq bEUv6g %2BXZw aYqtaq 0bqfl% 2Fg9IQ a4ajBk vP9nXo QUaueC m3YtLR FvZlgJ JJ8mAn HZtai3 8m3740 AC0Kqb X6DUae iKiQtr MwF INTERFACE [facility] Office [address] [facility] [address], [place], [address], 08/17/2024 10:02:30 08/17/19 25 08/17/2024 XR, knee, 4 or more view http:/ [email or web address] ?Encry pted=s hAaTro YD8dLq bEUv6g %2BXZw aYqtaq 0bqfl% 2Fg9IQ a4ajBk vP9nXo QUaueC m3YtLR FvZlgJ JJ8mAn HZtai3 5p0092 AC0Kqb X6DUae iKiQtr MwF INTERFACE [facility] [address] [facility] [address], [place], [address], 08/17/2024 10:02:32 Result Notes Documentation Provider Name and Address Organization Details Recorded Time Xr, Knee, 4 Or More View : [email or web address]? Encrypted=kaNmAjcQF8dEvfI Uv6g%0FFWpvZreff5hwuy%2Fg 9XGf8lgYysQ4tXuPZjtgDf7Xp LIJbRfzQPV4vOmXHlkl53t511 0QW2OwxV4IXukhAtRqeJsX Not Available [facility] 08/17/2024 10:02: 31 Xr, Knee, 4 Or More View : [email or web address]? Encrypted=bqJlKttNT0yOpuD Uv6g%4DUErhZwvxm6fhif%2Fg 0WZy1emNufR4eUyNKvynOu4Cw EONvHddQCF4vLdOLodu48q265 8JK9KlaD7VRcivIdTokBgS Not Available [facility] 08/17/2024 10:02: 33 Problems Name Problem SNOMED Code Status Onset Date Resolution Date Notes Provider Name and Address Organization Details Recorded Time Osteoarthri tis of knee 279283358 Active 2023 Nathaniel Byrnes PA-C [address], [place], [address], [facility] 4 14:22:45 Pain of knee region 2276303524 Active 2024 Nathaniel Byrnes PA-C [address], [place], [address], [facility] 5 09:50:28 Osteoarthri tis of right knee joint 0134524922496 00 Active 2024 Nathaniel Byrnes PA-C [address], [place], [address], [facility] 5 10:20:20 Problem Notes None recorded. Procedures Surgical History Date Name Laterality Status Provider Name and Address Organization Details Recorded Time 5 Knee Kenalog 40 1cc Injection, Bilateral active Nathaniel Byrnes PA-C [address], [place], [address], [facility] 02/09/2025 13:07:29 5 Knee Kenalog 40 1cc Injection, Bilateral completed Marcela Pardo [facility] 11/12/2024 15:20:40 5 Sports Knee 4&1 completed Nathaniel Byrnes PA-C [address], [place], [address], [facility] 08/25/2024 06:45:07 5 Sports Knee 4&1 completed Nathaniel Byrnes PA-C [address], [place], [address], [facility] 08/17/2024 10:20:13 4 Sports Knee 4&1 completed Nathaniel Byrnes PA-C [address], [place], [address], [facility] 05/24/2024 19:40:10 4 Sports Knee 4&1 completed Nathaniel Byrnes PA-C [address], [place], [address], [facility] 02/25/2024 06:44:25 4 Sports Knee 4&1 completed Nathaniel Byrnes PA-C [address], [place], [address], [facility] 11/26/2023 14:22:41 Imaging Results None recorded. Procedure [...] Not Available Not Available N ot Available ciprofloxaci n 500 mg tablet TAKE 1 TABLET BY [...] capsule,leobardo yed release TAKE 1 CAPSULE BY MOUTH TWICE DAILY FOR 3 MONTHS THEN RETURN TO ONCE DAILY DOSE active Not Available Not Available No t Available Banophen 25 mg capsule TAKE 1 CAPSULE (25 MG) BY MOUTH EVERY 6 (SIX) HOURS IF NEEDED FOR ITCHING. active Not Available Not Available No t Available nadolol 40 mg tablet TAKE 1 TABLET BY MOUTH DAILY IN THE MORNING active Not Available Not [...] propionate 50 mcg/actuatio n nasal spray,suspen anastacio INSTILL TWO (2) SPRAYS IN EACH NOSTRIL DAILY active Not Available Not Available No t Available loratadine 10 mg tablet TAKE 1 TABLET BY MOUTH DAILY active Not Available Not Available Not Available amoxicillin 875 mg-potassium clavulanate 125 mg [...] CAPSULE BY MOUTH TWICE A DAY FOR 7 DAYS active Not Available Not Available No t Available diclofenac 1 % topical gel APPLY 2 GRAMS TOPICALLY IF NEEDED IN THE MORNING, AT NOON, IN THE EVENING, AND AT BEDTIME (PAIN). active Not Available Not Available No t Available cholecalcife rol (vitamin D3) 50 mcg (2,000 unit) tablet TAKE 1 TABLET BY MOUTH DAILY active Not Available Not Available Not Available estradiol 10 mcg vaginal tablet INSERT 1 TABLET VAGINALLY DAILY FOR 2 WEEKS THEN 1 TABLET VAGINALLY TWICE WEEKLY active Not Available Not Available No t Available Paxlovid 300 mg (150 mg x 2)-100 mg tablets in a dose pack PLEASE SEE ATTACHED FOR DETAILED DIRECTIONS active Not Available Not Available N ot Available Vitals Date Recorded Body height Body mass index (BMI) Body weight Provider Name and Address Organization Details Last Updated DateTime 08/17/2024 165.1 cm 26.3 kg/m2 88369.59 g Nathaniel Byrnes PA-C [address] [facility], [place], [address], [facility] 08/17/2024 09:50:06 Date Recorded Body height Body mass index (BMI) Body weight Provider Name and Address Organization Details Last Updated DateTime 08/25/2024 165.1 cm 26.3 kg/m2 83879.59 g Nathaniel Byrnes PA-C [address] [facility], [place], [address], [facility] 08/25/2024 08:47:57 Date Recorded Body height Body mass index (BMI) Body weight Provider Name and Address Organization Details Last Updated DateTime 11/12/2024 165.1 cm 26.3 kg/m2 07662.59 g Marcela Pardo [facility] 11/12/2024 14:54:16 Date Recorded Body height Body mass index (BMI) Body weight Provider Name and Address Organization Details Last Updated DateTime 02/25/2024 165.1 cm 26.3 kg/m2 15895.59 g Nathaniel Byrnes PA-C [address], [place], [address], [facility] 02/25/2024 08:29:32 Date Recorded Body height Body mass index (BMI) Body weight Provider Name and Address Organization Details Last Updated DateTime 05/25/2024 165.1 cm 26.3 kg/m2 67787.59 g Nathaniel Byrnes PA-C [address], [place], [address], [place] - [facility] 05/25/2024 08:22:09 Social History Question Answer Notes LastModified by [employer] Details LastModified Time Tobacco Smoking Status Never Smoker Marcela Char cedeño [place] - [facility] 11/12/2024 14:54:39 Which Illicit Or Recreational Drugs Have You Used? Marijuana Information not available 11/12/2024 What Is Your Relationship Status? Single Information not available 11/12/2024 Sex: Unknown Functional Status Question Answer Note LastModified by Organ[employer]at [employer] Details LastModified Time Do you use any [...] Diagnosis SNOMED-CT Code Diagnosis ICD10 Code Diagnosis IMO Codes Diagnosis Note [id number] BENNY Cleary [address] [place] [address] 11/26/2023 13:59:59 12/15/2023 09:35:37 Osteoarthritis of knee 306915621 M17.9 [id number] BENNY Cleary [address] [place] [address] 02/25/2024 08:25:07 03/10/2024 09:14:23 Osteoarthritis of knee 321341565 M17.9 [id number] BENNY Cleary [address] [place] [address] 05/25/2024 07:59:25 06/09/2024 09:57:58 Osteoarthritis of knee 275680826 M17[address] [place] [address] 08/17/2024 08:55:04 09/02/2024 07:15:44 Pain of knee region 4981400872 M25.561 57261759 Osteoarthr itis of right knee joint 8094365713 42775 M17.11 9280397 8440807 BENNY Cleary [employer] [address] [place] [address] 08/25/2024 08:14:10 09/10/2024 07:19:20 Osteoarthritis of knee 826580884 M17.9 [id number] BENNY Cleary [address] [place] [address] 11/12/2024 14:14:26 11/24/2024 11:56:57 Pain of knee region 1620006089 M25.561 81636580 Osteoarthr itis of right knee joint 2019016781 70034 M17.11 2912083 Health Concerns Section Related Observation LastModified by Organization Detai ls LastModified Time None Recorded Concern Status LastModified by Organization Details LastModified Time None Recorded Advance Directives Directive None Recorded Payers Insurance Date Sequence Insurance Name Policy Number Policy Diggs Covered Member ID Diggs Member ID Guarantor Name 08/17/2024 1 MEDICAID-[facility] (MEDICAID) Angie I Mathis [id number] Angie Mathis 02/09/2025 1 MEDICARE B-[place]: [employer] Angie I Del Fleming [id number] Angie Mathis 08/17/2024 1 MEDICAID-[facility] (MEDICAID) Angie I Mathis [id number] Angie Mathis 02/09/2025 2 [place] Angie I Mathis [id number] Angie Mathis 08/17/2024 1 [place] [facility] (MEDICAID) Angie Mathis [id number] Angie GabrielMathis 05/25/2024 1 [place] [facility] Angie Mathis [id number] Angie GabrielMathis Notes Date Note Type Note Provider Name [...] versus continued conservative treatment. Nathaniel Byrnes PA-C [address] [place], [place] [address] [address], [place], [address], [place] - [facility] 02/25/2024 08:35:15 05/25/2024 text/html [...] versus continued conservative treatment. Nathaniel Byrnes PA-C [address] [place] [address], [place], [address], [facility] - [facility] 05/25/2024 08:26:11 08/17/2024 text/html I am seeing [...] oriented x3. Normal insight, affect, and grooming. SOFTWARE APPLICATIONS ENGINEER: Gross motor coordination is intact. No spasticity [...] views ordered and independently reviewed previously at [facility] of the right knee demonstrates medial compartment [...] of compliance regarding home exercises moving forward. [employer] speech recognition kiln remover software was used to create portions of this document. An attempt at proofreading has been made to minimize errors. Please call for corrections Nathaniel Byrnes PA-C [address], [place], [address], [facility] 08/17/2024 [...] continued conservative treatment. Nathaniel Byrnes PA-C [address], [place], [address], [facility] 08/25/2024 09:00:41 11/12/2024 text/html I am seeing [...] views ordered and independently reviewed previously at [facility] of the left and right knee demonstrates [...] of compliance regarding home exercises moving forward. [facility] speech recognition kiln remover software was used to create portions of this document. An attempt at proofreading has been made to minimize errors. Please call for corrections Nathaniel Byrnes PA-C [facility] [address], [place], [address], [facility] - [facility] 11/12/2024 15:44:54 OBGyn Episode No OBEpisode recorded.
--- OUTSIDE RECORDS SUMMARY | 2025-04-20 11:35 | XMS_ITS | Encounter Summary ---
Author Organization [employer] Address [address] [facility] [address] [facility] [place] [address] Care Team Providers Care Head Of Sales Promotion Name Role Phone Radha Escalera DO Primary Care Provider + [phone] Encounter Details Date Type Department Care Team (Late st Contact Info) Description 03/30/2025 Orders Only [facility] [address] [place] [address] Jannette Ontiveros MD [address] [place] [address] Acute cystitis without hematuria Social History Tobacco Use Types Packs/Day [...] Procedure Name Priority Date/Time Associated Diagnosis Comments CULTURE, URINE, ROUTINE Routine 03/30/2025 12:00 AM EDT Acute cystitis without hematuria documented in this encounter Results * Culture, Urine, Routine (03/30/2025 12:00 AM EDT) Urine Urine specimen obtained by clean catch procedure / Unknown 03/30/2025 03/30/2025 Comment:UACC Narrative [facility] - 04/01/2025 7:31 AM EDT Escherichia coli Quant > 100,000 cfu/mL Escherichia coli: Ampicillin 16(I) Escherichia coli: Cefazolin (Urine) 4(S) Escherichia coli: Cefepime <=0.12(S) Escherichia coli: Ceftriaxone <=0.25(S) Escherichia coli: Ciprofloxacin 1(R) Escherichia coli: Gentamicin <=1(S) Escherichia coli: Nitrofurantoin <=16(S) Escherichia coli: Trimethoprim/Sulfamethoxazole <=20(S) Specimen Source: Urine clean catch us Carol Hdez MD LAB MICROBIOLOGY - GENERAL ORDERABLES Final Result [facility] [address] [place] [address] x5242 documented in this encounter Visit Diagnoses Diagnosis Acute cystitis without hematuria documented in this encounter Additional Health Concerns Assessment Noted Time PHQ-9 Depression Total Score: 4 03/08/20 25 11:18 AM EDT documented as of this encounter Care Teams Head Of Sales Promotion Relationship Specialty Start Date End Date Radha Escalera DO [address] [place] [address] PCP - General Family Medicine 06/23/18 documented as of this encounter
--- OUTSIDE RECORDS SUMMARY | 2025-04-20 11:35 | XMS_ITS | Patient Health Record ---
Author Organization [employer] Address [address] [place] [address] Care Team Providers Care Welder/Fitter Name Role Phone Andrew Glaser Unavailable [phone] Reason For Referral No Information Plan Of Treatment No Information
--- OUTSIDE RECORDS SUMMARY | 2025-04-20 11:35 | XMS_ITS | Encounter Summary ---
Author Organization [employer] Address [address] [facility] 7t [place] [address] Care Team Providers Care Trimmer Tailer Name Role Phone Radha Escalera DO Primary Care Provider + [phone] Reason for Visit * Reason Comments Med Refill Encounter Details Date Type Department Care Team (Late st Contact Info) Description 02/20/2025 Refill [facility]S [address] [place], [place] [phone] Radha Escalera DO [address] [facility] [place], [place] [phone] Hypertension, unspecified type Social History Tobacco Use [...] documented as of this encounter Care Teams Trimmer Tailer Relationship Specialty Start Date End Date Radha Escalera DO [address] [place] [address] PCP - General Family Medicine 06/23/18 documented as of this encounter
--- OUTSIDE RECORDS SUMMARY | 2025-04-20 11:35 | XMS_ITS | Encounter Summary ---
Author Organization [employer] Address [address] [facility] 7t [place] [address] Care Team Providers Care Master Data Analyst Name Role Phone Radha Escalera DO Primary Care Provider + [phone] Reason for Visit * Reason Comments Med Refill Encounter Details Date Type Department Care Team ([facility] st Contact Info) Description 03/01/2025 Refill [facility] [address] [place] [address] Radha Escalera DO [address] [place] [address] Hyperlipidemia, unspecified hyperlipidemia type Social History Tobacco Use Types Packs/Day [...] as of this encounter Visit Diagnoses Diagnosis Hyperlipidemia, unspecified hyperlipidemia type documented in this encounter Additional Health Concerns Assessment Noted Time PHQ-9 Depression Total Score: 0 10/28/19 24 9:42 AM EDT documented as of this encounter Care Teams Master Data Analyst Relationship Specialty Start Date End Date Radha Escalera DO [address] [place] [address] PCP - General Family Medicine 06/23/18 documented as of this encounter
--- OUTSIDE RECORDS SUMMARY | 2025-04-20 11:35 | XMS_ITS | Encounter Summary ---
Author Organization [employer] Address [address] [facility] 7t [place] [address] Care Team Providers Care Materials Intern Name Role Phone Radha Escalera DO Primary Care Provider + [phone] Reason for Visit * Reason Comments Med Refill Encounter Details Date Type Department Care Team (Late st Contact Info) Description 02/08/2025 Refill [facility] [address] [place] [address] Radha Escalera DO [address] [place] [address] Vitamin D deficiency; Seasonal allergic rhinitis, unspecified [...] documented as of this encounter Care Teams Materials Intern Relationship Specialty Start Date End Date Radha Escalera DO [address] [place] [address] PCP - General Family Medicine 06/23/18 documented as of this encounter
--- OUTSIDE RECORDS SUMMARY | 2025-04-20 11:35 | XMS_ITS | Encounter Summary ---
Author Organization [employer] Address [address] [facility] [address] [facility] [address] [place] [address] Care Team Providers Care Emergency Response Officer Name Role Phone Radha Escalera DO Primary Care Provider + [phone] Encounter Details Date Type Department Care Team (Late st Contact Info) Description 10/03/2023 Orders Only [facility] [address] [place], [place] [phone] Provider, MD Boris Social History Tobacco Use [...] documented as of this encounter Care Teams Emergency Response Officer Relationship Specialty Start Date End Date Radha Escalera DO [address] [place] [address] PCP - General Family Medicine 06/23/18 documented as of this encounter
--- OUTSIDE RECORDS SUMMARY | 2025-04-20 11:35 | XMS_ITS | Encounter Summary ---
Author Organization [employer] Address [address] [facility] [address] [place] [address] Care Team Providers Care Investment Advisor Name Role Phone Radha Escalera DO Primary Care Provider + [phone] Reason for Visit * Reason Comments Med Change Request Encounter Details Date Type Department Care Team ([facility] st Contact Info) Description 11/06/2024 Refill [facility] [address] [place], [place] [phone] Name, MD Kam [address] [place] [address] Social History Tobacco Use Types Packs/Day Years [...] documented as of this encounter Care Teams Investment Advisor Relationship Specialty Start Date End Date Radha Escalera DO [address] [place] [address] PCP - General Family Medicine 06/23/18 documented as of this encounter
--- OUTSIDE RECORDS SUMMARY | 2025-04-20 11:35 | XMS_ITS | Encounter Summary ---
Author Organization [employer] Address [address] [facility] 7t [place] [address] Care Team Providers Care Air Defense Artillery Officer Name Role Phone Radha Escalera DO Primary Care Provider [phone] Encounter Details Date Type Department Care Team (Late st Contact Info) Description 10/03/2022 Orders Only [facility] [address] [place] [address] Radha Reynolds LPN Social History Tobacco Use [...] documented as of this encounter Care Teams Air Defense Artillery Officer Relationship Specialty Start Date End Date Radha Escalera DO [address] [place] [address] PCP - General Family Medicine 06/23/18 documented as of this encounter
== END 2025-04-20 09:43 | disposition home or self-care (01) ==
LOC: HO.CT 09:42
PROVIDERS: PCP Family Medicine; Visit Provider Nurse Practitioner Family
DX: R31.0 Gross hematuria (principal)
CPT/HCPCS: 74178; Q9967

== ENCOUNTER → 2025-04-20 09:43 | Outpatient (BNV) | payer OTHER, SELFPAY | PROVIDERS: PCP Family Medicine; Visit Provider Radiology Diagnostic Radiology | DX: R31.0 Gross hematuria (principal) | CPT/HCPCS: 74178 ==

== ENCOUNTER 2025-04-22 18:30 | Outpatient (REF) | payer OTHER, SELFPAY ==
--- OUTSIDE RECORDS SUMMARY | 2025-01-27 00:23 | XMS_ITS | Continuity of Care Document ---
Author Organization [facility] Address [address] [place] [address] [address] [place] [phone] Phone Care Team Providers Care Furnace Packer Name Role Phone Jael Montez Unavailable Unavailab le Procedures Procedure Date Offic Cons New/estab Mod 40 Mi- CT & [place] Duplex Scan-extrem Veins; Comp- CT & [place] Advance Directives Directive Yes / No Effective Date File Name No Information Encounters Encounter Description Practice Location Reason(s) For Visit Diagnoses Date Provider Providers Copied on Encounter [facility], [address] [place] [address] Dr Ham [address]Radha [place], [id number], [place] tel:[phone] [facility] No Information Shikha Elder. Formerly [facility], [place], [place], [id number] , [place]. tel: [phone] Offic Cons New/estab Mod 40 Mi- CT & [place] [facility], [address] [place] [address] Dr Ham [address]Radha [place], [id number], [place] tel:[phone] CVR - [place] Pain in right lower legPain in left lower legPain in right legPain in left legEssential (primary) hypertensionVen ous insufficiency (chronic) (peripheral)Pru ritus, unspecifiedCram p and spasmLocalized edema Jan- Dav DYE, RVT, RPVI Andrew. [address] [facility], [address], [place], [id number] , [place]. tel:[phone] Referring Provider: Radha Zaho, [address] [place] [address], [place], [address]. tel:[phone] [facility], [address] [facility] [address], [place], [id number], [place] tel:[phone] CVR - [facility] Chronic venous hypertension (idiopathic) with other complications of bilateral lower extremity Dav DYE, DIMITRIOS, ABDIFATAH Morales. [address] [facility], [address], [place], [id number] , [place]. [phone] Referring Provider: Andrew Demarco MD, DIMITRIOS, ABDIFATAH, [facility] [address], [place], [address] . tel:[phone] Family History Family Member Type Diagnosis Age At Onset No Information Payers Payer name Insurance type Covered constitution party ID Bety egan(s) [facility] CI [id number] Social History Type Description Quantity Date Captured Comments Sex Female Smoking Status No Information Chief Complaint And Reason For Visit No Information Reason For Referral Reason For Referral No Information Plan Of Treatment Date Type Action Status Goal Diet education completed Goal Tobacco cessation counseling completed Referral Ordered: Weight management: Referral to physician timeframe: 3 Months (related to Body mass index (BMI) 27.0-27.9, adult) ordered Appointment Angie Brunson BOOKED Appointment Anige Brunson BOOKED Appointment Angie Brunson BOOKED History Of Present Illness Encounter Date Complaint History Of Prese nt Illness No Information Functional Status Date Functional Assessmen t No Information Instructions Date Instruction Additional Infor mation Diet education Related to Body mass index (BMI) 27.0-27.9, adult Giving Encouragement to exercise Related to Body mass index (BMI) 27.0-27.9, adult Lifestyle education Related to B elin mass index (BMI) 27.0-27.9, adult Patient education booklet given Related to Pain in right lower leg Pre and post instruc tions reviewed and provided Related to Pain in right lower leg Assessments Type Assessment Date No Information Patient Care Teams Name Effective Dates (start - stop) Status Members No Information
--- OUTSIDE RECORDS SUMMARY | 2025-04-22 14:00 | XMS_ITS | Encounter Summary ---
Author Organization [employer] Address [address] [facility] 7t [place] [address] Care Team Providers Care Crime Analyst Name Role Phone Radha Escalera DO Primary Care Provider + [phone] Reason for Visit * Reason Comments UTI Encounter Details Date Type Department Care Team ([facility] st Contact Info) Description 04/22/2025 2:00 PM EDT Office Visit [facility] [address] [place] [address] Lenora Andrews, EH [address] [place] [address] Dysuria (Primary Dx); Vaginal discharge Social History Tobacco Use Types Packs/Day Years [...] Sign Reading Time Taken Comments Blood Pressure 118/76 04/22/2025 1:28 PM EDT Pulse 70 04/22/2025 1:28 PM EDT Temperature 37.2 C (98.9 F) 04/22/2025 1:28 PM EDT Respiratory Rate 18 04/22/2025 1:28 PM EDT Oxygen Saturation - - Inhaled Oxygen Concentration - - Weight 73.6 kg (162 lb 3.2 oz) 04/22/2025 1:28 P M EDT Height 165.1 cm (5' 5 ) 04/22/2025 1:28 PM EDT Body Mass Index 26.99 04/22/2025 1:28 PM EDT documented in this encounter Progress Notes * Lenora Andrews NP - 04/22/2025 2:00 PM EDT Angie Mathis is a 64 y.o. female who presents to the office for Chief Complaint Patient presents with UTI Problem List[1] Medical History[2] Allergies[3] Angie Gabrielazquez, 64-year-old female - Urinary tract infection approximately 1.5 weeks ago, treated with nitrofurantoin for 5 days - Initial improvement after antibiotic course, recurrence of urinary symptoms 2 days prior to visit - Reports burning sensation and urinary frequency, discomfort in the front, sensation of incompleteemptying, and malodor with urination - No vaginal symptoms initially, but onset of vaginal itching and fishy odor 2 days prior to visit - Denies fever and back pain - CT urogram with contrast performed yesterday for evaluation of urinary symptoms - History of cholecystectomy and appendectomy Review of Systems Respiratory: Negative for apnea and chest tightness. Cardiovascular: Negative for chest pain. Genitourinary: Positive for difficulty urinating, dysuria and frequency. BP 118/76 (BP Location: Left arm, Patient Position: Sitting, BP Cuff Size: Adult) Pulse 70 Temp98.9 ??F (37.2 ??C) (Temporal) Resp 18 Ht 5' 5 (1.651 m) Wt 162 lb 3.2 oz (73.6 kg) LMP (LMP Unknown) Comment: menopause BMI 26.99 kg/m?? Physical Exam Vitals reviewed. HENT: Head: Normocephalic and atraumatic. Nose: Nose normal. Eyes: Conjunctiva/sclera: Conjunctivae normal. Cardiovascular: Rate and Rhythm: Normal rate and regular rhythm. Pulmonary: Effort: Pulmonary effort is normal. Breath sounds: Normal breath sounds. Musculoskeletal: Cervical back: Normal range of motion and neck supple. Neurological: General: No focal deficit present. Mental Status: She is alert. - GENITOURINARY: Examination revealed no fever, no back pain, and dysuria. Vaginal examination noted pruritus and malodorous discharge. CT urogram showed a healthy uterus, small calculi, and no gallbladder or appendix. Escherichia coli Quant > 100,000 cfu/mL Escherichia coli: Ampicillin 16(I) Escherichia coli: Cefazolin (Urine) 4(S) Escherichia coli: Cefepime <=0.12(S) Escherichia coli: Ceftriaxone <=0.25(S) Escherichia coli: Ciprofloxacin 1(R) Escherichia coli: Gentamicin <=1(S) Escherichia coli: Nitrofurantoin <=16(S) Escherichia coli: Trimethoprim/Sulfamethoxazole <=20(S) Specimen Source: Urine clean catch Specimen Collected: 03/30/25 00:00 Last Resulted: 04/01/25 07:31 Assessment & Plan Dysuria Orders: Culture, Urine, Routine POCT urinalysis dipstick manually resulted (CPT 56599) Bacterial Vaginosis Panel Vaginal discharge Orders: Bacterial Vaginosis Panel Assessment & Plan Dysuria: - Recurrent urinary tract infection, likely due to E. coli, susceptible to Bactrim. - Start Bactrim 1 tablet twice daily for five days. Increase oral hydration. If symptoms do not improve by Friday, call for alternative antibiotic therapy. Vaginal discharge: - Vaginal discharge possibly due to bacterial vaginosis or yeast infection, likely secondary to recent antibiotic use. Not considered a sexually transmitted infection. - Vaginal swab for bacterial vaginosis and yeast to be performed prior to leaving. If positive, will prescribe appropriate medication. Monitor for pruritus or malodor; call if symptoms worsen. Prescription - Bactrim 1 tablet orally twice daily for 5 days - Advise to increase fluid intake - If no symptomatic improvement by Friday, call for alternative antibiotic regimen Current Medications[4] Based on our discussion, I have outlined the following instructions for you: - Take one Bactrim tablet in the morning and one in the evening every day for five days. - Drink more water than usual each day. - If your symptoms are not better by Friday, call the office to talk about trying a different antibiotic. - Before you leave today, a vaginal swab will be done to check for bacterial vaginosis and yeast infection. - If your test comes back positive, you will get a prescription for the right medication. - Pay attention to any itching or bad smell. If these symptoms get worse, call the office. Thank you again for your visit, and we look forward to supporting you in your journey to better health. This note was drafted using Ambient (AI) technology. The patient/patient's guardian has been informed and has consented to the use of this technology: Yes [1] Patient Active Problem List Diagnosis Essential hypertension History of hepatitis C Elevated fasting glucose Depression with anxiety Anxiety Esophageal varices ASCUS with positive high risk HPV cervical Chronic gastroesophageal reflux disease Portal hypertension (CMS/HCC) (HCC) Osteoarthritis of right knee Cirrhosis (CMS/HCC) (HCC) Complete edentulism Recurrent UTI Pain in right knee Ill-fitting dentures Dysuria [2] Past Medical History: Diagnosis Date Arthritis GERD (gastroesophageal reflux disease) Hypertension Seasonal allergies [3] Allergies Allergen Reactions Telaprevir Swelling Clarithromycin Unknown [4] Current Outpatient Medications: acetaminophen (Tylenol 8 Hour) 650 MG ER tablet, Take 1 tablet by mouth in the morning and 1 tabletat noon and 1 tablet in the evening., Disp: , Rfl: aspirin (Aspirin Low Dose) 81 MG EC tablet, TAKE 1 TABLET BY MOUTH EVERY DAY, Disp: 90 tablet, Rfl:1 baclofen (Lioresal) 10 MG tablet, Take 1 tablet (10 mg) by mouth if needed in the morning, at noon,and at bedtime for muscle spasms., Disp: 60 tablet, Rfl: 3 Blood Pressure kit, 1 each 2 times daily., Disp: 1 kit, Rfl: 0 clotrimazole-betamethasone (Lotrisone) cream, APPLY TO AFFECTED AREA TWICE A DAY, Disp: 30 g, Rfl: 1 D3 50 MCG (2000 UT) tablet, TAKE 1 TABLET BY MOUTH EVERY DAY, Disp: 90 tablet, Rfl: 1 Diclofenac Sodium 1 % gel, Apply 2 g topically if needed in the morning, at noon, in the evening, and at bedtime (pain)., Disp: 150 g, Rfl: 3 diphenhydrAMINE (BENADryl) 25 MG capsule, Take 1 capsule (25 mg) by mouth every 6 (six) hours if needed for itching., Disp: 30 capsule, Rfl: 0 docosanol cream (Abreva) 10 % cream cream, Apply 1 application topically 5 (five) times a day., Disp: 2 g, Rfl: 2 escitalopram (Lexapro) 5 MG tablet, TAKE 1 TABLET BY MOUTH DAILY, Disp: 30 tablet, Rfl: 11 estradiol (Yuvafem) 10 MCG tablet vaginal tablet, INSERT ONE(1) TABLET INTRAVAGINALLY ONCE DAILY FOR 2 WEEKS, THEN INSERT ONE(1) TABLET TWICE WEEKLY, Disp: 40 tablet, Rfl: 11 fluticasone (Flonase) 50 MCG/ACT nasal spray, SPRAY 2 SPRAYS INTO EACH NOSTRIL EVERY DAY, Disp: 48 mL, Rfl: 0 hydroCHLOROthiazide (HYDRODiuril) 25 MG tablet, Take 1 tablet (25 mg) by mouth in the morning., Disp: 90 tablet, Rfl: 1 loratadine (Claritin) 10 MG tablet, TAKE 1 TABLET BY MOUTH DAILY, Disp: 90 tablet, Rfl: 4 nadolol (Corgard) 40 MG tablet, TAKE 1 TABLET BY MOUTH DAILY IN THE MORNING, Disp: 60 tablet, Rfl: 11 omeprazole (PriLOSEC) [address] capsule, TAKE 1 CAPSULE BY ORAL ROUTE TWICE A DAY X 3 MONTHS, THEN RETURN TO ONCE A DAY DOSE, Disp: 180 capsule, Rfl: 3 phenazopyridine (Pyridium) 100 MG tablet, Take 1 tablet (100 mg) by mouth 2 times daily., Disp: 6 tablet, Rfl: 0 sulfamethoxazole-trimethoprim (Bactrim DS) 800-160 MG tablet, Take 1 tablet by mouth 2 times daily for 5 days., Disp: 10 tablet, Rfl: 0 triamcinolone (Kenalog) 0.1 % cream, Apply topically if needed in the morning and at bedtime for rash., Disp: 30 g, Rfl: 0 Ventolin HFA 108 (90 Base) MCG/ACT inhaler, INHALE 2 PUFFS EVERY 4 (FOUR) HOURS IF NEEDED FOR SHORTNESS OF BREATH OR WHEEZING., Disp: 18 g, Rfl: 1 documented in this encounter Miscellaneous Notes * Assessment & Plan Note - Lenora Andrews NP - 04/22/2025 2:00 PM EDTAssociated Problem(s): Dysuria Orders: Culture, Urine, Routine POCT urinalysis dipstick manually resulted (CPT 69438) Bacterial Vaginosis Panel documented in this encounter Plan of Treatment Scheduled Orders Name Type Priority Associated Diagnoses Orde r Schedule Culture, Urine, Routine Microbiology Routine Dysuria Ordered: 04/22/2025 Bacterial Vaginosis Panel Microbiology Routine Dysuria Vaginal discharge Ordered: 04/22/2025 documented as of this encounter Procedures Procedure Name Priority Date/Time Associated Diagnosis Comments POCT URINALYSIS DIPSTICK Routine 04/22/2025 2:14 PM EDT Dysuria documented in this encounter Results * (ABNORMAL) POCT urinalysis dipstick manually resulted (CPT 69549) (04/22/2025 2:14 PM EDT) Color, UA Yellow Clarity, UA Clear Glucose, UA Negative Bilirubin, UA Negative Ketones, UA Negative Spec Grav, UA 1.020 Blood, UA Positive(A) Negative, None Detected Comment:small pH, UA 7.0 Protein, UA Negative Urobilinogen, UA 0.2 Leukocytes, UA Trace Negative, Rare, Trace Comment:small Nitrite, UA Negative Negative, None Detected Urine (Urine, Random) 04/22/2025 2:14 PM EDT Lenora Andrews COMPENSATION SPECIALIST POINT OF CARE TEST ENTER/EDIT OR DERABLES Final Result documented in this encounter Visit Diagnoses Diagnosis Dysuria- Primary Vaginal discharge Leukorrhea, not specified as infective documented in this encounter Additional Health Concerns Assessment Noted Time PHQ-9 Depression Total Score: 4 03/08/20 25 11:18 AM EDT documented as of this encounter Care Teams Crime Analyst Relationship Specialty Start Date End Date Radha Escalera DO [address] [place] [address] PCP - General Family Medicine 06/23/18 documented as of this encounter
--- OUTSIDE RECORDS SUMMARY | 2025-04-22 18:35 | XMS_ITS | Encounter Summary ---
Author Organization [employer] Address [address] [facility] 7t [place] [address] Care Team Providers Care Litigation Counsel Name Role Phone Radha Escalera DO Primary Care Provider + [phone] Reason for Visit * Reason Comments Med Refill Encounter Details Date Type Department Care Team ([facility] st Contact Info) Description 05/23/2024 Refill [facility] [address] [place] [address] Radha Escalera DO [address] [place] [address] Candidal intertrigo Social History Tobacco Use Types [...] documented as of this encounter Care Teams Litigation Counsel Relationship Specialty Start Date End Date Radha Escalera DO [address] [place] [address] PCP - General Family Medicine 06/23/18 documented as of this encounter
--- OUTSIDE RECORDS SUMMARY | 2025-04-22 18:35 | XMS_ITS | Data Portability ---
Author Organization [place] - [facility], [facility] Address [address] [place] [address] Care Team Providers Care Drama Director Name Role Phone BARBARA PARNELL Primary Care Provider [phone] Assessment Encounter Date Assessment Date Assessment LastModified [...] - room 1 right knee 025 025 [facility] Office, [address] [facility] [address], [place], [address], 5 07:15:44 Medication Orders None recorde d. [...] a4ajBk vP9nXo QUaueC m3YtLR FvZlgJ JJ8mAn HZtai3 [id number] AC0Kqb X6DUae iKiQtr MwF INTERFACE [facility] Office [address] [facility] [address], [place], [address], 08/17/2024 10:02:30 08/17/19 25 08/17/2024 XR, knee, 4 or more view http:/ [email or web address] ?Encry pted=s hAaTro YD8dLq bEUv6g %2BXZw aYqtaq 0bqfl% 2Fg9IQ a4ajBk vP9nXo QUaueC m3YtLR FvZlgJ JJ8mAn HZtai3 1x2199 AC0Kqb X6DUae iKiQtr MwF INTERFACE [facility] [address] [facility] [address], [place], [address], 08/17/2024 10:02:32 Result Notes Documentation Provider Name and Address Organization Details Recorded Time Xr, Knee, 4 Or More View : [email or web address] Encrypted=avShZdmEV9rUdjO Uv6g%8DIAvrHjmjr8jpcv%2Fg 6NCi1joEhsM6pQkCDrfnXt7Lf ZEKyRahWEJ5rFtKHsxv60y859 7AP5NpnW0CUeycVgUbiWvQ Not Available [facility] 08/17/2024 10:02: 31 Xr, Knee, 4 Or More View : [email or web address] Encrypted=yaJgTuuKN0mVztC Uv6g%4ESXgyYyobx1izzz%2Fg 1FCw8jqYnaS0dBxBWsspZd9Nr SYYlKgxOFF1uBlTWykd91s606 4CQ5SwlN3RXprpWjIpjIpR Not Available [facility] 08/17/2024 10:02: 33 Problems Name Problem SNOMED Code Status Onset Date Resolution Date Notes Provider Name and Address Organization Details Recorded Time Osteoarthri tis of knee 349977243 Active 2023 Nathaniel Byrnes PA-C [address], [place], [address], [facility] 4 14:22:45 Pain of knee region 1966017765 Active 2024 Nathaniel Byrnes PA-C [address], [place], [address], [facility] 5 09:50:28 Osteoarthri tis of right knee joint 2548703654881 00 Active 2024 Nathaniel Byrnes PA-C [address], [place], [address], [facility] 5 10:20:20 Problem Notes None recorded. Procedures Surgical History Date Name Laterality Status Provider Name and Address Organization Details Recorded Time 5 Knee Kenalog 40 1cc Injection, Bilateral active Nathaniel Byrnes PA-C [address], [place], [address], [facility] 02/09/2025 13:07:29 5 Knee Kenalog 40 1cc Injection, Bilateral completed Marcela Pardo [facility] 11/12/2024 15:20:40 5 Sports Knee 4&1 completed Nathaniel Byrnes PA-C [address], [place], [address], [facility] 08/25/2024 06:45:07 5 Sports Knee 4&1 completed Nathaniel Byrnes PA-C [address], [place], [address], [facility] 08/17/2024 10:20:13 4 Sports Knee 4&1 completed Nathaniel Byrnes PA-C [address], [place], [address], [facility] 05/24/2024 19:40:10 4 Sports Knee 4&1 completed Nathaniel Byrnes PA-C [address], [place], [address], [facility] 02/25/2024 06:44:25 4 Sports Knee 4&1 completed Nathaniel Byrnes PA-C [address], [place], [address], [facility] 11/26/2023 14:22:41 Imaging Results None recorded. Procedure [...] Updated DateTime 08/17/2024 165.1 cm 26.3 kg/m2 19502.59 g Nathaniel Byrnes PA-C [address] [facility], [place], [address], [facility] 08/17/2024 09:50:06 Date Recorded Body height Body mass index (BMI) Body weight Provider Name and Address Organization Details Last Updated DateTime 08/25/2024 165.1 cm 26.3 kg/m2 19860.59 g Nathaniel Byrnes PA-C [address] [facility], [place], [address], [facility] 08/25/2024 08:47:57 Date Recorded Body height Body mass index (BMI) Body weight Provider Name and Address Organization Details Last Updated DateTime 11/12/2024 165.1 cm 26.3 kg/m2 38900.59 g Marcela Pardo [facility] 11/12/2024 14:54:16 Date Recorded Body height Body mass index (BMI) Body weight Provider Name and Address Organization Details Last Updated DateTime 02/25/2024 165.1 cm 26.3 kg/m2 01942.59 g Nathaniel Byrnes PA-C [address], [place], [address], [facility] 02/25/2024 08:29:32 Date Recorded Body height Body mass index (BMI) Body weight Provider Name and Address Organization Details Last Updated DateTime 05/25/2024 165.1 cm 26.3 kg/m2 85660.59 g Nathaniel Byrnes PA-C [address], [place], [address], [place] [facility] 05/25/2024 08:22:09 Social History Question Answer Notes LastModified by [employer] Details LastModified Time Tobacco Smoking Status Never Smoker Marcela Char cedeño [place] - [facility] 11/12/2024 14:54:39 Which Illicit Or Recreational Drugs Have You Used? Marijuana Information not available 11/12/2024 What Is Your Relationship Status? Single Information not available 11/12/2024 Sex: Unknown Functional Status Question Answer Note LastModified by [employer] Details LastModified Time Do you use any [...] ICD10 Code Diagnosis IMO Codes Diagnosis Note [id number] BENNY Cleary [address] [place] [address] 11/26/2023 13:59:59 12/15/2023 09:35:37 Osteoarthritis of knee 826374792 M17.9 9018965 BENNY Cleary [address] [place] [address] 02/25/2024 08:25:07 03/10/2024 09:14:23 Osteoarthritis of knee 946089271 M17.9 2437290 BENNY Cleary [address] [place] [address] 05/25/2024 07:59:25 06/09/2024 09:57:58 Osteoarthritis of knee 278698811 M17[address] [place] [address] 08/17/2024 08:55:04 09/02/2024 07:15:44 Pain of knee region 8937050375 M25.561 50051157 Osteoarthr itis of right knee joint 7393987375 47800 M17.11 9589437 2719429 BENNY Cleary [employer] [address] [place] [address] 08/25/2024 08:14:10 09/10/2024 07:19:20 Osteoarthritis of knee 825923112 M17.9 0421401 BENNY Cleary - [address] [place] [place] [address] 11/12/2024 14:14:26 11/24/2024 11:56:57 Pain of knee region 3258339445 M25.561 69823351 Osteoarthr itis of right knee joint 2177301890 15665 M17.11 5521051 Health Concerns Section Related Observation LastModified by Organization Detai ls LastModified Time None Recorded Concern Status LastModified by Organization Details LastModified Time None Recorded Advance Directives Directive None Recorded Payers Insurance Date Sequence Insurance Name Policy Number Policy Diggs Covered Member ID Diggs Member ID Guarantor Name 08/17/2024 1 MEDICAID-[facility] (MEDICAID) Angie I Mathis [id number] Angie Mathis 02/09/2025 1 [place] [employer] Angie I Del Fleming [id number] Angie Mathis 08/17/2024 1 MEDICAID-[facility] (MEDICAID) Angie I Mathis [id number] Angie Mathis 02/09/2025 2 [place] Angie I Mathis [id number] Angie Mathis 08/17/2024 1 [place] [facility] (MEDICAID) Angie Mathis [id number] Angie GabrielMathis 05/25/2024 1 [place] [facility] PL[facility] Angie Mathis [id number] Angie GabrielMathis Notes Date Note Type Note [...] versus continued conservative treatment. Nathaniel Byrnes PA-C [address] [place], [place] [address], [place], [address], [place] [facility] 02/25/2024 08:35:15 05/25/2024 text/html [...] versus continued conservative treatment. Nathaniel Byrnes PA-C [address] [place] [address], [place], [address], [facility] 05/25/2024 08:26:11 08/17/2024 text/html I am seeing [...] oriented x3. Normal insight, affect, and grooming. 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 No spasticity [...] views ordered and independently reviewed previously at [facility] of the right knee demonstrates medial compartment [...] of compliance regarding home exercises moving forward. [employer] speech recognition abattoir supervisor software was used to create portions of this document. An attempt at proofreading has been made to minimize errors. Please call for corrections Nathaniel Byrnes PA-C [address], [place], [address], [facility] 08/17/2024 10:21:41 08/25/2024 text/html I am seeing [...] continued conservative treatment. Nathaniel Byrnes PA-C [address], [place], [address], [facility] 08/25/2024 09:00:41 11/12/2024 [...] views ordered and independently reviewed previously at [facility] of the left and right knee demonstrates [...] of compliance regarding home exercises moving forward. [facility] speech recognition abattoir supervisor software was used to create portions of this document. An attempt at proofreading has been made to minimize errors. Please call for corrections Nathaniel Byrnes PA-C [facility] [address], [place], [address], [facility] - [facility] 11/12/2024 15:44:54 OBGyn Episode No OBEpisode recorded.
--- OUTSIDE RECORDS SUMMARY | 2025-04-22 18:35 | XMS_ITS | Encounter Summary ---
Author Organization [employer] Address [address] [place] [address] Care Team Providers Care Willow Worker Name Role Phone Radha Escalera DO Primary Care Provider + [phone] Encounter Details Date Type Department Care Team (Late st Contact Info) Description 10/03/2023 Orders Only [facility] MEDICINE [address] [place], [place] [id number] Provider, MD Boris Social History Tobacco Use [...] documented as of this encounter Care Teams Willow Worker Relationship Specialty Start Date End Date Radha Escalera DO [address] [place] [address] PCP - General Family Medicine 06/23/18 documented as of this encounter
--- OUTSIDE RECORDS SUMMARY | 2025-04-22 18:35 | XMS_ITS | Encounter Summary ---
Author Organization [employer] Address [address] [facility] [address]t [place] [address] Care Team Providers Care Behavioral Sciences Department Chair Name Role Phone Radha Escalera DO Primary Care Provider + [phone] Encounter Details Date Type Department Care Team (Late st Contact Info) Description 08/16/2022 Orders Only [facility]S [address] [place], [place] [phone] Radha Reynolds LPN Social History Tobacco Use [...] documented as of this encounter Care Teams Behavioral Sciences Department Chair Relationship Specialty Start Date End Date Radha Escalera DO [address] [place], [place] [phone] PCP - General Family Medicine 06/23/18 documented as of this encounter
--- OUTSIDE RECORDS SUMMARY | 2025-04-22 18:35 | XMS_ITS | Encounter Summary ---
Author Organization [facility] Address [address] [place] [address] Care Team Providers Care Charging Plug Placer Name Role Phone Radha Escalera DO Primary Care Provider [phone] Encounter Details Date Type Department Care Team (Latest Contact Info) Description 09/08/2018 Abstract [facility] CONVERSIONS Dental, Provider, DDS Social History Tobacco [...] on filedocumented in this encounter Care Teams Charging Plug Placer Relationship Specialty Start Date End Date Radha Escalera DO [address] [place] [address] PCP - General Family Medicine 06/23/18 documented as of this encounter
--- OUTSIDE RECORDS SUMMARY | 2025-04-22 18:35 | XMS_ITS | Encounter Summary ---
Author Organization [facility] [employer] Address [address] [facility] [address] [place] [address] Care Team Providers Care Drag Out Worker Name Role Phone Radha Escalera DO Primary Care Provider + [phone] Reason for Visit * Reason Comments Med Refill Encounter Details Date Type Department Care Team (Late st Contact Info) Description 02/08/2025 Refill [facility] [address] [place] [address] Radha Escalera DO [address] [place] [address] Vitamin D deficiency; Seasonal allergic rhinitis, unspecified [...] documented as of this encounter Care Teams Drag Out Worker Relationship Specialty Start Date End Date Radha Escalera DO [address] [place] [id number] PCP - General Family Medicine 06/23/18 documented as of this encounter
--- OUTSIDE RECORDS SUMMARY | 2025-04-22 18:35 | XMS_ITS | Clinical Summary ---
Author Organization [employer] Address [address] [facility] [address] [place] [address] Care Team Providers Care Tin Roofer Name Role Phone Radha Escalera DO Primary Care Provider [phone] Allergies Active Allergy Reactions Criticality Noted Date [...] TABLET BY MOUTH DAILY 30 tablet 11 Active sulfamethoxazole -trimethoprim (Bactrim DS) 800-160 MG tablet Take 1 tablet by mouth 2 times daily for 5 days. 10 tablet 025 2024 Active escitalopram (Lexapro) 5 MG tablet Take [...] Active Problems Problem Noted Date Diagnosed Date Dysuria 04/22/2025 Assessment & Plan (04/22/2025 4:31 PM EDT): Orders: Culture, Urine, Routine POCT urinalysis dipstick manually resulted (CPT 51197) Bacterial Vaginosis Panel Ill-fitting dentures 03/07/2025 Recurrent UTI 12/28/2024 Assessment [...] high risk HPV cervical 08/27 Overview (07/31/2022): 5/28/19 colpo ileana 2 at 12:00; neg cx bx at 6 and ecc no dysplasia. referred for tx options visit.ECC=inadequate. Rebook for repeat sampling.colpo, [facility], Radha Escalera DO colpo performed [...] 07/31/2022 04/20/2025 Arthropathy of hand 05/29/2015 07/31/19 Chronic hepatitis C with cirrhosis (CMS/HCC) 07/31/2022 Encounters Date Type Department Care Team Description 04/22/2025 2:00 PM EDT [facility] [address] [address] Lenora Andrews NP Dysuria (Primary Dx); Vaginal discharge 04/22/2025 Travel 04/20/2025 Orders Only [facility] External Provider, [facility] 04/08/2025 Refill [facility] [address] [place] [phone] Radha Escalera DO 04/01/2025 Results Follow-Up [address] [address] Carol Hdez MD Culture, Urine, Routine 03/30/2025 2:20 PM EDT [facility] [address] [address] Carol Hdez MD Acute cystitis without hematuria (Primary Dx); Routine screening for STI (sexually transmitted infection) 03/30/2025 Orders Only [address] [address] Jannette Ontiveros MD Acute cystitis without hematuria 03/30/2025 Orders Only GENERIC EXTERNAL DATA DEPARTMENT Provider, Generic External Data 03/11/[address] [address] Radha Escalera DO Vitamin D deficiency 03/10/[address] [address] Radha Escalera DO 03/08/2025 10:45 AM EDT Office Visit [address] [address] Radha Escalera DO Essential hypertension (Primary Dx); Depression with anxiety; Chronic gastroesophageal reflux disease; History of hepatitis C; ASCUS with positive high risk HPV cervical; Left axillary pain; Healthcare maintenance; Dietary counseling; Exercise counseling; Acute URI 03/08/2025 Travel 03/07/2025 2:30 PM EDT Office Visit [facility] [address] [place] [address] Jhonny Garza DDS Ill-fitting dentures (Primary Dx) 03/07/[address] [address] Radha Escalera DO Chart Prep 03/01/2025 Refill [facility] [address] [address] Radha Escalera DO Hyperlipidemia, unspecified hyperlipidemia type 02/28/2025 Patient Outreach [address] [address] Radha Escalera DO Pre-visit Planning (SDOH screening completed on 01/26/2025) 02/23/2025 3:30 PM EDT Office Visit [facility] [address] [place] [address] Jhonny Garza DDS Complete edentulism, unspecified edentulism class (Primary Dx) 02/20/2025 Refill [facility] [address] [place] [address] Radha Escalera DO Hypertension, unspecified type 02/14/[address] [address] Radha Escalera DO Vitamin D deficiency 02/09/2025 Orders Only GENERIC EXTERNAL DATA DEPARTMENT Provider, Generic External Data 02/08/[address] [address] Radha Escalera DO Vitamin D deficiency; Seasonal allergic rhinitis, unspecified trigger 02/05/2025 9:00 AM EDT Office Visit [facility] [address] [address] Darya Charlton MD UTI symptoms 02/05/2025 Travel 02/04/2025 9:15 AM EDT Office Visit [address] [address] Radha Escalera DO Essential hypertension (Primary Dx); Depression with anxiety; Chronic gastroesophageal reflux disease; History of hepatitis C; ASCUS with positive high risk HPV cervical; Recurrent UTI; Healthcare maintenance 02/04/2025 Travel 02/02/2025 Telephone [facility] [address] [place] [address] Radha Escalera DO Chart Prep 01/26/2025 Patient Outreach [facility] [address] [place] [address] Radha Escalera DO Pre-visit Planning (SDOH screening negative and tobacco screening positive) 01/22/2025 9:20 AM EDT Office Visit [facility] [address] [place] [address] Jannette Ontiveros MD Recurrent UTI (Primary Dx); UTI symptoms; Dietary counseling; Exercise counseling; Overweight; 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 ([facility]) 01/22/2025 Travel from Last 3 Months Immunizations Immunization Administration [...] 18 04/22/2025 1:28 PM EDT Oxygen Saturation 96% 03/30/2025 2:34 PM EDT Inhaled Oxygen Concentration - - Weight 73.6 kg (162 lb 3.2 oz) 04/22/2025 1:28 P M EDT Height 165.1 cm (5' 5 ) 04/22/2025 1:28 PM EDT Body Mass Index 26.99 04/22/2025 1:28 PM EDT Plan of Treatment Health Maintenance [...] Additional history exists Pap Smear 11/30/2025 11/30/2024, 09/2023, 08/10/2021 SDOH Screening 01/26/2026 01/26/2025 Mammogram 02/24/2026 02/24/2025, 02/21, 01/07/2024, Additional history exists Depression Screening 03/08/2026 03/08/2025, 03/08/20 25 Tobacco Screening 04/22/2026 04/22/2025 Dental X-Ray: Full Mouth 12/01/2027 025, 12/13/2020, 07/16/2018 Lipid Panel 03/03/2029 03/03/2024, 11/07/2022, 05/13/2022, Additional history exists DTaP/Tdap/Td Vaccines (3 [...] DIPSTICK Routine 04/22/2025 2:[address] UROGRAM WO CONTRAST Routine 04/20/2025 9:53 PM EDT CHLAMYDIA/N. GONORRHOEAE RNA, TMA, UROGENITAL Routine 03/30/2025 [...] Routine 01/22/2025 9:37 AM EDT UTI symptoms HPV DNA, LOW/HIGH RISK Routine 11/30/2024 3:15 [...] (ABNORMAL) POCT urinalysis dipstick manually resulted (CPT 20713) (04/22/2025 2:14 PM EDT) Only the most recent of4 [...] (Urine, Random) 04/22/2025 2:14 PM EDT Lenora Bautistagilson EH POINT OF CARE TEST ENTER/EDIT OR DERABLES Final Result * CT Urogram w/o Contrast (04/20/2025 9:53 PM EDT) Anatomical Region Laterality Modality Ureter, Upper urinary tract Comp uted Tomography 04/20/2025 9:53 PM EDT Narrative 04/20/2025 9:55 PM EDT [place] [address] [address] Scan Report Signed Patient: Angie Mathis MR#: [id number] 5 : 1960 Acct:[id number] Age/Sex: 64 / F ADM Date: 04/20/25 Loc: HO.CT Attending Dr: Sejal Abraham [facility] Ordering Physician: Sejal Abraham Date of Service: 04/20/25 Procedure(s): CT urogram Accession Number(s): [id number] cc: Carol Hdez MD; Sejal Abraham [facility] Report Number: [id number]: Total DLP = 759.00 mGy-cm Reason for Exam: R31.0 - Gross hematuria CLINICAL HISTORY: R31.0 - Gross hematuria CT abdomen and pelvis without/with contrast Comparison: None provided Findings: Lung bases are clear. No acute bony abnormalities. Liver and spleen within normal limits. Pancreas and adrenal glands unremarkable. Cholecystectomy. No significant focal renal abnormalities. Punctate nonobstructing right renal stone. No ureteral stones or hydronephrosis. Abdominal aorta is normal in caliber. No free fluid or adenopathy in the pelvis. No diverticulitis. Appendectomy. Uterus normal size. No adnexal abnormality. Impression: No acute process This document has been electronically signed by: Santos Marie MD on 04/20/2025 21:53:37 Dictated By: Santos Marie MD Signed By: <Electronically signed by Santos Marie MD in OV> 04/20/252153 DD/ 52 TD/TT: 04/20/252152 Center Administrator: Procedure Note Donotuseinterpreter, Image - 04/20/[address] [place] [address] [address] Scan Report Signed Patient: Sammie Mathis#: [id number] 5 : 1960Acct:[id number] Age/Sex: 64 / FADM Date: 04/20/25 Loc: HO.CT [facility] Ordering Physician: Sejal Abraham Date of Service: 04/20/25 Procedure(s): CT urogram Accession Number(s): [id number] cc: Carol Hdez MD; Sejal Abraham [facility] Report Number: [id number]: Total DLP = 759.00 mGy-cm Reason for Exam: R31.0 - Gross hematuria CLINICAL HISTORY: R31.0 - Gross hematuria CT abdomen and pelvis without/with contrast Comparison: None provided Findings: Lung bases are clear. No acute bony abnormalities. Liver and spleen within normal limits. Pancreas and adrenal glands unremarkable. Cholecystectomy. No significant focal renal abnormalities. Punctate nonobstructing right renal stone. No ureteral stones or hydronephrosis. Abdominal aorta is normal in caliber. No free fluid or adenopathy in the pelvis. No diverticulitis. Appendectomy. Uterus normal size. No adnexal abnormality. Impression: No acute process This document has been electronically signed by: Santos Marie MD on 04/20/2025 21:53:37 Dictated By: Santos Marie MD Signed By: <Electronically signed by Santos Marie MD in OV> 04/20/252153 DD/ 52 TD/TT: 04/20/252152 Center Administrator: [facility] External Provider IMG CT PROCEDURES Edited Result - Final * Chlamydia/N. Gonorrhoeae RNA, TMA, Vagina (03/30/2025 3:43 PM EDT) CT PCR NOT DETECTED Not Detect. [facility] Comment:A not detected test result does [...] psychologicalconsequences. NG PCR NOT DETECTED Not Detect. [facility] Comment:A not detected test result does [...] 3:43 PM EDT 03/31/2025 12:41 PM EDT us Carol Hdez MD LAB MICROBIOLOGY - GENERAL ORDERABLES Final Result [facility] [address] [place] [phone] * Syphilis Screen (03/30/2025 3:31 PM EDT) Pathologist [facility] Syphilis Screen Nonreactive Nonreactive [facility] Blood Venous blood specimen / Unknown 03/30/2025 3:31 PM EDT 03/30/2025 4:09 PM EDT Carol Hdez MD LAB BLOOD ORDERABLES Final Result Performing Organization Address [facility]/ZIP Co de Phone Number [facility] [address] [place] [phone] * (ABNORMAL) Urinalysis, Complete, with Reflex to Culture (03/30/2025 3:31 PM EDT) Color Urine Yellow [facility] Appearance Urine Clear [facility] PH 6.5 5.0 - 9.0 [facility] Glucose Urine UA Negative Negative mg/dL [facility] Urine Blood Trace(A) Negative [facility] Specific [facility] [place] - Urine 1.020 1.005 - 1.025 [facility] Urine Protein Negative Neg-Trace mg/dL [facility] Urine Ketones Negative Negative mg/dL [facility] Nitrite Urine Negative Negative [facility] Leukocyte Esterase Urine Moderate (2+)(A) Negative [facility] RBC Urine 3-5(A) 0 - 2 /HPF [facility] Urine WBC >50(A) 0 - 5 /HPF [facility] Urine Squamous Epithelial Cell 3-5 0 - 2 /HPF [facility] Urine Bacteria Trace None Seen [facility] Hyaline Casts, Urine 0-2 0 - 2 /LPF [facility] Urine 03/30/2025 3:31 PM EDT 03/30/2025 4:12 PM EDT Narrative [facility] - 03/30/2025 4:37 PM EDT Urine, Clean Catch Carol Hdez MD LAB URINE ORDERABLES Final Result Performing Organization Address [facility]/ZIP Co de Phone Number [facility] [address] [place] [phone] * Creatinine, Serum (03/30/2025 3:31 PM EDT) Creatinine, Serum 0.64 0.5 - 1.4 mg/dL [facility] Estimated Glomerular Filt Rate >60 [facility] Comment:Chronic Kidney Disea se: Estimated GFR < 60 mL/min/1.95q6Mklrqa Kidney Disease: Estimated GFR < 15 mL/min/1.73m2 03/30/2025 3:31 PM EDT 03/30/2025 4:09 PM EDT us Generic External Data Provider LAB BLOOD ORDERAB LES Final Result Performing Organization Address City/[facility]/ZIP Co de Phone Number [facility] [address] [place] [phone] * HIV-1/2 Antigen and Antibodies, Fourth Generation, with Reflexes (03/30/2025 3:31 PM EDT) HIV AB/AG Nonreactive Nonreactive [facility] Comment:HIV-1 p24 Ag and/or HIV-1/HIV-2 Ab not detected.A test result that is nonreactive does not exclude thepossibility of exposure to or infection with HIV-1 and/orHIV-2. Nonreactive results in this assay for individualswith prior exposure to HIV-1 and/or HIV-2 may be due toantigen and antibody levels that are below the limit ofdetection of this assay.The [employer] HIV Ag/Ab Combo assay result andsupplemental assay results should be interpreted inconjunction with the patient's clinical presentation,history and other laboratory results. If the results areinconsistent with clinical evidence, additional testing issuggested to confirm the result. Blood Venous blood specimen / Unknown 03/30/2025 3:31 PM EDT 03/30/2025 4:09 PM EDT us Carol Hdez MD LAB BLOOD ORDERABLES Final Result [facility] [address] [place] [phone] * (ABNORMAL) BUN (Blood Urea Nitrogen) (03/30/2025 3:31 PM EDT) Urea Nitrogen (BUN) 18(H) 9 - 16 mg/dL [facility] 03/30/2025 3:31 PM EDT 03/30/2025 4:09 PM EDT us Generic External Data Provider LAB BLOOD ORDERAB LES Final Result Performing Organization Address [facility]/ZIP Co de Phone Number [facility] [address] [place] [phone] * Culture, Urine, Routine (03/30/2025 12:00 AM EDT) Only the most recent of2 resultswithin the time period is included. Urine Urine specimen obtained by clean catch procedure / Unknown 03/30/2025 03/30/2025 Comment:CC Narrative [facility] - 04/01/2025 7:31 AM EDT Escherichia coli Quant > 100,000 cfu/mL Escherichia coli: Ampicillin 16(I) Escherichia coli: Cefazolin (Urine) 4(S) Escherichia coli: Cefepime <=0.12(S) Escherichia coli: Ceftriaxone <=0.25(S) Escherichia coli: Ciprofloxacin 1(R) Escherichia coli: Gentamicin <=1(S) Escherichia coli: Nitrofurantoin <=16(S) Escherichia coli: Trimethoprim/Sulfamethoxazole <=20(S) Specimen Source: Urine clean catch Carol Hdez MD LAB MICROBIOLOGY - GENERAL ORDERABLES Final Result Performing Organization Address [facility]/ZIP Co de Phone Number [facility] [address] [place] [phone] * POCT Rapid Covid-19 BinaxNOW (03/08/2025 11:51 AM EDT) Rapid COVID Ag Negative Swab 03/08/2025 11:5 1 AM EDT Radha wJ DO POINT OF CARE TEST ENTER/[place] T [...] / Unknown 03/08/2025 11:51 AM EDT Radha Quinonezbairon DO POINT OF CARE TEST ENTER/[place] T ORDERABLES Final Result * BI Mammogram Screening Tomosynthesis Bilateral (02/24/2025 1:00 PM EDT) Anatomical Region Laterality Modality Breast Bilateral Mammography 02/24/2025 1:00 PM EDT Narrative 02/28/2025 10:56 AM EDT [facility] [address] [place] [address] Mammography Report Signed Patient: Angie Mathis MR#: [id number] 5 : 1960 Acct:[id number] Age/Sex: 64 / F ADM Date: 02/24/25 Loc: HO.MAMMO Attending Dr: Tameka Stoddard CNM Ordering Physician: TAMEKA STODDARD CNM Results: 1 Negative Date of Service: 02/24/25 Follow Up: 1 Year From Orig inal Mammogram Procedure(s): MM tomosynthesis screening BI Accession Number(s): [id number] cc: Radha Escalera DO; TAMEKA STODDARD CNM [...] 02/28/25 1052 DD/ 1300 TD/TT: 02/24/25 1330 Center Administrator: Procedure Note Donotuseinterpreter, Image - 02/28/2025 [facility] [address] [place], [place] [address] Mammography Report Signed Patient: Sammie Mathis#: [id number] 5 : 1960Acct:[id number] Age/Sex: 64 / FADM Date: 02/24/25 Loc: HO.MAMMO Attending Dr: Tameka Stoddard CNM Ordering Physician: TAMEKA STODDARDesults: 1 Negative Date of Service: 02/24/25Follow Up: 1 Year From Orig inal Mammogram Procedure(s): MM tomosynthesis screening BI Accession Number(s): [id number] cc: Radha Escalera DO; TAMEKA STODDARD CNM [...] Paula Bello DO 02/28/2025 10:52 AM EDT Dictated By: Paula Bello DO Signed By: <Electronically signed by Paula Bello DO in OV> 02/28/25 1052 DD/ 1300 TD/TT: 02/24/25 1330 Center Administrator: Tameka Stoddrad CNM IMG BI PROCEDURES Edited Result - Final * BD DEXA Axial (02/24/2025 1:00 PM EDT) Anatomical Region Laterality Modality Body Radiographic Jessi ging 02/24/2025 1:00 PM EDT Narrative 02/24/2025 2:32 PM EDT [facility] [address] [place] [address] Mammography Report Signed Patient: Angie Mathis MR#: [id number] 5 : 1960 Acct:[id number] Age/Sex: 64 / F ADM Date: 02/24/25 Loc: HO.MAMMO Attending Dr: Tameka Stoddard CNM Ordering Physician: TAMEKA STODDARD CNM Results: Date of Service: 02/24/25 Follow Up: Procedure(s): XR DEXA axial skeleton Accession Number(s): [id number] cc: Radha Escalera DO; TAMEKA STODDARD CNM STUDY: DUAL ENERGY X-RAY ABSORPTIOMETRY / DXA REASON FOR EXAM: Female, 64 years old baseline TECHNIQUE: Bone Mineral Density (BMD) measurements of the lumbar spine and left hip were obtained using [employer] COMPARISON: None FINDINGS: L2-L4 BMD: 1.593 g/cm2 [...] 02/24/25 1429 DD/ 1300 TD/TT: 02/24/25 1330 Center Administrator: Procedure Note Donotuseinterpreter, Image - 02/24/2025 [facility] [address] [place] [address] Mammography Report Signed Patient: Angie Mathis#: [id number] 5 : 1960Acct:[id number] Age/Sex: 64 / FADM Date: 02/24/25 Loc: JIECHUCHORhiannon Attending Dr: Tameka Stoddard CNM Ordering Physician: TAMEKA STODDARDults: Date of Service: 02/24/25Follow Up: Procedure(s): XR DEXA axial skeleton Accession Number(s): [id number] cc: Radha Escalera DO; TAMEKA STODDARD CNM STUDY: DUAL ENERGY X-RAY ABSORPTIOMETRY / DXA REASON FOR EXAM: Female, 64 years old baseline TECHNIQUE: Bone Mineral Density (BMD) measurements of the lumbar spine and left hip were obtained using [employer] COMPARISON: None FINDINGS: L2-L4 BMD: 1.593 g/cm2 [...] 02/24/25 1429 DD/ 1300 TD/TT: 02/24/25 1330 Center Administrator: Tameka Stoddard [facility] IMG DXA PROCEDURES Final Result * Cytopath-cell enhanced (02/09/2025 2:00 PM EDT) 02/09/2025 2:00 PM EDT 02/10/2025 10:20 AM EDT [facility] - 02/10/2025 3:43 PM EDT ----- ------- Name: Kisha Mathisz Age/Sex: 64/F : 1960 Unit#: [id number] Attend Dr: Sejal Abraham [facility] Re02/09/25 Status: DEP REF Location: .LAB Disch: ----- ------- SPEC : [id number] RECD: 02/10/25-1020 STATUS: CHERRYCarlos GRICEL NUM: [id number] BRIAN: 02/09/25-[address]: Sejal Abraham [facility]- ENTERED: 02/10/25-1050 SP TYPE: Cytology OTHR DR: [...] developed and their performance characteristics determined by [facility]. They have not been cleared or approved by the U.S. Food and Drug Administration (FDA). However, the FDA has determined that such clearance or approval is not necessary. This laboratory is certified under the Clinical Laboratory Improvement Amendments of 1988 (CLIA) as qualified to perform high complexity clinical laboratory testing. Copies To: Radha Escalera DO [address] [address] Sejal Abraham [facility] [address] [place] [address] Dr[address] Ham [address] [place] [address] [phone] [email or web address] CONTINUED ON NEXT PAGE ----- ------- Name: Angie Mathis Age/Sex: 64/F : 1960 Unit#: [id number] Attend Dr: Sejal Abraham [facility] Re02/09/25 Status: ABDIFATAH REF Location: .LAB Disch: ----- ------- SPEC : [id number] RECD: 02/10/25-1020 STATUS: ROBERTA MONSALVE NUM: [id number] BRIAN: 02/09/25-[address]: Sejal Abraham [facility]- ENTERED: 02/10/25-1050 SP TYPE: Cytology OTHR DR: Radha Escalera DO ORDERED: Cyto-enhanced ----- ------- Signed (signature on file) nAnabelle Southmayd 02/10/25 1543 ----- ------- END OF REPORT us Generic External Data Provider LAB CYTOLOGY DOREEN ERAZO Final Result [facility] [address] [place] [phone] * (ABNORMAL) HPV DNA, Low/High Risk (11/30/2024 3:15 PM EDT) HPV High Risk Positive(A) Negative [facility] HPV Genotype 16 Negative Negative [facility] HPV Genotype 18 Negative Negative [facility] Comment:HPV testing performe d at [facility] (CLIA#[id number]), [address] [place] [address].Testing for HPV was performed using the [employer]system. The presence of HPV in the female [...] Tameka Stoddard CNM LAB BLOOD ORDERABLES Heather l Result [facility] [address] [place] [phone] * Pap Smear (11/30/2024 3:15 PM EDT) Swab Cervix uteri structure / Unknown 11/30/2024 3:15 PM EDT 12/01/2024 8:17 AM EDT Narrative [facility] - 12/06/2024 11:33 AM EDT ----- ------- Name: Angie Mathis Age/Sex: 64/F : 1960 Unit#: [id number] Attend Dr: TAMEKA STODDARD CNM Re11/30/24 Status: DEP [facility]F [facility] Disch: ----- ------- SPEC : [id number] RECD: 12/01/24 STATUS: ROBERTA MONSALVE NUM: [id number] BRIAN: 11/30/24-[address] [facility] [address]: TAMEKA STODDARD Radha ENTERED: 12/01/24 SP TYPE: Pap Smr OTHR [...] will be performed at [facility] (CLIA #[id number]), [address] [place] [address]. Testing for HPV was performed using the [...] detected. All professional services are performed by [facility] ([address] [place] [address], [place] [address]; ; CLIA #[id number]). The PAP Test is a screening procedure with the inherent possibility of both false negative and false positive results. Results should be interpreted in the context of historic and current clinical findings. Reliability of the PAP Test is enhanced by performing the test on a regular repetitive basis. CONTINUED ON NEXT PAGE ----- ------- Name: Angie Mathis Age/Sex: 64/F : 1960 Unit#: [id number] Attend Dr: TAMEKA STODDARD CNM Re11/30/24 Status: DEP REF [facility] Disch: ----- ------- SPEC : [id number] RECD: 12/01/24 STATUS: ROBERTA MONSALVE NUM: [id number] BRIAN: 11/30/24-[address] [facility] [address]: TAMEKA STODDARD [facility] ENTERED: 12/01/24 SP TYPE: Pap Darrell DAS DR: ORDERED: Pap Smear, PAP path review ----- ------- Signed (signature on file) Jonathan Daley MD 12/06/24 1133 ----- ------- END OF REPORT Tameka Allen [facility] CYTOLOGY ORDERABLES F inal Result Performing Organization Address [facility]/ZIP Co de Phone Number [facility] [address] [place] [phone] * Lipid Panel, Standard (03/03/2024 8:44 AM EDT) Triglycerides 47 <150 mg/dL [facility] Comment:Desirable Triglyceri de: less than 150 mg/dLBorderline High Triglyceride 150-199 mg/dLHigh Triglyceride: 200-499 mg/dLVery High Triglyceride: greater than or equal to 5OO mg/dL Cholesterol 154 <200 mg/dL [facility] Comment:Desirable Cholestero l: less than 200 mg/dLBorderline High Cholesterol: 200-239 mg/dLHigh Cholesterol: greater than 239 mg/dL LDL Cholesterol Calculated 87 <100 mg/dL [facility] Comment:Desirable LDL: less than 100 mg/dLNear Optimal/Above Optimal LDL: 110- 129 mg/dLBorderline High LDL: 130-159 mg/dLHigh LDL: 160-189 mg/dLVery High LDL: greater than or equal to 190 mg/dL HDL Cholesterol 58 >40 mg/dL [facility] Comment:Desirable HDL: great er than 40 mg/dL Note: This HDL assay may give artificially low results in patients with liver disease. Blood Venous blood specimen / Unknown 03/03/2024 8:44 AM EDT 03/03/2024 11:20 AM EDT Radha Escalera DO LAB BLOOD ORDERABLES Final R esult Performing Organization Address [facility]/ZIP Co de Phone Number [facility] [address] [place] [address] [phone] * Biopsy cervix (10/03/2021) Narrative Rahel Cerrato - 10/03/2021 Negative us Historical Provider MD IN CLINIC/BEDSIDE ORDERAB LES Final Result * Colonoscopy (04/04/2020 10:07 AM EDT) us Historical Provider HEALTH MAINTENANCE Final Result from Last 3 Months or Most Recently Relevant to Health Maintenance Insurance [facility] Care Teams Tin Roofer Relationship Specialty Start Date End Date Radha Escalera DO [address] [place] [address] PCP - General Family Medicine 06/23/18
--- OUTSIDE RECORDS SUMMARY | 2025-04-22 18:36 | XMS_ITS | Encounter Summary ---
Author Organization [employer] Address [address] [facility] 7t [place] [address] Care Team Providers Care Horticulture/Floriculture Teacher Name Role Phone Radha Escalera DO Primary Care Provider + [phone] Encounter Details Date Type Department Care Team (Late st Contact Info) Description 04/01/2025 Results Follow-Up [facility] [address] [place] [address] Carol Hdez MD [address] [place] [address] Culture, Urine, Routine Social History Tobacco Use [...] documented as of this encounter Care Teams Horticulture/Floriculture Teacher Relationship Specialty Start Date End Date Radha Escalera DO [address] [place] [address] PCP - General Family Medicine 06/23/18 documented as of this encounter
--- OUTSIDE RECORDS SUMMARY | 2025-04-22 18:36 | XMS_ITS | Encounter Summary ---
Author Organization [employer] Address [address] [facility] 7t [place] [address] Care Team Providers Care Trailers And Motor Homes Salesperson Name Role Phone Radha Escalera DO Primary Care Provider + [phone] Reason for Visit * Reason Comments Med Refill Encounter Details Date Type Department Care Team (Late st Contact Info) Description 03/11/2025 Refill [facility] [address] [place] [address] Radha Escalera DO [address] [place] [address] Vitamin D deficiency Social History Tobacco Use [...] documented as of this encounter Care Teams Trailers And Motor Homes Salesperson Relationship Specialty Start Date End Date Radha Escalera DO [address] [place] [address] PCP - General Family Medicine 06/23/18 documented as of this encounter
--- OUTSIDE RECORDS SUMMARY | 2025-04-22 18:36 | XMS_ITS | Encounter Summary ---
Author Organization [employer] Address [address] [facility] 7[address] [place] [address] Care Team Providers Care Electrical And Instrument Mechanic Name Role Phone Radha Escalera DO Primary Care Provider + [phone] Encounter Details Date Type Department Care Team (Late st Contact Info) Description 03/30/2025 Orders Only [facility] [address] [place] [address] Jannette Ontiveros MD [address] [place] [address] Acute cystitis without hematuria Social History Tobacco [...] procedure / Unknown 03/30/2025 03/30/2025 Comment:UACC Narrative [facility] - 04/01/2025 7:31 AM EDT Escherichia coli Quant > 100,000 cfu/mL Escherichia coli: Ampicillin 16(I) Escherichia coli: Cefazolin (Urine) 4(S) Escherichia coli: Cefepime <=0.12(S) Escherichia coli: Ceftriaxone <=0.25(S) Escherichia coli: Ciprofloxacin 1(R) Escherichia coli: Gentamicin <=1(S) Escherichia coli: Nitrofurantoin <=16(S) Escherichia coli: Trimethoprim/Sulfamethoxazole <=20(S) Specimen Source: Urine clean catch us Carol Hdez MD LAB MICROBIOLOGY - GENERAL ORDERABLES Final Result [facility] [address] [place] [phone] documented in this encounter Visit Diagnoses Diagnosis Acute cystitis without hematuria documented in this encounter Additional Health Concerns Assessment Noted Time PHQ-9 Depression Total Score: 4 03/08/20 25 11:18 AM EDT documented as of this encounter Care Teams Electrical And Instrument Mechanic Relationship Specialty Start Date End Date Radha Escalera DO [address] [place] [address] PCP - General Family Medicine 06/23/18 documented as of this encounter
--- OUTSIDE RECORDS SUMMARY | 2025-04-22 18:36 | XMS_ITS | Encounter Summary ---
Author Organization [employer] Address [address] [facility] 7t [place] [address] Care Team Providers Care National Business Director Name Role Phone Radha Escalera DO Primary Care Provider + [phone] Reason for Visit * Reason Comments Med Refill Encounter Details Date Type Department Care Team (Late st Contact Info) Description 02/20/2025 Refill [facility] [address] [place], [place] [phone] Radha Escalera DO [address] [facility] [place], [place] [phone] Hypertension, unspecified type Social History Tobacco Use [...] documented as of this encounter Care Teams National Business Director Relationship Specialty Start Date End Date Radha Escalera DO [address] [place] [address] PCP - General Family Medicine 06/23/18 documented as of this encounter
--- OUTSIDE RECORDS SUMMARY | 2025-04-22 18:37 | XMS_ITS | Encounter Summary ---
Author Organization [employer] Address [address] [facility] 7t [place] [address] Care Team Providers Care Optometric Technologist Name Role Phone Radha Escalera DO Primary Care Provider [phone] Encounter Details Date Type Department Care Team (Late st Contact Info) Description 10/03/2022 Orders Only [facility] [address] [place] [address] Radha Reynolds LPN Social History Tobacco Use [...] documented as of this encounter Care Teams Optometric Technologist Relationship Specialty Start Date End Date Radha Escalera DO [address] [place] [address] PCP - General Family Medicine 06/23/18 documented as of this encounter
--- OUTSIDE RECORDS SUMMARY | 2025-04-22 18:37 | XMS_ITS | Patient Health Record ---
Author Organization [employer] Address [address] [place] [address] Care Team Providers Care Enterprise Systems Administrator Name Role Phone Andrew Glaser Unavailable [phone] Reason For Referral No Information Plan Of Treatment No Information
--- OUTSIDE RECORDS SUMMARY | 2025-04-22 18:37 | XMS_ITS | Encounter Summary ---
Author Organization [email or web address] Address [address] [facility] [address] [facility] [address] 7[address] [place] [address] Care Team Providers Care Medical Billing Assistant Name Role Phone Radha Escalera DO Primary Care Provider + [phone] Encounter Details Date Type Department Care Team (Late st Contact Info) Description 07/30/2023 Orders Only [facility] [address] [place] [address] Isha Tran FNP Social History Tobacco Use [...] documented as of this encounter Care Teams Medical Billing Assistant Relationship Specialty Start Date End Date Radha Escalera DO [address] [place] [address] PCP - General Family Medicine 06/23/18 documented as of this encounter
--- OUTSIDE RECORDS SUMMARY | 2025-04-22 18:38 | XMS_ITS | Encounter Summary ---
Author Organization [employer] Address [address] [facility] 7t [place] [address] Care Team Providers Care Staff Midwife Name Role Phone Radha Escalera DO Primary Care Provider + [phone] Reason for Visit * Reason Comments Med Refill Encounter Details Date Type Department Care Team ([facility] st Contact Info) Description 03/01/2025 Refill [facility] [address] [place] [address] Radha Escalera DO [address] [place] [address] Hyperlipidemia, unspecified hyperlipidemia type Social History Tobacco [...] documented as of this encounter Care Teams Staff Midwife Relationship Specialty Start Date End Date Radha Escalera DO [address] [place] [address] PCP - General Family Medicine 06/23/18 documented as of this encounter
--- OUTSIDE RECORDS SUMMARY | 2025-04-22 18:38 | XMS_ITS | Encounter Summary ---
Author Organization [employer] Address [address] [facility] [address] 7[address] [place] [address] Care Team Providers Care Home Health Manager Name Role Phone Radha Escalera DO Primary Care Provider + [phone] Reason for Visit * Reason Comments Med Change Request Encounter Details Date Type Department Care Team ([facility] st Contact Info) Description 11/06/2024 Refill [facility] [address] [place], [place] [phone] Name, MD Kam [address] [place] [address] Social History Tobacco Use Types Packs/Day Years [...] documented as of this encounter Care Teams Home Health Manager Relationship Specialty Start Date End Date Radha Escalera DO [address] [place] [address] PCP - General Family Medicine 06/23/18 documented as of this encounter
--- OUTSIDE RECORDS SUMMARY | 2025-04-22 18:38 | XMS_ITS | Encounter Summary ---
Author Organization [employer] Address [address] [facility] 7t [place] [address] Care Team Providers Care Before School Babysitter Name Role Phone Radha Escalera DO Primary Care Provider + [phone] Encounter Details Date Type Department Care Team (Latest Contact Info) Description 04/22/2025 Travel Social History Tobacco Use Types Packs/Day Years [...] documented as of this encounter Care Teams Before School Babysitter Relationship Specialty Start Date End Date Radha Escalera DO [address] [place] [address] PCP - General Family Medicine 06/23/18 documented as of this encounter
--- OUTSIDE RECORDS SUMMARY | 2025-04-22 18:38 | XMS_ITS | Encounter Summary ---
Demographics Address [address] [place] [address] Mobile Phone Preferred Language en Marital Status Single Yazdanism Affiliation Unknown Race Other Race Ethnic Group Unknown Author Organization [employer] Address [address] [facility] 7t [place] [address] Care Team Providers Care Dairy Farm Supervisor Name Role Phone Radha Escalera DO Primary Care Provider + [phone] Encounter Details Date Type Department Care Team ([facility] Contact Info) Description 04/20/2025 Orders Only [facility] External Provider, [facility] Social History Tobacco Use Types Packs/Day Years [...] Procedure Name Priority Date/Time Associated Diagnosis Comments CT UROGRAM WO CONTRAST Routine 04/20/2025 9:53 PM EDT documented in this encounter Results * CT Urogram w/o Contrast (04/20/2025 9:53 PM EDT) Anatomical Region Laterality Modality Ureter, Upper urinary tract Comp uted Tomography 04/20/2025 9:53 PM EDT Narrative 04/20/2025 9:55 PM EDT [place] [address] CT Scan Report Signed Patient: Angie Mathis MR#: [id number] 5 : 1960 Acct:[id number] Age/Sex: 64 / F ADM Date: 04/20/25 Loc: HO.CT Attending Dr: Sejal BARRERA Ordering Physician: Sejal Abraham Date of Service: 04/20/25 Procedure(s): CT urogram Accession Number(s): [id number] cc: Carol Hdez MD; [facility] Report Number: [id number]: Total DLP = 759.00 mGy-cm Reason for [...] in OV> 04/20/252153 DD/ 52 TD/TT: 04/20/252152 Draw Off Worker: Procedure Note Donotuseinterpreter, Image - 04/20/[address] [place] [address] [address] Scan Report Signed Patient: Sammie Mathis#: [id number] 5 : 1960Acct:[id number] Age/Sex: 64 / FADM Date: 04/20/25 Loc: HO.CT Attending Dr: Sejal HAYS Ordering Physician: Sejal Abraham Date of Service: 04/20/25 Procedure(s): CT urogram Accession Number(s): [id number] cc: Carol Hdez MD; Sejal Abraham Report Number: [id number]: Total DLP = 759.00 mGy-cm Reason for [...] in OV> 04/20/252153 DD/ 52 TD/TT: 04/20/252152 Draw Off Worker: [facility] External Provider IMG CT PROCEDURES Edited Result - Final documented in this encounter Visit Diagnoses Not on filedocumented in this encounter Additional Health Concerns Assessment Noted Time PHQ-9 Depression Total Score: 4 03/08/20 25 11:18 AM EDT documented as of this encounter Care Teams Dairy Farm Supervisor Relationship Specialty Start Date End Date Radha Escalera DO [address] [place] [address] PCP - General Family Medicine 06/23/18 documented as of this encounter
[2025-04-23 08:49] LABS: Bacterial Vaginosis PCR NEGATIVE (Negative); Candida Group PCR DETECTED (Not Detect); Candida glab krusei PCR NOT DETECTED (Not Detect); Trichomonas vaginalis PCR NOT DETECTED (Not Detect)
== END 2025-04-22 18:31 | disposition home or self-care (01) ==
LOC: HO.HHCLNP 18:30
PROVIDERS: Visit Provider Nurse Practitioner Family
DX: Z20.2 Contact with and (suspected) exposure to infections with a predominantly sexual mode of transmission (principal); N89.8 Other specified noninflammatory disorders of vagina; R30.0 Dysuria
CPT/HCPCS: 81515; 87086; 87088; 87186

== ENCOUNTER 2025-05-12 13:01 | Outpatient (AMB) | payer OTHER, SELFPAY ==
--- NOTE | 2025-05-12 13:08 | A.OFFVIS_ITS ---
Intake Visit Reasons: 3m/CT/labs Intake Note: Patient is present for 3M/CT/LABS Urology Medication:NITROFURANTOIN MICROCRYSTAL Antibiotic Allergy:NONE Blood Thinner:NONE Media Analyst Required: No Allergies telaprevir Allergy (Intermediate, Verified 05/12/25 14:08) SWELLING Medication List - Last Reconciled 05/12/25 by SAÚL Reddy acetaminophen 500 mg PO QID PRN cyclobenzaprine 10 mg PO BEDTIME PRN nitrofurantoin macrocrystal 100 mg PO .Postcoital 90 days HPI Comments Details: Angie is a pleasant 64-year-old female patient of Dr. Escalera. She has a past medical history of recurrent urinary tract infections. She presents to the office today for follow-up. Of note, patient was seen approximately 3 months ago as a new patient for microscopic hematuria as well as recurrent urinary tract infections at which time a CT urogram was ordered for further assessment evaluation and these results were reviewed and communicated with the patient today. CT urogram 05/17 no significant focal renal abnormalities. Punctate nonobstructing right renal stones. No ureteral stones or hydronephrosis noted bilaterally. No acute process per radiology report. She reports she has followed up with her PCP twice since her last office visit here and has completed antibiotic therapy as prescribed. She reports symptoms start shortly after sexual activity. During last office visit she was prescribed postcoital antibiotic therapy however this was never initiated. She does continue to utilize Vagifem as prescribed. She reports feeling like she currently has a urinary tract infection however urinalysis today negative leukocytes negative nitrates 1+ microscopic hematuria will send for urine culture. She does have a history of nicotine dependence. She reports she smoked cigarettes for 30 years however quit over 20 years ago. She reports when she was smoking she smoked approximately 1-2 packs per week. We did discussed at length potential causes of recurrent urinary tract infections as well as microscopic hematuria. We discussed further workup in risks and benefits of these interventions. All questions were answered. She denies incontinence, nocturia, gross/visible hematuria, dysuria, foul smelling urine, changes to urinary stream, flank pain, fever, and or chills. I discussed reasons for blood in the urine may include but are not limited to kidney stones, cancer in the urinary tract, kidney stone disease or inflammatory conditions of the urinary tract. I have discussed workup to include cystoscopy evaluation. She otherwise offers no other issues or concerns at this time. In review of patient's chart it appears urine cultures are as follows: 2/ Klebsiella oxytoca, 2/ E coli, 3/ E coli, 8/ Klebsiella pneumoniae, 12/ E coli, 10/15 E coli, 6 coli, 7 E coli, 02/14 E coli/Klebsiella oxytoca, 04/16 E coli, 10/ E coli. [facility] Medical History UTI (urinary tract infection) Review of Systems Const All systems reviewed & are unremarkable except as noted in HPI and below Physical Exam Const General: cooperative, healthy appearing, comfortable, no acute distress, well developed, alert and awake Orientation/consciousness: patient oriented x3 Limitations: no limitations HEENT Head: Yes normal to inspection, Yes normocephalic and Yes atraumatic Ears: hearing grossly normal bilaterally Eyes General: appearance normal, both eyes and all related structures Neck Neck: Yes normal visual inspection and Yes trachea midline Chest Chest palpation & inspection: normal inspection of the chest Resp Effort & Inspection: normal respiratory effort and able to speak in complete sentences Cardio Rate: regular rate GI Inspection: Yes normal to inspection General: Yes no CVA tenderness Back/Spine/Pelvis Back: no CVA tenderness Skin General skin exam: no rashes or lesions noted Neuro General: patient oriented x3 Extrem General: Yes normal to inspection Psych Appearance: grossly normal and well kempt Mental Status: mental status grossly normal Speech and movement: Normal speech and movement present and Clear speech present Affect: normal affect Attitude: cooperative Thought process: Normal thought process present Thought content: Normal thought content present Insight: Fair insight present (Psych) Judgement: Fair judgement present (Psych) Assessment & Plan Assessment & Plan (1) Microhematuria: Code(s): R31.29 - Other microscopic hematuria Category: Medical (2) Recurrent urinary tract infection: Code(s): N39.0 - Urinary tract infection, site not specified Category: Medical (3) Nicotine dependence in remission: Code(s): F17.201 - Nicotine dependence, unspecified, in remission Category: Medical Plan In office urinalysis results with the patient today; as noted above; will send for urine cytology and urine culture; will await results for potential treatment Most recent CT urogram results reviewed with the patient today. We did discussed potential causes of microscopic hematuria as well as recurrent urinary tract infections; we discussed further workup in risks and benefits of these interventions Discussed UTI prevention with D mannose supplement, vitamin-C, increasing fluid intake, behavioral therapy with timed voiding, perineal hygiene and postcoital voiding, and management of constipation with stool softeners and increased fiber intake. Prescription provided for postcoital antibiotic therapy; we discussed specific directions All questions were answered. Follow-up next available in office cystoscopy; or sooner with any issues, concerns, and or questions. Orders: Orders AMB Urinalysis Automated Today Z13.9 - Encounter for screening, unspecified Urine Culture Today N39.0 - Urinary tract infection, site not specified, R31.29 - Other microscopic hematuria Urine Cytology Today R31.29 - Other microscopic hematuria Medications: Refilled nitrofurantoin macrocrystal To be taken postcoital as discussed 100 mg PO .Postcoital 90 caps 1RF 90 days N39.0 - Urinary tract infection, site not specified Patient Instructions: The patient had an opportunity to ask questions regarding the treatment plan. All questions were answered. Physical exam, labs, and imaging were discussed and reviewed in detail. As well as risks, benefits, and discussion of treatment choices. No major barriers to understanding were identified. The patient expressed understanding and agreement with the above treatment plan. The patient was made aware they should contact our office by phone for worsening of their current condition, the appearance of new symptoms, or with any questions or concerns. Compliance is encouraged with any medications and follow up testing that is ordered. It is a privilege to be allowed the opportunity to participate in? your urological care.? Again, if you have any questions or concerns If you have any questions or concerns please do not hesitate to contact me. The office is [phone]. This note is constructed using voice recognition software. While every effort has been made to ensure accuracy nutrition faculty member errors may have been included. Yours sincerely, JOE Reddy-CANDELARIA Coding Diagnoses Microhematuria R31.29 Recurrent urinary tract infection N39.0 Nicotine dependence in remission F17.201
--- OUTSIDE RECORDS SUMMARY | 2025-05-12 18:39 | XMS_ITS | Patient Health Record ---
Author Organization [employer] Address [address] [place] [address] Care Team Providers Care Custodial Worker Name Role Phone Andrew Glaser Unavailable [phone] Reason For Referral No Information Plan Of Treatment No Information
--- OUTSIDE RECORDS SUMMARY | 2025-05-12 18:39 | XMS_ITS | Data Portability ---
Author Organization [place] - [facility], [facility] Address [address] [place] [address] Care Team Providers Care Weld Fitter Name Role Phone BARBARA PARNELL Primary Care Provider [phone] Assessment Encounter Date Assessment Date Assessment LastModified [...] - room 1 right knee 025 025 [facility] Office, [address] [facility] [address], [place], [address], 5 07:15:44 Medication Orders None recorde d. [...] a4ajBk vP9nXo QUaueC m3YtLR FvZlgJ JJ8mAn HZtai3 2d2458 AC0Kqb X6DUae iKiQtr MwF INTERFACE [facility] Office [address], [place], [address], 08/17/2024 10:02:30 08/17/19 25 08/17/2024 XR, knee, 4 or more view http:/ [email or web address] ?Encry pted=s hAaTro YD8dLq bEUv6g %2BXZw aYqtaq 0bqfl% 2Fg9IQ a4ajBk vP9nXo QUaueC m3YtLR FvZlgJ JJ8mAn HZtai3 9f0900 AC0Kqb X6DUae iKiQtr MwF INTERFACE [facility] [address], [place], [address], 08/17/2024 10:02:32 Result Notes Documentation Provider Name and Address Organization Details Recorded Time Xr, Knee, 4 Or More View : [email or web address]? Encrypted=ldVqEpkHL4hPwiT Uv6g%9HNGauEgdnl1kbqx%2Fg 5FAv8gfCfrB7uVlHQitrFc9Uj XJNfFzjQMC0gOyLGvxs95e352 4LL9SmiN9RWsnoIdUecIgE Not Available [facility] 08/17/2024 10:02: 31 Xr, Knee, 4 Or More View : [email or web address]? Encrypted=rrJbQmzXU7wUjmJ Uv6g%3THMvlAipos3vlqi%2Fg 2FLn0vgWmnR0fMfIYzolHy1Zg AFQyKahPYV6oUnCEipx37m457 6KS0IyqL8ZVusxYjJemPzJ Not Available [facility] 08/17/2024 10:02: 33 Problems Name Problem SNOMED Code Status Onset Date Resolution Date Notes Provider Name and Address Organization Details Recorded Time Osteoarthri tis of knee 783999710 Active 2023 Nathaniel Byrnes PA-C [address], [place], [address], [facility] 4 14:22:45 Pain of knee region 3798409313 Active 2024 Nathaniel Byrnes PA-C [address], [place], [address], [facility] 5 09:50:28 Osteoarthri tis of right knee joint 2353040648030 00 Active 2024 Nathaniel Byrnes PA-C [address], [place], [address], [facility] 5 10:20:20 Problem Notes None recorded. Procedures Surgical History Date Name Laterality Status Provider Name and Address Organization Details Recorded Time 5 Knee Kenalog 40 1cc Injection, Bilateral active Nathaniel Byrnes PA-C [address], [place], [address], [facility] 02/09/2025 13:07:29 5 Knee Kenalog 40 1cc Injection, Bilateral completed Marcela Pardo [facility] 11/12/2024 15:20:40 5 Sports Knee 4&1 completed Nathaniel Byrnes PA-C [address], [place], [address], [facility] 08/25/2024 06:45:07 5 Sports Knee 4&1 completed Nathaniel Byrnes PA-C [address], [place], [address], [facility] 08/17/2024 10:20:13 4 Sports Knee 4&1 completed Natahniel Byrnes PA-C [address], [place], [address], [facility] 05/24/2024 19:40:10 4 Sports Knee 4&1 completed Nathaniel Byrnes PA-C [address], [place], [address], [facility] 02/25/2024 06:44:25 4 Sports Knee 4&1 completed Nathaniel Byrnes PA-C [address], [place], [address], [facility] 11/26/2023 14:22:41 Imaging Results None recorded. [...] Updated DateTime 08/17/2024 165.1 cm 26.3 kg/m2 55604.59 g Nathaniel Byrnes PA-C [address] [facility], [place], [address], [facility] 08/17/2024 09:50:06 Date Recorded Body height Body mass index (BMI) Body weight Provider Name and Address Organization Details Last Updated DateTime 08/25/2024 165.1 cm 26.3 kg/m2 72309.59 g Nahtaniel Byrnes PA-C [address] [facility], [place], [address], [facility] 08/25/2024 08:47:57 Date Recorded Body height Body mass index (BMI) Body weight Provider Name and Address Organization Details Last Updated DateTime 11/12/2024 165.1 cm 26.3 kg/m2 43506.59 g Marcela Pardo [facility] 11/12/2024 14:54:16 Date Recorded Body height Body mass index (BMI) Body weight Provider Name and Address Organization Details Last Updated DateTime 02/25/2024 165.1 cm 26.3 kg/m2 81032.59 g Nathaniel Byrnes PA-C [address], [place], [address], [facility] 02/25/2024 08:29:32 Date Recorded Body height Body mass index (BMI) Body weight Provider Name and Address Organization Details Last Updated DateTime 05/25/2024 165.1 cm 26.3 kg/m2 53388.59 g Nathaniel Byrnes PA-C [address], [place], [address], [place] - [facility] 05/25/2024 08:22:09 Social History Question Answer Notes LastModified by [employer] Reservations Details LastModified Time Tobacco Smoking Status Never Smoker Marcela Char cedeño [place] - [facility] 11/12/2024 14:54:39 Which Illicit Or Recreational Drugs Have You Used? Marijuana Information not available 11/12/2024 What Is Your Relationship Status? Single Information not available 11/12/2024 Sex: Unknown Functional Status Question Answer Note LastModified by [employer] Details LastModified Time Do you use any [...] ICD10 Code Diagnosis IMO Codes Diagnosis Note [id number] BENNY Cleary [address] [place] [address] 11/26/2023 13:59:59 12/15/2023 09:35:37 Osteoarthritis of knee 097279635 M17.9 [id number] BENNY Cleary [address] [place] [address] 02/25/2024 08:25:07 03/10/2024 09:14:23 Osteoarthritis of knee 996677790 M17.9 [id number] BENNY Cleary [address] [place] [address] 05/25/2024 07:59:25 06/09/2024 09:57:58 Osteoarthritis of knee 302351494 M17.[id number] [place] [address] 08/17/2024 08:55:04 09/02/2024 07:15:44 Pain of knee region 0921621150 M25.561 96087302 Osteoarthr itis of right knee joint 4597541347 74304 M17.11 0847583 4745422 BENNY Cleary [employer] [address] [place] [address] 08/25/2024 08:14:10 09/10/2024 07:19:20 Osteoarthritis of knee 864458966 M17.9 [id number] BENNY Cleary - [address] [place] [address] 11/12/2024 14:14:26 11/24/2024 11:56:57 Pain of knee region 1321353089 M25.561 66228653 Osteoarthr itis of right knee joint 3802014684 82706 M17.11 1031494 Health Concerns Section Related Observation LastModified by Organization Detai ls LastModified Time None Recorded Concern Status LastModified by Organization Details LastModified Time None Recorded Advance Directives Directive None Recorded Payers Insurance Date Sequence Insurance Name Policy Number Policy Diggs Covered Member ID Diggs Member ID Guarantor Name 08/17/2024 1 MEDICAID-[facility] (MEDICAID) Angie I Mathis [id number] Angie Mathis 02/09/2025 1 [place] [employer] Angie I Del Fleming [id number] Angie Mathis 08/17/2024 1 MEDICAID-[facility] (MEDICAID) Angie I Mathis [id number] Angie Mathis 02/09/2025 2 [place] Angie I Mathis [id number] Angie Mathis 08/17/2024 1 [place] [facility] (MEDICAID) Angie Mathis [id number] Angie GabrielMathis 05/25/2024 1 [place] [facility] PLAN Angie Mathis [id number] Angie GabrielMathis Notes Date Note Type Note [...] versus continued conservative treatment. Nathaniel Byrnes PA-C [address] [place], [place] [address] [address], [place], [address], [place] - [facility] 02/25/2024 08:35:15 05/25/2024 text/html [...] versus continued conservative treatment. Nathaniel Byrnes PA-C [address] [place] [address], [place], [address], [facility] - [facility] 05/25/2024 08:26:11 08/17/2024 text/html I am [...] oriented x3. Normal insight, affect, and grooming. BINGO CASHIER: Gross motor coordination is intact. No spasticity [...] views ordered and independently reviewed previously at [facility] of the right knee demonstrates medial [...] of compliance regarding home exercises moving forward. [employer] speech recognition er registrar software was used to create portions of this document. An attempt at proofreading has been made to minimize errors. Please call for corrections Nathaniel Byrnes PA-C [address], [place], [address], [facility] 08/17/2024 10:21:41 08/25/2024 text/html I am [...] continued conservative treatment. Nathaniel Byrnes PA-C [address], [place], [address], [facility] 08/25/2024 09:00:41 11/12/2024 [...] views ordered and independently reviewed previously at [facility] of the left and right knee [...] of compliance regarding home exercises moving forward. [facility] speech recognition er registrar software was used to create portions of this document. An attempt at proofreading has been made to minimize errors. Please call for corrections Nathaniel Byrnes PA-C [facility] [address], [place], [address], [facility] - [facility] 11/12/2024 15:44:54 OBGyn Episode No OBEpisode recorded.
== END 2025-05-12 13:47 | disposition home or self-care (01) ==
LOC: HO.HUSH 13:02
PROVIDERS: PCP Family Medicine; Visit Provider Nurse Practitioner Family
DX: Z13.9 Encounter for screening, unspecified (principal)

== ENCOUNTER 2025-05-12 13:01 | Outpatient (REF) | payer OTHER, SELFPAY ==
--- OUTSIDE RECORDS SUMMARY | 2025-05-12 18:51 | XMS_ITS | Encounter Summary ---
Author Organization [employer] Address [address] [facility] 7t [place] [address] Care Team Providers Care Wire Weaver Cloth Name Role Phone Radha Escalera DO Primary Care Provider + [phone] Reason for Visit * Reason Comments Med Refill Encounter Details Date Type Department Care Team (Late st Contact Info) Description 02/20/2025 Refill [facility] CH[facility] MED & PEDS [address] [place], [place] [phone] Radha Escalera DO [address] [facility] [place], [place] [phone] Hypertension, unspecified type Social History Tobacco Use [...] as of this encounter Care Teams Wire Weaver Cloth Relationship Specialty Start Date End Date Radha Escalera DO [address] [place] [address] PCP - General Family Medicine 06/23/18 documented as of this encounter
--- OUTSIDE RECORDS SUMMARY | 2025-05-12 18:51 | XMS_ITS | Encounter Summary ---
Author Organization [employer] Address [address] [facility] [address]t [place] [address] Care Team Providers Care Christmas Tree Contractor Name Role Phone Radha Escalera DO Primary Care Provider + [phone] Reason for Visit * Reason Comments Med Refill Encounter Details Date Type Department Care Team ([facility] st Contact Info) Description 05/23/2024 Refill [facility] [address] [place] [address] Radha Escalera DO [address] [place] [address] Candidal intertrigo Social History Tobacco Use Types [...] documented as of this encounter Care Teams Christmas Tree Contractor Relationship Specialty Start Date End Date Radha Escalera DO [address] [place] [address] PCP - General Family Medicine 06/23/18 documented as of this encounter
--- OUTSIDE RECORDS SUMMARY | 2025-05-12 18:51 | XMS_ITS | Encounter Summary ---
Author Organization [employer] Address [address] [facility] [address] [place] [address] Care Team Providers Care Gas Pumper Name Role Phone Radha Escalera DO Primary Care Provider + [phone] Reason for Visit * Reason Comments Med Change Request Encounter Details Date Type Department Care Team ([facility] st Contact Info) Description 11/06/2024 Refill [facility]ALK[facility] [address] [place], [place] [phone] Name, MD Kam [address] [place] [address] Social History Tobacco Use Types Packs/Day Years [...] documented as of this encounter Care Teams Gas Pumper Relationship Specialty Start Date End Date Radha Escalera DO [address] [place] [address] PCP - General Family Medicine 06/23/18 documented as of this encounter
--- OUTSIDE RECORDS SUMMARY | 2025-05-12 18:51 | XMS_ITS | Encounter Summary ---
Author Organization [employer] Address [address] [facility] [address] [place] [address] Care Team Providers Care Billing Customer Service Representative Name Role Phone Radha Escalera DO Primary Care Provider [phone] Encounter Details Date Type Department Care Team (Latest Contact Info) Description 09/08/2018 Abstract [facility] CONVERSIONS Dental, Provider, DDS Social History [...] on filedocumented in this encounter Care Teams Billing Customer Service Representative Relationship Specialty Start Date End Date Radha Escalera DO [address] [place] [address] PCP - General Family Medicine 06/23/18 documented as of this encounter
--- OUTSIDE RECORDS SUMMARY | 2025-05-12 18:51 | XMS_ITS | Encounter Summary ---
Author Organization [employer] Address [address] [facility] 7t [place] [address] Care Team Providers Care Systems Navigator Name Role Phone Radha Escalera DO Primary Care Provider + [phone] Reason for Visit * Reason Comments Med Refill Encounter Details Date Type Department Care Team (Late st Contact Info) Description 03/11/2025 Refill [facility] [address] [place] [address] Radha Escalera DO [address] [place] [address] Vitamin D deficiency Social History Tobacco Use [...] documented as of this encounter Care Teams Systems Navigator Relationship Specialty Start Date End Date Radha Escalera DO [address] [place] [address] PCP - General Family Medicine 06/23/18 documented as of this encounter
--- OUTSIDE RECORDS SUMMARY | 2025-05-12 18:51 | XMS_ITS | Encounter Summary ---
Author Organization [employer] Address [address] [facility] 7t [place] [address] Care Team Providers Care Caregivers Homecare Name Role Phone Radha Escalera DO Primary Care Provider [phone] Encounter Details Date Type Department Care Team (Late st Contact Info) Description 10/03/2022 Orders Only [facility] CHC MED & PEDS [address] [place] [address] Radha Reynolds LPN Social History Tobacco Use [...] documented as of this encounter Care Teams Caregivers Homecare Relationship Specialty Start Date End Date Radha Escalera DO [address] [place] [address] PCP - General Family Medicine 06/23/18 documented as of this encounter
--- OUTSIDE RECORDS SUMMARY | 2025-05-12 18:51 | XMS_ITS | Encounter Summary ---
Author Organization [employer] Address [address] [facility] [address] [place] [address] Care Team Providers Care Rn Eligibility Name Role Phone Radha Escalera DO Primary Care Provider + [phone] Encounter Details Date Type Department Care Team (Late st Contact Info) Description 08/16/2022 Orders Only [facility] CHC MED & PEDS [address] [place], [place] [phone] Radha Reynolds LPN Social History Tobacco Use [...] documented as of this encounter Care Teams Rn Eligibility Relationship Specialty Start Date End Date Radha Escalera DO [address] [place], [place] [phone] PCP - General Family Medicine 06/23/18 documented as of this encounter
--- OUTSIDE RECORDS SUMMARY | 2025-05-12 18:51 | XMS_ITS | Encounter Summary ---
Author Organization [employer] Address [address] [facility] [address] [place] [address] Care Team Providers Care Dry Transfer Man Name Role Phone Radha Escalera DO Primary Care Provider + [phone] Encounter Details Date Type Department Care Team (Late st Contact Info) Description 10/03/2023 Orders Only [facility] MEDICINE [address] [place], [place] [phone] Provider, MD Boris Social History Tobacco Use [...] documented as of this encounter Care Teams Dry Transfer Man Relationship Specialty Start Date End Date Radha Escalera DO [address] [place] [address] PCP - General Family Medicine 06/23/18 documented as of this encounter
--- OUTSIDE RECORDS SUMMARY | 2025-05-12 18:51 | XMS_ITS | Encounter Summary ---
Author Organization [employer] Address [address] [facility] 7t [place] [address] Care Team Providers Care Presbyterian Clergy Name Role Phone Radha Escalera DO Primary Care Provider + [phone] Reason for Visit * Reason Comments Med Refill Encounter Details Date Type Department Care Team ([facility] st Contact Info) Description 03/01/2025 Refill [facility] WALK[facility] [address] [place] [address] Radha Escalera DO [address] [place] [address] Hyperlipidemia, unspecified hyperlipidemia type Social History Tobacco [...] documented as of this encounter Care Teams Presbyterian Clergy Relationship Specialty Start Date End Date Radha Escalera DO [address] [place] [address] PCP - General Family Medicine 06/23/18 documented as of this encounter
--- OUTSIDE RECORDS SUMMARY | 2025-05-12 18:51 | XMS_ITS | Encounter Summary ---
Author Organization [employer] Address [address] [facility] [address]t [place] [address] Care Team Providers Care Pallet Stone Inserter Name Role Phone Radha Escalera DO Primary Care Provider + [phone] Encounter Details Date Type Department Care Team (Late st Contact Info) Description 04/01/2025 Results Follow-Up [facility] MEDICINE [address] [place] [address] Carol Hdez MD [address] [place] [address] Culture, Urine, Routine Social History Tobacco Use [...] documented as of this encounter Care Teams Pallet Stone Inserter Relationship Specialty Start Date End Date Radha Escalera DO [address] [place] [address] PCP - General Family Medicine 06/23/18 documented as of this encounter
--- OUTSIDE RECORDS SUMMARY | 2025-05-12 18:51 | XMS_ITS | Clinical Summary ---
Author Organization [facility] Address [address] [facility] [address] [place] [address] Care Team Providers Care Geodetic Computator Name Role Phone Radha Escalera DO Primary [...] for itching. 30 capsule 07/02/19 24 Active Ventolin HFA 108 (90 Base) [...] (pain). 150 g 3 04/16/20 24 Active Blood Pressure kit 1 each 2 times daily. 1 kit 09/23/19 25 026 Active D3 50 MCG (1999) tabletIndications :Vitamin D deficiency TAKE 1 TABLET BY MOUTH EVERY DAY 90 tablet 1 10/19/19 25 Active omeprazole (PriLOSEC) [address] capsule TAKE 1 CAPSULE BY ORAL ROUTE TWICE A DAY X 3 MONTHS, THEN RETURN TO ONCE A DAY DOSE 180 capsule 3 10/19/19 25 Active estradiol (Yuvafem) 10 MCG tablet vaginal tablet INSERT ONE(1) TABLET INTRAVAGINALLY ONCE DAILY FOR 2 WEEKS, THEN INSERT ONE(1) TABLET TWICE WEEKLY 40 tablet 11 12/18/19 25 Active clotrimazole-beta methasone (Lotrisone) creamIndications: Candidal intertrigo APPLY TO AFFECTED AREA TWICE A DAY 30 g 1 12/18/19 25 Active fluticasone (Flonase) 50 MCG/ACT nasal sprayIndications: [...] MORNING 60 tablet 11 01/20/20 25 Active loratadine (Claritin) 10 MG tablet TAKE 1 TABLET BY MOUTH DAILY 90 tablet 4 03/11/20 25 Active phenazopyridine (Pyridium) 100 MG tabletIndications :Acute cystitis without hematuria Take 1 tablet (100 mg) by mouth 2 times daily. 6 tablet 03/30/20 25 026 Active escitalopram (Lexapro) 5 MG tablet TAKE 1 TABLET BY MOUTH DAILY 30 tablet 11 04/11/20 25 Active sulfamethoxazole- trimethoprim (Bactrim DS) 800-160 MG tablet Take 1 tablet by mouth 2 times daily for 5 days. 10 tablet 04/22/20 25 11/05/2 025 fluconazole (Diflucan) 150 MG tablet Take 1 tablet (150 mg) by mouth 1 (one) time per week for 14 days. 2 tablet 04/26/20 25 025 Active Problems Problem Noted Date Diagnosed Date Dysuria 04/22/2025 Assessment & Plan (04/22/2025 4:31 PM EDT): Orders: Culture, Urine, Routine POCT urinalysis dipstick manually resulted (CPT 66200) Bacterial Vaginosis Panel Ill-fitting dentures 03/07/2025 Recurrent [...] visit.ECC=inadequate. Rebook for repeat sampling.colpo, [facility]referred from [facility], Radha Escalera DO colpo performed 03/09/20, [...] Encounters Date Type Department Care Team Description 04/26/2025 Results Follow-Up [facility] [address] [place] [phone] Lenora Andrews, EH Culture, Urine, Routine, POCT urinalysis dipstick manually resulted (CPT 98800), Bacterial Vaginosis Panel 04/22/2025 2:00 PM EDT Office Visit [facility] [address] [place] [address] Lenora Andrews NP Dysuria (Primary Dx); Vaginal discharge 04/22/2025 Travel 04/20/2025 Orders Only [facility] External Provider, [facility] 04/08/2025 Refill [facility] [address] [place] [address] Radha Escalera DO 04/01/2025 Results Follow-Up [facility] [address] [place] [phone] Carol Hdez MD Culture, Urine, Routine 03/30/2025 2:20 PM EDT Office Visit [facility] [address] [place] [phone] Carol Hdez MD Acute cystitis without hematuria (Primary Dx); Routine screening for STI (sexually transmitted infection) 03/30/2025 Orders Only [address] [address] Jannette Ontiveros MD Acute cystitis without hematuria 03/30/2025 Orders Only GENERIC EXTERNAL DATA DEPARTMENT Provider, Generic External Data 03/11/[address] [address] Radha Escalera DO Vitamin D deficiency 03/10/[address] [address] Radha Escalera DO 03/08/2025 10:45 AM EDT Office Visit [facility] [address] [place] [phone] Radha Escalera DO Essential hypertension (Primary Dx); Depression with anxiety; Chronic gastroesophageal reflux disease; History of hepatitis C; ASCUS with positive high risk HPV cervical; Left axillary pain; Healthcare maintenance; Dietary counseling; Exercise counseling; Acute URI 03/08/2025 Travel 03/07/2025 2:30 PM EDT Office Visit [facility] [address] [place] [phone] Jhonny Garza DDS Ill-fitting dentures (Primary Dx) 03/07/2025 Telephone [facility] [address] [place] [phone] Radha Escalera DO Chart Prep 03/01/2025 Refill [facility] [address] [place] [address] Radha Escalera DO Hyperlipidemia, unspecified hyperlipidemia type 02/28/2025 Patient Outreach [facility] [address] [place] [address] Radha Escalera DO Pre-visit Planning (SDOH screening completed on 01/26/2025) 02/23/2025 3:30 PM EDT Office Visit [facility] [address] [place] [address] Jhonny Garza DDS Complete edentulism, unspecified edentulism class (Primary Dx) 02/20/2025 Refill [facility] [address] [place] [address] Radha Escalera DO Hypertension, unspecified type 02/14/2025 Refill [facility] [address] [place] [address] Radha Escalera DO Vitamin D deficiency 02/09/2025 Orders Only GENERIC EXTERNAL DATA DEPARTMENT Provider, Generic External Data from Last 3 Months Immunizations Immunization Administration [...] 06/01/2025 11/29/2024, , 12/13/2020, Additional history exists COVID-19 Vaccine (7 - Moderna risk season) 2025 04/18/2025, 04/16/2024, 04/24/2022, Additional history exists Cervical Cancer Screening 11/30/2025 HPV/Cotest 11/30/2025 11/30/2024, 0 09/2023, 08/10/2021, Additional history exists Pap Smear 11/30/2025 11/30/2024, 0 09/2023, 08/10/2021 SDOH Screening 01/26/2026 01/26/2025 Mammogram 02/24/2026 02/24/2025, 02/21, 01/07/2024, Additional history exists Depression Screening 03/08/2026 03/08/2025, 03/08/20 25 Tobacco Screening 04/22/2026 04/22/2025 Dental X-Ray: Full Mouth 12/01/2027 025, 12/13/2020, 12/13/2020, Additional history exists Lipid Panel 03/03/2029 03/03/2024, 07/2022, 05/13/2022, Additional [...] Aged 60 years or older Completed 03/15/2024 Influenza Vaccine Completed 04/18/2025, , 04/15/2023, Additional [...] DIPSTICK Routine 04/22/2025 2:14 PM EDT Dysuria BACTERIAL VAGINOSIS PANEL Routine 04/22/2025 1:58 PM EDT Dysuria Vaginal discharge CULTURE, URINE, ROUTINE Routine 04/22/2025 1:[address] UROGRAM WO CONTRAST [...] CYTOPATH-CELL ENHANCED Routine 02/09/2025 2:00 PM EDT HPV DNA, LOW/HIGH RISK Routine [...] (ABNORMAL) POCT urinalysis dipstick manually resulted (CPT 37781) (04/22/2025 2:14 PM EDT) Only the most recent of2 resultswithin [...] Random) 04/22/2025 2:14 PM EDT Lenora Andrews [employer]OM[employer] POINT OF CARE TEST ENTER/EDIT OR DERABLES Final Result * (ABNORMAL) Bacterial Vaginosis Panel (04/22/2025 1:58 PM EDT) TRICHOMONAS VAGINALIS DETECTION BY PCR NOT DETECTED Not Detect [facility] BACTERIAL VAGINOSIS DETECTION BY PCR NEGATIVE Negative [facility] Comment:The BV organism targ ets [...] GROUP DETECTION BY PCR DETECTED(A) Not Detect [facility] Patricia glab krusei PCR NOT DETECTED Not Detect [facility] Swab Vaginal structure / Unknown 04/22/2025 1:58 PM EDT 04/22/2025 6:31 PM EDT Lenora Andrews NP LAB MICROBIOLOGY - GENERAL ORDER ROSAS Final Result [facility] [address] [place] [phone] * Culture, Urine, Routine (04/22/2025 1:58 PM EDT) Only the most recent of2 resultswithin the time period is included. Urine Urine specimen obtained by clean catch procedure / Unknown 04/22/2025 1:58 PM EDT 04/22/2025 6:31 PM EDT Comment:UACC Narrative [facility] - 04/24/2025 7:38 AM EST Escherichia coli Quant > 100,000 cfu/mL Escherichia coli: Ampicillin 8(S) Escherichia coli: Cefazolin (Urine) 4(S) Escherichia coli: Cefepime <=0.12(S) Escherichia coli: Ceftriaxone <=0.25(S) Escherichia coli: Ciprofloxacin 1(R) Escherichia coli: Gentamicin <=1(S) Escherichia coli: Nitrofurantoin <=16(S) Escherichia coli: Trimethoprim/Sulfamethoxazole <=20(S) Specimen Source: Urine clean catch us Lenora Andrews NP LAB MICROBIOLOGY - GENERAL ORDER ROSAS Final Result Performing Organization Address City/State/[facility] Co de Phone Number [facility] [address] [place] [address] [phone] * CT Urogram w/o Contrast (04/20/2025 9:53 PM EDT) Anatomical Region Laterality Modality Ureter, Upper urinary tract Comp uted Tomography 04/20/2025 9:53 PM EDT Narrative 04/20/2025 9:55 PM EDT [place] [address] [address] Scan Report Signed Patient: Angie Mathis MR#: [id number] 5 : 1960 Acct:[id number] Age/Sex: 64 / F ADM Date: 04/20/25 Loc: HO.CT Attending Dr: Sejal HAYS Ordering Physician: Sejal Abraham Date of Service: 04/20/25 Procedure(s): CT urogram Accession Number(s): [id number] cc: Carol Hdez MD; Sejal Abraham Report Number: [id number]: Total DLP = 759.00 mGy-cm Reason for [...] in OV> 04/20/252153 DD/ 52 TD/TT: 04/20/252152 Explosive Ordnance Technician: Procedure Note Donotuseinterpreter, Image - 04/20/[address] [place] [address] [address] Scan Report Signed Patient: Sammie Mathis#: [id number] 5 : 1960Acct:[id number] Age/Sex: 64 / FADM Date: 04/20/25 Loc: HO.CT Attending Dr: Sejal HAYS Ordering Physician: Sejal Abraham Date of Service: 04/20/25 Procedure(s): CT urogram Accession Number(s): [id number] cc: Carol Hdez MD; Sejal Abraham ELASTIC TAPE INSERTER- Report Number: [id number]: Total DLP = 759.00 mGy-cm Reason for [...] in OV> 04/20/252153 DD/ 52 TD/TT: 04/20/252152 Explosive Ordnance Technician: [facility] External Provider IMG CT PROCEDURES Edited Result - Final * Chlamydia/N. Gonorrhoeae RNA, TMA, Vagina (03/30/2025 3:43 PM EDT) CT PCR NOT DETECTED Not Detect. [facility] Comment:A not detected test result [...] psychologicalconsequences. NG PCR NOT DETECTED Not Detect. [facility] Comment:A not detected test result [...] GENERAL ORDERABLES Final Result Performing Organization Address City/[facility]/ZIP Co de Phone Number [facility] [address] [place] [phone] * Syphilis Screen (03/30/2025 3:31 PM EDT) Syphilis Screen Nonreactive Nonreactive [facility] Blood Venous blood specimen / Unknown 03/30/2025 3:31 PM EDT 03/30/2025 4:09 PM EDT Carol Hdez MD LAB BLOOD ORDERABLES Final Result Performing Organization Address [facility] de Phone Number [facility] [address] [place] [phone] * (ABNORMAL) Urinalysis, Complete, with Reflex to Culture (03/30/2025 3:31 PM EDT) Color Urine Yellow [facility] Appearance Urine Clear [facility] PH 6.5 5.0 - 9.0 [facility] Glucose Urine UA Negative Negative mg/dL [facility] Urine Blood Trace(A) Negative [facility] Specific [place] - Urine 1.020 1.005 - 1.025 [facility] Urine Protein Negative Neg-Trace mg/dL [facility] Urine Ketones Negative Negative mg/dL [facility] Nitrite Urine Negative Negative [facility] Leukocyte Esterase Urine Moderate (2+)(A) Negative [facility] RBC Urine 3-5(A) 0 - 2 /HPF [facility] Urine WBC >50(A) 0 - 5 /HPF [facility] Urine Squamous Epithelial Cell 3-5 0 - 2 /HPF [facility] Urine Bacteria Trace None Seen [facility] Hyaline Casts, Urine 0-2 0 - 2 /LPF [facility] Urine 03/30/2025 3:31 PM EDT 03/30/2025 4:12 PM EDT Narrative [facility] - 03/30/2025 4:37 PM EDT Urine, Clean Catch us Carol Hdez MD LAB URINE ORDERABLES Final Result Performing Organization Address City/[facility]/ZIP Co de Phone Number [facility] [address] [place] [phone] * Creatinine, Serum (03/30/2025 3:31 PM EDT) Creatinine, Serum 0.64 0.5 - 1.4 mg/dL [facility] Estimated Glomerular Filt Rate >60 [facility] Comment:Chronic Kidney Disea se: Estimated GFR < 60 mL/min/1.07g0Ymrcel Kidney Disease: Estimated GFR < 15 mL/min/1.73m2 03/30/2025 3:31 PM EDT 03/30/2025 4:09 PM EDT us Generic External Data Provider LAB BLOOD ORDERAB LES Final Result Performing Organization Address [facility] Co de Phone Number [facility] [address] [place] [phone] * HIV-1/2 Antigen and Antibodies, Fourth Generation, with Reflexes (03/30/2025 3:31 PM EDT) HIV AB/AG Nonreactive Nonreactive [facility] Comment:HIV-1 p24 Ag and/or HIV-1/HIV-2 Ab not detected.A test result that is nonreactive does not exclude thepossibility of exposure to or infection with HIV-1 and/orHIV-2. Nonreactive results in this assay for individualswith prior exposure to HIV-1 and/or HIV-2 may be due toantigen and antibody levels that are below the limit ofdetection of this assay.The Flypad HIV Ag/Ab Combo assay result andsupplemental assay results should be interpreted inconjunction with the patient's clinical presentation,history and other laboratory results. If the results areinconsistent with clinical evidence, additional testing issuggested to confirm the result. Blood Venous blood specimen / Unknown 03/30/2025 3:31 PM EDT 03/30/2025 4:09 PM EDT Carol Hdez MD LAB BLOOD ORDERABLES Final Result Performing Organization Address [facility] Co de Phone Number [facility] [address] [place] [address] [phone] * (ABNORMAL) BUN (Blood Urea Nitrogen) (03/30/2025 3:31 PM EDT) [facility] Urea Nitrogen (BUN) 18(H) 9 - 16 mg/dL [facility] 03/30/2025 3:31 PM EDT 03/30/2025 4:09 PM EDT [employer] External Data Provider LAB BLOOD ORDERAB LES Final Result Performing Organization Address [facility] Co de Phone Number [facility] [address] [place] [phone] * POCT Rapid Covid-19 BinaxNOW (03/08/2025 11:51 AM EDT) [facility] Rapid COVID Ag Negative Swab 03/08/2025 11:5 1 AM EDT Radha Escalera DO POINT OF CARE TEST ENTER/CAROLINA T ORDERABLES Final Result * POCT Rapid Influenza B OSOM (03/08/2025 11:51 AM EDT) [facility] Rapid Influenza B Ag Negative Negative, Indeterminate Swab 03/08/2025 11:5 1 AM EDT Radha Quinonezbairon DO POINT OF CARE TEST ENTER/CRAOLINA T ORDERABLES Final Result * POCT Rapid Influenza A OSOM (03/08/2025 11:51 AM EDT) Rapid Influenza A Ag Negative Negative, Indeterminate Swab Nasopharyngeal structure / Unknown 03/08/2025 11:51 AM EDT Radha Escalera DO POINT OF CARE TEST ENTER/CAROLINA T ORDERABLES Final Result * BI Mammogram Screening Tomosynthesis Bilateral (02/24/2025 1:00 PM EDT) Anatomical Region Laterality Modality Breast Bilateral Mammography 02/24/2025 1:00 PM EDT Narrative 02/28/2025 10:56 AM EDT [address] [place] [address] Mammography Report Signed Patient: Angie Mathis MR#: [id number] 5 : 1960 Acct:[id number] Age/Sex: 64 / F ADM Date: 02/24/25 Loc: HO.MAMMO Attending Dr: Tameka Stoddard CNM Ordering Physician: TAMEKA STODDARD CNM Results: 1 Negative Date of Service: 02/24/25 Follow Up: 1 Year From [facility] Mammogram Procedure(s): MM tomosynthesis screening BI Accession Number(s): [id number] cc: Radha Escalera DO; TAMEKA STODDARD CNM [...] 02/28/25 1052 DD/ 1300 TD/TT: 02/24/25 1330 Explosive Ordnance Technician: Procedure Note Donotuseinterpreter, Image - 02/28/2025 [facility] [address] [place], [place] [address] Mammography Report Signed Patient: Sammie Mathis#: [id number] 5 : 1960Acct:[id number] Age/Sex: 64 / FADM Date: 02/24/25 Loc: HO.MAMMO Attending Dr: Tameka Stoddard CNM Ordering Physician: TAMEKA STODDARDesults: 1 Negative Date of Service: 02/24/25Follow Up: 1 Year From Orig ina Mammogram Procedure(s): MM tomosynthesis screening BI Accession Number(s): [id number] cc: Radha Escalera DO; TAMEKA STODDARD CNM [...] 02/28/25 1052 DD/ 1300 TD/TT: 02/24/25 1330 Explosive Ordnance Technician: Tameka Stoddard CNM IMG BI PROCEDURES Edited Result - Final * BD DEXA Axial (02/24/2025 1:00 PM EDT) Anatomical Region Laterality Modality Body Radiographic Jessi ging 02/24/2025 1:00 PM EDT Narrative 02/24/2025 2:32 PM EDT [facility] [address] [place] [address] Mammography Report Signed Patient: Angie Mathis MR#: [id number] 5 : 1960 Acct:[id number] Age/Sex: 64 / F ADM Date: 02/24/25 Loc: HO.MAMMO Attending Dr: Tameka Stoddard CNM Ordering Physician: TAMEKA STODDARD CNM Results: Date of Service: 02/24/25 Follow Up: Procedure(s): XR DEXA axial skeleton Accession Number(s): [id number] cc: Radha Escalera DO; TAMEKA STODDARD CNM STUDY: DUAL ENERGY X-RAY ABSORPTIOMETRY / DXA REASON FOR EXAM: Female, 64 years old baseline TECHNIQUE: Bone Mineral Density (BMD) measurements of the lumbar spine and left hip were obtained using Section 101 COMPARISON: None FINDINGS: L2-L4 BMD: 1.593 g/cm2 [...] Stewart Mcconnell MD 02/24/2025 02:29 PM EDT RP Dictated By: Stewart Mcconnell MD Signed By: <Electronically signed by Stewart Mcconnell MD in OV> 02/24/25 1429 DD/ 1300 TD/TT: 02/24/25 1330 Explosive Ordnance Technician: Procedure Note Donotuseinterpreter, Image - 02/24/2025 [facility] [address] [place] [address] Mammography Report Signed Patient: Sammie Mathis#: [id number] 5 : 1960Acct:[id number] Age/Sex: 64 / FADM Date: 02/24/25 Loc: JUAN Attending Dr: Tameka Stoddard CNM Ordering Physician: TAMEKA STODDARDesults: Date of Service: 02/24/25Follow Up: Procedure(s): XR DEXA axial skeleton Accession Number(s): [id number] cc: Radha Escalera DO; TAMEKA STODDARD CNM STUDY: DUAL ENERGY X-RAY ABSORPTIOMETRY / DXA REASON FOR EXAM: Female, 64 years old baseline TECHNIQUE: Bone Mineral Density (BMD) measurements of the lumbar spine and left hip were obtained using Section 101 COMPARISON: None FINDINGS: L2-L4 BMD: 1.593 g/cm2 [...] 02/24/25 1429 DD/ 1300 TD/TT: 02/24/25 1330 Explosive Ordnance Technician: Tameka Stoddard [facility] IM DXA PROCEDURES Final Result * Cytopath-cell enhanced (02/09/2025 2:00 PM EDT) 02/09/2025 2:00 PM EDT 02/10/2025 10:20 AM EDT [facility] - 02/10/2025 3:43 PM EDT ----- ------- Name: Angie Mathis Age/Sex: 64/F : 1960 Unit#: [id number] Attend Dr: Sejal Abraham [facility] Re02/09/25 Status: DEP [facility] Disch: ----- ------- SPEC : [id number] RECD: 02/10/25-1020 STATUS: ROBERTA [facility] NUM: [id number] BRIAN: 02/09/25-[address]: Sejal Abraham [facility] ENTERED: 02/10/25-1050 SP TYPE: Cytology [...] developed and their performance characteristics determined by [facility]. They have not been cleared or approved by the U.S. Food and Drug Administration (FDA). However, the FDA has determined that such clearance or approval is not necessary. This laboratory is certified under the Clinical Laboratory Improvement Amendments of 1988 (CLIA) as qualified to perform high complexity clinical laboratory testing. Copies To: Radha Escalera DO [address] [address] Sejal Abraham [facility] [address] [place] [address] Dr. Ham Constanza [place], [place] [phone] [email or web address] CONTINUED ON NEXT PAGE ----- ------- Name: Angie Mathis Age/Sex: 64/F : 1960 Unit#: [id number] Attend Dr: Sejal Abraham [facility] Re02/09/25 Status: DEP [facility] Disch: ----- ------- SPEC : [id number] RECD: 02/10/25-1020 STATUS: ROBERTA MONSALVE NUM: [id number] BRIAN: 02/09/25-[address]: Sejal Abraham [facility] ENTERED: 02/10/25-105 SP TYPE: Cytology OTHR : Radha Escalera DO ORDERED: Cyto-enhanced ----- ------- Signed (signature on file) Annabelle Ferris 02/10/25 1543 ----- ------- END OF REPORT Generic External Data Provider LAB CYTOLOGY DOREEN ERAZO Final Result [facility] [address] [place] [phone] * (ABNORMAL) HPV DNA, Low/High Risk (11/30/2024 3:15 PM EDT) Pathologist [facility] HPV High Risk Positive(A) Negative [facility] HPV Genotype 16 Negative Negative [facility] HPV Genotype 18 Negative Negative [facility] Comment:HPV testing performe d at [facility] (CLIA#[id number]), [address] [place] [address].Testing for HPV was performed using the [place] [...] CNM LAB BLOOD ORDERABLES Heather jade Result [facility] [address] [place] [phone] * Pap Smear (11/30/2024 3:15 PM EDT) Swab Cervix uteri structure / Unknown 11/30/2024 3:15 PM EDT 12/01/2024 8:17 AM EDT Patricia [facility] - 12/06/2024 11:33 AM EDT ----- ------- Name: Angie Mathis Age/Sex: 64/F : 1960 Unit#: [id number] Attend Dr: TAMEKA STODDARD CNM Re11/30/24 Status: ABDIFATAH [facility] ----- ------- SPEC : [id number] RECD: 12/01/24 STATUS: ROBERTA MONSALVE NUM: [id number] BRIAN: 11/30/[address]: TAMEKA STODDARD CNM ENTERED: 12/01/24 SP TYPE: Pap [facility] OT DR: ORDERED: Pap Smear, PAP path [...] and HPV testing will be performed at [facility] (CLIA #[id number]), [address] [place] [address]. Testing for HPV was performed using the [...] detected. All professional services are performed by [facility] ([address] [place] [address]; ; CLIA #[id number]). The PAP Test is a screening procedure with the inherent possibility of both false negative and false positive results. Results should be interpreted in the context of historic and current clinical findings. Reliability of the PAP Test is enhanced by performing the test on a regular repetitive basis. CONTINUED ON NEXT PAGE ----- ------- Name: Angie Mathis Age/Sex: 64/F : 1960 Unit#: [id number] Attend Dr: TAMEKA STODDARD CNM Re11/30/24 Status: DEP REF Location: [facility] Disch: ----- ------- SPEC : [id number] RECD: 12/01/24 STATUS: ROBERTA MONSALVE NUM: [id number] BRIAN: 11/30/24-[address] [facility] [address]: TAMEKA STODDARD CNM ENTERED: 12/01/24 SP TYPE: Pap Smr THIAGO DR: ORDERED: Pap Smear, PAP path review ----- ------- Signed (signature on file) Jonathan Daley MD 12/06/24 1133 ----- ------- END OF REPORT Tameka Stoddard CNM LAB CYTOLOGY ORDERABLES F inal Result [facility] [address] [place] [phone] * Lipid Panel, Standard (03/03/2024 8:44 AM EDT) Triglycerides 47 <150 mg/dL [facility] Comment:Desirable Triglyceri de: less than 150 mg/dLBorderline High Triglyceride 150-199 mg/dLHigh Triglyceride: 200-499 mg/dLVery High Triglyceride: greater than or equal to 5OO mg/dL Cholesterol 154 <200 mg/dL [facility] Comment:Desirable Cholestero l: less than 200 mg/dLBorderline High Cholesterol: 200-239 mg/dLHigh Cholesterol: greater than 239 mg/dL LDL Cholesterol Calculated 87 <100 mg/dL [facility] Comment:Desirable LDL: less than 100 mg/dLNear Optimal/Above Optimal LDL: 110- 129 mg/dLBorderline High LDL: 130-159 mg/dLHigh LDL: 160-189 mg/dLVery High LDL: greater than or equal to 190 mg/dL HDL Cholesterol 58 >40 mg/dL [facility] Comment:Desirable HDL: great er than 40 mg/dL Note: This HDL assay may give artificially low results in patients with liver disease. Blood Venous blood specimen / Unknown 03/03/2024 8:44 AM EDT 03/03/2024 11:20 AM EDT Radha Escalera DO LAB BLOOD ORDERABLES Final R esult [facility] [address] [place] [phone] * Biopsy cervix (10/03/2021) Narrative Rahel Cerrato - 10/03/2021 Negative Historical Provider IN CLINIC/BEDSIDE ORDERAB LES Final Result * Hm Colonoscopy (04/04/2020 10:07 AM EDT) Historical Provider HEALTH MAINTENANCE Final Result from Last 3 Months or Most Recently Relevant to Health Maintenance Insurance [facility] OPTIONS (HMO D-SNP) DENTAL - [facility] * Guarantor: Angie Mathis I Account Type Relation to Patient Date of Phone Billing Address Personal/Family Self [address] Care Teams Geodetic Computator Relationship Specialty Start Date End Date Radha Escalera DO [address] [place] [id number] PCP - General Family Medicine 06/23/18
--- OUTSIDE RECORDS SUMMARY | 2025-05-12 18:51 | XMS_ITS | Encounter Summary ---
Author Organization [employer] Address [address] [place] [address] Care Team Providers Care [employer] Medic Name Role Phone Radha Escalera DO Primary Care Provider + [phone] Encounter Details Date Type Department Care Team (Late st Contact Info) Description 07/30/2023 Orders Only [facility] [address] [place] [address] Isha Tran FNP Social History Tobacco Use [...] documented as of this encounter Care Teams [employer] Medic Relationship Specialty Start Date End Date Radha Escalera DO [address] [place] [address] PCP - General Family Medicine 06/23/18 documented as of this encounter
--- OUTSIDE RECORDS SUMMARY | 2025-05-12 18:51 | XMS_ITS | Encounter Summary ---
Author Organization [employer] Address [address] [facility] [address] [place] [address] Care Team Providers Care Bankruptcy Processor Name Role Phone Radha Escalera DO Primary Care Provider + [phone] Reason for Visit * Reason Comments Med Refill Encounter Details Date Type Department Care Team (Late st Contact Info) Description 02/08/2025 Refill [facility] [address] [place] [address] Radha Escalera DO [address] [place] [address] Vitamin D deficiency; Seasonal allergic rhinitis, unspecified [...] documented as of this encounter Care Teams Bankruptcy Processor Relationship Specialty Start Date End Date Radha Escalera DO [address] [place] [phone] PCP - General Family Medicine 06/23/18 documented as of this encounter
--- OUTSIDE RECORDS SUMMARY | 2025-05-12 18:51 | XMS_ITS | Encounter Summary ---
Author Organization [employer] Address [address] [place] [address] Care Team Providers Care Horticultural Worker Name Role Phone Radha Escalera DO Primary Care Provider + [phone] Encounter Details Date Type Department Care Team (Late st Contact Info) Description 03/30/2025 Orders Only [facility] [address] [place] [address] Jannette Ontiveros MD [address] [place] [address] Acute cystitis without hematuria Social History Tobacco [...] procedure / Unknown 03/30/2025 03/30/2025 Comment:[facility]ACC Narrative [facility] - 04/01/2025 7:31 AM EDT Escherichia coli Quant > 100,000 cfu/mL Escherichia coli: Ampicillin 16(I) Escherichia coli: Cefazolin (Urine) 4(S) Escherichia coli: Cefepime <=0.12(S) Escherichia coli: Ceftriaxone <=0.25(S) Escherichia coli: Ciprofloxacin 1(R) Escherichia coli: Gentamicin <=1(S) Escherichia coli: Nitrofurantoin <=16(S) Escherichia coli: Trimethoprim/Sulfamethoxazole <=20(S) Specimen Source: Urine clean catch us Carol Hdez MD LAB MICROBIOLOGY - GENERAL ORDERABLES Final Result [facility] [address] [place] [phone] documented in this encounter Visit Diagnoses Diagnosis Acute cystitis without hematuria documented in this encounter Additional Health Concerns Assessment Noted Time PHQ-9 Depression Total Score: 4 03/08/20 25 11:18 AM EDT documented as of this encounter Care Teams Horticultural Worker Relationship Specialty Start Date End Date Radha Escalera DO [address] [place] [phone] PCP - General Family Medicine 06/23/18 documented as of this encounter
== END 2025-05-12 13:02 | disposition home or self-care (01) ==
LOC: HO.LAB 13:01
PROVIDERS: PCP Family Medicine; Visit Provider Nurse Practitioner Family
DX: R31.29 Other microscopic hematuria (principal); N39.0 Urinary tract infection, site not specified; F17.211 Nicotine dependence, cigarettes, in remission; Z79.818 Long term (current) use of other agents affecting estrogen receptors and estrogen levels; Z79.2 Long term (current) use of antibiotics
CPT/HCPCS: 81003; 87086; 88112; 99212